=== PATIENT | male | born 1950 | race Caucasian/White ===

== ENCOUNTER 2021-06-04 06:51 | Outpatient (CLI) | payer MEDICARE, SELFPAY ==
[2021-06-04 06:59] VITALS: BMI 29.2
--- NOTE | 2021-06-04 07:13 | ECG_ITS ---
[facility] Test Date: 2021-06-04 Pat Name: Lauro Rivera Department: Room: Gender: Male Lbd Teacher: : 1950 Requested By: Lucina Lutz Order Number: [id number] Ludin MD: Lucina Lutz M.D. Interpretive Statements NAME OF STUDY: LEXISCAN SESTAMIBI STRESS TEST INDICATION: Shortness of Breath, PROCEDURE: At the baseline, the EKG revealed Normal sinus rhythm with poor R wave progression. Features of old anteroseptal myocardial infarction. The baseline blood pressure was 160/86 mm Hg with a heart rate of 61 beats/min. Lexiscan was infused over a period of 20 seconds. A total of 0.4 milligrams of Lexiscan was infused. The stress phase was continued for a total of 5 minutes. Heart rate at the end of the stress phase was 68 with a blood pressure 144/65. The EKG at the peak infusion revealed no significant changes. Sestamibi was injected 20 seconds after the Lexiscan infusion. Blood pressure at the end of the recovery phase was one 128/62 with a heart rate of 67 per minute. CONCLUSION: 1. No significant EKG changes with the LexiScan infusion 2. No LexiScan induced chest pain or cardiac arrhythmia 3. Normal blood pressure and heart rate response 4. Sestamibi/sestamibi perfusion scan pending; see separate report. Electronically Signed On 06-07-2021 0:41:09 CDT by Lucina Lutz M.D. [email or web address]
--- NOTE | 2021-06-04 07:14 | NMCV_ITS ---
NM violetta perf SPECT r/s* [id number] Lauro Rivera Age: 70 Gender: M : 1950 Exam Date: 06/04/2021 08:06 Ordering Phys: Lucina Lutz MD ([email or web address]) Technologist: PHOENIX Fritz Exam Location: [facility] Indications: SHORTNESS OF BREATH STRESS TEST Please [facility] IMAGE PROTOCOL Rest/Stress 1 Lexiscan Day Radiopharmaceutical Dose (mCi) Administration Site Administered by Rest: Tc-99m 10.8 IV PHOENIX Alejandro Sestamibi Stress:Tc-99m 32.8 IV PHOENIX Alejandro Sestamibi Rest: 04-Jun-2021 60 Discovery 630 Stress: 04-Jun-2021 30 Discovery 630 0.4mg Lexiscan. Images obtained in supine and prone position. SPECT RESULTS Technical Quality: Excellent Raw Data Analysis: Normal Image Corrections: No attenuation or motion correction applied Summed Stress Score: 6 Summed Rest Score: 0 Summed Difference Score: 6 PERFUSION FINDINGS Moderate area decreasesed tracer uptake was noted in the mid and apical inferior, mid inferoseptal, apical lateral and LV apex. Significant reversibility was noted in these regions FUNCTIONAL RESULTS (calculated via Gated SPECT) Stress Image LV EF (%): 69 Stress EDV (mL):100 TID: 0.97 Stress ESV (mL):31 FUNCTIONAL FINDINGS: Segmental wall motion analysis revealing no gross wall motion abnormalities IMPRESSIONS 1. Myocardial perfusion imaging revealing small to moderate area of reversible defect in the inferior, inferoseptal and apical regions suggestive of myocardial ischemia in the distribution of the left circumflex/right coronary artery. 2. Normal LV ejection fraction 69%. 3. LV wall motion analysis revealing no gross wall motion normalities. 4. Normal LV volume. No similar previous studies are available for comparison Dr Lucina Lutz MD FAC (Electronically Signed) Final Date: 04 June 2021 14:07 S
[2021-06-04] MEDS: regadenoson 0.4 Mg/5 ml Syringe IVP (08:57)
[2021-06-04 09:08] VITALS: BP 128/62; PULSE 67
== END 2021-06-04 06:52 | disposition home or self-care (01) ==
LOC: CDL 06:55
PROVIDERS: PCP Internal Medicine; Visit Provider Internal Medicine Cardiovascular Disease
DX: R07.9 Chest pain, unspecified (principal); I25.10 Atherosclerotic heart disease of native coronary artery without angina pectoris; R06.02 Shortness of breath
CPT/HCPCS: 78452; 93017; A9500; J2785

== ENCOUNTER 2021-06-25 13:14 | Outpatient (CLI) | payer MEDICARE, SELFPAY ==
--- NOTE | 2021-06-25 13:30 | USCV_ITS ---
RiveraLauro armijo Age: 70 Gender: M : 1950 Exam Date: 06/25/2021 14:46 Ordering Phys: Lucina Lutz MD ([email or web address]) Technologist: Mary Parikh Exam Location: [facility] [place] Indication: PAD, leg pain Risk Factors: smoker, HTN Previous Vascular Surgery: patient states left leg stent f/b graft f/b reverse vein graft RIGHT LEFT BP: 153.0 / 79.00 BP: 131.0/ 82.00 0 0 Waveform Velocity (cm/s) Velocity (cm/s) Waveform Biphasic 138.3 Iliac Prox 251.3 Biphasic Biphasic 136.7 Iliac Mid 257.4 Biphasic Biphasic 132.1 Iliac Distal 217.1 Biphasic Biphasic 120.9 FABRICATION WELDER 29.9 Biphasic Biphasic 96.0 SFA Prox 29.9 Biphasic Biphasic 144.6 SFA Mid 20.0 Biphasic Biphasic 103.9 SFA Dist 18.1 Monophasic Biphasic 447.8 POP 27.2 Monophasic N/A WEB DEVELOPMENT CONSULTANT 16.9 Monophasic Monophasic 37.3 DPA 142.9 Monophasic FINDINGS RT charter boat captain no flow RT DPA >220 LT WEB DEVELOPMENT CONSULTANT > 220 LT DPA> 220 NO GALA NON COMPRESSABLE No flow was detected in the left femoral artery Velocity monophasic waveforms were noted in the femoral- popliteal bypass graft. Markedly elevated velocity in the popliteal artery on the right side Monophasic waveforms in the posterior tibial and dorsalis pedis arteries. CONCLUSIONS 1. Noncompressible vessels bilaterally at the ankle 2. Features of high-grade stenosis in the right popliteal artery. 3. Possibly occluded posterior tibial artery on the right side. 4. Total occlusion of the superficial femoral artery on the left side. 5. Patent femoral-popliteal bypass graft with a sluggish flow 6. Patent posterior tibial and dorsalis pedis artery at the left ankle Dr Lucina Lutz MD [facility] (Electronically Signed) Final Date: 03 July 2021 18:39 S
--- NOTE | 2021-06-25 14:15 | USCV_ITS ---
Lauro Rivera Age: 70 Gender: M : 1950 Exam Date: 06/25/2021 14:20 Ordering Phys: Lucina Lutz MD ([email or web address]) Technologist: Mary Parikh Exam Location: [facility] [place] Indication: PAD Risk Factors: Previous Vascular Surgery: llower extremity stent left Right Brachial BP: / Left Brachial BP: / Right Left Velocity (cm/s) Spectral Plaque Velocity (cm/s) Spectral Plaque Syst/Diast Broadening Syst/Diast Broadening 79.40/ 19.80 Prox CCA 88.60 / 21.80 79.40/ 15.40 Mid CCA 57.30 / 16.50 50.60/ 10.50 Hetro Distal CCA 54.40 / 11.70 Hetro 133.60/40.40 Hetro Prox ICA 81.10 / 23.90 Hetro 250.65/93.40 Mid ICA 59.00 / 23.90 243.80/54.70 Distal ICA 54.70 / 26.50 113.40 ECA 143.30 3.42 ICA/CCA 0.92 Antegrade Vertebral Antegrade 82.90/ 14.50 cm/s 19.20/ 10.30 cm/s Tri Subclavian Tri 163.1 75.80 0 FINDINGS Moderate heterogeneous plaques of the right bifurcation. Moderate to heavy plaques at the mid and distal internal carotid artery on the right side Minimal plaques at the left bifurcation and internal carotid artery. Intimal thickening and minimal plaques in the common carotid arteries bilaterally. Antegrade flow in the vertebral arteries bilaterally. Low velocity continuous waveform in the left vertebral artery CONCLUSIONS Moderate heterogeneous plaques at the right bifurcation with elevated Doppler velocities suggesting 50 to 69% stenosis. Elevated velocities in the mid and distal internal carotid artery is suggestive of diffuse disease in the vessel. Minimal plaques at the left bifurcation and internal carotid artery, suggesting less than 50% gnosis. Abnormal Doppler waveforms in the left vertebral artery, may suggest collateral flow. Consider CTA to better evaluate the arch vessels and the intracranial arteries. No similar previous studies are available for comparison Dr Lucina Lutz MD [facility] (Electronically Signed) Final Date: 26 June 2021 09:23 S
--- NOTE | 2021-06-25 15:00 | USCV_ITS ---
Lauro Rivera Age: 70 Gender: M : 1950 Exam Date: 06/25/2021 14:05 Ordering Phys: Lucina Lutz MD ([email or web address]) Technologist: Exam Location: [facility] [place] Indication: dyspnea BP: 134 / 74 HR: 64 Rhythm: Sinus Technical Quality: Adequate MEASUREMENTS (Male / Female) Normal Values 2D ECHO LV Diastolic Diameter PLAX 3.8 cm 4.2 - 5.9 / 3.9 - 5.3 cm LV Systolic Diameter PLAX 2.7 cm IVS Diastolic Thickness 1.1 cm 0.6 - 1.0 / 0.6 - 0.9 cm IVS Systolic Thickness 1.1 cm LVPW Diastolic Thickness 1.0 cm 0.6 - 1.0 / 0.6 - 0.9 cm LVPW Systolic Thickness 1.3 cm LVOT Diameter 2.0 cm LV Ejection Fraction 2D Teich 55.9 % LV Ejection Fraction MOD 2C 60.6 % LV Ejection Fraction 2C AL 60.7 % LA Diameter 3.3 cm LA Width 3.4 cm LA Height 4.3 cm RA Width 3.1 cm RA Height 4.4 cm Aorta at Sinotubular Diameter 3.0 cm M-MODE Aortic Annulus Diameter 3.5 cm DOPPLER AV Peak Velocity 179.0 cm/s LVOT Peak Velocity 88.0 cm/s AV Area Cont Eq vti 1.8 cm squared AV Area Cont Eq pk 1.6 cm squared MV Area PHT 3.8 cm squared Mitral E to A Ratio 0.9 MV E' Velocity 48.0 cm/s Mitral E to MV E' Ratio 12.4 Mitral E to LV E' Lateral Ratio 11.3 Mitral E to LV E' Septal Ratio 13.8 TR Peak Velocity 137.0 cm/s TR Peak Gradient 7.5 mmHg FINDINGS Left Ventricle Normal left ventricular size and systolic function, EF 64 %. No regional wall motion abnormalities. Mild left ventricular hypertrophy. Grade I/IV diastolic dysfunction (abnormal relaxation filling pattern), normal to mildly elevated filling pressures. Right Ventricle The right ventricle is normal in size and function. Right Atrium The right atrium is normal in size. Left Atrium The left atrium is normal in size. Mitral Valve Thickened mitral valve. Aortic Valve Thickened aortic valve. Tricuspid Valve No gross abnormalities noted Pulmonic Valve Pulmonic valve not well visualized. Pericardium Normal pericardium without effusion. Aorta Normal ascending aorta dimension. CONCLUSIONS Normal left ventricular size and systolic function, EF 64 %. No regional wall motion abnormalities. Mild left ventricular hypertrophy. Grade I/IV diastolic dysfunction (abnormal relaxation filling pattern), normal to mildly elevated filling pressures. Thickened mitral valve. Thickened aortic valve. There is no pericardial effusion. There are no intracardiac masses. No previous study is available for comparison. Dr Lucina Lutz MD [facility] (Electronically Signed) Final Date: 25 June 2021 17:39 S
== END 2021-06-25 13:15 | disposition home or self-care (01) ==
LOC: US 13:15
PROVIDERS: PCP Internal Medicine; Visit Provider Internal Medicine Cardiovascular Disease
DX: R06.00 Dyspnea, unspecified (principal); I25.118 Atherosclerotic heart disease of native coronary artery with other forms of angina pectoris; I77.9 Disorder of arteries and arterioles, unspecified; I73.9 Peripheral vascular disease, unspecified; I08.0 Rheumatic disorders of both mitral and aortic valves; I65.23 Occlusion and stenosis of bilateral carotid arteries
CPT/HCPCS: 93306; 93880; 93925

== ENCOUNTER → 2021-06-26 11:41 | Outpatient (BNVA) | payer MEDICARE, SELFPAY | PROVIDERS: PCP Internal Medicine; Visit Provider Internal Medicine Cardiovascular Disease | DX: I25.118 Atherosclerotic heart disease of native coronary artery with other forms of angina pectoris (principal); I65.21 Occlusion and stenosis of right carotid artery; Z01.812 Encounter for preprocedural laboratory examination | CPT/HCPCS: 80048; 85025; 85610; 86850; 86900 ==

== ENCOUNTER 2021-07-02 18:15 | Observation (INO) | payer MEDICARE, SELFPAY ==
[2021-07-02] VITALS (29 sets, daily range): BP systolic 129–215; BP diastolic 67–114; PULSE 60–76; RESP 9–27; TEMP 36.1–36.6; O2SAT 96–99; BMI 28.5
--- NOTE | 2021-07-02 15:00 | XACV_ITS ---
Ht: 180 cm Wt: 93 kg BSA: 2.18 m2 Gender: Male : 1950 Any Known Allergies: Other Exam Priority: Routine Procedure(s): Procedure Description: Diagnostic procedure Procedure Description: Left Heart Catheterization Procedure Description: Peripheral Cath Diagnostic Procedure Procedure Description: Abdominal aortic angiography Procedure Description: Lower extremities' angiography Procedure Description: Coronary Angiography Procedure Description: Pressure Wire Bolivar POWELL; Diagnostic Cath Status: Elective Diagnostic Findings * Coronary angiography shows right dominance. * The left main is a medium caliber short vessel with no significant stenotic lesion. * The left anterior descending artery is a medium caliber vessel which appears to wrap around the LV apex. The mid LAD was found to have a tapering narrowing for 60% tumors the second septal compensation and benefits administrator. The first diagonal branch was found to have mild diffuse disease. The mid and the distal segment of the left anterior descending artery was found to have minimal intimal irregularities. * The left circumflex artery is a medium caliber vessel which gives of a high obtuse marginal branch proximally. The artery in the AV groove was found to be a slender caliber vessel with some minimal intimal irregularities. The proximal segment of the first obtuse marginal artery was found to have around 20 to 30% diffuse narrowing. * The right coronary artery is a medium caliber vessel which appears to bifurcate in the mid segment, giving of the PLV and the PDA branch. These branches were found to have mild diffuse intimal irregularities with no significant stenotic lesions. Carotid Diagnostic Findings . Abdominal Diagnostic Findings Mild diffuse plaques noted in the abdominal aorta. No significant lesions are noted at the bifurcation. Both renal arteries appear to be patent. And abdominal aortogram was performed by placing the pigtail catheter at the level of the L1 vertebra. The study is of suboptimal quality. The aorta was found to be of normal caliber. Minimal ectasia was noted in the infrarenal aorta. No significant lesions were noted in the aorta or in the proximal common iliac arteries bilaterally. Lower Extremity Diagnostic Findings On the left side, the proximal common iliac artery was found to be widely patent with no significant stenotic lesions. The external iliac artery was selectively engaged using a contra catheter. The left external iliac and the internal iliac arteries were found to have moderate diffuse disease. The platinum femoral artery was found to be extensively stented and totally occluded right at the origin of the profunda femoral artery. The profunda femoral artery itself was found to have mild to moderate diffuse plaques. The bypass graft from the common femoral to the popliteal artery was found to be patent. At the distal anastomosis, there was an 80 to 90% stenosis in the graft. The popliteal artery appears to be patent. The anterior tibial and the posterior tibial arteries were not visualized. The peroneal artery was found to be extending up to the middle third of the leg.. On the right side, iliac angiogram with runoff was performed by injecting into the femoral arterial sheath. The external and internal iliac arteries were found to have mild to moderate diffuse disease. The common femoral artery also was found to have mild diffuse disease. The profunda femoral artery was found to have moderate to severe diffuse disease. The femoral artery was found to have moderate diffuse disease in the proximal segment. In the adductor canal, the artery was found to have moderate to heavy diffuse irregular plaques. Mild to moderate diffuse disease was noted in the distal third of the artery. Popliteal artery was found to have mild to moderate diffuse disease. Just behind the knee joint, the artery was found to have a 80 to 90% segmental stenosis. The anterior tibial and posterior tibial arteries were found to be totally occluded proximally. Anterior tibial artery was found to be reconstituting just above the ankle. The peroneal artery was found to be patent up to the ankle. Moderate diffuse disease was noted in the artery proximally.. Conclusions 70-year-old white male with history of hypertension, diabetes, dyslipidemia, carotid artery disease and peripheral artery disease, presents with complaints of chest pain. He had an abnormal myocardial perfusion imaging suggesting ischemia in distribution of the left circumflex artery/right coronary artery. He also was complaining of increasing exertional claudication mostly on the left side. In view of his ongoing worsening of the symptoms, in order to further evaluate his coronary status as well as peripheral arterial status, a left heart catheterization with left and right coronary angiogram and peripheral angiogram were recommended. The patient underwent these procedures today. The findings are as follows.. 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 The femoral-popliteal bypass graft was found to be patent with a high-grade stenosis at the distal anastomosis. Possible occlusion of the anterior tibial and posterior tibial artery on the left side with patent peroneal artery. Mild to moderate diffuse disease in the other vessels. On the right side, there was a high-grade lesion in the popliteal artery. Moderate to heavy diffuse irregular plaques were noted in the femoral artery at the adductor canal. Anterior tibial and posterior tibial arteries were found to be occluded proximally with some reconstitution distally. The peroneal artery appeared to be extending up to the ankle. The coronary angiogram revealed short left main. A moderate tapering narrowing in the mid LAD. Moderate calcification was noted to the proximal LAD. Mild diffuse disease in the other vessel. The LVEDP was 6 mmHg.. Recommendations Continue current medical management and risk factor modification. I reviewed the cardiac catheterization and the peripheral angiogram data with Dr. Gutierrez. Because of the patient's symptoms, it was thought to be appropriate to consider FFR of the LAD lesion. If it is significant, we will go ahead with the PCI. Patient will be brought back for the peripheral intervention at a later date. LV EDP: 6 mmHg Left Ventriculography Findings: * The LV gram was not performed to because of the concern about the dye overload. The LVEDP was 6 mmHg. Pressures Phase:Rest AO : 171 / 80 ( 114 ) @ 3:59:00 PM 155 / 58 ( 100 ) @ 4:12:00 PM 157 / 52 ( 100 ) @ 4:12:00 PM 118 / 80 ( 100 ) @ 4:24:00 PM LV : 161 / -23 / 6 @ 4:11:00 PM 162 / -15 / 8 @ 4:12:00 PM Valves Phase:DefaultPhase AV : 13.0 @ 6:17:27 PM AV Mean Gradient: 12.0 @ 6:17:27 PM Hemodynamic Data Phase:Rest AO : 171.0 / 80.0 ( 114.0 ) @ 3:59:00 PM 155.0 / 58.0 ( 100.0 ) @ 4:12:00 PM 157.0 / 52.0 ( 100.0 ) @ 4:12:00 PM 118.0 / 80.0 ( 100.0 ) @ 4:24:00 PM Clinical Evaluation EBL: 5mL-10mL Procedural Details Pre-Procedure Time Out. Identified patient by full name and date of as verbalized by the patient/guarantor. Does the consent match the physician's order: Yes. Accurate & Complete Informed Consent: Yes. Inpatient/Outpatient History & Physical on Chart: Yes. If H&P is completed, is and addenduem needed: No; If yes, is the addendum complete: N/A. Visualize and Verify Site with Patient/Guarantor: N/A. Relevant Radiology Images available: N/A. Pre-op teaching completed and patient verbalized understanding. The risks, benefits, and alternatives of sedation and/or procedure were discussed by physician. The patient agrees to continue. Procedure started. [facility] Clinical Fraility Score: 4: Vulnerable. Traveling Clerk Indications: Worsening Angina, abnormal stress test. Chest Pain Symptom Assessment: Typical Angina Symptoms. Cardiovascular Instability: No. Correct patient, site and procedure confirmed by cath team. PERRLA. Strong, equal hand hydrology technician bilaterally. Lungs clear x 5 lobes. IV Site on Arrival: 20 gauge in the right anticubital. IV Fluids: 0.9% NaCl at KVO. 0 mL infused prior to labor crew supervisor. Pre Procedural Pulses: bilateral dorsalis pedis was Doppled. Pre Procedural Pulses: bilateral posterior tibial was Doppled. Pre Procedural Pulses: bilateral radial was 3+. Oxygen started at 2liters/min via nasal canula. bilateral groins was prepped with chloroprep then draped in the usual sterile fashion. Veronica Quinteros RN will be circulating nurse for this procedure. Baseline sample Acquired. HR: 72 BPM. Physician arrived. Equipment: 6F - Femoral. Cardiac Cath Pack. ACIST Manifold Kit Model BT 2000. Heparinized Saline (2 units/mL), 1000 mL bag. Kit, Micropuncture. Physician scrubbed in. Immediate Pre-Procedure Time Out. Correct Patient: Yes; Correct Procedure: Yes; Correct Site: Yes; Correct Patient Position: Yes; Correct Supplies: Yes; Dried Flammable Prep: Yes; Blood Products Available: N/A;. Lidocaine 1% infiltrated to the right groin. Arterial access obtained with micropuncture set. A 5 [place] JL4 catheter in over wire. Multiple views taken of left coronary artery. Catheter removed over the standard wire. A 5 [place] JR4 catheter in over wire. Multiple views taken of right coronary artery. Catheter removed over the standard wire. A 5 [place] Angled Pig catheter in over wire. EDP Sample taken: LV 161/-24,6; HR: 79 BPM; SpO2: 98%. Pullback taken: LV 162/-16,8; AO 155/58(100); Mean: 12mmHg, Peak to Peak: 13mmHg, SEP: 20sec/min; HR: 79 BPM; SpO2: 98%. Abdominal aortogram performed in AP @ 20 mL/sec for a total of [address] Gutierrez to come view films. Catheter out. Right leg runoff through the sheath 10 ml for total of 20 ml. A 5Fr RIM catheter in over wire. Left leg runoff 10 ml for total of 20 ml. Catheter removed over the standard wire. Dr Lutz scrubbed out. Dr. Gutierrez scrubbed in to perform intervention. Sheath upsized to a 6 Fr. 6 [place] XB 3.5 guide catheter was inserted over the wire. FFR guidewire was advanced through the guide catheter to lesion in the prox LAD. An FFR value of 0.84 was obtained for a lesion located at Mid LAD. Fractional flow reserve measurements obtained. Wire out. Guide catheter out. Dr Gutierrez scrubbed out. A Suture was successful obtaining hemostatsis at the Right Femoral artery insertion site. Sheath(s) sutured into position with 2-0 silk and sterile 4x4's and Op-site applied over the site. No oozing or signs and symptoms of hematoma noted. Arterial sheath flushed and connected to tranducer and pressure bag with heparinized saline. Post Procedure: Pulses reassessed and unchanged. PERRLA. Strong, equal hand hydrology technician bilaterally. No VTE prophylaxis required. Contrast type used: Visipaque 320 mgI/mL, 500 mL bottle. Post-op diagnosis: nonobstructive CAD, severe PAD, severe venous graft disease. Medication's Wasted: Lidocaine 1% = 7 mL. Medication's Wasted: Heparin = 3000 units. Total IV fluids: 316 mL. Complications: none. Medication's Wasted: Other = adenosine 59.8 mg. Estimated blood loss: 5mL-10mL. Procedure completed. Patient transferred by bed to 1st floor. Vital chart was stopped. Access Site Site: Right Femoral artery Sheath Size: 5 Fr Hemostasis Method: Suture Hemostasis Success: Successful Procedure Medications Start: 4:37 PM Stop: 4:37 PM Medication: Versed Amount: 1 mg Route: I.V. Start: 4:37 PM Stop: 4:37 PM Medication: Fentanyl Amount: 50 mcg Route: I.V. Start: 4:47 PM Stop: 4:47 PM Medication: Versed Amount: 1 mg Route: I.V. Start: 4:47 PM Stop: 4:47 PM Medication: Fentanyl Amount: 25 mcg Route: I.V. Start: 4:57 PM Stop: 4:57 PM Medication: Heparin Amount: 1500 units Route: I.V. Start: 5:01 PM Stop: 5:01 PM Medication: Labetalol (Trandate) Amount: 25 mg Route: I.V. Start: 5:04 PM Stop: 5:04 PM Medication: 0.9% Saline Amount: 200 ml Route: I.V. bolus Start: 5:13 PM Stop: 5:13 PM Medication: Fentanyl Amount: 25 mcg Route: I.V. Start: 5:17 PM Stop: 5:17 PM Medication: Versed Amount: 1 mg Route: I.V. Start: 5:45 PM Stop: 5:45 PM Medication: Versed Amount: 1 mg Route: I.V. Start: 5:53 PM Stop: 5:53 PM Medication: Heparin Amount: 5000 units Route: I.V. I, the attending physician, have reviewed and verified all procedure medications. Yes, all medications given per verbal order History/Risk Factors Hypertension: Yes Dyslipidemia: Yes Peripheral Arterial Disease (PAD): Yes Myocardial Infarction (PA): No Obesity: No Renal Disease: No Tobacco Use: Current/Recent(w/in 1 year) Prior Interventions PCI: Yes CABG: No Valve Surgery: No Report Signatures IPV Workflow Finalized by Dr Lucina Lutz MD [facility] on 07/03/2021 07:37 AM Cath Workflow Finalized by Dr Lucina Lutz MD [facility] on 07/03/2021 07:37 AM
[2021-07-02] MEDS: diphenhydrAMINE 50 mg Capsule PO (16:02)
--- NOTE | 2021-07-02 16:39 | P.HPUD_ITS ---
Surgery/Procedure H&P Update DATE OF PROCEDURE: July 02, 2021 DATE H&P PERFORMED: 06/26/21 H&P UPDATE INFORMATION: I have reviewed H&P completed within last 30 days, I have examined patient prior to procedure and No changes to prior documentation PREOP DIAGNOSIS: ASHD/PAD PRIMARY INDICATION FOR PROCEDURE: chest pain, abnormal MPI; leg pain PLANNED PROCEDURE: Operation Date: 07/02/21 16:30 Proposed Procedures p Cardiac Catheterization(Left) - Lucina Lutz MD and peripheral angiogram; possible PCI/CABLE TOWER OPERATOR PATIENT REASSESSED PRIOR TO SEDATION, WITH NO CHANGE NOTED: Yes PHYSICAL EXAM: alert, oriented x 3, clear to auscultation bilaterally and regular rate & rhythm AIRWAY EVAL/ANESTHESIA PLAN: normal airway, see other exam findings, ASA III, Monitored Anesthesia, Local Anesthesia, Risks, benefits & alternatives of sedation and/or procedure discussed and Patient agrees to continue as planned
[2021-07-02] MEDS: famotidine 20 mg Tablet PO (19:20)
[2021-07-02] MEDS: metoprolol tartrate 50 mg Tablet PO (19:20)
[2021-07-02] MEDS: cyclobenzaprine 10 mg Tablet PO (19:21)
[2021-07-02] MEDS: guaiFENesin 600 mg Tablet PO (19:21)
--- NOTE | 2021-07-02 19:36 | PC.NURSE ---
received from cardiac laboratory chemist at 1830.report received.pt is alert and oriented x 4.denies pain at present.right femoral arteial sheath intact to pressurized system.drsg is dry and intact and no hematoma noted.right leg is warm to touch.dopplerable dp and pt pulse noted bilaterally.instructed in activity restrictions s/p femoral artery procedure...and instructed to notify staff for any bleeding,pain,numbness...or for any concerns at all.pt verb understanding of instructions.
--- NOTE | 2021-07-02 19:38 | PC.NURSE ---
1934: Patient's B/Ps elevated. Notified Dr. Gutierrez. Orders received, see NOV.
[2021-07-02 19:43] LABS: Glucose Point of Care 337 mg/dL (70-110)
[2021-07-02] MEDS: insulin lispro 100 unit/1 mL 20 UNIT SUBCUT (20:04)
[2021-07-02] MEDS: nitroglycerin 1 gm/inch oint Pkt 1 INCH TOPICAL (20:12)
[2021-07-02] MEDS: amlodipine 5 mg Tablet PO (20:12)
[2021-07-02 21:19] LABS: Partial Thromboplastin Time 42.5 SECONDS (23.9-36.7)
--- NOTE | 2021-07-02 21:50 | PC.NURSE ---
Around 2129: Patient's b/p still elevated. Notified Dr. Gutierrez. Orders received, see NOV. Notified Dr. Gutierrez of PTT results. Orders received to pull right groin sheath when b/p is <140 systolic. Will continue to monitor.
[2021-07-02] MEDS: gabapentin 400 mg Capsule 800 MG PO (22:46)
[2021-07-02] MEDS: clotrimazole 1% cream 30 gm 1 APPLIC TOPICAL (22:48)
[2021-07-02] MEDS: diclofenac 1% Topical Gel 100 gm TOPICAL (22:54)
[2021-07-02] MEDS: sodium chloride 0.9% 1,000 ML 100 ML IV (22:55)
[2021-07-02] MEDS: hyDRALAzine 20 mg/mL INJ 1 mL 10 MG IVP (23:00)
[2021-07-02] MEDS: fentaNYL 50 mcg/mL INJ 2mL IVP (23:56)
[2021-07-03] VITALS (50 sets, daily range): BP systolic 119–159; BP diastolic 57–80; PULSE 60–91; RESP 9–27; TEMP 36.6; O2SAT 88–97
[2021-07-03] MEDS: temazepam 15 mg Capsule PO (00:36)
[2021-07-03 04:05] LABS: Basophils # 0.1 10^3/uL (0.0-0.1); Basophils % 0.6 %; Eosinophils # 0.1 10^3/uL (0.0-0.8); Eosinophils % 0.7 %; Hematocrit 35.6 % (42.0-52.0); Hemoglobin 11.9 g/dL (11.7-16.6); Lymphocytes # 1.5 10^3/uL (0.8-4.8); Lymphocytes % 14.1 %; Mean Corpuscular HGB Conc 33.4 g/dL (30.0-36.0); Mean Corpuscular Hemoglobin 30.1 pg (28.0-34.0); Mean Corpuscular Volume 89.9 fl (80-94); Mean Platelet Volume 11.5 fL (7.4-10.4); Monocytes # 0.7 10^3/uL (0.2-0.9); Monocytes % 6.9 %; Neutrophils # 8.01 10^3/uL (1.8-7.7); Neutrophils % 77.2 %; Nucleated Red Blood Cells % 0 %; Platelet Count 180 10^3/cmm (130-400); Red Blood Count 3.96 10^6/uL (4.1-5.3); Red Cell Distribution Width 12.4 % (12.1-15.1); White Blood Count 10.4 10^3/uL (4.0-10.0)
[2021-07-03 04:43] LABS: Anion Gap 16.6 (5-19); Blood Urea Nitrogen 17 mg/dL (8-23); Calcium 8.4 mg/dL (8.5-10.5); Carbon Dioxide 21 mmol/L (22-29); Chloride 105 mmol/L (98-107); Glucose 183 mg/dL (65-115); Osmolality Calculated 294 mOsm/kg (285-295); Potassium 3.6 mmol/L (3.5-5.1); Sodium 139 mmol/L (136-145)
--- NOTE | 2021-07-03 06:30 | PC.NURSE ---
Around 0010: Patients b/p < 140 systolic. PTT 42.5. Removed sheath from patients right groin. Held pressure 20 minutes. Dressed site with 4x4 and tegaderm. No drainage or hematoma noted. Vitals stable. Patient tolerated procedure well. Will continue to monitor.
--- NOTE | 2021-07-03 08:40 | PC.CHAP ---
Pastoral Care Encounter/Spiritual Assessment Type of Contact [] Declined patent leather sorter visit [] Patient/Family/Request visit [] Outpatient visit [] Follow-up visit [] Physician referral [] Code/Alert [x] Routine visit [] Staff referral [] Actively dying [] Patient sleeping [] Family support [] [] Out of room [] Palliative care [] [] Receiving care in room [] Pre-surgical visit [] Trauma [] Long length of stay [] ICU visit [] Other: Relational/Emotional Strength [x] Patient feels connected with others/family/visitors/staff [] Distress [] Loneliness/isolation [] Abandonment Spirituality of Patient [x] Person of Denisa [x] Attends Jain of their Denisa [x] Believes in Prayer [] Reads Bible or Scientology materials [] There are Spiritual issues to be addressed Real Estate Teacher Interventions [x] Prayer [x] Active listening [x] Non-anxious presence [x] Spiritual/emotional support [] Crisis/trauma care [] Spiritual counseling [] Bereavement support [] Provided bereavement packet [] Provided Bible/devotional materials [] Provided toy/stuffed animal, coloring book to patient or family member [] Provided Communion [] Anointing/[place] [] Salvation [x] Completed spiritual assessment [] Other: Impact on Illness or Injury [] Angry [] Fearful [] Anxious [] Often cries [] Exhaustion [] Unable to work [] Unable to attend gnosticist [] Unable to walk/stand [] Unable to read [] Unable to drive [] Unable to eat/drink [] Unable to sleep [] Unable to be with family [] Patient intubated [] Other: Summary Pt has had a number of procedures and is still a little sore. He is hoping to go home today. He lives with his of 52 years and they look after his 95 year old mother in law. She still lives alone and is very independent but they check on her and take her to various places she needs to go. Pt had three children, two daughters and a son. Both daughters in their 40's so he only has his son remaining. Pt does have a number of grandchildren and even some great grand children. He and his attend a [employer] near his home. Time spent with patient 10m
[2021-07-03 09:57] LABS: Glucose Point of Care 216 mg/dL (70-110)
[2021-07-03] MEDS: insulin lispro 100 unit/1 mL 20 UNIT SUBCUT (10:00)
[2021-07-03] MEDS: cyclobenzaprine 10 mg Tablet PO (10:01)
[2021-07-03] MEDS: atorvastatin 40 mg Tablet 80 MG PO (10:01)
[2021-07-03] MEDS: metoprolol tartrate 50 mg Tablet PO (10:01)
[2021-07-03] MEDS: cholecalciferol (vitamin D3) 1,000 unit Tablet 2000 UNIT PO (10:02)
[2021-07-03] MEDS: losartan 50 mg Tablet PO (10:02)
[2021-07-03] MEDS: gabapentin 400 mg Capsule 800 MG PO (10:02)
[2021-07-03] MEDS: cetirizine 10 mg Tablet PO (10:02)
[2021-07-03] MEDS: famotidine 20 mg Tablet PO (10:03)
[2021-07-03] MEDS: ranolazine (12HR) 500 mg Tablet PO (10:03)
[2021-07-03] MEDS: montelukast sodium 10 mg Tablet PO (10:03)
[2021-07-03] MEDS: guaiFENesin 600 mg Tablet PO (10:03)
[2021-07-03] MEDS: aspirin 81 mg EC Tablet PO (10:04)
[2021-07-03] MEDS: isosorbide mononitrate ER 60 mg Tablet PO (10:07)
--- NOTE | 2021-07-03 10:57 | PM.PN ---
Subjective Subjective: Interval history: Patient is doing okay. He had FFR of the LAD lesion which was found to be nonsignificant. It was decided to treat her medically. He had a peripheral angiogram. He will be brought back to the hospital at a later date for intervention by Dr. gregg Medications: Reviewed: Yes Medication Review Details: Current Medications Acetaminophen (Acetaminophen 325 Mg Tablet) 650 mg PO Q6H PRN PRN Reason: MILD PAIN Al Hydrox/Mg Hydrox/Simethicone (Cquz-Fov-Lefoblfxa-Blaze 30 Ml Udc) 30 ml PO Q15M PRN PRN Reason: INDIGESTION Albuterol Sulfate (Albuterol 8 Gm Mdi) 2 puff INHALATION Q6H PRN PRN Reason: Shortness Of Breath Or Wheezing Alprazolam (Alprazolam 0.5 Mg Tablet) 0.25 mg PO TID PRN PRN Reason: ANXIETY Aspirin (Aspirin 81 Mg Ec Tablet) 81 mg PO DAILY [facility] Last Admin: 07/03/21 10:04 Dose: 81 mg Documented by: Atorvastatin Calcium (Atorvastatin 40 Mg Tablet) 80 mg PO DAILY [facility] Last Admin: 07/03/21 10:01 Dose: 80 mg Documented by: Atropine Sulfate (Atropine 1 Mg/Ml Sdv 1 Ml) 0.5 mg IVP PRN PRN PRN Reason: Symptomatic bradycardia Cetirizine HCl (Cetirizine 10 Mg Tablet) 10 mg PO DAILY [facility] Last Admin: 07/03/21 10:02 Dose: 10 mg Documented by: Clotrimazole (Clotrimazole 1% Cream 30 Gm) 1 applic TOPICAL BID@0900,2100 [facility] Last Admin: 07/03/21 10:06 Dose: Not Given Documented by: Cyclobenzaprine HCl (Cyclobenzaprine 10 Mg Tablet) 10 mg PO BID [facility] Last Admin: 07/03/21 10:01 Dose: 10 mg Documented by: Diclofenac Sodium (Diclofenac 1% Topical Gel 100 Gm) 0 applic TOPICAL TID [facility] Last Admin: 07/03/21 10:06 Dose: Not Given Documented by: Famotidine (Famotidine 20 Mg Tablet) 20 mg PO BID [facility] Last Admin: 07/03/21 10:03 Dose: 20 mg Documented by: Furosemide (Furosemide 20 Mg Tablet) 20 mg PO DAILY PRN PRN Reason: edema Gabapentin (Gabapentin 400 Mg Capsule) 800 mg PO TID [facility] Last Admin: 07/03/21 10:02 Dose: 800 mg Documented by: Guaifenesin (Guaifenesin 600 Mg Tablet) 600 mg PO BID [facility] Last Admin: 07/03/21 10:03 Dose: 600 mg Documented by: Hydralazine HCl (Hydralazine 20 Mg/Ml Inj 1 Ml) 10 mg IVP Q2H PRN PRN Reason: HYPERTENSION Last Admin: 07/02/21 23:00 Dose: 10 mg Documented by: Hydromorphone HCl (Hydromorphone 4 Mg Tablet) 4 mg PO 5XD PRN PRN Reason: pain Last Admin: 07/03/21 10:04 Dose: 4 mg Documented by: Sodium Chloride (Sodium Chloride 0.9%) 1,000 mls @ 50 mls/hr IV .Q20H ONE Stop: 07/03/21 10:59 Last Admin: 07/02/21 16:20 Dose: Not Given Documented by: Sodium Chloride (Sodium Chloride 0.9%) 1,000 mls @ 100 mls/hr IV .Q10H [facility] Last Infusion: 07/03/21 09:36 Dose: Infused Documented by: Insulin Human Lispro (Insulin Lispro 100 Unit/1 Ml) 20 unit SUBCUT TID [facility] Last Admin: 07/03/21 10:00 Dose: 20 unit Documented by: Isosorbide Mononitrate (Isosorbide Mononitrate Er 60 Mg Tablet) 60 mg PO DAILY [facility] Last Admin: 07/03/21 10:07 Dose: 60 mg Documented by: Losartan Potassium (Losartan 50 Mg Tablet) 50 mg PO DAILY [facility] Last Admin: 07/03/21 10:02 Dose: 50 mg Documented by: Magnesium Hydroxide (Magnesium Hydroxide 30 Ml Udc) 30 ml PO DAILY PRN PRN Reason: CONSTIPATION Metoclopramide HCl (Metoclopramide 10 Mg Tablet) 10 mg PO TID PRN PRN Reason: Nausea And Vomiting Metoprolol Tartrate (Metoprolol Tartrate 50 Mg Tablet) 50 mg PO BID [facility] Last Admin: 07/03/21 10:01 Dose: 50 mg Documented by: Montelukast Sodium (Montelukast Sodium 10 Mg Tablet) 10 mg PO DAILY [facility] Last Admin: 07/03/21 10:03 Dose: 10 mg Documented by: Mupirocin (Mupirocin Oint 22 Gm) 1 applic TOPICAL BID@0900,2100 [facility] Last Admin: 07/03/21 10:08 Dose: Not Given Documented by: Naloxone HCl (Naloxone 0.4 Mg/Ml Sdv) 0.1 mg IVP Q2M PRN PRN Reason: RESPIRATORY RATE < 8/MIN Nitroglycerin (Nitroglycerin 0.4 Mg Sublingual Tablet) 0.4 mg SUBLINGUAL Q5M PRN PRN Reason: CHEST PAIN Non-Formulary Medication (Bupropion Hcl) 75 mg PO DAILY [facility] Last Admin: 07/03/21 10:06 Dose: Not Given Documented by: Non-Formulary Medication (Glipizide) 10 mg PO BID [facility] Last Admin: 07/03/21 10:06 Dose: Not Given Documented by: Non-Formulary Medication (Icosapent Ethyl [Vascepa]) 1 gm PO DAILY [facility] Last Admin: 07/03/21 10:07 Dose: Not Given Documented by: Non-Formulary Medication (Insulin Degludec [Tresiba Flextouch U-200]) 65 unit SUBCUT DAILY [facility] Last Admin: 07/03/21 10:07 Dose: Not Given Documented by: Non-Formulary Medication (Linaclotide [Linzess]) 145 mcg PO DAILY [facility] Last Admin: 07/03/21 10:08 Dose: Not Given Documented by: Ranolazine (Ranolazine (12hr) 500 Mg Tablet) 500 mg PO DAILY [facility] Last Admin: 07/03/21 10:03 Dose: 500 mg Documented by: Temazepam (Temazepam 15 Mg Capsule) 15 mg PO BEDTIME PRN PRN Reason: INSOMNIA Last Admin: 07/03/21 00:36 Dose: 15 mg Documented by: Vitamin D (Cholecalciferol (Vitamin D3) 1,000 Unit Tablet) 2,000 unit PO DAILY [facility] Last Admin: 07/03/21 10:02 Dose: 2,000 unit Documented by: Vitals/I&O/Wt Last Vital Signs Temp 98 F 07/03/21 04:23 Pulse 86 07/03/21 08:00 Resp 18 07/03/21 10:04 BP 137/79 07/03/21 10:02 Pulse Ox 94 07/03/21 08:00 07/02/21 07/03/21 07/03/21 22:59 06:59 14:59 Intake Total 360 / 360 300 / 660 1360 / 1360 Output Total 200 / 200 1375 / 1575 600 / 600 Balance 160 / 160 -1075 / -915 760 / 760 Weight last 48 hrs Weight 209 lb 12.8 oz Weight 205 lb Physical Exam Narrative: EXAM NARRATIVE: GENERAL: The patient is alert and oriented times three. Not in any acute distress. HEENT: No significant pallor, icterus or lymphadenopathy.Oral cavity: There are no mucous membrane lesions. NECK: Trachea appears to be central. No masses noted. No JVD or thyromegaly appreciated. RESPIRATORY: Chest is symmetrical. No intercostals muscle retraction or any accessory muscle activation. There is no chest wall tenderness. Breath sounds are heard bilaterally. No rales or rhonchi heard. No evidence of any consolidation. BREASTS: Deferred. HEART: The heart sounds are normal. No S3 or S4. No significant murmurs. No pericardial rub ABDOMEN: No vessel pulsations or distention. No tenderness. No organomegaly appreciated. Bowel sounds are normally heard. : Deferred. RECTAL: Deferred. LYMPHATIC: No lymphadenopathy noted in the neck or groin. EXTREMITIES: No edema or cyanosis. No clubbing. Right groin has no hematoma or bleeding MUSCULOSKELETAL: No acute joint deformities or swelling SKIN: There are no significant rashes or ecchymosis NEUROPSYCHIATRIC: The patient is alert and oriented x3. Appears to be in a good mood. No tremors or rigidity noted. Data : 07/03/21 03:13 07/03/21 03:13 Other Labs: Laboratory Last Values WBC 10.4 10^3/uL (4.0-10.0) H 07/03/21 03:13 RBC 3.96 10^6/uL (4.1-5.3) L 07/03/21 03:13 Hgb 11.9 g/dL (11.7-16.6) 07/03/21 03:13 Hct 35.6 % (42.0-52.0) L 07/03/21 03:13 MCV 89.9 fl (80-94) 07/03/21 03:13 MCH 30.1 pg (28.0-34.0) 07/03/21 03:13 MCHC 33.4 g/dL (30.0-36.0) 07/03/21 03:13 RDW 12.4 % (12.1-15.1) 07/03/21 03:13 Plt Count 180 10^3/cmm (130-400) 07/03/21 03:13 MPV 11.5 fL (7.4-10.4) H 07/03/21 03:13 Neut % (Auto) 77.2 % 07/03/21 03:13 Lymph % (Auto) 14.1 % 07/03/21 03:13 [place] % (Auto) 6.9 % 07/03/21 03:13 Eos % (Auto) 0.7 % 07/03/21 03:13 Baso % (Auto) 0.6 % 07/03/21 03:13 Neut # (Auto) 8.01 10^3/uL (1.8-7.7) H 07/03/21 03:13 Lymph # (Auto) 1.5 10^3/uL (0.8-4.8) 07/03/21 03:13 [place] # (Auto) 0.7 10^3/uL (0.2-0.9) 07/03/21 03:13 Eos # (Auto) 0.1 10^3/uL (0.0-0.8) 07/03/21 03:13 Baso # (Auto) 0.1 10^3/uL (0.0-0.1) 07/03/21 03:13 Nucleated RBC % (auto) 0 % 07/03/21 03:13 Nucleated RBCs # 0.0 /100WBC 07/03/21 03:13 APTT 42.5 SECONDS (23.9-36.7) H 07/02/21 20:23 Sodium 139 mmol/L (136-145) 07/03/21 03:13 Potassium 3.6 mmol/L (3.5-5.1) 07/03/21 03:13 Chloride 105 mmol/L (98-107) 07/03/21 03:13 Carbon Dioxide 21 mmol/L (22-29) L 07/03/21 03:13 Anion Gap 16.6 (5-19) 07/03/21 03:13 BUN 17 mg/dL (8-23) 07/03/21 03:13 Creatinine 1.2 mg/dL (0.7-1.2) 07/03/21 03:13 GFR Calculation Not Reportable 07/03/21 03:13 Glucose 183 mg/dL (65-115) H 07/03/21 03:13 POC Glucose 216 mg/dL (70-110) H 07/03/21 07:55 Calculated Osmolality 294 mOsm/kg (285-295) 07/03/21 03:13 Calcium 8.4 mg/dL (8.5-10.5) L 07/03/21 03:13 A&P Assessment and plan (1) Peripheral vascular disease: For the peripheral angiogram findings, please refer to the report from yesterday. Since the patient is remaining stable, he is being discharged on the current medications. He will be brought back to the hospital for intervention by Dr. Gregg Status: Acute (2) Carotid stenosis: Currently on the current medications. Status: Acute Qualifiers: Laterality: right Qualified Code(s): I65.21 - Occlusion and stenosis of right carotid artery (3) Atherosclerosis of coronary artery of [place] heart without angina pectoris: The angiogram findings, please refer to the report from yesterday. We will try to optimize the antianginal medications. Status: Acute Qualifiers: Coronary Disease-Associated Artery/Lesion type: [place] artery Qualified Code(s): I25.10 - Atherosclerotic heart disease of [place] coronary artery without angina pectoris (4) Hypertension: Since the blood pressure is in the normal range, patient may not require any medication changes at this time. Advised to continue on the current measures. Status: Acute Qualifiers: Hypertension type: essential hypertension Qualified Code(s): I10 - Essential (primary) hypertension Attestations Medical Necessity Statement*: Patient is being discharged home today Coding Level of Care Code Acute Electrical Installation Inspector for Birdie Fwd History Detailed Exam Detailed Medical Decision Making Moderate Complexity Diagnoses Peripheral vascular disease I73.9 Carotid stenosis I65.21 Laterality: right Atherosclerosis of coronary artery of [place] heart without angina pectoris I25.10 Coronary Disease-Associated Artery/Lesion type: [place] artery Hypertension I10 Hypertension type: essential hypertension
--- NOTE | 2021-07-03 11:25 | PC.NURSE ---
discharge instructions given and explained.pt verb understanding of instructions.discharged at this time.spouse to drive pt home
--- NOTE | 2021-07-03 16:20 | PC.NURSE ---
orders for medicataions were changed after pt had been discharged.pt's spouse notified of changes at this time
== END 2021-07-03 11:25 | disposition home or self-care (01) ==
LOC: CSU 18:16
PROVIDERS: Internal Medicine Cardiovascular Disease; Admitting Provider Internal Medicine Cardiovascular Disease; PCP Internal Medicine; Visit Provider Internal Medicine Cardiovascular Disease
DX: I25.10 Atherosclerotic heart disease of native coronary artery without angina pectoris (principal); I65.21 Occlusion and stenosis of right carotid artery; I10 Essential (primary) hypertension; E11.9 Type 2 diabetes mellitus without complications; E78.5 Hyperlipidemia, unspecified
CPT/HCPCS: 36415; 36416; 75625; 75716; 80048; 82962; 85025; 85730; 93452; 93571; 96372; C1769; C1887; C1894; G0378; J0153; J0360; J1644; J1815; J2250; J3010; J3490; J7030; Q0163; Q9967

== ENCOUNTER → 2021-07-10 10:30 | Outpatient (BNVA) | payer MEDICARE, SELFPAY | PROVIDERS: PCP Internal Medicine; Visit Provider Nurse Practitioner Family | DX: I25.118 Atherosclerotic heart disease of native coronary artery with other forms of angina pectoris (principal); I73.9 Peripheral vascular disease, unspecified | CPT/HCPCS: 80048 ==

== ENCOUNTER 2021-07-11 12:55 | Outpatient (CLI) | payer MEDICARE, SELFPAY ==
--- NOTE | 2021-07-11 13:00 | CT_ITS ---
WS: [id number] CTA HEAD AND NECK TECHNIQUE: Contrast enhanced CTA of the head and neck with coronal and sagittal reformatted images an d maximum intensity projection (MIP) images. NASCET criteria utilized. CLINICAL INFORMATION: I65.21 - Occlusion and stenosis of right carotid artery COMPARISON: Ultrasound June 2021 DLP: 2410.[address] scans at [facility] use at least one of these dose optimization techniques: automated e xposure control; mA and/or kV adjustment per patient size (includes targeted exams where dose is matc hed to clinical indication); or iterative reconstruction. FINDINGS: No evidence of intracranial hemorrhage or mass effect. Ventricular system and basal cistern s are patent. Normal avila-white differentiation. No extra axial fluid collections. Mild small vessel changes. Mild parenchymal volume loss. Dense cavernous carotid calcification. Paranasal sinuses and m astoid air cells are well aerated. Normal parapharyngeal fat. Right thyroid nodule measuring 2.1 CM. Lung apices are well aerated. Moderate spondylitic changes cervical spine. Disc osteophyte complexes worse at C3-C4 and C5-C6. Severe central canal stenosis at C3-C4 and moderate to severe at C5-C6. Ind entation on the cervical cord. RIGHT: Right common carotid artery is patent. Moderate calcified atheromatous disease right carotid b ulb extending into the ICA with ICA stenosis measuring approximately 67% approximately 1.5 cm from th e bifurcation. Right ICA is patent to the skull base. Dense cavernous carotid calcification. Mild tap ered ICA narrowing at the skull base without flow-limiting stenosis. This measures approximately 30-4 0%. LEFT: Left common carotid artery is patent. Mild atheromatous plaque left carotid bulb extending into the ICA with less than 50% stenosis. Left ICA is patent to the skull base. Dense cavernous carotid c alcification. INTRACRANIAL CTA: Right vertebral artery is occluded at the origin and reconstitutes in the mid neck at the C3-4 level. Segmental stenosis in the right vertebral artery to the basilar junction. Left vertebral artery is pa tent without significant stenosis. Basilar artery is patent. Normal vascularity to the KILN REMOVER territory bilaterally. Both ICAs are patent at the skull base. Dense cavernous carotid calcification with moderate to severe stenosis in the cavernous carotid artery and carotid siphon which remain patent. Normal vascularity to the MICHEAL territory. Normal vascularity to the MCA territories bilaterally. Sweta l MCA trifurcations. CT/CT angio headneck* 39745/[id number] IMPRESSION: 1. Right proximal ICA stenosis approximately 1.5 cm distal to the bifurcation measuring approximately 67% with calcified atheromatous disease. 2. Mild tapered ICA narrowing at the skull base without flow-limiting stenosis . This measures approximately 30-40%. 3. No significant left ICA stenosis. 4. Dense cavernous carotid calcification with moderate to severe multifocal se gmental narrowing involving the cavernous carotid and carotid siphon which kong in patent. 5. Normal vascularity to the MICHEAL MCA and KILN REMOVER territories bilaterally. No flow- limiting stenosis. 6. Right vertebral artery is occluded at the origin and reconstitutes at appro ximately C3-C4. Moderate to severe segmental narrowing involving the right vert ebral artery to the basilar junction. Normal left vertebral artery which is pat ent. 7. 2.1 cm right thyroid nodule. This can be followed up with ultrasound on an elective basis. 8. Noncontrast CT head demonstrates mild small vessel changes with mild parenc hymal volume loss. 9. Disc osteophytic protrusions at C3-C4 and C5-C6 with indentation on cervica l cord. Severe central canal stenosis at C3-C4 and moderate to severe at C5-C6. This can be further evaluated with MRI.
[2021-07-11] MEDS: iodixanol 320 mg/mL 100mL Btl IV (13:41)
== END 2021-07-11 12:56 | disposition home or self-care (01) ==
PROVIDERS: PCP Internal Medicine; Visit Provider Internal Medicine Cardiovascular Disease
DX: I65.21 Occlusion and stenosis of right carotid artery (principal); M25.78 Osteophyte, vertebrae; E04.1 Nontoxic single thyroid nodule
CPT/HCPCS: 70496; 70498; Q9967

== ENCOUNTER 2021-07-20 11:56 | Inpatient (IN) | payer MEDICARE, SELFPAY ==
[2021-07-20] VITALS (35 sets, daily range): BP systolic 140–176; BP diastolic 64–103; PULSE 72–93; RESP 12–29; TEMP 36.8–37.9; O2SAT 94–100; BMI 28.5
--- NOTE | 2021-07-20 06:00 | XACV_ITS ---
Wt: 93 kg BSA: 2.18 m2 Any Known Allergies: Other Gender: Male : 1950 Exam Type: Invasive Peripheral Vascular Procedure(s): Procedure Description: Peripheral Cath Diagnostic Procedure Procedure Description: Peripheral vascular Intervention Procedure Description: PV Balloon Procedure Description: PV Thrombectomy Exam Priority: Routine [id number], Gutierrez; Lower Extremity Interventional Findings Peripheral intervention: Antegrade approach was adopted to enter right SFA through proximal right SFA. After somewhat difficulty were able to cross the mid to distal SFA and right popliteal high-grade stenosis into peroneal artery. With the help of seeker catheter Viper wire was replaced for Glidewire, using 2.0 CSI arthrectomy in the multiple runs were performed in mid to distal right SFA popliteal vessel. Multiple balloon angioplasty was performed in peroneal artery, popliteal artery and SFA. Please see inventory. Good angiographic result with good flow was restored in the right SFA popliteal and peroneal vessel. Anterior tibial was filled through distal collaterals from peroneal vessel.. Conclusions Indication for peripheral intervention: Critical limb ischemia: Patient underwent peripheral angiogram few days back by Dr. Lutz. He was noted to have moderate to severe proximal mid right SFA lesion and high-grade mid popliteal lesion. He also had chronically occluded anterior and posterior tibial vessel, anterior tibial reconstituted from peroneal vessel distally. . null was treated with Balloon. null was treated with Balloon. null was treated with Balloon. Recommendations 1-Return to inpatient for close monitoring and routine cath care2-Risk factor modification for secondary prevention3-Statin and aspirin 81 mg life--long, if tolerated4-Continue Plavix 75mg p.o. daily.5-Continue optimal medical management6-Follow up with Dr. Lutz in four weeks and your primary care in 10 days. Hemodynamic Data Phase:Rest AO : 88.0 / 62.0 ( 74.0 ) @ 7:31:00 AM 178.0 / 85.0 ( 127.0 ) @ 7:57:00 AM 91.0 / 64.0 ( 77.0 ) @ 8:03:00 AM Access Site Site: Right Femoral artery Sheath Size: 6 Fr Hemost... Method: Suture Hemost... Success: Successful Procedure Details Findings Procedure Consent Obtained. Pre-Procedure Time Out. Identified patient by full name and date of as verbalized by the patient/guarantor. Does the consent match the physician's order: Yes. Accurate & Complete Informed Consent: Yes. Inpatient/Outpatient History & Physical on Chart: Yes. If H&P is completed, is and addenduem needed: N/A; If yes, is the addendum complete: N/A. Visualize and Verify Site with Patient/Guarantor: N/A. Relevant Radiology Images available: Yes. Pre-op teaching completed and patient verbalized understanding. The risks, benefits, and alternatives of sedation and/or procedure were discussed by physician. The patient agrees to continue. Procedure started. Correct patient, site and procedure confirmed by cath team. PERRLA. 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 Lungs clear x 5 lobes. IV Site on Arrival: 20 gauge in the right anticubital. IV Fluids: 0.9% NaCl at KVO. 500 mL infused prior to labor relations consultant. Pre Procedural Pulses: bilateral dorsalis pedis was Doppled. Pre Procedural Pulses: bilateral posterior tibial was Doppled. Pre Procedural Pulses: bilateral radial was 3+. Oxygen started at 2liters/min via nasal canula. bilateral groins was prepped with chloroprep then draped in the usual sterile fashion. Physician notified. Equipment: 5F - Femoral. Kit, Micropuncture. Heparinized Saline (2 units/mL), 1000 mL bag. Cardiac Cath Pack. ACIST Manifold Kit Model BT 2000. Physician arrived. Physician scrubbed in. Immediate Pre-Procedure Time Out. Correct Patient: Yes; Correct Procedure: Yes; Correct Site: Yes; Correct Patient Position: Yes; Correct Supplies: Yes; Dried Flammable Prep: Yes; Blood Products Available: No;. Baseline sample Acquired. HR: 74 BPM. Lidocaine 1% infiltrated to the right groin. Arterial access obtained with micropuncture set. needle out. 5FR micro dialtor in. hand injection of right SFA. glidewire inserted through sheath. seeker inserted over wire. wire out. hand injection through seeker. viper wire inserted. seeker removed. Side port of sheath attached to Normal Saline flush at KVO to maintain patency. loading the bur. Arherectomy performed in right SFA. bur removed. seeker wire inserted over viper wire. seeker removed. Inflation number : 1 A AB ARMADA 14 OTW [id number] was prepped and advanced across the Posterior Tibial, Right , then inflated to 8 KIMBERLYN for 2:03 seconds. Inflation number: 2 The AB ARMADA 14 OTW [id number] was reinflated across the Posterior Tibial, Right, to 8 KIMBERLYN for 2:01 seconds. Inflation number: 3 The AB ARMADA 14 OTW [id number] was reinflated across the Posterior Tibial, Right, to 8 KIMBERLYN for 0:17 seconds. Inflation number: 4 The AB ARMADA 14 OTW [id number] was reinflated across the Posterior Tibial, Right, to 8 KIMBERLYN for 2:00 seconds. Balloon out. seeker inserted. viper wire removed. glide wire inserted. Inflation number : 1 A AB Scott 35 SUPERVISOR PAINTING [employer]PARTMENT Catheter [id number] was prepped and advanced across the Popliteal, Right , then inflated to 4 KIMBERLYN for 2:30 seconds. Inflation number: 1 The AB Scott 35 SUPERVIS[employer]ING [employer]PART[employer] Catheter [id number] was reinflated across the Superficial Femoral, Right, to 1 KIMBERLYN for 0:24 seconds. Inflation number: 2 The AB Scott 35 SUPER[employer] Catheter [id number] was reinflated across the Superficial Femoral, Right, to 4 KIMBERLYN for 2:04 seconds. Inflation number: 3 The AB Scott 35 [employer]PER[employer] Catheter [id number] was reinflated across the Superficial Femoral, Right, to 4 KIMBERLYN for 1:04 seconds. Balloon out. right leg runoff 10ml/sec for a total of 20ml. wire out. A Suture was successful obtaining hemostatsis at the Right Femoral artery insertion site. Sheath(s) sutured into position with 2-0 silk and sterile 4x4's and Op-site applied over the site. No oozing or signs and symptoms of hematoma noted. Post Procedure: Pulses reassessed and unchanged. PERRLA. 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 No VTE prophylaxis required. Fluoro: 11:10. Contrast type used: Visipaque 320 mgI/mL, 200 mL bottle. [id number]. Post-op diagnosis: PVD. Complications: none. Estimated blood loss: 5mL-10mL. Procedure completed. Patient transferred by bed to 1st floor. Vital chart was stopped. Procedure Medications Start: 7:37 AM Stop: 7:37 AM Medication: 0.9% Saline Amount: 100 ml/hr Route: I.V. drip Start: 8:40 AM Stop: 8:40 AM Medication: Versed Amount: 1 mg Route: I.V. Start: 8:41 AM Stop: 8:41 AM Medication: Fentanyl Amount: 50 mcg Route: I.V. Start: 8:48 AM Stop: 8:48 AM Medication: Versed Amount: 1 mg Route: I.V. Start: 8:58 AM Stop: 8:58 AM Medication: Fentanyl Amount: 50 mcg Route: I.V. Start: 9:02 AM Stop: 9:02 AM Medication: Heparin Amount: 7000 units Route: I.V. Start: 9:18 AM Stop: 9:18 AM Medication: Versed Amount: 1 mg Route: I.V. Start: 9:23 AM Stop: 9:23 AM Medication: Versed Amount: 1 mg Route: I.V. Start: 9:28 AM Stop: : AM Medication: Heparin Amount: 2000 units Route: I.V. Start: 9:36 AM Stop: 9:36 AM Medication: Fentanyl Amount: 50 mcg Route: I.V. Start: 9:37 AM Stop: 9:37 AM Medication: Hydralazine Amount: mg Route: I.V. Start: 9:53 AM Stop: 9:53 AM Medication: Hydralazine Amount: 10 mg Route: I.V. Start: 9:56 AM Stop: 9:56 AM Medication: Nitrogylcerin Amount: 1 Route: Topical Start: 10:00 AM Stop: 10:00 AM Medication: Nitrogylcerin Amount: 400 mcg Route: I.A. Start: 10:01 AM Stop: 10:01 AM Medication: Fentanyl Amount: 50 mcg Route: I.V. I, the attending physician, have reviewed and verified all procedure medications. Yes, all medications given per verbal order History/Risk Factors Hypertension: Yes Dyslipidemia: Yes Peripheral Arterial Disease (PAD): No Obesity: No Renal Disease: No Prior Interventions PCI: Yes CABG: No Valve Surgery: No Report Signatures Finalized by Shobha Gutierrez MD on 08/06/2021 10:50 AM
[2021-07-20] MEDS: diphenhydrAMINE 50 mg Capsule PO (06:20)
[2021-07-20 06:41] LABS: Alanine Aminotransferase 6 U/L (0-41); Albumin Level 3.3 g/dL (3.5-5.2); Alkaline Phosphatase 84 IU/L (40-130); Anion Gap 16.3 (5-19); Aspartate Amino Transferase 6 U/L (0-40); Blood Urea Nitrogen 23 mg/dL (8-23); Calcium 8.8 mg/dL (8.5-10.5); Carbon Dioxide 23 mmol/L (22-29); Chloride 98 mmol/L (98-107); Glucose 331 mg/dL (65-115); Osmolality Calculated 293 mOsm/kg (285-295); Potassium 4.3 mmol/L (3.5-5.1); Sodium 133 mmol/L (136-145); Total Bilirubin 0.5 mg/dL (0.15-1.2); Total Protein 6.3 g/dL (6.6-8.7)
[2021-07-20 06:45] LABS: Creatinine Clr Calc Pharmacy 60.7247
--- NOTE | 2021-07-20 07:02 | PC.NURSE ---
Dr. Gutierrez called with this mornings creatinine of 1.3. Orders received for a 500ml NS bolus now followed by NS at 100ml/hr.
--- NOTE | 2021-07-20 08:26 | W.PM.OPSUD ---
Surgery/Procedure H&P Update DATE OF PROCEDURE: July 20, 2021 DATE H&P PERFORMED: 06/26/21 H&P UPDATE INFORMATION: I have reviewed H&P completed within last 30 days and I have examined patient prior to procedure PREOP DIAGNOSIS: Non healing ulce of right foot , Critical limb ischemia of right leg PLANNED PROCEDURE: Operation Date: 07/20/21 07:00 Proposed Procedures p Peripheral Diagnostic(Bilateral) - Shobha Gutierrez MD PATIENT REASSESSED PRIOR TO SEDATION, WITH NO CHANGE NOTED: Yes PHYSICAL EXAM: alert, oriented x 3 and clear to auscultation bilaterally AIRWAY EVAL/ANESTHESIA PLAN: ASA II and Risks, benefits & alternatives of sedation and/or procedure discussed ADDITIONAL INFORMATION: All risk benefit and alternative for the procedure has been explained to the patient patient understand risk for contrast-induced nephropathy leading to transient or permanent dialysis, risk for major minor bleed, risk for acute limb ischemia during the procedure with thromboembolic phenomena or vascular injury leading to urgent emergent vascular surgery or loss of limb, risk for infection hematoma pseudoaneurysm. Patient understand FDA warning regarding increased mortality in the patient by using drug-coated balloons. He would like to use it if indicated. Patient agrees to proceeding with the procedure.
[2021-07-20] MEDS: ranolazine (12HR) 500 mg Tablet PO (12:44)
[2021-07-20] MEDS: montelukast sodium 10 mg Tablet PO (12:45)
[2021-07-20] MEDS: atorvastatin 40 mg Tablet 80 MG PO (12:46)
[2021-07-20] MEDS: losartan 50 mg Tablet 100 MG PO (12:46)
[2021-07-20] MEDS: ALPRAZolam 0.5 mg Tablet 0.25 MG PO (15:49)
[2021-07-20] MEDS: gabapentin 400 mg Capsule 800 MG PO ×2 (15:49→20:37)
[2021-07-20] MEDS: fentaNYL 50 mcg/mL INJ 2mL IVP (16:14)
[2021-07-20] MEDS: hyDRALAzine 20 mg/mL INJ 1 mL 10 MG IVP (16:14)
[2021-07-20] MEDS: metoprolol tartrate 50 mg Tablet PO (16:18)
--- NOTE | 2021-07-20 16:27 | PC.NURSE ---
Dr gregg at bedside in preparation for sheath removal asked this nurse to give hydralazine 10 mg IVP fentynyl IV push pre procedure and give 1800 dose metoprolol now
[2021-07-20] MEDS: insulin lispro 100 unit/1 mL 20 UNIT SUBCUT ×2 (16:38→20:37)
--- NOTE | 2021-07-20 17:45 | PC.NURSE ---
Sheath removed at [address] Gutierrez. Manual pressure held until 1730. No hematoma formation. No bleeding.
[2021-07-20] MEDS: famotidine 20 mg Tablet PO (19:01)
[2021-07-20] MEDS: guaiFENesin 600 mg Tablet PO (19:01)
[2021-07-20] MEDS: cyclobenzaprine 10 mg Tablet PO (19:02)
[2021-07-20 20:05] LABS: Glucose Point of Care 390 mg/dL (70-110)
[2021-07-20] MEDS: sodium chloride 0.9% 1,000 ML 100 ML IV (20:38)
[2021-07-20] MEDS: acetaminophen 325 mg Tablet 650 MG PO (20:55)
[2021-07-20] MEDS: diclofenac 1% Topical Gel 100 gm 4 APPLIC TOPICAL (21:17)
--- NOTE | 2021-07-20 22:58 | P.PN_ITS ---
Subjective Subjective: Interval history: Post percutaneous intervention of right SFA popliteal and tibioperoneal trunk. Peroneal trunk and peroneal vessel. Good angiographic result was achieved Vitals/I&O/Wt Last Vital Signs Temp 100.3 F H 07/20/21 19:11 Pulse 82 07/20/21 22:00 Resp 17 07/20/21 20:37 BP 141/76 07/20/21 19:11 Pulse Ox 95 07/20/21 20:37 07/20/21 07/20/21 07/20/21 06:59 14:59 22:59 Intake Total 240 / 240 Output Total 400 / 400 Balance -160 / -160 Weight last 48 hrs Weight 205 lb Physical Exam Narrative: EXAM NARRATIVE: GENERAL: Patient is alert, awake and oriented x3. NECK: No jugular vein distension. HEENT: No cyanosis. No icterus. No pallor. HEART: Regular S1 and S2. No murmur, rub or gallop. LUNGS: Clear to auscultate bilaterally. ABDOMEN: Soft, nontender and nondistended. Positive bowel sounds. No guarding, rebound or tenderness. CENTRAL NERVOUS SYSTEM: Grossly nonfocal. EXTREMITIES: Lower extremities without edema bilaterally. Pulses anterior tibial dopplerable in the right foot right foot looks good warm moist pinkish Const: COMMON NORMALS: alert Resp: COMMON NORMALS: clear to auscultation bilaterally AUSCULTATION: clear to auscultation bilaterally Neuro: SENSORIUM/ORIENTATION: Yes alert Data : 07/21/21 05:50 07/21/21 05:50 A&P Assessment and plan (1) Atherosclerosis of coronary artery of [place] heart without angina pectoris: Appear to be stable. Status: Acute Qualifiers: Coronary Disease-Associated Artery/Lesion type: [place] artery Qualified Code(s): I25.10 - Atherosclerotic heart disease of [place] coronary artery withou t angina pectoris (2) Peripheral vascular disease: As defined above patient underwent peripheral angiogram percutaneous intervention atherectomy. Good angiographic result with good dopplerable pulses below the knee noted continue current Status: Acute (3) Hypertension: Well-controlled continue medicine. Status: Acute Qualifiers: Hypertension type: essential hypertension Qualified Code(s): I10 - Essential (primary) hypertension Attestations Medical Necessity Statement*: Patient require continuation hospitalization for post PCI care Coding Level of Care Code Established Pt Acute Portfolio Consultant for Chg Fwd Patient Type Established History Detailed Exam Detailed Medical Decision Making Moderate Complexity Diagnoses Atherosclerosis of coronary artery of [place] heart without angina pectoris I25.10 Coronary Disease-Associated Artery/Lesion type: [place] artery Peripheral vascular disease I73.9 Hypertension I10 Hypertension type: essential hypertension
[2021-07-21] VITALS (8 sets, daily range): BP systolic 131–183; BP diastolic 66–86; PULSE 75–88; RESP 11–21; TEMP 37.1; O2SAT 93–94
--- NOTE | 2021-07-21 02:42 | PC.NURSE ---
Shift Note Frequent safety and comfort rounds continue. Orders and/or nursing care completed as indicated. Patient monitored for response to intervention and treatment(s). Will continue to monitor.
[2021-07-21 06:21] LABS: Basophils # 0.1 10^3/uL (0.0-0.1); Basophils % 0.5 %; Eosinophils # 0.1 10^3/uL (0.0-0.8); Eosinophils % 1.3 %; Hematocrit 34.7 % (42.0-52.0); Hemoglobin 10.9 g/dL (11.7-16.6); Mean Corpuscular HGB Conc 31.4 g/dL (30.0-36.0); Mean Corpuscular Hemoglobin 30.1 pg (28.0-34.0); Mean Corpuscular Volume 95.9 fl (80-94); Mean Platelet Volume 10.5 fL (7.4-10.4); Neutrophils % 66.9 %; Nucleated Red Blood Cells % 0 %; Platelet Count 237 10^3/cmm (130-400); Red Blood Count 3.62 10^6/uL (4.1-5.3); Red Cell Distribution Width 12.1 % (12.1-15.1); White Blood Count 9.6 10^3/uL (4.0-10.0)
[2021-07-21 06:37] LABS: Glucose Point of Care 205 mg/dL (70-110)
[2021-07-21 06:44] LABS: Anion Gap 14.7 (5-19); Blood Urea Nitrogen 19 mg/dL (8-23); Calcium 8.4 mg/dL (8.5-10.5); Carbon Dioxide 18 mmol/L (22-29); Chloride 106 mmol/L (98-107); Glucose 175 mg/dL (65-115); Osmolality Calculated 287 mOsm/kg (285-295); Potassium 3.7 mmol/L (3.5-5.1); Sodium 135 mmol/L (136-145)
[2021-07-21] MEDS: diclofenac 1% Topical Gel 100 gm 4 APPLIC TOPICAL (08:30)
[2021-07-21] MEDS: guaiFENesin 600 mg Tablet PO (08:35)
[2021-07-21] MEDS: famotidine 20 mg Tablet PO (08:35)
[2021-07-21] MEDS: gabapentin 400 mg Capsule 800 MG PO (08:36)
[2021-07-21] MEDS: atorvastatin 40 mg Tablet 80 MG PO (08:36)
[2021-07-21] MEDS: aspirin 81 mg EC Tablet PO (08:36)
[2021-07-21] MEDS: ranolazine (12HR) 500 mg Tablet PO (08:36)
[2021-07-21] MEDS: cyclobenzaprine 10 mg Tablet PO (08:36)
[2021-07-21] MEDS: cetirizine 10 mg Tablet PO (08:36)
[2021-07-21] MEDS: metoprolol tartrate 50 mg Tablet PO (08:37)
[2021-07-21] MEDS: isosorbide mononitrate ER 60 mg Tablet PO (08:37)
[2021-07-21] MEDS: losartan 50 mg Tablet 100 MG PO (08:37)
[2021-07-21] MEDS: insulin lispro 100 unit/1 mL 20 UNIT SUBCUT (08:44)
[2021-07-21] MEDS: mupirocin oint 22 gm 1 APPLIC TOPICAL (09:00)
[2021-07-21 11:45] LABS: Glucose Point of Care 291 mg/dL (70-110)
--- NOTE | 2021-07-21 11:50 | PM.SDS ---
Short Stay Summary Providers Date of Admit/Discharge: 07/22/21 Attending Provider: Shobha Gutierrez MD Primary Care Provider: Bertha Perkins MD Chief Complaint: 91001 I73.9 HPI History of Present Illness Lauro Rivera JR is a 70 year old male past medical history significant for extensive history of PAD, history of coronary artery disease with moderate lesion in LAD not significant by FFR for critical limb ischemia nonhealing ulcer of the right foot was referred to us for revascularization. Patient has extensive PAD with ileotibial bypass with distal disease in the left leg. Patient also have extensive significant stenosis of the left external iliac artery patient do not have a good tibial vessel therefore cannot approach from below the knee for right leg intervention. We therefore choose to proceed with antegrade approach through right common femoral. After getting access we are able to cross into peroneal vessel. Patient was noted to have high-grade stenosis of the distal right SFA popliteal vessel and tibioperoneal trunk. Patient has chronically occluded anterior posterior tibial with reconstitution in the distal end. CSI atherectomy was used in right SFA and popliteal vessel. Right below the knee balloon angioplasty of tibioperoneal trunk and peroneal artery was performed. Post percutaneous intervention anterior tibial vessel was dopplerable. There was no overnight event no complication noted. This morning right foot looks good warm moist. Patient is also complaining of left leg cramps and lifestyle limiting claudication. Patient has left SVG from iliac to TP, at the site of insertion significant 80 to 90% stenosis were noted. Patient will be brought back in couple of weeks. Right groin looks good no hematoma. Home Meds/Allergies Home Medications and Allergies Home Medications Medication Instructions Recorded Confirmed Type albuterol sulfate 90 mcg/actuation 2 puff INHALATION Q6H PRN 04/30/21 07/20/21 History aerosol inhaler aspirin 81 mg tablet,delayed 81 mg PO DAILY 04/30/21 07/19/21 History release atorvastatin 80 mg tablet 80 mg PO DAILY 04/30/21 07/19/21 History bupropion HCl 75 mg tablet 75 mg PO DAILY 04/30/21 07/19/21 History cetirizine 10 mg tablet 10 mg PO DAILY 04/30/21 07/19/21 History cholecalciferol (vitamin D3) 50 50 mcg PO DAILY 04/30/21 07/19/21 History mcg (2,000 unit) capsule clotrimazole 1 % topical cream 1 applic TOPICAL BID 04/30/21 07/19/21 History dabigatran etexilate 150 mg capsule 150 mg PO BID 04/30/21 07/20/21 History diclofenac sodium 1 % topical gel 2 g TOPICAL TID g 04/30/21 07/19/21 History famotidine 20 mg tablet 20 mg PO BID 04/30/21 07/19/21 History furosemide 20 mg tablet 20 mg PO DAILY PRN 04/30/21 07/20/21 History gabapentin 800 mg tablet 800 mg PO TID 04/30/21 07/19/21 History glipizide 10 mg tablet 10 mg PO BID 04/30/21 07/19/21 History guaifenesin 600 mg tablet, 600 mg PO BID 04/30/21 07/19/21 History extended release 12 hr hydromorphone 4 mg tablet 4 mg PO .5xd PRN tab 04/30/21 07/20/21 History icosapent ethyl 1 gram capsule 1 g PO DAILY cap 04/30/21 07/19/21 History insulin aspart U-100 100 unit/mL 20 unit SUBCUT TID 04/30/21 07/20/21 History (3 mL) subcutaneous pen insulin degludec 200 unit/mL (3 65 unit SUBCUT DAILY ml 04/30/21 07/20/21 History mL) subcutaneous pen linaclotide 145 mcg capsule 145 mcg PO DAILY 04/30/21 07/19/21 History metoclopramide HCl 10 mg tablet 10 mg PO TID PRN tab 04/30/21 07/19/21 History montelukast 10 mg tablet 10 mg PO DAILY 04/30/21 07/19/21 History mupirocin calcium 2 % topical cream 1 applic TOPICAL BID 04/30/21 07/19/21 History cyclobenzaprine 10 mg tablet 10 mg PO BID tab 06/26/21 07/19/21 History Allergies Allergy/AdvReac Type Severity Reaction Status Date / Time erythromycin base Allergy facial Verified 07/20/21 06:50 swelling and redness morphine AdvReac does not Verified 07/20/21 06:50 take away any pain PFSH Acute PFSH: Medical History BPH (benign prostatic hyperplasia) Cellulitis of foot COPD (chronic obstructive pulmonary disease) Diabetic peripheral autonomic neuropathy DJD (degenerative joint disease) GERD (gastroesophageal reflux disease) History of amputation of toe Hx MRSA infection Hx of type 2 diabetes mellitus Hypertension Lumbar degenerative disc disease Peripheral vascular disease Renal insufficiency Sinusitis Surgical History History of back surgery History of femoropopliteal bypass History of PTCA Hx of coronary angioplasty Hx of hand surgery Hx of surgical amputation of finger Family History Mother CAD (coronary artery disease) Diabetes Sister CAD (coronary artery disease) Diabetes Brother CAD (coronary artery disease) Diabetes Daughter Stroke Denies family history of Clotting disorder Dementia Chronic kidney disease (CKD) Suicide Anesthesia complication Bleeding disorder Lung disease Cancer Social History Alcohol intake: never Dietary Habits: Current diet type/program: regular and diabetic Vitals/I&O/Wt Last Vital Signs Temp 98.7 F 07/21/21 03:51 Pulse 88 07/21/21 08:30 Resp 16 07/21/21 08:30 BP 183/78 07/21/21 08:37 Pulse Ox 94 07/21/21 08:30 07/20/21 07/21/21 07/21/21 22:59 06:59 14:59 Intake Total 240 / 240 1400 / 1640 800 / 800 Output Total 400 / 400 500 / 900 650 / 650 Balance -160 / -160 900 / 740 150 / 150 Weight last 48 hrs Weight 205 lb Physical Exam Narrative: EXAM NARRATIVE: GENERAL: Patient is alert, awake and oriented x3. NECK: No jugular vein distension. HEENT: No cyanosis. No icterus. No pallor. HEART: Regular S1 and S2. No murmur, rub or gallop. LUNGS: Clear to auscultate bilaterally. ABDOMEN: Soft, nontender and nondistended. Positive bowel sounds. No guarding, rebound or tenderness. CENTRAL NERVOUS SYSTEM: Grossly nonfocal. EXTREMITIES: Lower extremities without edema bilaterally. Pulses anterior tibial dopplerable in the right foot right foot looks good warm moist pinkish Const: COMMON NORMALS: alert Resp: COMMON NORMALS: clear to auscultation bilaterally AUSCULTATION: clear to auscultation bilaterally Neuro: SENSORIUM/ORIENTATION: Yes alert SSS Data Data Completed and Pending: Pending at discharge Category Date Time Status OSTOMY CARE NURSE request for service Routin e Exams 07/20/21 06:00 Ordered Discharge Plan Discharge Patient Disposition: Home Condition: Stable Prescriptions: Continued gabapentin 800 mg tablet 800 mg PO TID RF: 0 hydromorphone [Dilaudid] 4 mg tablet 4 mg PO .5xd PRN (Reason: pain) RF: 0 Linzess 145 mcg capsule 145 mcg PO DAILY RF: 0 cholecalciferol (vitamin D3) 50 mcg (2,000 unit) capsule 50 mcg PO DAILY RF: 0 guaifenesin [Mucinex] 600 mg tablet extended release 12hr 600 mg PO BID RF: 0 diclofenac sodium 1 % gel 2 g topical TID RF: 0 clotrimazole [Athlete's Foot (clotrimazole)] 1 % cream 1 applic topical BID RF: 0 aspirin [Adult Aspirin Regimen] 81 mg tablet,delayed release (DR/EC) 81 mg PO DAILY RF: 0 albuterol sulfate 90 mcg/actuation HFA aerosol inhaler 2 puff inhalation Q6H PRN (Reason: Shortness Of Breath Or Wheezing) RF: 0 mupirocin calcium 2 % cream 1 applic topical BID RF: 0 icosapent ethyl [Vascepa] 1 gram capsule 1 g PO DAILY RF: 0 insulin aspart U-100 [Novolog Flexpen U-100 Insulin] 100 unit/mL (3 mL) insulin pen 20 unit SUBCUT TID RF: 0 Tresiba FlexTouch U-200 200 unit/mL (3 mL) insulin pen 65 unit SUBCUT DAILY RF: 0 bupropion HCl 75 mg tablet 75 mg PO DAILY RF: 0 metoclopramide HCl [Reglan] 10 mg tablet 10 mg PO TID PRN (Reason: Nausea And Vomiting) RF: 0 cetirizine [Zyrtec] 10 mg tablet 10 mg PO DAILY RF: 0 montelukast [Singulair] 10 mg tablet 10 mg PO DAILY RF: 0 atorvastatin [Lipitor] 80 mg tablet 80 mg PO DAILY RF: 0 glipizide 10 mg tablet 10 mg PO BID RF: 0 famotidine [Pepcid AC] 20 mg tablet 20 mg PO BID RF: 0 Pradaxa 150 mg capsule 150 mg PO BID RF: 0 Hold Instructions: Resume on 07/04/21. May restart this medicine tomorrow morning furosemide [Lasix] 20 mg tablet 20 mg PO DAILY PRN (Reason: edema) RF: 0 cyclobenzaprine 10 mg tablet 10 mg PO BID RF: 0 metoprolol tartrate 50 mg tablet 50 mg PO BID Qty: 180 RF: 3 ranolazine 500 mg tablet extended release 12 hr 500 mg PO DAILY Qty: 90 RF: 3 isosorbide mononitrate 60 mg tablet extended release 24 hr 60 mg PO DAILY Qty: 90 RF: 3 losartan 50 mg tablet 100 mg PO DAILY Qty: 0 RF: 0 Discharge Orders: Discharge Order (Routine); Ordered 07/21/21 Ordered By: Shobha Gutierrez Referrals: Lucina Lutz MD [Physician] - 2 weeks ([facility] will be calling to schedule a cardiology followup with Dr. Lutz to be seen in approx. 2 weeks. If you don't hear from them by Friday, please give them a call. Thank you) Saeed Nguyen DPM [Physician] - 4-7 days ([facility] will be calling to schedule a podiatry followup with Dr. Nguyen to be seen in 4 to 7 days. If you don't hear from them by Friday afternoon, please give them a call. Thank you) Discharge Diet: Cardiac, Diabetic and Low Salt Discharge Activity: Increase activity as tolerated Patient Instructions: Chronic Wound Care (DC), Peripheral Vascular Angioplasty (DC), Opioid Safety, Post Angiogram Home Care Instructions Activity Restrictions/Additional Instructions: Follow-up with Dr. Lutz as scheduled, please refer patient to Dr. Nguyen for right gangrenous toe, keep log of blood pressure pulse for next 7 to 10 days. Please bring it to Dr. 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
[2021-07-21] MEDS: montelukast sodium 10 mg Tablet PO (12:23)
--- NOTE | 2021-07-21 13:32 | PC.NURSE ---
discharge instructions given and explained.pt verb understanding of instructions.discharged via w/c to exit.spouse to drive pt home.
== END 2021-07-21 13:49 | disposition home or self-care (01) | DRG 272 ==
LOC: CSU 11:57
PROVIDERS: Admitting Provider Internal Medicine Cardiovascular Disease; PCP Internal Medicine; Visit Provider Internal Medicine Cardiovascular Disease
PROC: 04CK3ZZ Extirpation of Matter from Right Femoral Artery, Percutaneous Approach (ICD-10-PCS; principal; 2021-07-20 07:00)
DX: E11.51 Type 2 diabetes mellitus with diabetic peripheral angiopathy without gangrene (principal); I70.221 Atherosclerosis of native arteries of extremities with rest pain, right leg; E11.42 Type 2 diabetes mellitus with diabetic polyneuropathy; E11.621 Type 2 diabetes mellitus with foot ulcer; L97.519 Non-pressure chronic ulcer of other part of right foot with unspecified severity; Z98.890 Other specified postprocedural states; I25.10 Atherosclerotic heart disease of native coronary artery without angina pectoris; Z98.61 Coronary angioplasty status; I10 Essential (primary) hypertension; N40.0 Benign prostatic hyperplasia without lower urinary tract symptoms; J44.9 Chronic obstructive pulmonary disease, unspecified; K21.9 Gastro-esophageal reflux disease without esophagitis; Z86.16 Personal history of COVID-19; Z79.891 Long term (current) use of opiate analgesic; Z79.82 Long term (current) use of aspirin; Z79.51 Long term (current) use of inhaled steroids; Z79.84 Long term (current) use of oral hypoglycemic drugs; Z79.4 Long term (current) use of insulin
CPT/HCPCS: 36415; 36416; 37225; 37228; 75710; 80048; 80053; 82962; 85025; 85730; 96372; C1724; C1725; C1769; C1887; C1894; J0360; J1644; J1815; J2250; J3010; J3490; J7030; Q0163; Q9967

== ENCOUNTER → 2021-07-25 09:05 | Outpatient (BNVA) | payer MEDICARE, SELFPAY | PROVIDERS: PCP Internal Medicine; Visit Provider Podiatrist Foot & Ankle Surgery | DX: I73.9 Peripheral vascular disease, unspecified (principal); M79.671 Pain in right foot | CPT/HCPCS: 73630; 87635 ==

== ENCOUNTER → 2021-07-26 09:35 | Outpatient (BNVA) | payer MEDICARE, SELFPAY | PROVIDERS: PCP Internal Medicine; Visit Provider Nurse Practitioner Family | DX: I73.9 Peripheral vascular disease, unspecified (principal) | CPT/HCPCS: 80048 ==

== ENCOUNTER → 2022-04-10 09:55 | Outpatient (BNVA) | payer MEDICARE, SELFPAY | PROVIDERS: PCP Internal Medicine; Visit Provider Internal Medicine Cardiovascular Disease | DX: I25.10 Atherosclerotic heart disease of native coronary artery without angina pectoris (principal); I10 Essential (primary) hypertension; I73.9 Peripheral vascular disease, unspecified; E78.5 Hyperlipidemia, unspecified; E11.9 Type 2 diabetes mellitus without complications; F17.210 Nicotine dependence, cigarettes, uncomplicated; Z79.84 Long term (current) use of oral hypoglycemic drugs; T82.898D Other specified complication of vascular prosthetic devices, implants and grafts, subsequent encounter | CPT/HCPCS: 99214 ==

== ENCOUNTER 2022-06-07 11:57 | Outpatient (CLI) | payer MEDICARE, SELFPAY ==
--- NOTE | 2022-06-07 12:10 | CT_ITS ---
WS: [id number] LDCT LUNG CANCER SCREENING TECHNIQUE: Noncontrast CT of the chest with coronal and sagittal reformatted images. CLINICAL INFORMATION: HX OF TOBACCO USE COMPARISON: None. DLP: 80.41 mGy.cm DIvol: Mean CTDIvol: 1.60 (mGy) All CT scans at [facility] use at least one of these dose optimization techniques: automat ed exposure control; mA and/or kV adjustment per patient size (includes targeted exams where dose is matched to clinical indication); or iterative reconstruction. FINDINGS: Normal caliber thoracic aorta. Aortic calcification. No mediastinal or hilar lymphadenopathy. No axil mindi lymphadenopathy. LEFT adrenal gland is normal. RIGHT adrenal adenoma measuring 2.5 CM. Noncontrast spleen is normal. Normal GE junction. Hypertrophi c changes thoracic spine. No acute pulmonary infiltrates. No suspicious pulmonary parenchymal opaciti es. Slight subsegmental atelectasis in the lingula. No focal pneumonia or pleural fluid. Low-attenuation RIGHT thyroid nodule measuring 2.[address]/CT lung screening [id number] IMPRESSION: LUNG-RADS: .1-Negative FOLLOW UP: 12 Month: Continue annual screening with LDCT
== END 2022-06-07 11:58 | disposition home or self-care (01) ==
LOC: RAD 11:57
PROVIDERS: PCP Internal Medicine; Visit Provider Internal Medicine
DX: Z12.2 Encounter for screening for malignant neoplasm of respiratory organs (principal); Z87.891 Personal history of nicotine dependence
CPT/HCPCS: 71271

== ENCOUNTER → 2022-10-31 08:57 | Outpatient (BNVA) | payer MEDICARE, SELFPAY | PROVIDERS: PCP Internal Medicine; Visit Provider Nurse Practitioner Family | DX: I25.10 Atherosclerotic heart disease of native coronary artery without angina pectoris (principal); I10 Essential (primary) hypertension; I73.9 Peripheral vascular disease, unspecified; F17.210 Nicotine dependence, cigarettes, uncomplicated | CPT/HCPCS: 99214 ==

== ENCOUNTER → 2023-05-08 09:31 | Outpatient (BNVA) | payer MEDICARE, SELFPAY | PROVIDERS: PCP Internal Medicine; Visit Provider Internal Medicine Cardiovascular Disease | DX: I25.10 Atherosclerotic heart disease of native coronary artery without angina pectoris (principal); I73.9 Peripheral vascular disease, unspecified; I65.21 Occlusion and stenosis of right carotid artery; E78.5 Hyperlipidemia, unspecified; I12.9 Hypertensive chronic kidney disease with stage 1 through stage 4 chronic kidney disease, or unspecified chronic kidney disease; N18.9 Chronic kidney disease, unspecified; T82.898D Other specified complication of vascular prosthetic devices, implants and grafts, subsequent encounter; Y82.9 Unspecified medical devices associated with adverse incidents; M54.9 Dorsalgia, unspecified; G89.29 Other chronic pain; I35.0 Nonrheumatic aortic (valve) stenosis; F17.210 Nicotine dependence, cigarettes, uncomplicated | CPT/HCPCS: 99214 ==

== ENCOUNTER 2023-05-28 10:35 | Outpatient (CLI) | payer MEDICARE, SELFPAY ==
--- NOTE | 2023-05-28 10:30 | USCV_ITS ---
Lauro Rivera Age: 72 Gender: M : 1950 Exam Date: 05/28/2023 11:13 Ordering Phys: Lucina Lutz MD ([email or web address]) Technologist: Izabel Andino Exam Location: [facility] – [place], [place] Indication: Recheck CAD BP: 126 / 78 HR: 58 Rhythm: Sinus Technical Quality: Adequate MEASUREMENTS (Male / Female) Normal Values 2D ECHO LV Diastolic Diameter PLAX 4.2 cm 4.2 - 5.9 / 3.9 - 5.3 cm LV Systolic Diameter PLAX 3.2 cm LV Chamber Size 3.4 cm IVS Diastolic Thickness 1.0 cm 0.6 - 1.0 / 0.6 - 0.9 cm IVS Systolic Thickness 1.2 cm LVPW Diastolic Thickness 1.1 cm 0.6 - 1.0 / 0.6 - 0.9 cm LVPW Systolic Thickness 1.7 cm RV Chamber Size 3.4 cm LVOT Diameter 1.9 cm LV Ejection Fraction 2D Teich 46.7 % LV Ejection Fraction MOD 2C 45.9 % LV Ejection Fraction 2C AL 42.4 % LA Diameter 2.9 cm LA Width 3.8 cm LA Height 3.1 cm RA Width 3.0 cm RA Height 3.9 cm Aorta at Sinotubular Diameter 2.8 cm IVC Diameter 1.7 cm M-MODE Aortic Annulus Diameter 3.3 cm LA Ao Ratio MM 1.1 MV E Point Septal Separation 0.4 cm DOPPLER AV Peak Velocity 198.0 cm/s LVOT Peak Velocity 96.0 cm/s AV Area Cont Eq vti 1.6 cm squared AV Area Cont Eq pk 1.4 cm squared MV Area PHT 3.4 cm squared Mitral E to A Ratio 1.0 MV E' Velocity 47.0 cm/s Mitral E to MV E' Ratio 11.0 Mitral E to LV E' Lateral Ratio 8.2 Mitral E to LV E' Septal Ratio 17.1 TR Peak Velocity 161.1 cm/s TR Peak Gradient 10.4 mmHg TR Mean Velocity 113.6 cm/s TR Mean Gradient 5.9 mmHg TR Velocity Time Integral 39.0 cm TV Peak E Velocity 50.0 cm/s Right Atrial Pressure 3.0 mmHg Pulmonary Artery Systolic Pressu 13.4 mmHg FINDINGS Left Ventricle Normal left ventricular size and systolic function, EF 55 %. Mild left ventricular hypertrophy. No regional wall motion abnormalities. Grade II/IV diastolic dysfunction, moderately elevated filling pressures. Right Ventricle The right ventricle is normal in size and function. Right Atrium The right atrium is normal in size. Left Atrium The left atrium is normal in size. Mitral Valve No gross abnormalities noted Aortic Valve Thickened aortic valve. Features of aortic valve sclerosis Tricuspid Valve Trace tricuspid valve regurgitation. Pulmonic Valve No gross abnormalities no Pericardium Normal pericardium without effusion. Aorta Normal ascending aorta dimension. IVC The inferior vena cava appears normal. CONCLUSIONS Normal left ventricular size and systolic function, EF 55 %. Mild left ventricular hypertrophy. No regional wall motion abnormalities. Grade II/IV diastolic dysfunction, moderately elevated filling pressures. Thickened aortic valve. Features of aortic valve sclerosis. Trace tricuspid valve regurgitation. Estimated pulmonary artery peak systolic pressure within normal limit There is no pericardial effusion. There are no intracardiac masses. Compared to the study from 06/25/2021, there may not be a significant change Dr Lucina Lutz MD [facility] (Electronically Signed) Final Date: 28 May 2023 17:18 S
--- NOTE | 2023-05-28 11:15 | USCV_ITS ---
Miguel Lauro Age: 72 Gender: M : 1950 Exam Date: 05/28/2023 10:50 Ordering Phys: Lucina Lutz MD ([email or web address]) Technologist: Izabel Andino Exam Location: [facility] – [place] Indication: Rechecking CCA stenosis Risk Factors: Smoker Previous Vascular Surgery: Unknown Right Brachial BP: / Left Brachial BP: / Right Left Velocity (cm/s) Spectral Plaque Velocity (cm/s) Spectral Plaque Syst/Diast Broadening Syst/Diast Broadening 70.30/ 15.40 Prox CCA 75.90 / 11.50 53.65/ 10.80 Mid CCA 53.60 / 12.90 48.90/ 13.30 Hetro Distal CCA 63.00 / 14.20 88.60/ 32.20 Hetro Prox ICA 97.60 / 28.50 90.20/ 39.20 Mid ICA 62.40 / 23.70 248.20/90.30 Distal ICA 51.10 / 21.00 91.80 Hetro ECA 142.40 4.58 ICA/CCA 1.82 Antegrade Vertebral Antegrade 116.5/ 47.10 cm/s 16.60/ 10.30 cm/s 0 Tri Subclavian Bi 107.3 98.85 0 FINDINGS Thickening and minimal plaques of the common carotid arteries bilaterally Mild to moderate heterogenous plaques at the bifurcations and proximal internal carotid arteries bilaterally Moderate to heavy heterogenous plaques at the distal ICA on the right side with elevated velocities velocity Relatively high velocity in the right vertebral artery The low velocity continuous waveforms in the left vertebral artery CONCLUSIONS 1. Moderate to heavy heterogenous plaques at the distal ICA on the right side with elevated velocity suggesting hemodynamically significant stenosis. 2. Mild to moderate heterogenous plaques at the bifurcations bilaterally suggesting less than 50% stenosis. 3. Relatively high velocity in the right vertebral artery, may suggest stenosis/tortuosity 4. Abnormal Doppler waveforms in the left vertebral artery, may suggest collateral filling. Compared to the study from 06/25/2021, there may not be a significant change. Consider CTA, if clinically indicated, to better evaluate the vertebral arteries and the distal segments of the internal carotid arteries Dr Lucina Lutz MD [facility] (Electronically Signed) Final Date: 30 May 2023 19:41 S
== END 2023-05-28 10:36 | disposition home or self-care (01) ==
PROVIDERS: PCP Internal Medicine; Visit Provider Internal Medicine Cardiovascular Disease
DX: I65.23 Occlusion and stenosis of bilateral carotid arteries (principal); R06.09 Other forms of dyspnea; I77.9 Disorder of arteries and arterioles, unspecified; F17.200 Nicotine dependence, unspecified, uncomplicated; I51.7 Cardiomegaly; I51.89 Other ill-defined heart diseases; I35.8 Other nonrheumatic aortic valve disorders
CPT/HCPCS: 93306; 93880

== ENCOUNTER → 2023-11-18 09:43 | Outpatient (BNVA) | payer MEDICARE, SELFPAY | PROVIDERS: PCP Internal Medicine; Visit Provider Internal Medicine Cardiovascular Disease | DX: I25.10 Atherosclerotic heart disease of native coronary artery without angina pectoris (principal); I65.21 Occlusion and stenosis of right carotid artery; E78.5 Hyperlipidemia, unspecified; I35.0 Nonrheumatic aortic (valve) stenosis; Z86.39 Personal history of other endocrine, nutritional and metabolic disease; I12.9 Hypertensive chronic kidney disease with stage 1 through stage 4 chronic kidney disease, or unspecified chronic kidney disease; N18.32 Chronic kidney disease, stage 3b; E11.51 Type 2 diabetes mellitus with diabetic peripheral angiopathy without gangrene; E11.22 Type 2 diabetes mellitus with diabetic chronic kidney disease; Z79.4 Long term (current) use of insulin; F17.210 Nicotine dependence, cigarettes, uncomplicated | CPT/HCPCS: 99214 ==

== ENCOUNTER → 2024-05-19 08:56 | Outpatient (BNVA) | payer MEDICARE, SELFPAY | PROVIDERS: PCP Internal Medicine; Visit Provider Nurse Practitioner Family | DX: I25.10 Atherosclerotic heart disease of native coronary artery without angina pectoris (principal); I65.21 Occlusion and stenosis of right carotid artery; I10 Essential (primary) hypertension; I35.0 Nonrheumatic aortic (valve) stenosis; F17.200 Nicotine dependence, unspecified, uncomplicated | CPT/HCPCS: 99214 ==

== ENCOUNTER 2024-06-11 13:44 | Outpatient (CLI) | payer MEDICARE, SELFPAY ==
--- NOTE | 2024-06-11 13:45 | USCV_ITS ---
Lauro Rivera Age: 73 Gender: M : 1950 Exam Date: 06/11/2024 14:00 Ordering Phys: Lucina Lutz MD ([email or web address]) Technologist: USR Exam Location: [facility] – [place] Indication: Risk Factors: Previous Vascular Surgery: Right Brachial BP: / Left Brachial BP: / Right Left Velocity (cm/s) Spectral Plaque Velocity (cm/s) Spectral Plaque Syst/Diast Broadening Syst/Diast Broadening 64.60/ 10.20 Prox CCA 66.60 / 11.70 67.20/ 0.00 Mid CCA 88.40 / 19.30 59.50/ 0.00 Distal CCA 92.00 / 12.20 50.00/ 10.80 Prox ICA 71.10 / 25.50 90.80/ 28.10 Mid ICA 64.10 / 22.60 80.20/ 13.60 Distal ICA 69.40 / 25.60 123.70 ECA 210.50 1.50 ICA/CCA 0.80 Antegrade Vertebral Antegrade 128.6/ 36.00 cm/s 42.00/ 14.10 cm/s 0 Tri Subclavian Tri 79.40 84.00 FINDINGS Intimal thickening with minimal plaqesin the common carotid arteries bilaterally. Moderate heterogenous plaques the bifurcations bilaterally Elevated Doppler velocity in the left external carotid artery Antegrade flow in the vertebral arteries bilaterally CONCLUSIONS Moderate heterogenous plaques the bifurcations bilaterally with Doppler features suggesting less than 50% stenosis Intimal thickening and minimal plaques in the common carotid arteries bilaterally Elevated velocity in the left external carotid artery, suggesting hemodynamically significant stenosis.. Elevated velocity in the right vertebral artery with some flow turbulence suggesting hemodynamically significant stenosis Consider CTA, to better evaluate the arteries, if clinically indicated Dr Lucina Lutz MD [facility] (Electronically Signed) Final Date: 18 June 2024 13:44 S
== END 2024-06-11 13:45 | disposition home or self-care (01) ==
LOC: RAD 13:45
PROVIDERS: PCP Internal Medicine; Visit Provider Internal Medicine Cardiovascular Disease
DX: I65.23 Occlusion and stenosis of bilateral carotid arteries (principal); I65.01 Occlusion and stenosis of right vertebral artery
CPT/HCPCS: 93880

== ENCOUNTER 2024-08-13 16:35 | Emergency (ER) | payer MEDICARE, SELFPAY ==
[2024-08-13 16:42] VITALS: BP 149/65; PULSE 84; RESP 16; TEMP 36.8; O2SAT 100
--- NOTE | 2024-08-13 16:55 | ED_ITS ---
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 Patient states he underwent surgery to his bilateral lower extremities by Dr. Jose Carlos Hightower (vascular) at [facility] approximately a month ago. 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 He states they did a revision to his already present right BKA to remove residual bone (?). Wound vac was present following the surgery. skilled nursing stated when they changed the patient's wound VAC today they noticed foul odor. Patient states he is having quite a bit of pain. His vital signs are stable upon arrival. He believes he has follow up with his surgeon on August 17/ next week. Onset (ago): day(s) Place: home Patient tetanus UTD: Yes Associated symptoms: Denies chills, fever(s), nausea or vomiting Related Data Home Medications Medication Instructions Recorded Confirmed albuterol sulfate 90 mcg/actuation 2 puff inhalation Q6H PRN 04/30/21 05/19/24 aerosol inhaler Shortness Of Breath Or Wheezing aspirin 81 mg tablet,delayed 81 mg PO DAILY 04/30/21 05/19/24 release (Adult Aspirin Regimen) bupropion HCl 75 mg tablet 75 mg PO DAILY 04/30/21 05/19/24 cetirizine 10 mg tablet (Zyrtec) 10 mg PO DAILY 04/30/21 05/19/24 cholecalciferol (vitamin D3) 50 50 mcg PO DAILY 04/30/21 05/19/24 mcg (2,000 unit) capsule clotrimazole 1 % topical cream 1 applic topical BID 04/30/21 05/19/24 (Athlete's Foot (clotrimazole)) diclofenac sodium 1 % topical gel 2 g topical TID 04/30/21 05/19/24 furosemide 20 mg tablet (Lasix) 20 mg PO DAILY PRN edema 04/30/21 05/19/24 gabapentin 800 mg tablet 800 mg PO TID 04/30/21 05/19/24 guaifenesin 600 mg tablet, 600 mg PO BID 04/30/21 05/19/24 extended release 12 hr (Mucinex) hydromorphone 4 mg tablet 4 mg PO .5xd PRN pain 04/30/21 05/19/24 (Dilaudid) icosapent ethyl 1 gram capsule 1 g PO DAILY 04/30/21 05/19/24 (Vascepa) insulin aspart U-100 100 unit/mL 20 unit SUBCUT TID 04/30/21 05/19/24 (3 mL) subcutaneous pen (Novolog FlexPen U-100 Insulin aspart) insulin degludec 200 unit/mL (3 65 unit SUBCUT DAILY 04/30/21 05/19/24 mL) subcutaneous pen (Tresiba FlexTouch U-200 insulin) linaclotide 145 mcg capsule 145 mcg PO DAILY 04/30/21 05/19/24 (Linzess) metoclopramide HCl 10 mg tablet 10 mg PO TID PRN Nausea And 04/30/21 05/19/24 (Reglan) Vomiting montelukast 10 mg tablet 10 mg PO DAILY 04/30/21 05/19/24 (Singulair) mupirocin calcium 2 % topical cream 1 applic topical BID 04/30/21 05/19/24 cyclobenzaprine 10 mg tablet 10 mg PO BID 06/26/21 05/19/24 empagliflozin 10 mg tablet 10 mg PO DAILY 11/18/23 05/19/24 (Jardiance) Previous Rx's Medication Instructions Recorded losartan 100 mg tablet 100 mg PO DAILY #90 tabs 10/15/23 metoprolol tartrate 50 mg tablet 50 mg PO BID #180 tabs 10/15/23 dabigatran etexilate 150 mg 150 mg PO BID #180 caps 11/07/23 capsule (Pradaxa) atorvastatin 80 mg tablet (Lipitor) 80 mg PO DAILY #90 tabs 11/12/23 isosorbide mononitrate 60 mg 60 mg PO .twice daily #180 tabs 12/05/23 tablet,extended release 24 hr ranolazine 500 mg tablet,extended 500 mg PO BID #180 tabs 12/19/23 release,12 hr amlodipine 2.5 mg tablet See Rx Instructions .Route 04/09/24 .COMPLEX #30 tabs Allergies Allergy/AdvReac Type Severity Reaction Status Date / Time erythromycin base Allergy facial Verified 05/19/24 09:01 swelling and redness morphine AdvReac does not Verified 05/19/24 09:01 take away any pain Review of Systems 2 Const: Denies: fever(s), chills, body aches, fatigue or malaise Card: Denies: chest pain Resp: Denies: dyspnea GI: Denies: abdominal pain, nausea, vomiting or diarrhea Musc: Reports: extremity pain (R BKA stump); Denies: neck pain or back pain Skin/Breast: Reports: erythema (R BKA stump) Neuro: Denies: headache(s) PFSH ED 2 PFSH: Medical History Pancreatitis Peripheral vascular disease Hx of type 2 diabetes mellitus Hypertension COPD (chronic obstructive pulmonary disease) Lumbar degenerative disc disease GERD (gastroesophageal reflux disease) BPH (benign prostatic hyperplasia) Diabetic peripheral autonomic neuropathy Sinusitis DJD (degenerative joint disease) Cellulitis of foot Hx MRSA infection Carotid stenosis Renal insufficiency Surgical History Hx of BKA Hx of hand surgery History of PTCA History of amputation of toe Hx of coronary angioplasty Hx of surgical amputation of finger History of back surgery History of femoropopliteal bypass Family History Mother CAD (coronary artery disease) Diabetes Sister CAD (coronary artery disease) Diabetes Brother CAD (coronary artery disease) Diabetes Daughter Stroke Denies family history of Clotting disorder Dementia Chronic kidney disease (CKD) Suicide Anesthesia complication Bleeding disorder Lung disease Cancer Social History Smoking and tobacco/nicotine status: current every day tobacco/nicotine user cigarettes Packs smoked per day: 0.5 Alcohol intake: never Substance/Drug Use: never Physical Exam 2 Const: COMMON NORMALS: no acute distress, patient oriented x3, no limitations, alert and well nourished GENERAL APPEARANCE: cooperative O RIENTATION/CONSCIOUSNESS: Yes awake, Yes oriented to person, Yes oriented to place and Yes oriented to time Resp: COMMON NORMALS: normal respiratory effort and clear to auscultation bilaterally AUSCULTATION: clear to auscultation bilaterally Cardio: COMMON NORMALS: regular rate and regular rhythm RATE: regular rate RHYTHM: regular rhythm Extremity: GENERAL: Yes normal exam except as noted OTHER: bilateral BKA; L stump with intact vesna and looks clean and healing well; R stump with wound vac present is erythematous/edematous and extremity tender to touch-pt is not allowing removal of wound vac until he receives pain medication; senior living reported foul odor from wound wound vac removed and foul odor appreciated; scant purulent drainage noted; open wound present with necrotic appearing tissue Neuro: COMMON NORMALS: patient oriented x3 SENSORIUM/ORIENTATION: Yes alert, Yes oriented to person, Yes oriented to place and Yes oriented to time Course 2 Consultations: Consultation #1: [facility] transfer line-stated there hospitalist Dr. Suarez will accept patient Vital Signs: Vital signs: Vital Signs Temperature 98.3 F 08/13/24 16:42 Pulse Rate 102 H 08/13/24 19:09 Respiratory Rate 16 08/13/24 19:09 Blood Pressure 124/64 08/13/24 19:09 Pulse Oximetry 96 08/13/24 19:09 Oxygen Delivery Me thod Room Air 08/13/24 19:09 MDM - Wound/Laceration Medical Decision Making Patient is here with an infected right BKA stump following surgery approximately a month ago by [facility] vascular surgeon Dr. Jose Carlos Hightower. Stump is erythematous and edematous with foul odor. Vital signs are stable. White count is approximately 12,000. ESR is 44. CRP is 129. He does have acute kidney injury with BUN/Cr 36/2.3. Elevated blood sugars with patient is an uncontrolled diabetic. Most likely pseudohyponatremia however 29. He was started on IV fluids and antibiotics. Spoke to [facility] transfer line who will accept patient as a direct admit Medical Records I reviewed the patient's medical records. Lab Data I reviewed the patient's lab results. 08/13/24 17:21 08/13/24 17:21 Radiology Impressions Knee X-Ray 08/13/24 16:55 IMPRESSION: No acute findings. Laboratory Results WBC 11.98 10^3/uL (3.29-11.43) H 08/13/24 17:21 RBC 3.69 10^6/uL (3.85-5.65) L 08/13/24 17:21 Hgb 10.00 g/dL (11.27-16.99) L 11/29/24 17:21 Hct 31.8 % (37-53) L 08/13/24 17:21 MCV 86.2 fl (82-101) 08/13/24 17:21 MCH 27.1 pg (27-33) 08/13/24 17:21 MCHC 31.4 g/dL (30-55) 08/13/24 17:21 RDW 17.0 % (12.1-15.1) H 08/13/24 17:21 Plt Count 440 10^3/cmm (157-399) H 08/13/24 17:21 MPV 10.2 fL (7.4-10.4) 08/13/24 17:21 Neut % (Auto) 73.3 % 08/13/24 17:21 Lymph % (Auto) 15.7 % 08/13/24 17:21 Dubois % (Auto) 9.2 % 08/13/24 17:21 Eos % (Auto) 1.0 % 08/13/24 17:21 Baso % (Auto) 0.3 % 08/13/24 17:21 Neut # (Auto) 8.78 10^3/uL (1.8-7.7) H 08/13/24 17:21 Lymph # (Auto) 1.9 10^3/uL (0.8-4.8) 08/13/24 17:21 Dubois # (Auto) 1.1 10^3/uL (0.2-0.9) H 08/13/24 17:21 Eos # (Auto) 0.1 10^3/uL (0.0-0.8) 08/13/24 17:21 Baso # (Auto) 0.0 10^3/uL (0.0-0.1) 08/13/24 17:21 Nucleated RBC % (auto) 0 % 08/13/24 17: Nucleated RBCs # 0.0 /100WBC 08/13/24 17:21 ESR 44 mm/hr (0-10) H 08/13/24 17:21 Sodium 129 mmol/L (136-145) L 08/13/24 17:21 Potassium 4.8 mmol/L (3.5-5.1) 08/13/24 17:21 Chloride 94 mmol/L (98-107) L 08/13/24 17:21 Carbon Dioxide 21 mmol/L (22-29) L 08/13/24 17:21 Anion Gap 18.8 (5-19) 08/13/24 17:21 BUN 36 mg/dL (8-23) H 08/13/24 17:21 Creatinine 2.3 mg/dL (0.7-1.2) H 08/13/24 17:21 GFR Calculation Not Reportable 08/13/24 17:21 Glucose 230 mg/dL (65-115) H 08/13/24 17:21 Calculated Osmolality 284 mOsm/kg (285-295) L 08/13/24 17:21 Lactic Acid 1.6 mmol/L (0.5-2.2) 08/13/24 17:21 Calcium 9.0 mg/dL (8.5-10.5) 08/13/24 17:21 Total Bilirubin 0.3 mg/dL (0.15-1.2) 08/13/24 17:21 AST 23 U/L (0-40) 08/13/24 17:21 ALT 26 U/L (0-41) 08/13/24 17:21 Alkaline Phosphatase 113 U/L (40-130) 08/13/24 17:21 C-Reactive Protein 129.1 mg/L (0.0-4.9) H 08/13/24 17:21 Total Protein 6.1 g/dL (6.6-8.7) L 08/13/24 17:21 Albumin 3.0 g/dL (3.5-5.2) L 08/13/24 17:21 Globulin 3.1 g/dL (1.3-4.6) 08/13/24 17:21 All radiology interpretation(s) finalized by discharge Discharge Plan Discharge Patient Disposition: Xfer Short-Term Hosp Clinical Impression: Amputation stump infection Condition: Stable Referrals: Bertha Perkins MD [Primary Care Provider] - Coding Level of Care Code ED Data Reviewer for g Fwd Documented by User: Clay Pacheco DO 08/13/24 20:06 HPI - Wound/Laceration 2 General: Chief Complaint: Wound/Laceration Stated Complaint: infected wound Time Seen by Provider: 08/13/24 16:43 Related Data Home Medications Medication Instructions Recorded Confirmed albuterol sulfate 90 mcg/actuation 2 puff inhalation Q6H PRN 04/30/21 05/19/24 aerosol inhaler Shortness Of Breath Or Wheezing aspirin 81 mg tablet,delayed 81 mg PO DAILY 04/30/21 05/19/24 release (Adult Aspirin Regimen) bupropion HCl 75 mg tablet 75 mg PO DAILY 04/30/21 05/19/24 cetirizine 10 mg tablet (Zyrtec) 10 mg PO DAILY 04/30/21 05/19/24 cholecalciferol (vitamin D3) 50 50 mcg PO DAILY 04/30/21 05/19/24 mcg (2,000 unit) capsule clotrimazole 1 % topical cream 1 applic topical BID 04/30/21 05/19/24 (Athlete's Foot (clotrimazole)) diclofenac sodium 1 % topical gel 2 g topical TID 04/30/21 05/19/24 furosemide 20 mg tablet (Lasix) 20 mg PO DAILY PRN edema 04/30/21 05/19/24 gabapentin 800 mg tablet 800 mg PO TID 04/30/21 05/19/24 guaifenesin 600 mg tablet, 600 mg PO BID 04/30/21 05/19/24 extended release 12 hr (Mucinex) hydromorphone 4 mg tablet 4 mg PO .5xd PRN pain 04/30/21 05/19/24 (Dilaudid) icosapent ethyl 1 gram capsule 1 g PO DAILY 04/30/21 05/19/24 (Vascepa) insulin aspart U-100 100 unit/mL 20 unit SUBCUT TID 04/30/21 05/19/24 (3 mL) subcutaneous pen (Novolog FlexPen U-100 Insulin aspart) insulin degludec 200 unit/mL (3 65 unit SUBCUT DAILY 04/30/21 05/19/24 mL) subcutaneous pen (Tresiba FlexTouch U-200 insulin) linaclotide 145 mcg capsule 145 mcg PO DAILY 04/30/21 05/19/24 (Linzess) metoclopramide HCl 10 mg tablet 10 mg PO TID PRN Nausea And 04/30/21 05/19/24 (Reglan) Vomiting montelukast 10 mg tablet 10 mg PO DAILY 04/30/21 05/19/24 (Singulair) mupirocin calcium 2 % topical cream 1 applic topical BID 04/30/21 05/19/24 cyclobenzaprine 10 mg tablet 10 mg PO BID 06/26/21 05/19/24 empagliflozin 10 mg tablet 10 mg PO DAILY 11/18/23 05/19/24 (Jardiance) Previous Rx's Medication Instructions Recorded losartan 100 mg tablet 100 mg PO DAILY #90 tabs 10/15/23 metoprolol tartrate 50 mg tablet 50 mg PO BID #180 tabs 10/15/23 dabigatran etexilate 150 mg 150 mg PO BID #180 caps 11/07/23 capsule (Pradaxa) atorvastatin 80 mg tablet (Lipitor) 80 mg PO DAILY #90 tabs 11/12/23 isosorbide mononitrate 60 mg 60 mg PO .twice daily #180 tabs 12/05/23 tablet,extended release 24 hr ranolazine 500 mg tablet,extended 500 mg PO BID #180 tabs 12/19/23 release,12 hr amlodipine 2.5 mg tablet See Rx Instructions .Route 04/09/24 .COMPLEX #30 tabs Allergies Allergy/AdvReac Type Severity Reaction Status Date / Time erythromycin base Allergy facial Verified 05/19/24 09:01 swelling and redness morphine AdvReac does not Verified 05/19/24 09:01 take away any pain PFSH ED 2 PFSH: Medical History Pancreatitis Peripheral vascular disease Hx of type 2 diabetes mellitus Hypertension COPD (chronic obstructive pulmonary disease) Lumbar degenerative disc disease GERD (gastroesophageal reflux disease) BPH (benign prostatic hyperplasia) Diabetic peripheral autonomic neuropathy Sinusitis DJD (degenerative joint disease) Cellulitis of foot Hx MRSA infection Carotid stenosis Renal insufficiency Surgical History Hx of BKA Hx of hand surgery History of PTCA History of amputation of toe Hx of coronary angioplasty Hx of surgical amputation of finger History of back surgery History of femoropopliteal bypass Family History Mother CAD (coronary artery disease) Diabetes Sister CAD (coronary artery disease) Diabetes Brother CAD (coronary artery disease) Diabetes Daughter Stroke Denies family history of Clotting disorder Dementia Chronic kidney disease (CKD) Suicide Anesthesia complication Bleeding disorder Lung disease Cancer Social History Smoking and tobacco/nicotine status: current every day tobacco/nicotine user cigarettes Packs smoked per day: 0.5 Alcohol intake: never Substance/Drug Use: never Course 2 Vital Signs: Vital signs: Vital Signs Temperature 98.3 F 08/13/24 16:42 Pulse Rate 102 H 08/13/24 19:09 Respiratory Rate 16 08/13/24 19:09 Blood Pressure 124/64 08/13/24 19:09 Pulse Oximetry 96 08/13/24 19:09 Oxygen Delivery Me thod Room Air 08/13/24 19:09 MDM - Wound/Laceration Medical Decision Making Patient is here with an infected right BKA stump following surgery approximately a month ago by [facility] vascular surgeon Dr. Jose Carlos Hightower. Stump is erythematous and edematous with foul odor. Vital signs are stable. White count is approximately 12,000. ESR is 44. CRP is 129. He does have acute kidney injury with BUN/Cr 36/2.3. Elevated blood sugars with patient is an uncontrolled diabetic. Most likely pseudohyponatremia however 29. He was started on IV fluids and antibiotics. Spoke to [facility] transfer line who will accept patient as a direct admit Chart reviewed and patient discussed with midlevel. Agree with assessment and plan. Lab Data 08/13/24 17:21 08/13/24 17:21 Radiology Impressions Knee X-Ray 08/13/24 16:55 IMPRESSION: No acute findings. Laboratory Results WBC 11.98 10^3/uL (3.29-11.43) H 08/13/24 17:21 RBC 3.69 10^6/uL (3.85-5.65) L 08/13/24 17:21 Hgb 10.00 g/dL (11.27-16.99) L 08/13/24 17:21 Hct 31.8 % (37-53) L 08/13/24 17:21 MCV 86.2 fl (82-101) 08/13/24 17:21 MCH 27.1 pg (27-33) 08/13/24 17:21 MCHC 31.4 g/dL (30-55) 08/13/24 17:21 RDW 17.0 % (12.1-15.1) H 08/13/24 17:21 Plt Count 440 10^3/cmm (157-399) H 08/13/24 17:21 MPV 10.2 fL (7.4-10.4) 08/13/24 17:21 Neut % (Auto) 73.3 % 08/13/24 17:21 Lymph % (Auto) 15.7 % 08/13/24 17:21 Dubois % (Auto) 9.2 % 08/13/24 17:21 Eos % (Auto) 1.0 % 08/13/24 17:21 Baso % (Auto) 0.3 % 08/13/24 17:21 Neut # (Auto) 8.78 10^3/uL (1.8-7.7) H 08/13/24 17:21 Lymph # (Auto) 1.9 10^3/uL (0.8-4.8) 08/13/24 17:21 Dubois # (Auto) 1.1 10^3/uL (0.2-0.9) H 08/13/24 17:21 Eos # (Auto) 0.1 10^3/uL (0.0-0.8) 08/13/24 17:21 Baso # (Auto) 0.0 10^3/uL (0.0-0.1) 08/13/24 17:21 Nucleated RBC % (auto) 0 % 08/13/24 17:21 Nucleated RBCs # 0.0 /100WBC 08/13/24 17:21 ESR 44 mm/hr (0-10) H 08/13/24 17:21 Sodium 129 mmol/L (136-145) L 08/13/24 17:21 Potassium 4.8 mmol/L (3.5-5.1) 08/13/24 17:21 Chloride 94 mmol/L (98-107) L 08/13/24 17:21 Carbon Dioxide 21 mmol/L (22-29) L 08/13/24 17:21 Anion Gap 18.8 (5-19) 08/13/24 17:21 BUN 36 mg/dL (8-23) H 08/13/24 17:21 Creatinine 2.3 mg/dL (0.7-1.2) H 08/13/24 17:21 GFR Calculation Not Reportable 08/13/24 17:21 Glucose 230 mg/dL (65-115) H 08/13/24 17:21 Calculated Osmolality 284 mOsm/kg (285-295) L 08/13/24 17:21 Lactic Acid 1.6 mmol/L (0.5-2.2) 08/13/24 17:21 Calcium 9.0 mg/dL (8.5-10.5) 08/13/24 17:21 Total Bilirubin 0.3 mg/dL (0.15-1.2) 08/13/24 17:21 AST 23 U/L (0-40) 08/13/24 17:21 ALT 26 U/L (0-41) 08/13/24 17:21 Alkaline Phosphatase 113 U/L (40-130) 08/13/24 17:21 C-Reactive Protein 129.1 mg/L (0.0-4.9) H 08/13/24 17:21 Total Protein 6.1 g/dL (6.6-8.7) L 08/13/24 17:21 Albumin 3.0 g/dL (3.5-5.2) L 08/13/24 17:21 Globulin 3.1 g/dL (1.3-4.6) 08/13/24 17:21 Discharge Plan Discharge Patient Disposition: Xfer Short-Term Hosp Clinical Impression: Amputation stump infection Condition: Stable Referrals: Bertha Perkins MD [Primary Care Provider] - Coding Level of Care Code ED Data Reviewer for Birdie Snyder
--- NOTE | 2024-08-13 16:55 | XRR_ITS ---
PROCEDURE INFORMATION: Exam: XR Right Knee Exam date and time: 08/13/2024 5:28 PM Age: 74 years old Clinical indication: Lower leg; Right; Prior surgery; Surgery date: 6+ months; Surgery type: RT lower extremity pain; Recent amputation TECHNIQUE: Imaging protocol: Radiologic exam of the right knee. Views: 3 views. COMPARISON: CR XR foot RT min 3V* [id number] 07/25/2021 9:12 AM FINDINGS: Bones/joints: Right below the knee amputation. Residual osseous structures are intact. No fracture. No irregular osseous erosions. Soft tissues: Normal. XR/XR knee RT 3V* [id number] IMPRESSION: No acute findings.
[2024-08-13] MEDS: ondansetron 2 mg/ML SDV 2 mL 4 MG IVP (17:20)
[2024-08-13] MEDS: HYDROmorphone 1 mg/mL INJ 1 mL 0.5 MG IVP ×2 (17:20→17:31)
[2024-08-13 17:29] LABS: Basophils % 0.3 %; Eosinophils # 0.1 10^3/uL (0.0-0.8); Hematocrit 31.8 % (37-53); Lymphocytes # 1.9 10^3/uL (0.8-4.8); Lymphocytes % 15.7 %; Mean Corpuscular HGB Conc 31.4 g/dL (30-55); Mean Corpuscular Hemoglobin 27.1 pg (27-33); Mean Corpuscular Volume 86.2 fl (82-101); Mean Platelet Volume 10.2 fL (7.4-10.4); Monocytes # 1.1 10^3/uL (0.2-0.9); Monocytes % 9.2 %; Neutrophils # 8.78 10^3/uL (1.8-7.7); Neutrophils % 73.3 %; Nucleated Red Blood Cells % 0 %; Platelet Count 440 10^3/cmm (157-399); Red Blood Count 3.69 10^6/uL (3.85-5.65); White Blood Count 11.98 10^3/uL (3.29-11.43)
[2024-08-13 17:33] LABS: Erythrocyte Sedimentation Rate 44 mm/hr (0-10)
[2024-08-13 17:49] LABS: Lactic Sepsis W/Reflex 1.6 mmol/L (0.5-2.2)
[2024-08-13 17:50] LABS: Alanine Aminotransferase 26 U/L (0-41); Alkaline Phosphatase 113 U/L (40-130); Aspartate Amino Transferase 23 U/L (0-40); Blood Urea Nitrogen 36 mg/dL (8-23); C Reactive Protein 129.1 mg/L (0.0-4.9); Carbon Dioxide 21 mmol/L (22-29); Chloride 94 mmol/L (98-107); Creatinine Clr Calc Pharmacy 31.6209; Globulin 3.1 g/dL (1.3-4.6); Glucose 230 mg/dL (65-115); Osmolality Calculated 284 mOsm/kg (285-295); Sodium 129 mmol/L (136-145); Total Bilirubin 0.3 mg/dL (0.15-1.2); Total Protein 6.1 g/dL (6.6-8.7)
[2024-08-13 17:57] LABS: Anion Gap 18.8 (5-19); Potassium 4.8 mmol/L (3.5-5.1)
[2024-08-13 18:13] VITALS: PULSE 91; O2SAT 100
--- NOTE | 2024-08-13 19:08 | PC.NURSE ---
this nurse assumed pt care at 1830 from Génesis VARGAS.
[2024-08-13 19:09] VITALS: BP 124/64; PULSE 102; RESP 16; O2SAT 96
[2024-08-13] MEDS: vancomycin 1,250 MG/250 ML PIGGYBACK 166.67 MG IV (19:22)
[2024-08-13] MEDS: sodium chloride 0.9% 1,000 ML 999 ML IV (19:22)
[2024-08-13 20:08] VITALS: BP 116/64; PULSE 97; RESP 16; O2SAT 96
[2024-08-13 21:00] VITALS: BP 112/44; PULSE 98; RESP 14; O2SAT 99
[2024-08-13 21:20] LABS: Bilirubin Urine Negative (Negative); Blood Urine Negative (Negative); Glucose Urine UA 3+ (Normal); Ketones Urine Negative (Negative); Leukocyte Esterase Urine Negative (Negative); Nitrate Urine Negative (Negative); Protein Urine 1+ (Negative); Specific Gravity, Urine 1.009 (1.005-1.030); Urine Appearance Clear (CLEAR); Urine Color Yellow (Yellow); Urobilinogen Urine 0.2 mg/dL (Negative); pH Urine 5.5 (5-7)
[2024-08-13 21:25] LABS: Add Urine Microscopic? YES; Bacteria Urine None Seen /hpf; Hyaline Casts Urine 0-4 /lpf; RBC Urine 0-2 /hpf (0-2); Squamous Epithelial Cell Urine 0-5 /hpf (0-5); WBC Urine 0-5 /hpf (0-5)
[2024-08-13] MEDS: HYDROmorphone 1 mg/mL INJ 1 mL IVP (21:35)
[2024-08-13 21:43] VITALS: BP 156/64; PULSE 94; O2SAT 99
== END 2024-08-13 21:44 | disposition short-term general hospital (02) ==
PROVIDERS: Emergency Provider Physician Assistant; PCP Internal Medicine
DX: T87.43 Infection of amputation stump, right lower extremity (principal); X58.XXXA Exposure to other specified factors, initial encounter; F17.210 Nicotine dependence, cigarettes, uncomplicated; E11.43 Type 2 diabetes mellitus with diabetic autonomic (poly)neuropathy; J44.9 Chronic obstructive pulmonary disease, unspecified; I10 Essential (primary) hypertension
CPT/HCPCS: 73562; 80053; 81001; 83605; 85025; 85651; 86140; 87040; 87070; 87075; 87077; 87186; 87205; 96365; 96366; 96375; 96376; 99285; J1171; J2405; J3370; J7030

== ENCOUNTER 2024-08-27 09:24 | Inpatient (IN) | payer MEDICARE, SELFPAY ==
[2024-08-27] VITALS (63 sets, daily range): BP systolic 93–137; BP diastolic 41–82; PULSE 71–103; RESP 16–18; TEMP 36.6–36.9; O2SAT 81–100; BMI 29.2; BMI 27.1
--- NOTE | 2024-08-27 09:31 | CT_ITS ---
WS: [id number] CT HEAD NONCONTRAST HISTORY: ams TECHNIQUE: Contiguous axial imaging performed through the brain. Bone and soft tissue windows. Sagitt al and coronal reformats reviewed. All CT scans at [facility] use at least one of these dose optimization techniques: automated exposure control; mA and/or kV adjustment per patient size (includ es targeted exams where dose is matched to clinical indication); or iterative reconstruction. DLP: 1085.90 mGy.cm COMPARISON: None available. No acute intracranial hemorrhage, midline shift or mass effect. Mild symmetric atrophy with moderate small vessel ischemic disease. Prior lacunar infarcts along the external capsules. No acute area of sulcal effacement or edema. Mild cerebellar atrophy. Ventricles: Normal size with no hydrocephalus. Paranasal sinuses: As visualized are clear. Mastoid air cells: Well pneumatized. Calvarium and scalp: Skull is intact with no soft tissue edema or swelling. CT/CT head wo con* [id number] IMPRESSION: 1. No acute intracranial hemorrhage or edema. 2. Mild atrophy with moderate small vessel ischemic disease and small lacunar infarcts in the external capsules. 3. No acute edema or infarct noted.
--- NOTE | 2024-08-27 09:31 | XR_ITS ---
WS: [email or web address] Exam: XR chest 1V portable [id number] Date/Time of Exam: 08/27/2024 9:46 AM Reason For Exam: ams No priors. The lungs are fully inflated and clear. Normal cardiomediastinal silhouette. Regional bony elements a re unremarkable. No pleural effusions. XR/XR chest 1V portable [id number] IMPRESSION: 1. Negative chest.
--- NOTE | 2024-08-27 09:32 | ED_ITS ---
HPI - Altered Mental Status 2 General: Chief Complaint: Altered Mental Status Stated Complaint: ams Time Seen by Provider: 08/27/24 09:28 Source: patient and EMS Mode of arrival: EMS Limitations: no limitations History of Present Illness: 74-year-old male here [facility] patient's had some altered mental status last 2 days. 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 He has no complaints here. No known fevers. Related Data Home Medications Medication Instructions Recorded Confirmed aspirin 81 mg tablet,delayed 81 mg PO DAILY 04/30/21 08/27/24 release (Adult Aspirin Regimen) cetirizine 10 mg tablet (Zyrtec) 10 mg PO DAILY 04/30/21 08/27/24 linaclotide 145 mcg capsule 145 mcg PO DAILY 04/30/21 08/27/24 (Linzess) metoclopramide HCl 10 mg tablet 10 mg PO TID PRN Nausea And 04/30/21 08/27/24 (Reglan) Vomiting montelukast 10 mg tablet 10 mg PO DAILY 04/30/21 08/27/24 (Singulair) empagliflozin 10 mg tablet 10 mg PO DAILY 11/18/23 08/27/24 (Jardiance) amlodipine 2.5 mg tablet 2.5 mg PO DAILY 08/27/24 08/27/24 famotidine 20 mg tablet 20 mg PO BID 08/27/24 08/27/24 gabapentin 400 mg capsule 400 mg PO TID 08/27/24 08/27/24 levocetirizine 5 mg tablet 5 mg PO QPM 08/27/24 08/27/24 vancomycin 125 mg capsule 125 mg PO Q6H 08/27/24 08/27/24 Previous Rx's Medication Instructions Recorded losartan 100 mg tablet 100 mg PO DAILY #90 tabs 10/15/23 metoprolol tartrate 50 mg tablet 50 mg PO BID #180 tabs 10/15/23 dabigatran etexilate 150 mg 150 mg PO BID #180 caps 11/07/23 capsule (Pradaxa) atorvastatin 80 mg tablet (Lipitor) 80 mg PO DAILY #90 tabs 11/12/23 isosorbide mononitrate 60 mg 60 mg PO .twice daily #180 tabs 12/05/23 tablet,extended release 24 hr ranolazine 500 mg tablet,extended 500 mg PO BID #180 tabs 12/19/23 release,12 hr Allergies Allergy/AdvReac Type Severity Reaction Status Date / Time erythromycin base Allergy facial Verified 05/19/24 09:01 swelling and redness morphine AdvReac does not Verified 05/19/24 09:01 take away any pain Review of Systems 2 Const: Denies: fever(s), chills, body aches or change in appetite ENMT: Denies: throat pain or dental pain Card: Denies: chest pain Resp: Denies: dyspnea GI: Denies: abdominal pain, nausea, vomiting or diarrhea Musc: Denies: neck pain or back pain Skin/Breast: Denies: rash Neuro: Reports: confusion; Denies: headache(s) PFSH ED 2 PFSH: Medical History Pancreatitis Peripheral vascular disease Hx of type 2 diabetes mellitus Hypertension COPD (chronic obstructive pulmonary disease) Lumbar degenerative disc disease GERD (gastroesophageal reflux disease) BPH (benign prostatic hyperplasia) Diabetic peripheral autonomic neuropathy Sinusitis DJD (degenerative joint disease) Cellulitis of foot Hx MRSA infection Carotid stenosis Renal insufficiency Surgical History Hx of BKA Hx of hand surgery History of PTCA History of amputation of toe Hx of coronary angioplasty Hx of surgical amputation of finger History of back surgery History of femoropopliteal bypass Family History Mother CAD (coronary artery disease) Diabetes Sister CAD (coronary artery disease) Diabetes Brother CAD (coronary artery disease) Diabetes Daughter Stroke Denies family history of Clotting disorder Dementia Chronic kidney disease (CKD) Suicide Anesthesia complication Bleeding disorder Lung disease Cancer Social History Smoking and tobacco/nicotine status: current every day tobacco/nicotine user cigarettes Packs smoked per day: 0.5 Alcohol intake: never Substance/Drug Use: never Physical Exam 2 Const: COMMON NORMALS: patient oriented x3 HENMT: COMMON NORMALS: normocephalic and atraumatic HEAD & SCALP: n ormocephalic and atraumatic Eye: COMMON NORMALS: Equal, round and reactive pupils present and EOMs intact bilaterally PUPIL: Yes Equal, round and reactive pupils present Neck/C-Spine: COMMON NORMALS: full ROM and supple Chest: COMMONS NORMALS: normal inspection of the chest and normal palpation of entire chest wall Resp: COMMON NORMALS: normal respiratory effort, No retractions, No use of accessory muscles and clear to auscultation bilaterally AUSCULTATION: clear to auscultation bilaterally Cardio: COMMON NORMALS: regular rate, regular rhythm and No murmurs present (Cardio) RATE: regular rate RHYTHM: regular rhythm GI: COMMON NORMALS: Normal to inspection, nondistended, normoactive bowel sounds present, Soft to palpation, non-tender and no masses PALPATION: Yes Soft to palpation Extremity: NARRATIVE EXTREMITY EXAM: Incisions clean dry and intact to bilateral BKA Neuro: COMMON NORMALS: patient oriented x3, moves all extremities and no focal motor deficits Psych: COMMON NORMALS: mental status grossly normal, Normal thought process present and cooperative THOUGHT PROCESS: Normal thought process present Skin: COMMON NORMALS: no rashes or lesions noted and no wounds GENERAL SKIN EXAM: no rashes or lesions noted Course 2 Vital Signs: Vital signs: Vital Signs Temperature 98.5 F 08/27/24 09:26 Pulse Rate 94 08/27/24 11:52 Respiratory Rate 16 08/27/24 11:52 Blood Pressure 137/61 08/27/24 12:00 Pulse Oximetry 100 08/27/24 12:00 Oxygen Delivery Me thod Room Air 08/27/24 09:26 MDM - Altered Mental Status Medical Decision Making Patient presents here from [facility] with confusion he has had an out confusion here with some hallucinations patient seen by Dr. Davila he does have leukocytosis he is recently diagnosed with C. difficile this is likely causing the leukocytosis. Spine appear well no signs of infection will admit for observation Medical Records I reviewed the patient's medical records. Lab Data I reviewed the patient's lab results. 08/27/24 09:41 08/27/24 09:41 Radiology Impressions Chest X-Ray 08/27/24 09:31 IMPRESSION: 1. Negative chest. Head CT 08/27/24 09:31 IMPRESSION: 1. No acute intracranial hemorrhage or edema. 2. Mild atrophy with moderate small vessel ischemic disease and small lacunar infarcts in the external capsules. 3. No acute edema or infarct noted. Femur X-Ray 08/27/24 11:55 IMPRESSION: 1. Distal femoral amputation with surgical skin clips at the amputation stump. No evidence of bone destruction or fracture. Additional incidental findings. Laboratory Results WBC 29.02 10^3/uL (3.29-11.43) H 08/27/24 09:41 RBC 3.72 10^6/uL (3.85-5.65) L 08/27/24 09:41 Hgb 10.00 g/dL (11.27-16.99) L 08/27/24 09:41 Hct 31.2 % (37-53) L 08/27/24 09:41 MCV 83.9 fl (82-101) 08/27/24 09:41 MCH 26.9 pg (27-33) L 08/27/24 09:41 MCHC 32.1 g/dL (30-55) 08/27/24 09:41 RDW 17.4 % (12.1-15.1) H 08/27/24 09:41 Plt Count 527 10^3/cmm (157-399) H 08/27/24 09:41 MPV 9.5 fL (7.4-10.4) 08/27/24 09:41 Neut % (Auto) 81.1 % 08/27/24 09:41 Lymph % (Auto) 7.3 % 08/27/24 09:41 [place] % (Auto) 10.1 % 08/27/24 09:41 Eos % (Auto) 0.2 % 08/27/24 09:41 Baso % (Auto) 0.3 % 08/27/24 09:41 Neut # (Auto) 23.55 10^3/uL (1.8-7.7) H 08/27/24 09:41 Lymph # (Auto) 2.1 10^3/uL (0.8-4.8) 08/27/24 09:41 [place] # (Auto) 2.9 10^3/uL (0.2-0.9) H 08/27/24 09:41 Eos # (Auto) 0.1 10^3/uL (0.0-0.8) 08/27/24 09:41 Baso # (Auto) 0.1 10^3/uL (0.0-0.1) 08/27/24 09:41 Nucleated RBC % (auto) 0 % 08/27/24 09:41 Nucleated RBCs # 0.0 /100WBC 08/27/24 09:41 Sodium 132 mmol/L (136-145) L 08/27/24 09:41 Potassium 3.5 mmol/L (3.5-5.1) 08/27/24 09:41 Chloride 102 mmol/L (98-107) 08/27/24 09:41 Carbon Dioxide 16 mmol/L (22-29) L 08/27/24 09:41 Anion Gap 17.5 (5-19) 08/27/24 09:41 BUN 40 mg/dL (8-23) H 08/27/24 09:41 Creatinine 2.9 mg/dL (0.7-1.2) H 08/27/24 09:41 GFR Calculation Not Reportable 08/27/24 09:41 Glucose 94 mg/dL (65-115) 08/27/24 09:41 POC Glucose 93 mg/dL (70-110) 08/27/24 09:44 Calculated Osmolality 284 mOsm/kg (285-295) L 08/27/24 09:41 Lactic Acid 0.8 mmol/L (0.5-2.2) 08/27/24 09:41 Calcium 8.7 mg/dL (8.5-10.5) 08/27/24 09:41 Total Bilirubin 0.3 mg/dL (0.15-1.2) 08/27/24 09:41 AST 22 U/L (0-40) 08/27/24 09:41 ALT 23 U/L (0-41) 08/27/24 09:41 Alkaline Phosphatase 147 U/L (40-130) H 08/27/24 09:41 C-Reactive Protein 97.2 mg/L (0.0-4.9) H 08/27/24 09:41 Total Protein 5.9 g/dL (6.6-8.7) L 08/27/24 09:41 Albumin 2.9 g/dL (3.5-5.2) L 08/27/24 09:41 Globulin 3.0 g/dL (1.3-4.6) 08/27/24 09:41 Procalcitonin 0.57 ng/mL (0-0.5) H 08/27/24 09:41 Urine Color Yellow (Yellow) 08/27/24 11:09 Urine Appearance Cloudy (CLEAR) A 08/27/24 11:09 Urine pH 5.0 (5-7) 08/27/24 11:09 Ur Specific [place] 1.013 (1.005-1.030) 08/27/24 11:09 Urine Protein 1+ (Negative) A 08/27/24 11:09 Urine Glucose (UA) 3+ (Normal) H 08/27/24 11:09 Urine Ketones Negative (Negative) 08/27/24 11:09 Urine Blood Negative (Negative) 08/27/24 11:09 Urine Nitrate Negative (Negative) 08/27/24 11:09 Urine Bilirubin Negative (Negative) 08/27/24 11:09 Urine Urobilinogen 0.2 mg/dL (Negative) 08/27/24 11:09 Ur Leukocyte Esterase Negative (Negative) 08/27/24 11:09 Urine RBC 0-2 /hpf (0-2) 08/27/24 11:09 Urine WBC 0-5 /hpf (0-5) 08/27/24 11:09 Ur Squamous Epith Cells 0-5 /hpf (0-5) 08/27/24 11:09 Amorphous Sediment Not Reportable 08/27/24 11:09 Urine Bacteria None seen /hpf (NONE) 08/27/24 11:09 Hyaline Casts 1.65 /lpf 08/27/24 11:09 All radiology interpretation(s) finalized by discharge Discharge Plan Discharge Patient Disposition: Placed in Observation Clinical Impression: Altered mental status, C. difficile colitis, Leukocytosis Condition: Stable Prescriptions: No Action Linzess 145 mcg capsule 145 mcg PO DAILY aspirin [Adult Aspirin Regimen] 81 mg tablet,delayed release (DR/EC) 81 mg PO DAILY metoclopramide HCl [Reglan] 10 mg tablet 10 mg PO TID PRN (Reason: Nausea And Vomiting) cetirizine [Zyrtec] 10 mg tablet 10 mg PO DAILY montelukast [Singulair] 10 mg tablet 10 mg PO DAILY Jardiance 10 mg tablet 10 mg PO DAILY metoprolol tartrate 50 mg tablet 50 mg PO BID Qty: 180 3RF losartan 100 mg tablet 100 mg PO DAILY Qty: 90 3RF Pradaxa 150 mg capsule 150 mg PO BID Qty: 180 3RF Hold Instructions: Resume on 07/04/21. May restart this medicine tomorrow morning atorvastatin [Lipitor] 80 mg tablet 80 mg PO DAILY Qty: 90 3RF isosorbide mononitrate 60 mg tablet extended release 24 hr 60 mg PO .twice daily Qty: 180 3RF ranolazine 500 mg tablet extended release 12 hr 500 mg PO BID Qty: 180 3RF famotidine 20 mg Tablet 20 mg PO BID amlodipine 2.5 mg tablet 2.5 mg PO DAILY Rx Instructions: TAKE 1 TABLET BY MOUTH ONCE DAILY FOR HIGH BLOOD PRESSURE gabapentin 400 mg capsule 400 mg PO TID vancomycin 125 mg capsule 125 mg PO Q6H levocetirizine 5 mg tablet 5 mg PO QPM Referrals: Bertha Perkins MD [Primary Care Provider] - Patient Instructions: Altered Mental Status (ED) Coding Level of Care Code ED Medical Assistant Instructor for Birdie Snyder
[2024-08-27 09:46] LABS: Glucose Point of Care 93 mg/dL (70-110)
--- NOTE | 2024-08-27 09:59 | PC.PHAR ---
faxed [facility] for med list
[2024-08-27 10:00] LABS: Basophils # 0.1 10^3/uL (0.0-0.1); Basophils % 0.3 %; Eosinophils # 0.1 10^3/uL (0.0-0.8); Eosinophils % 0.2 %; Hematocrit 31.2 % (37-53); Lymphocytes # 2.1 10^3/uL (0.8-4.8); Lymphocytes % 7.3 %; Mean Corpuscular HGB Conc 32.1 g/dL (30-55); Mean Corpuscular Hemoglobin 26.9 pg (27-33); Mean Corpuscular Volume 83.9 fl (82-101); Mean Platelet Volume 9.5 fL (7.4-10.4); Monocytes # 2.9 10^3/uL (0.2-0.9); Monocytes % 10.1 %; Neutrophils # 23.55 10^3/uL (1.8-7.7); Neutrophils % 81.1 %; Nucleated Red Blood Cells % 0 %; Platelet Count 527 10^3/cmm (157-399); Red Blood Count 3.72 10^6/uL (3.85-5.65); Red Cell Distribution Width 17.4 % (12.1-15.1); White Blood Count 29.02 10^3/uL (3.29-11.43)
[2024-08-27 10:17] LABS: Alanine Aminotransferase 23 U/L (0-41); Albumin Level 2.9 g/dL (3.5-5.2); Alkaline Phosphatase 147 U/L (40-130); Anion Gap 17.5 (5-19); Aspartate Amino Transferase 22 U/L (0-40); Blood Urea Nitrogen 40 mg/dL (8-23); Calcium 8.7 mg/dL (8.5-10.5); Carbon Dioxide 16 mmol/L (22-29); Chloride 102 mmol/L (98-107); Creatinine Clr Calc Pharmacy 19.2354; Glucose 94 mg/dL (65-115); Osmolality Calculated 284 mOsm/kg (285-295); Potassium 3.5 mmol/L (3.5-5.1); Sodium 132 mmol/L (136-145); Total Bilirubin 0.3 mg/dL (0.15-1.2); Total Protein 5.9 g/dL (6.6-8.7)
[2024-08-27 10:33] LABS: Lactic Sepsis W/Reflex 0.8 mmol/L (0.5-2.2)
[2024-08-27 10:35] LABS: C Reactive Protein 97.2 mg/L (0.0-4.9)
[2024-08-27 10:42] LABS: Procalcitonin 0.57 ng/mL (0-0.5)
[2024-08-27] MEDS: piperacillin-tazobactam 3.375 GM in sodium chloride 0.9% (plus) 50 ML IV (10:55)
[2024-08-27] MEDS: sodium chloride 0.9% 1,000 ML 999 ML IV (11:08)
--- NOTE | 2024-08-27 11:12 | PC.NURSE ---
this nurse assumed pt care at 1105 from ALICIA Grider.
[2024-08-27] MEDS: VANCOMYCIN ADD-Vantage 1,000 MG in 0.9% NaCl ADD-Vantage 250 ML 250 MG IV (11:16)
[2024-08-27 11:34] LABS: Bilirubin Urine Negative (Negative); Blood Urine Negative (Negative); Glucose Urine UA 3+ (Normal); Ketones Urine Negative (Negative); Leukocyte Esterase Urine Negative (Negative); Nitrate Urine Negative (Negative); Protein Urine 1+ (Negative); Specific Gravity, Urine 1.013 (1.005-1.030); Urine Appearance Cloudy (CLEAR); Urine Color Yellow (Yellow); Urobilinogen Urine 0.2 mg/dL (Negative)
[2024-08-27 11:39] LABS: Add Urine Microscopic? YES; Bacteria Urine None Seen /hpf; Hyaline Casts Urine 1.65 /lpf; RBC Urine 0-2 /hpf (0-2); Squamous Epithelial Cell Urine 0-5 /hpf (0-5); WBC Urine 0-5 /hpf (0-5)
--- NOTE | 2024-08-27 11:55 | XR_ITS ---
WS: [email or web address] Exam: XR femur RT min 2V* [id number] Date/Time of Exam: 08/27/2024 11:55 AM Reason For Exam: bka There is amputation of the lower extremity at the level of the middle and distal thirds of the RIGHT femur. Surgical skin clips noted at the amputation stump. No sign of bone destruction or fracture. Pr ominent osteochondroma projects from the lesser trochanter. There is some deformity of the proximal f emur that might be related to prior fracture. Pronounced osteopenia. XR/XR femur RT min 2V* [id number] IMPRESSION: 1. Distal femoral amputation with surgical skin clips at the amputation stump. No evidence of bone destruction or fracture. Additional incidental findings.
--- NOTE | 2024-08-27 12:06 | XR_ITS ---
WS: [email or web address] Exam: XR femur LT min 2V* [id number] Date/Time of Exam: 08/27/2024 12:34 PM Reason For Exam: bka No acute fracture. Moderate degenerative changes at the knee and hip. Osteopenia. Superficial LEFT fe moral artery graft noted. Numerous surgical clips along the femur. XR/XR femur LT min 2V* [id number] IMPRESSION: 1. No fracture or bone destruction. Additional nonurgent findings as above.
--- NOTE | 2024-08-27 12:21 | XR_ITS ---
WS: [email or web address] Exam: XR abdomen 1V* [id number] Date/Time of Exam: 08/27/2024 12:21 PM Reason For Exam: diarrhea No sign of acute bowel obstruction or free air. Minimal small bowel gas with a small amount of gas al so noted in the large bowel. Probable mild adynamic ileus. No sign of organ enlargement. A catheter n oted in the pelvis. A vascular stent in the RIGHT common iliac artery. Advanced DJD of the lumbar spi ne. XR/XR abdomen 1V* [id number] IMPRESSION: 1. Findings suggest mild ileus. No acute process noted at this time. 2. Additional nonacute findings.
--- NOTE | 2024-08-27 12:29 | P.HP_ITS ---
Providers/Chief Complaint 2 Admitting Physician: Sagar Davila MD Primary Care Provider: Bertha Perkins MD Chief Complaint: ams History of Present Illness Lauro Rivera is a 74 year old male presenting from the [facility]. 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 He has been doing relatively well, and the wound has been looking okay. [place] are still in it. He has not been having any fevers. He did develop diarrhea the last several days and decreased p.o. intake. He was tested, and positive for C. difficile and vancomycin just started. They noticed yesterday and today he was hallucinating some, and having occasional jerking movement. He was sent to the emergency department secondary to this. He has had no vomiting, abdominal pain, obvious blood in stool, drainage from his incision. He awakens for me, denies any complaints, but does appear to be smoking a cigarette that is not there, and continues to focus on this. No reported headache, neck pain. He has been taking Neurontin scheduled at the nursing facility, as well as some Dilaudid as needed. No history of fall or trauma. I did discuss his care with the nursing of staff as well. In the emergency department he received some IV fluids, vancomycin, Zosyn. Review of Systems 2 General: Reports: 10 or more systems reviewed and unremarkable except in HPI and below Card: Denies: chest pain Resp: Denies: dyspnea GI: Reports: diarrhea; Denies: abdominal pain Medications/Allergies Home Medications Medication Instructions Recorded Confirmed Last Taken Type aspirin 81 mg tablet,delayed 81 mg PO DAILY 04/30/21 08/27/24 07/20/21 04:30 History release (Adult Aspirin Regimen) cetirizine 10 mg tablet (Zyrtec) 10 mg PO DAILY 04/30/21 08/27/24 07/20/21 04:30 History linaclotide 145 mcg capsule 145 mcg PO DAILY 04/30/21 08/27/24 07/20/21 04:30 History (Ekaterinazesmarissa) metoclopramide HCl 10 mg tablet 10 mg PO TID PRN Nausea And 04/30/21 08/27/24 07/02/21 09:00 History (Reglan) Vomiting montelukast 10 mg tablet 10 mg PO DAILY 04/30/21 08/27/24 07/20/21 04:30 History (Singulair) losartan 100 mg tablet 100 mg PO DAILY #90 tabs 10/15/23 08/27/24 Unknown Rx metoprolol tartrate 50 mg tablet 50 mg PO BID #180 tabs 10/15/23 08/27/24 Unknown Rx dabigatran etexilate 150 mg 150 mg PO BID #180 caps 11/07/23 08/27/24 Unknown Rx capsule (Pradaxa) atorvastatin 80 mg tablet (Lipitor) 80 mg PO DAILY #90 tabs 11/12/23 08/27/24 Unknown Rx empagliflozin 10 mg tablet 10 mg PO DAILY 11/18/23 08/27/24 Unknown History (Jardiance) isosorbide mononitrate 60 mg 60 mg PO .twice daily #180 tabs 12/05/23 08/27/24 Unknown Rx tablet,extended release 24 hr ranolazine 500 mg tablet,extended 500 mg PO BID #180 tabs 12/19/23 08/27/24 Unknown Rx release,12 hr albuterol sulfate 90 mcg/actuation 2 puff inhalation DAILY PRN 08/27/24 08/27/24 Unknown History aerosol inhaler Shortness Of Breath bisacodyl 10 mg rectal suppository 10 mg LA DAILY PRN Constipation 08/27/24 08/27/24 Unknown History (Dulcolax (bisacodyl)) bisacodyl 5 mg tablet,delayed 10 mg PO DAILY PRN Constipation 08/27/24 08/27/24 Unknown History release (Dulcolax (bisacodyl)) bupropion HCl 75 mg tablet 75 mg PO DAILY 08/27/24 08/27/24 Unknown History doxycycline hyclate 100 mg tablet 100 mg PO BID 08/27/24 08/27/24 Unknown History ferrous sulfate 325 mg (65 mg 325 mg PO BID 08/27/24 08/27/24 Unknown History iron) tablet gabapentin 400 mg capsule 400 mg PO TID 08/27/24 08/27/24 Unknown History hydromorphone 4 mg tablet 4 mg PO Q4H PRN Pain 08/27/24 08/27/24 Unknown History insulin aspart U-100 100 unit/mL See Rx Instructions .Route .COMPLEX 08/27/24 08/27/24 Unknown History subcutaneous solution insulin degludec 200 unit/mL (3 30 unit SUBCUT DAILY 08/27/24 08/27/24 Unknown History mL) subcutaneous pen (Tresiba FlexTouch U-200 insulin) insulin glargine 100 unit/mL 25 unit SUBCUT QPM 08/27/24 08/27/24 Unknown History subcutaneous solution levocetirizine 5 mg tablet 5 mg PO QPM 08/27/24 08/27/24 Unknown History nifedipine 30 mg tablet,extended 30 mg PO DAILY 08/27/24 08/27/24 Unknown History release 24 hr nitroglycerin 0.4 mg sublingual 0.4 mg sublingual Q5M PRN Chest 08/27/24 08/27/24 Unknown History tablet Pain pantoprazole 40 mg tablet,delayed 40 mg PO BID 08/27/24 08/27/24 Unknown History release vit no.95-ferrous 1 tab PO DAILY 08/27/24 08/27/24 Unknown History fumarate 28 mg-folic acid 800 mcg tablet () sodium phosphates 19 gram-7 118 ml LA DAILY 08/27/24 08/27/24 Unknown History gram/118 mL enema (Fleet Enema) sucralfate 100 mg/mL oral 10 ml PO QID 08/27/24 08/27/24 Unknown History suspension tamsulosin 0.4 mg capsule 0.4 mg PO DAILY 08/27/24 08/27/24 Unknown History vancomycin 125 mg capsule 125 mg PO Q6H 08/27/24 08/27/24 Unknown History Allergies Allergy/AdvReac Type Severity Reaction Status Date / Time erythromycin base Allergy facial Verified 05/19/24 09:01 swelling and redness morphine AdvReac does not Verified 05/19/24 09:01 take away any pain PFSH Acute 2 PFSH: Medical History Pancreatitis Peripheral vascular disease Hx of type 2 diabetes mellitus Hypertension COPD (chronic obstructive pulmonary disease) Lumbar degenerative disc disease GERD (gastroesophageal reflux disease) BPH (benign prostatic hyperplasia) Diabetic peripheral autonomic neuropathy Sinusitis DJD (degenerative joint disease) Cellulitis of foot Hx MRSA infection Carotid stenosis Renal insufficiency Surgical History Hx of BKA Hx of hand surgery History of PTCA History of amputation of toe Hx of coronary angioplasty Hx of surgical amputation of finger History of back surgery History of femoropopliteal bypass Family History Mother CAD (coronary artery disease) Diabetes Sister CAD (coronary artery disease) Diabetes Brother CAD (coronary artery disease) Diabetes Daughter Stroke Denies family history of Clotting disorder Dementia Chronic kidney disease (CKD) Suicide Anesthesia complication Bleeding disorder Lung disease Cancer Social History Smoking and tobacco/nicotine status: current every day tobacco/nicotine user cigarettes Packs smoked per day: 0.5 Alcohol intake: never Substance/Drug Use: never Vitals/I&O/Wt Last Vital Signs Temp 98.5 F 08/27/24 09:26 Pulse 94 08/27/24 11:52 Resp 16 08/27/24 11:52 BP 137/61 08/27/24 12:00 Pulse Ox 100 08/27/24 12:00 O2 Del Method Room Air 08/27/24 09:26 08/26/24 08/27/24 08/27/24 22:59 06:59 14:59 Intake Total 50 / 50 Output Total 1400 / 1400 Balance -1350 / -1350 Weight last 48 hrs Weight 72.575 kg Physical Exam 2 Narrative: General Exam no distress, appears to be hallucinating HEENT: Atraumatic normocephalic. Oropharynx clear, mucous membranes slightly dry Neck is supple, no lymphadenopathy or thyromegaly Cardiovascular regular rate and rhythm Lungs are clear no wheezing or crackles Abdomen is soft nontender positive bowel sounds demonstrates Clayton Extremities with bilateral [id number] amputations, no evidence of infection, vesna right side. Data 08/27/24 09:41 08/27/24 09:41 Other Labs: Liver function tests are normal with exception of alk phos of 147 Lactic acid level normal Albumin 2.9 Procalcitonin 0.57 Calcium normal Urinalysis 3+ glucose, 1+ protein, otherwise benign Chest x-ray which I reviewed no infiltrate CT head no acute changes X-ray of right and left femurs demonstrates no obvious bony destruction, air. Abdominal x-ray possible mild ileus. I have ordered an ABG to check for hypercarbia Micro: Microbiology 08/27/24 10:28 Blood Culture - Preliminary Blood SPECIMEN COLLECTED A&P Assessment and plan (1) C. difficile colitis: Patient was recently diagnosed with C. difficile colitis Secondary to significant elevation of white blood cell count, encephalopathy will increase dose of vancomycin to 250 mg 4 times daily. I do not see utility of repeating a C. difficile, this [facility] yesterday and he has been having diarrhea Abdominal x-ray has been done demonstrating possible mild ileus. He is still been having significant bowel movements so we will follow this clinically. (2) Acute kidney injury: Patient has evidence of acute kidney injury Hydration Likely secondary to dehydration from C. difficile and decreased oral intake Recheck tomorrow Hold losartan Hold any renal toxic medication (3) Acute encephalopathy: Patient has acute encephalopathy. This may be secondary to C. difficile but cannot rule out hypercarbia as he has underlying COPD. ABG will be done. Will also hold his Neurontin as this could cause similar disorder with occasional twitches secondary to renal dysfunction and face of Neurontin. Hold Dilaudid until it is demonstrated he needs something as needed. Neurochecks CT head was done and negative (4) Hx of type 2 diabetes mellitus: Patient's blood sugar was approximately 90 when he admitted Mild sliding scale insulin Hold long-acting insulin currently No evidence of DKA Doubt hypoglycemia was source of encephalopathy at nursing facility. Plan Multiple other medical problems as outlined in past medical history allow natural On dabigatran, no other DVT prophylaxis needed. Unable to put on pneumatic compression devices as he is a double amputee. Attestations 2 Medical Necessity Statement*: Will need less than 2 midnight stay for treatment of acute encephalopathy and C. difficile. It is possible if encephalopathy resolves, he is able to take p.o. he may be able to be discharged tomorrow. Diagnoses C. difficile colitis A04.72 Acute kidney injury N17.9 Acute encephalopathy G93.40 Hx of type 2 diabetes mellitus Z86.39 Time Spent (min) 54
--- NOTE | 2024-08-27 12:43 | PC.PHAR ---
patient is from [facility]
[2024-08-27 12:51] LABS: ABG PCO2 26.7 mmHg (35-45); ABG PH Result 7.33 (7.35-7.45); Arterial Blood Gas Hematocrit 28.2 % (42-52); Base Excess ABG -10.8 mmol/L (-2.0-2.0); Blood Gas Operator Identificat AMH; Blood Gas Sample Site Brachial, left; Blood Gas Sample Type Arterial; HCO3 ABG 13.9 mmol/L (22-26); Oxygen Device ROOM AIR; PO2 ABG 98.8 mmHg (80.0-100.0); PO2 FiO2 Ratio Arterial Blood 470
[2024-08-27 15:13] LABS: Glucose Point of Care 130 mg/dL (70-110)
[2024-08-27] MEDS: sodium chloride 0.9% 1,000 ML 75 ML IV (17:05)
[2024-08-27] MEDS: vancomycin 125 mg Capsule 250 MG PO ×2 (17:06→21:04)
[2024-08-27] MEDS: ranolazine (12HR) 500 mg Tablet PO (17:07)
[2024-08-27 17:16] LABS: Glucose Point of Care 115 mg/dL (70-110)
[2024-08-27 20:37] LABS: Glucose Point of Care 136 mg/dL (70-110)
--- NOTE | 2024-08-27 23:41 | PC.NURSE ---
Pt cole that was placed in ER was no longer in penis, pt had had a 8fr red thomas placed that did not have a balloon. 14Fr cole placed per sterile technique, cloudy yellow urine returned in cole bag. Pt tolerated procedure poorly.
[2024-08-28] VITALS (9 sets, daily range): BP systolic 111–149; BP diastolic 50–69; PULSE 78–93; RESP 15–18; TEMP 36.6–36.7; O2SAT 93–99
[2024-08-28 02:52] LABS: Basophils # 0.1 10^3/uL (0.0-0.1); Basophils % 0.5 %; Eosinophils # 0.2 10^3/uL (0.0-0.8); Eosinophils % 0.6 %; Hematocrit 28.7 % (37-53); Lymphocytes # 2.3 10^3/uL (0.8-4.8); Lymphocytes % 9.2 %; Mean Corpuscular HGB Conc 31.7 g/dL (30-55); Mean Corpuscular Hemoglobin 27.1 pg (27-33); Mean Corpuscular Volume 85.4 fl (82-101); Mean Platelet Volume 9.6 fL (7.4-10.4); Monocytes # 1.8 10^3/uL (0.2-0.9); Monocytes % 7.2 %; Neutrophils # 20.34 10^3/uL (1.8-7.7); Neutrophils % 81.5 %; Nucleated Red Blood Cells % 0 %; Platelet Count 474 10^3/cmm (157-399); Red Blood Count 3.36 10^6/uL (3.85-5.65); Red Cell Distribution Width 17.6 % (12.1-15.1); White Blood Count 24.94 10^3/uL (3.29-11.43)
[2024-08-28 03:12] LABS: Alanine Aminotransferase 23 U/L (0-41); Albumin Level 2.5 g/dL (3.5-5.2); Alkaline Phosphatase 130 U/L (40-130); Anion Gap 14.4 (5-19); Aspartate Amino Transferase 31 U/L (0-40); Blood Urea Nitrogen 34 mg/dL (8-23); Calcium 8.2 mg/dL (8.5-10.5); Carbon Dioxide 16 mmol/L (22-29); Chloride 106 mmol/L (98-107); Creatinine Clr Calc Pharmacy 19.2204; Glucose 88 mg/dL (65-115); Magnesium 1.7 mg/dL (1.7-2.3); Osmolality Calculated 283 mOsm/kg (285-295); Potassium 3.4 mmol/L (3.5-5.1); Sodium 133 mmol/L (136-145); Total Bilirubin 0.2 mg/dL (0.15-1.2); Total Protein 5.5 g/dL (6.6-8.7)
[2024-08-28] MEDS: vancomycin 125 mg Capsule 250 MG PO ×4 (04:14→22:50)
[2024-08-28] MEDS: sodium chloride 0.9% 1,000 ML 75 ML IV (05:28)
[2024-08-28 06:30] LABS: Glucose Point of Care 82 mg/dL (70-110)
[2024-08-28] MEDS: pantoprazole DR 40 mg Tablet PO (10:24)
[2024-08-28] MEDS: atorvastatin 40 mg Tablet 80 MG PO (10:24)
[2024-08-28] MEDS: aspirin 81 mg EC Tablet PO (10:25)
[2024-08-28] MEDS: ranolazine (12HR) 500 mg Tablet PO ×2 (10:25→17:09)
[2024-08-28] MEDS: montelukast sodium 10 mg Tablet PO (10:25)
[2024-08-28 11:51] LABS: Glucose Point of Care 131 mg/dL (70-110)
--- NOTE | 2024-08-28 15:31 | P.PN_ITS ---
Subjective 2 Subjective: Blood culture reported positive for diarrhea for gram-positive cocci in pairs, appearing to be coag negative staph, 1 out of 2 bottles. Only 1 set was obtained. Repeat cultures have been ordered today. Patient's mentation appears to be better. He is able to correctly tell me his name, age, birthday, identifies all family members that are present at bedside currently. Persisting leukocytosis 24,000 today. Medications: Reviewed: Yes Vitals/I&O/Wt Last Vital Signs Temp 98.0 F 08/28/24 11:53 Pulse 93 08/28/24 14:00 Resp 17 08/28/24 11:53 BP 137/68 08/28/24 11:53 Pulse Ox 99 08/28/24 11:53 O2 Del Method Room Air 08/28/24 11:53 08/28/24 08/28/24 08/28/24 06:59 14:59 22:59 Intake Total 928.75 / 2228.75 720 / 720 Output Total 850 / 2250 Balance 78.75 / -21.25 720 / 720 Weight last 48 hrs Weight 66.338 kg Weight 67.132 kg Weight 72.575 kg Physical Exam 2 Narrative: General: No acute distress, AO x3 HEENT: PERRLA, pupils bilaterally equal and reactive, pallors not present Chest: Normal vesicular breath sounds, no added sounds, equal good air entry bilaterally CVS: S1-S2 regular, no murmurs, no tachycardia, no gallops, no rubs Abdomen: Soft, nontender, no organomegaly, bowel sounds present Neuro: Wakes up easily to calling name, however prefers to go right to sleep. Moving all extremities while laying in bed. Able to answer all orientation questions correctly. Extremities. Well-healing healing left leg stump BKA. Right leg which was more recently done without any signs of gross cellulitis. Appearing to be retaining some fluid as related to postop state. Staple line is healthy. Urinary Catheter Management: Clayton: Cath Placed During This Visit: yes Reason for Continuing Indwelling Catheter: Acute Urinary Retention or Obstruction Urinary Catheter Date of Insertion: 08/28/24 Urinary Catheter Time of Insertion: 00:03 Data 08/28/24 02:29 08/28/24 02:29 Micro: Microbiology 08/27/24 10:28 Blood Culture - Preliminary Blood Staphylococcus sp coag neg A&P Assessment and plan (1) C. difficile colitis: Patient was recently diagnosed with C. difficile colitis Secondary to significant elevation of white blood cell count, encephalopathy will increase dose of vancomycin to 250 mg 4 times daily. I do not see utility of repeating a C. difficile, this [facility] and he has been having diarrhea Abdominal x-ray has been done demonstrating possible mild ileus. He is still been having significant bowel movements so we will follow this clinically. (2) Acute kidney injury: Patient has evidence of acute kidney injury Hydration Likely secondary to dehydration from C. difficile and decreased oral intake Recheck tomorrow Hold losartan Hold any renal toxic medication (3) Acute encephalopathy: Patient has acute encephalopathy. This may be secondary to C. difficile but cannot rule out hypercarbia as he has underlying COPD. ABG will be done. Will also hold his Neurontin as this could cause similar disorder with occasional twitches secondary to renal dysfunction and face of Neurontin. Hold Dilaudid until it is demonstrated he needs something as needed. Neurochecks CT head was done and negative (4) Hx of type 2 diabetes mellitus: Patient's blood sugar was approximately 90 when he admitted Mild sliding scale insulin Hold long-acting insulin currently No evidence of DKA Doubt hypoglycemia was source of encephalopathy at nursing facility. Plan Multiple other medical problems as outlined in past medical history allow natural On dabigatran, no other DVT prophylaxis needed. Unable to put on pneumatic compression devices as he is a double amputee. August 28, 2024 Continues to have persistent leukocytosis. Creatinine still at 2.8. Urine output 850 cc. 1 bowel movement charted. Continue oral vancomycin. Blood culture reported positive today for coag negative staph 1 out of 2. Once that was obtained yesterday. Will repeat blood cultures today to a certain whether this is contamination versus a true pathogen given recent surgery. No indwelling cardiac hardware. No gross signs of cellulitis at either stump. Start IV vancomycin while pending repeat blood cultures. Continue to trend creatinine. Attestations 2 Medical Necessity Statement*: + blood cx needs further evaluation , iv vancomycin, trend cr Coding Level of Care Code Acute Code for Chg Fwd Diagnoses C. difficile colitis A04.72 Acute kidney injury N17.9 Acute encephalopathy G93.40 Hx of type 2 diabetes mellitus Z86.39
[2024-08-28] MEDS: potassium chloride ER 20 mEq Tablet PO (15:56)
--- NOTE | 2024-08-28 15:58 | PHA.VACGOAL ---
Vancomycin Goal - Goal Vancomycin Goal:: 10-15 mg/L Vancomycin Indication:: Other - Therapy Day of therpy:: Day []of [] . Actual body weight (kg): 146 lb 4 oz - Data Labs: WBC 24.94 10^3/uL (3.29-11.43) H 08/28/24 02:29 RBC 3.36 10^6/uL (3.85-5.65) L 08/28/24 02:29 Hgb 9.10 g/dL (11.27-16.99) L 08/28/24 02:29 Hct 28.7 % (37-53) L 08/28/24 02:29 MCV 85.4 fl (82-101) 08/28/24 02:29 MCH 27.1 pg (27-33) 08/28/24 02:29 MCHC 31.7 g/dL (30-55) 08/28/24 02:29 RDW 17.6 % (12.1-15.1) H 08/28/24 02:29 Sodium 133 mmol/L (136-145) L 08/28/24 02:29 Potassium 3.4 mmol/L (3.5-5.1) L 08/28/24 02:29 Chloride 106 mmol/L (98-107) 08/28/24 02:29 Carbon Dioxide 16 mmol/L (22-29) L 08/28/24 02:29 Anion Gap 14.4 (5-19) 08/28/24 02:29 BUN 34 mg/dL (8-23) H 08/28/24 02:29 Creatinine 2.8 mg/dL (0.7-1.2) H 08/28/24 02:29 GFR Calculation Not Reportable 08/28/24 02:29 Treatment plan:: new consult Regimen:: CONSULTED WITH DR VALLE; PT GIVEN 1000MG IN ER YESTERDAY WE WILL GIVE 1000 MG NOW AND CHECK LEVEL IN 24 HOURS
[2024-08-28] MEDS: VANCOMYCIN ADD-Vantage 1,000 MG in 0.9% NaCl ADD-Vantage 250 ML 250 MG IV (16:04)
[2024-08-28 16:56] LABS: Glucose Point of Care 112 mg/dL (70-110)
[2024-08-28 20:18] LABS: Glucose Point of Care 132 mg/dL (70-110)
[2024-08-29] VITALS (13 sets, daily range): BP systolic 126–170; BP diastolic 56–80; PULSE 67–90; RESP 15–19; TEMP 36.6–37; O2SAT 99–100
[2024-08-29] MEDS: vancomycin 125 mg Capsule 250 MG PO ×4 (03:18→21:27)
[2024-08-29 03:32] LABS: Basophils # 0.1 10^3/uL (0.0-0.1); Basophils % 0.5 %; Eosinophils # 0.2 10^3/uL (0.0-0.8); Hematocrit 28.1 % (37-53); Lymphocytes # 1.9 10^3/uL (0.8-4.8); Lymphocytes % 11.4 %; Mean Corpuscular Hemoglobin 26.4 pg (27-33); Mean Corpuscular Volume 85.4 fl (82-101); Mean Platelet Volume 9.8 fL (7.4-10.4); Monocytes # 1.1 10^3/uL (0.2-0.9); Monocytes % 6.6 %; Neutrophils # 13.07 10^3/uL (1.8-7.7); Nucleated Red Blood Cells % 0 %; Platelet Count 437 10^3/cmm (157-399); Red Blood Count 3.29 10^6/uL (3.85-5.65); Red Cell Distribution Width 17.5 % (12.1-15.1); White Blood Count 16.55 10^3/uL (3.29-11.43)
[2024-08-29 03:53] LABS: Alanine Aminotransferase 22 U/L (0-41); Albumin Level 2.5 g/dL (3.5-5.2); Alkaline Phosphatase 141 U/L (40-130); Anion Gap 15.3 (5-19); Aspartate Amino Transferase 22 U/L (0-40); Blood Urea Nitrogen 25 mg/dL (8-23); Calcium 7.9 mg/dL (8.5-10.5); Carbon Dioxide 15 mmol/L (22-29); Chloride 114 mmol/L (98-107); Globulin 2.5 g/dL (1.3-4.6); Glucose 104 mg/dL (65-115); Osmolality Calculated 297 mOsm/kg (285-295); Potassium 3.3 mmol/L (3.5-5.1); Sodium 141 mmol/L (136-145); Total Bilirubin 0.2 mg/dL (0.15-1.2)
[2024-08-29 06:37] LABS: Glucose Point of Care 107 mg/dL (70-110)
[2024-08-29] MEDS: montelukast sodium 10 mg Tablet PO (09:23)
[2024-08-29] MEDS: pantoprazole DR 40 mg Tablet PO (09:23)
[2024-08-29] MEDS: atorvastatin 40 mg Tablet 80 MG PO (09:23)
[2024-08-29] MEDS: aspirin 81 mg EC Tablet PO (09:23)
[2024-08-29] MEDS: ranolazine (12HR) 500 mg Tablet PO ×2 (09:23→18:21)
[2024-08-29 11:05] LABS: Glucose Point of Care 160 mg/dL (70-110)
[2024-08-29] MEDS: insulin lispro 100 unit/1 mL SUBCUT ×3 (11:58→21:27)
[2024-08-29 16:14] LABS: Vancomycin Trough 11.8 ug/mL (10-15)
--- NOTE | 2024-08-29 16:36 | P.PN_ITS ---
Subjective 2 Subjective: Patient is awake and alert today, able to carry on a full conversation. Medications: Reviewed: Yes Vitals/I&O/Wt Last Vital Signs Temp 97.9 F 08/29/24 16:07 Pulse 90 08/29/24 16:07 Resp 19 H 08/29/24 16:07 BP 170/80 08/29/24 16:07 Pulse Ox 100 08/29/24 16:07 O2 Del Method Room Air 08/29/24 16:07 08/29/24 08/29/24 08/29/24 06:59 14:59 22:59 Intake Total 120 / 1810 960 / 960 Output Total 800 / 2600 1400 / 1400 Balance -680 / -790 -440 / -440 Weight last 48 hrs Weight 66.587 kg Weight 66.338 kg Physical Exam 2 Narrative: General: No acute distress, AO x3 HEENT: PERRLA, pupils bilaterally equal and reactive, pallors not present Chest: Normal vesicular breath sounds, no added sounds, equal good air entry bilaterally CVS: S1-S2 regular, no murmurs, no tachycardia, no gallops, no rubs Abdomen: Soft, nontender, no organomegaly, bowel sounds present Neuro: No focal deficits, no facial deformity, AO x3, power 5/5 in all limbs Extremities: Bilateral amputee, stump appears to be healthy without signs of cellulitis or acute infection bilaterally Urinary Catheter Management: Clayton: Cath Placed During This Visit: yes Reason for Continuing Indwelling Catheter: Acute Urinary Retention or Obstruction Urinary Catheter Date of Insertion: 08/28/24 Urinary Catheter Time of Insertion: 00:03 Data 08/29/24 02:50 08/29/24 02:50 Micro: Microbiology 08/28/24 18:04 Blood Culture - Preliminary Blood SPECIMEN COLLECTED 08/28/24 18:00 Blood Culture - Preliminary Blood SPECIMEN COLLECTED 08/27/24 10:28 Blood Culture - Preliminary Blood Staphylococcus sp coag neg A&P Assessment and plan (1) C. difficile colitis: Patient was recently diagnosed with C. difficile colitis Secondary to significant elevation of white blood cell count, encephalopathy will increase dose of vancomycin to 250 mg 4 times daily. I do not see utility of repeating a C. difficile, this was positive [facility] the [facility] yesterday and he has been having diarrhea Abdominal x-ray has been done demonstrating possible mild ileus. He is still been having significant bowel movements so we will follow this clinically. (2) Acute kidney injury: Patient has evidence of acute kidney injury Hydration Likely secondary to dehydration from C. difficile and decreased oral intake Recheck tomorrow Hold losartan Hold any renal toxic medication (3) Acute encephalopathy: Patient has acute encephalopathy. This may be secondary to C. difficile but cannot rule out hypercarbia as he has underlying COPD. ABG will be done. Will also hold his Neurontin as this could cause similar disorder with occasional twitches secondary to renal dysfunction and face of Neurontin. Hold Dilaudid until it is demonstrated he needs something as needed. Neurochecks CT head was done and negative (4) Hx of type 2 diabetes mellitus: Patient's blood sugar was approximately 90 when he admitted Mild sliding scale insulin Hold long-acting insulin currently No evidence of DKA Doubt hypoglycemia was source of encephalopathy at nursing facility. Plan Multiple other medical problems as outlined in past medical history allow natural On dabigatran, no other DVT prophylaxis needed. Unable to put on pneumatic compression devices as he is a double amputee. August 28, 2024 Continues to have persistent leukocytosis. Creatinine still at 2.8. Urine output 850 cc. 1 bowel movement charted. Continue oral vancomycin. Blood culture reported positive today for coag negative staph 1 out of 2. Once that was obtained yesterday. Will repeat blood cultures today to a certain whether this is contamination versus a true pathogen given recent surgery. No indwelling cardiac hardware. No gross signs of cellulitis at either stump. Start IV vancomycin while pending repeat blood cultures. Continue to trend creatinine. August 29, 2024. White blood cell count is improving. Creatinine improving at 2.2. Good urine output at 4000 cc. Semisolid bowel movements today. Continue oral vancomycin for C. difficile. Plan to remove Clayton catheter. Blood culture coag negative staph. Continue IV vancomycin until results of repeat blood cultures are negative for 48 hours. Mental status is much improved today. He is alert awake able to have a conversation. Blood pressure trending towards hypertension today, will resume home doses of metoprolol 50 mg twice daily, Imdur 60 mg daily. Continue to hold losartan. Attestations 2 Medical Necessity Statement*: follow blood cx, resume antihypertensives. Likely discharge in the next 24 hours if blood culture remains negative. Coding Level of Care Code Acute Code for Chg Fwd Diagnoses C. difficile colitis A04.72 Acute kidney injury N17.9 Acute encephalopathy G93.40 Hx of type 2 diabetes mellitus Z86.39
[2024-08-29] MEDS: hyDRALAzine 20 mg/mL INJ 1 mL 5 MG IVP (17:14)
[2024-08-29] MEDS: potassium chloride ER 20 mEq Tablet PO (17:15)
[2024-08-29] MEDS: VANCOMYCIN ADD-Vantage 1,000 MG in 0.9% NaCl ADD-Vantage 250 ML 250 MG IV (17:18)
[2024-08-29 17:24] LABS: Glucose Point of Care 153 mg/dL (70-110)
[2024-08-29] MEDS: metoprolol tartrate 50 mg Tablet PO (18:21)
--- NOTE | 2024-08-29 19:50 | PC.NURSE ---
Clayton placement on hold, pt was able to urinate 400ml.
[2024-08-29 20:22] LABS: Glucose Point of Care 213 mg/dL (70-110)
[2024-08-30] VITALS (14 sets, daily range): BP systolic 125–183; BP diastolic 65–83; PULSE 64–80; RESP 16–17; TEMP 36.6–37; O2SAT 95–100
[2024-08-30] MEDS: hyDRALAzine 20 mg/mL INJ 1 mL 5 MG IVP (01:37)
[2024-08-30] MEDS: vancomycin 125 mg Capsule 250 MG PO ×4 (04:29→22:18)
[2024-08-30 05:52] LABS: Basophils # 0.1 10^3/uL (0.0-0.1); Basophils % 0.8 %; Eosinophils # 0.1 10^3/uL (0.0-0.8); Hematocrit 28.7 % (37-53); Lymphocytes % 19.5 %; Mean Corpuscular HGB Conc 33.4 g/dL (30-55); Mean Corpuscular Hemoglobin 27.5 pg (27-33); Mean Corpuscular Volume 82.2 fl (82-101); Mean Platelet Volume 9.2 fL (7.4-10.4); Monocytes # 0.8 10^3/uL (0.2-0.9); Neutrophils # 7.02 10^3/uL (1.8-7.7); Neutrophils % 68.2 %; Nucleated Red Blood Cells % 0 %; Platelet Count 517 10^3/cmm (157-399); Red Blood Count 3.49 10^6/uL (3.85-5.65); Red Cell Distribution Width 17.4 % (12.1-15.1); White Blood Count 10.28 10^3/uL (3.29-11.43)
[2024-08-30 06:12] LABS: Alanine Aminotransferase 23 U/L (0-41); Albumin Level 2.5 g/dL (3.5-5.2); Alkaline Phosphatase 136 U/L (40-130); Anion Gap 13.4 (5-19); Aspartate Amino Transferase 20 U/L (0-40); Blood Urea Nitrogen 18 mg/dL (8-23); Calcium 7.9 mg/dL (8.5-10.5); Carbon Dioxide 15 mmol/L (22-29); Chloride 110 mmol/L (98-107); Globulin 2.7 g/dL (1.3-4.6); Glucose 158 mg/dL (65-115); Osmolality Calculated 285 mOsm/kg (285-295); Potassium 3.4 mmol/L (3.5-5.1); Sodium 135 mmol/L (136-145); Total Bilirubin 0.3 mg/dL (0.15-1.2); Total Protein 5.2 g/dL (6.6-8.7)
[2024-08-30 06:26] LABS: Glucose Point of Care 152 mg/dL (70-110)
--- NOTE | 2024-08-30 07:19 | PC.NURSE ---
nurse notifed of bp at 0714
--- NOTE | 2024-08-30 08:26 | PC.NURSE ---
notified nurse of bp at 0714
[2024-08-30] MEDS: insulin lispro 100 unit/1 mL SUBCUT ×4 (08:49→22:07)
[2024-08-30] MEDS: atorvastatin 40 mg Tablet 80 MG PO (08:50)
[2024-08-30] MEDS: pantoprazole DR 40 mg Tablet PO (08:50)
[2024-08-30] MEDS: metoprolol tartrate 50 mg Tablet PO ×2 (08:50→18:34)
[2024-08-30] MEDS: isosorbide mononitrate ER 60 mg Tablet PO (08:50)
[2024-08-30] MEDS: montelukast sodium 10 mg Tablet PO (08:50)
[2024-08-30] MEDS: aspirin 81 mg EC Tablet PO (08:50)
[2024-08-30] MEDS: ranolazine (12HR) 500 mg Tablet PO ×2 (08:50→18:35)
[2024-08-30 10:58] LABS: Glucose Point of Care 235 mg/dL (70-110)
--- NOTE | 2024-08-30 15:29 | PC.SOCIAL ---
IMM Updated. Updated pt on IMM. No questions voiced. Provided pt a copy. Initialed, dated, & timed a copy & placed in chart.
--- NOTE | 2024-08-30 15:53 | PM.PN ---
Subjective Subjective: Leukocytosis remains resolved. He is alert awake and oriented x 3. Creatinine is improving at 1.6 today. Clayton has since been removed. Mild erythema around the staple site from constant rubbing on the bed. Will place Optifoam to protect the area.BP better controlled Medications: Reviewed: Yes Vitals/I&O/Wt Last Vital Signs Temp 98.0 F 08/30/24 11:20 Pulse 64 08/30/24 11:20 Resp 16 08/30/24 13:18 BP 125/77 08/30/24 11:20 Pulse Ox 100 08/30/24 13:18 O2 Del Method Room Air 08/30/24 11:20 08/30/24 08/30/24 08/30/24 06:59 14:59 22:59 Intake Total 240 / 2410 120 / 120 Output Total 450 / 450 Balance 240 / 1010 -330 / -330 Weight last 48 hrs Weight 66.451 kg Weight 66.587 kg Physical Exam Narrative: General: No acute distress, AO x3 HEENT: PERRLA, pupils bilaterally equal and reactive, pallors not present Chest: Normal vesicular breath sounds, no added sounds, equal good air entry bilaterally CVS: S1-S2 regular, no murmurs, no tachycardia, no gallops, no rubs Abdomen: Soft, nontender, no organomegaly, bowel sounds present Neuro: No focal deficits, no facial deformity, AO x3, power 5/5 in all limbs Extremities: Bilateral amputee, stump appears to be healthy without signs of cellulitis or acute infection bilaterally Urinary Catheter Management: Clayton: Cath Placed During This Visit: yes, but has since been removed by the nurse Reason for Continuing Indwelling Catheter: Acute Urinary Retention or Obstruction Urinary Catheter Date of Insertion: 08/28/24 Urinary Catheter Time of Insertion: 00:03 Date Urinary Catheter Removed: 08/29/24 Time Urinary Catheter Discontinued: 14:55 Data 08/30/24 05:28 08/30/24 05:28 Micro: Microbiology 08/27/24 10:28 Blood Culture - Preliminary Blood Staphylococcus hominis 08/30/24 02:02 Occult Blood (FIT) - Final Stool Routine Collection 08/28/24 18:04 Blood Culture - Preliminary Blood NEGATIVE TO DATE 08/28/24 18:00 Blood Culture - Preliminary Blood NEGATIVE TO DATE A&P Assessment and plan (1) C. difficile colitis: Patient was recently diagnosed with C. difficile colitis Secondary to significant elevation of white blood cell count, encephalopathy will increase dose of vancomycin to 250 mg 4 times daily. I do not see utility of repeating a C. difficile, this was positive at the half-way yesterday and he has been having diarrhea Abdominal x-ray has been done demonstrating possible mild ileus. He is still been having significant bowel movements so we will follow this clinically. (2) Acute kidney injury: Patient has evidence of acute kidney injury Hydration Likely secondary to dehydration from C. difficile and decreased oral intake Recheck tomorrow Hold losartan Hold any renal toxic medication (3) Acute encephalopathy: Patient has acute encephalopathy. This may be secondary to C. difficile but cannot rule out hypercarbia as he has underlying COPD. ABG will be done. Will also hold his Neurontin as this could cause similar disorder with occasional twitches secondary to renal dysfunction and face of Neurontin. Hold Dilaudid until it is demonstrated he needs something as needed. Neurochecks CT head was done and negative (4) Hx of type 2 diabetes mellitus: Patient's blood sugar was approximately 90 when he admitted Mild sliding scale insulin Hold long-acting insulin currently No evidence of DKA Doubt hypoglycemia was source of encephalopathy at nursing facility. Plan Multiple other medical problems as outlined in past medical history allow natural On dabigatran, no other DVT prophylaxis needed. Unable to put on pneumatic compression devices as he is a double amputee. August 28, 2024 Continues to have persistent leukocytosis. Creatinine still at 2.8. Urine output 850 cc. 1 bowel movement charted. Continue oral vancomycin. Blood culture reported positive today for coag negative staph 1 out of 2. Once that was obtained yesterday. Will repeat blood cultures today to a certain whether this is contamination versus a true pathogen given recent surgery. No indwelling cardiac hardware. No gross signs of cellulitis at either stump. Start IV vancomycin while pending repeat blood cultures. Continue to trend creatinine. August 29, 2024. White blood cell count is improving. Creatinine improving at 2.2. Good urine output at 4000 cc. Semisolid bowel movements today. Continue oral vancomycin for C. difficile. Plan to remove Clayton catheter. Blood culture coag negative staph. Continue IV vancomycin until results of repeat blood cultures are negative for 48 hours. Mental status is much improved today. He is alert awake able to have a conversation. Blood pressure trending towards hypertension today, will resume home doses of metoprolol 50 mg twice daily, Imdur 60 mg daily. Continue to hold losartan. August 30, 2024 Leukocytosis is now resolved. Creatinine improving at 1.6. Clayton catheter has been removed, patient is able to void. FOBT positive for occult blood, may be related to acute colitis. Hemoglobin is stable at 9.6 currently. Will recommend outpatient follow-up with general surgery for endoscopic evaluation if persistently remains with heme positive stools. Mild erythema noted around the medial right stump site, suspect this is related to grabbing of the vesna on bed. Will place IV dressing to protect the vesna. Local application of mupirocin. No signs of systemic illness otherwise. Blood culture repeat negative. Discontinue IV vancomycin. Blood pressure better controlled after resuming home dose of metoprolol and Imdur. Continue to hold losartan. Mentation back to baseline. Patient is overall ready for discharge, however may need to wait as half-way requires auth. Attestations Medical Necessity Statement*: Ongoing appropriate disposition planning Coding Level of Care Code Acute Code for g Fwd Diagnoses C. difficile colitis A04.72 Acute kidney injury N17.9 Acute encephalopathy G93.40 Hx of type 2 diabetes mellitus Z86.39
[2024-08-30 16:32] LABS: Glucose Point of Care 154 mg/dL (70-110)
[2024-08-30 17:06] LABS: Vancomycin Trough 14.3 ug/mL (10-15)
--- NOTE | 2024-08-30 20:44 | PC.NURSE ---
OT in with patient when IV was pulled out. Dr. Hoang stated patient did not need an IV at this time per Dr. Hoang.
[2024-08-30 21:26] LABS: Glucose Point of Care 169 mg/dL (70-110)
[2024-08-31] VITALS (12 sets, daily range): BP systolic 128–176; BP diastolic 66–74; PULSE 69–83; RESP 16–18; TEMP 36.6–36.7; O2SAT 99–100
[2024-08-31] MEDS: vancomycin 125 mg Capsule 250 MG PO ×4 (04:15→22:09)
[2024-08-31] MEDS: pantoprazole DR 40 mg Tablet PO (08:36)
[2024-08-31] MEDS: aspirin 81 mg EC Tablet PO (08:36)
[2024-08-31] MEDS: metoprolol tartrate 50 mg Tablet PO ×2 (08:36→17:30)
[2024-08-31] MEDS: montelukast sodium 10 mg Tablet PO (08:36)
[2024-08-31] MEDS: isosorbide mononitrate ER 60 mg Tablet PO (08:36)
[2024-08-31] MEDS: atorvastatin 40 mg Tablet 80 MG PO (08:36)
[2024-08-31] MEDS: ranolazine (12HR) 500 mg Tablet PO ×2 (08:36→17:30)
[2024-08-31 10:58] LABS: Glucose Point of Care 235 mg/dL (70-110)
[2024-08-31] MEDS: insulin lispro 100 unit/1 mL SUBCUT ×3 (11:17→22:08)
--- NOTE | 2024-08-31 14:10 | PM.PN ---
Subjective Subjective: Seen this morning. Blood culture positive for Staph hominis deemed to be a contaminant. Leukocytosis resolved patient awake alert oriented x 3. Pending placement to nursing facility. Vitals/I&O/Wt Last Vital Signs Temp 98.0 F 08/31/24 11:31 Pulse 74 08/31/24 14:00 Resp 16 08/31/24 08:37 BP 128/67 08/31/24 11:31 Pulse Ox 100 08/31/24 11:31 O2 Del Method Room Air 08/31/24 11:31 08/30/24 08/31/24 08/31/24 22:59 06:59 14:59 Intake Total 300 / 420 1480 / 1480 Output Total 425 / 875 900 / 1775 100 / 100 Balance -425 / -755 -600 / -1355 1380 / 1380 Weight last 48 hrs Weight 70.08 kg Weight 66.451 kg Physical Exam Narrative: General: No acute distress, AO x3 HEENT: PERRLA, pupils bilaterally equal and reactive, pallors not present Chest: Normal vesicular breath sounds, no added sounds, equal good air entry bilaterally CVS: S1-S2 regular, no murmurs, no tachycardia, no gallops, no rubs Abdomen: Soft, nontender, no organomegaly, bowel sounds present Neuro: No focal deficits, no facial deformity, AO x3, power 5/5 in all limbs Extremities: Bilateral amputee, stump appears to be healthy without signs of cellulitis or acute infection bilaterally Urinary Catheter Management: Clayton: Cath Placed During This Visit: yes, but has since been removed by the nurse Reason for Continuing Indwelling Catheter: Acute Urinary Retention or Obstruction Urinary Catheter Date of Insertion: 08/28/24 Urinary Catheter Time of Insertion: 00:03 Date Urinary Catheter Removed: 08/29/24 Time Urinary Catheter Discontinued: 14:55 Data 08/30/24 05:28 08/30/24 05:28 Micro: Microbiology 08/27/24 09:41 Blood Culture - Preliminary Blood SPECIMEN COLLECTED 08/27/24 10:28 Blood Culture - Preliminary Blood Staphylococcus hominis A&P Assessment and plan (1) C. difficile colitis: Patient was recently diagnosed with C. difficile colitis Secondary to significant elevation of white blood cell count, encephalopathy will increase dose of vancomycin to 250 mg 4 times daily. I do not see utility of repeating a C. difficile, this was positive at the skilled nursing yesterday and he has been having diarrhea Abdominal x-ray has been done demonstrating possible mild ileus. He is still been having significant bowel movements so we will follow this clinically. (2) Acute kidney injury: Patient has evidence of acute kidney injury Hydration Likely secondary to dehydration from C. difficile and decreased oral intake Recheck tomorrow Hold losartan Hold any renal toxic medication (3) Acute encephalopathy: Patient has acute encephalopathy. This may be secondary to C. difficile but cannot rule out hypercarbia as he has underlying COPD. ABG will be done. Will also hold his Neurontin as this could cause similar disorder with occasional twitches secondary to renal dysfunction and face of Neurontin. Hold Dilaudid until it is demonstrated he needs something as needed. Neurochecks CT head was done and negative (4) Hx of type 2 diabetes mellitus: Patient's blood sugar was approximately 90 when he admitted Mild sliding scale insulin Hold long-acting insulin currently No evidence of DKA Doubt hypoglycemia was source of encephalopathy at nursing facility. Plan Multiple other medical problems as outlined in past medical history allow natural On dabigatran, no other DVT prophylaxis needed. Unable to put on pneumatic compression devices as he is a double amputee. August 28, 2024 Continues to have persistent leukocytosis. Creatinine still at 2.8. Urine output 850 cc. 1 bowel movement charted. Continue oral vancomycin. Blood culture reported positive today for coag negative staph 1 out of 2. Once that was obtained yesterday. Will repeat blood cultures today to a certain whether this is contamination versus a true pathogen given recent surgery. No indwelling cardiac hardware. No gross signs of cellulitis at either stump. Start IV vancomycin while pending repeat blood cultures. Continue to trend creatinine. August 29, 2024. White blood cell count is improving. Creatinine improving at 2.2. Good urine output at 4000 cc. Semisolid bowel movements today. Continue oral vancomycin for C. difficile. Plan to remove Clayton catheter. Blood culture coag negative staph. Continue IV vancomycin until results of repeat blood cultures are negative for 48 hours. Mental status is much improved today. He is alert awake able to have a conversation. Blood pressure trending towards hypertension today, will resume home doses of metoprolol 50 mg twice daily, Imdur 60 mg daily. Continue to hold losartan. August 30, 2024 Leukocytosis is now resolved. Creatinine improving at 1.6. Clayton catheter has been removed, patient is able to void. FOBT positive for occult blood, may be related to acute colitis. Hemoglobin is stable at 9.6 currently. Will recommend outpatient follow-up with general surgery for endoscopic evaluation if persistently remains with heme positive stools. Mild erythema noted around the medial right stump site, suspect this is related to grabbing of the vesna on bed. Will place IV dressing to protect the vesna. Local application of mupirocin. No signs of systemic illness otherwise. Blood culture repeat negative. Discontinue IV vancomycin. Blood pressure better controlled after resuming home dose of metoprolol and Imdur. Continue to hold losartan. Mentation back to baseline. Patient is overall ready for discharge, however may need to wait as skilled nursing requires auth. 08/31/2024 -Seen this morning. Patient is pending placement to skilled nursing. EGD colonoscopy as an outpatient. Will need general surgery referral at discharge. Will stop vancomycin. Attestations Medical Necessity Statement*: Ongoing appropriate disposition planning Diagnoses C. difficile colitis A04.72 Acute kidney injury N17.9 Acute encephalopathy G93.40 Hx of type 2 diabetes mellitus Z86.39
[2024-08-31 16:40] LABS: Glucose Point of Care 185 mg/dL (70-110)
[2024-08-31 20:23] LABS: Glucose Point of Care 178 mg/dL (70-110)
[2024-09-01 04:00] VITALS: BP 149/74; PULSE 75; RESP 18; TEMP 36.6; O2SAT 100
[2024-09-01] MEDS: vancomycin 125 mg Capsule 250 MG PO ×2 (04:04→08:16)
[2024-09-01 06:36] LABS: Glucose Point of Care 185 mg/dL (70-110)
[2024-09-01 07:12] LABS: Basophils # 0.1 10^3/uL (0.0-0.1); Basophils % 0.7 %; Eosinophils # 0.1 10^3/uL (0.0-0.8); Eosinophils % 0.8 %; Hematocrit 30.1 % (37-53); Lymphocytes # 1.8 10^3/uL (0.8-4.8); Lymphocytes % 18.5 %; Mean Corpuscular HGB Conc 30.9 g/dL (30-55); Mean Corpuscular Hemoglobin 26.2 pg (27-33); Mean Corpuscular Volume 84.8 fl (82-101); Mean Platelet Volume 9.3 fL (7.4-10.4); Monocytes # 0.7 10^3/uL (0.2-0.9); Monocytes % 7.5 %; Neutrophils % 70.6 %; Nucleated Red Blood Cells % 0 %; Platelet Count 555 10^3/cmm (157-399); Red Blood Count 3.55 10^6/uL (3.85-5.65); Red Cell Distribution Width 17.5 % (12.1-15.1); White Blood Count 9.78 10^3/uL (3.29-11.43)
[2024-09-01 07:25] LABS: Blood Urea Nitrogen 19 mg/dL (8-23); Calcium 7.9 mg/dL (8.5-10.5); Carbon Dioxide 15 mmol/L (22-29); Chloride 107 mmol/L (98-107); Creatinine Clr Calc Pharmacy 38.5576; Glucose 177 mg/dL (65-115); Magnesium 1.3 mg/dL (1.7-2.3); Osmolality Calculated 289 mOsm/kg (285-295); Sodium 136 mmol/L (136-145)
[2024-09-01 08:00] VITALS: BP 155/71; PULSE 87; RESP 17; TEMP 36.3; O2SAT 100
[2024-09-01] MEDS: ranolazine (12HR) 500 mg Tablet PO (08:16)
[2024-09-01] MEDS: pantoprazole DR 40 mg Tablet PO (08:16)
[2024-09-01] MEDS: atorvastatin 40 mg Tablet 80 MG PO (08:16)
[2024-09-01] MEDS: isosorbide mononitrate ER 60 mg Tablet PO (08:16)
[2024-09-01] MEDS: aspirin 81 mg EC Tablet PO (08:17)
[2024-09-01] MEDS: montelukast sodium 10 mg Tablet PO (08:17)
[2024-09-01] MEDS: metoprolol tartrate 50 mg Tablet PO (08:17)
[2024-09-01] MEDS: insulin lispro 100 unit/1 mL SUBCUT ×2 (08:20→12:09)
[2024-09-01 09:56] VITALS: RESP 18
[2024-09-01 11:21] LABS: Glucose Point of Care 171 mg/dL (70-110)
--- NOTE | 2024-09-01 11:54 | PM.DCS ---
Discharge Providers Date of Admission: 08/28/24 15:42 Date of Discharge: September 01, 2024 Attending Provider at Admission: Sagar Davila MD Attending Provider at Discharge: Galilea Cunha MD Primary Care Provider: Bertha Perkins MD Diagnoses at Discharge Discharge Diagnosis (1) C. difficile colitis: Status: Resolved (2) Acute kidney injury: Status: Resolved (3) Acute encephalopathy: Status: Resolved (4) Hx of type 2 diabetes mellitus: Status: Acute Reason for Visit Reason for Visit: ams Hospital Course Hospital Course Patient presented to the hospital with diarrhea and was diagnosed with C. difficile colitis and placed on vancomycin. He was apparently on 125 of vancomycin which was increased to 254 times daily. He also developed DUSTIN for which she was given IV hydration. Losartan was held at discharge. Patient's leukocytosis resolved. He also had i possible cellulitis on his stump. He was placed on IV vancomycin. Blood culture was positive for coagulase-negative staph which was deemed to be a contaminant after talking to the lab. Vancomycin IV was stopped. Blood cultures repeated were negative. He was recommended to follow-up with general surgery as an outpatient for outpatient EGD colonoscopy. Patient was discharged to longterm in stable condition. Physical Exam Narrative: General: No acute distress, AO x3 HEENT: PERRLA, pupils bilaterally equal and reactive, pallors not present Chest: Normal vesicular breath sounds, no added sounds, equal good air entry bilaterally CVS: S1-S2 regular, no murmurs, no tachycardia, no gallops, no rubs Abdomen: Soft, nontender, no organomegaly, bowel sounds present Urinary Catheter Management: Clayton: Cath Placed During This Visit: yes, but has since been removed by the nurse Reason for Continuing Indwelling Catheter: Acute Urinary Retention or Obstruction Urinary Catheter Date of Insertion: 08/28/24 Urinary Catheter Time of Insertion: 00:03 Date Urinary Catheter Removed: 08/29/24 Time Urinary Catheter Discontinued: 14:55 Discharge Data Studies Completed and Pending Completed Studies During Hospitalization Category Date Time Status CT head wo con* [id number] Stat Cat Scan 08/27/24 09:31 Completed XR abdomen 1V* [id number] Stat Exams 08/27/24 12:21 Completed XR chest 1V portable [id number] Stat Exams 08/27/24 09:31 Completed XR femur LT min 2V* [id number] Stat Exams 08/27/24 12:06 Completed XR femur RT min 2V* [id number] Stat Exams 08/27/24 11:55 Completed Pending at discharge Category Date Time Status Blood Culture Stat Lab 08/27/24 09:41 Results Blood Culture Stat Lab 08/28/24 18:04 Results Radiology Impressions Chest X-Ray 08/27/24 09:31 IMPRESSION: 1. Negative chest. Head CT 08/27/24 09:31 IMPRESSION: 1. No acute intracranial hemorrhage or edema. 2. Mild atrophy with moderate small vessel ischemic disease and small lacunar infarcts in the external capsules. 3. No acute edema or infarct noted. Femur X-Ray 08/27/24 12:06 IMPRESSION: 1. No fracture or bone destruction. Additional nonurgent findings as above. Abdomen X-Ray 08/27/24 12:21 IMPRESSION: 1. Findings suggest mild ileus. No acute process noted at this time. 2. Additional nonacute findings. Laboratory Results WBC 9.78 10^3/uL (3.29-11.43) 09/01/24 06:33 RBC 3.55 10^6/uL (3.85-5.65) L 09/01/24 06:33 Hgb 9.30 g/dL (11.27-16.99) L 09/01/24 06:33 Hct 30.1 % (37-53) L 09/01/24 06:33 MCV 84.8 fl (82-101) 09/01/24 06:33 MCH 26.2 pg (27-33) L 09/01/24 06:33 MCHC 30.9 g/dL (30-55) 09/01/24 06:33 RDW 17.5 % (12.1-15.1) H 09/01/24 06:33 Plt Count 555 10^3/cmm (157-399) H 09/01/24 06:33 MPV 9.3 fL (7.4-10.4) 09/01/24 06:33 Neut % (Auto) 70.6 % 09/01/24 06:33 Lymph % (Auto) 18.5 % 09/01/24 06:33 [place] % (Auto) 7.5 % 09/01/24 06:33 Eos % (Auto) 0.8 % 09/01/24 06:33 Baso % (Auto) 0.7 % 09/01/24 06:33 Neut # (Auto) 6.90 10^3/uL (1.8-7.7) 09/01/24 06:33 Lymph # (Auto) 1.8 10^3/uL (0.8-4.8) 09/01/24 06:33 [place] # (Auto) 0.7 10^3/uL (0.2-0.9) 09/01/24 06:33 Eos # (Auto) 0.1 10^3/uL (0.0-0.8) 09/01/24 06:33 Baso # (Auto) 0.1 10^3/uL (0.0-0.1) 09/01/24 06:33 Nucleated RBC % (auto) 0 % 09/01/24 06:33 Nucleated RBCs # 0.0 /100WBC 09/01/24 06:33 Specimen Type Arterial 08/27/24 12:41 Sample Site Brachial, left 08/27/24 12:41 ABG pH 7.33 (7.35-7.45) L 08/27/24 12:41 ABG pCO2 26.7 mmHg (35-45) L 08/27/24 12:41 ABG pO2 98.8 mmHg (80.0-100.0) 08/27/24 12:41 ABG PO2/FiO2 Ratio 470 08/27/24 12:41 ABG HCO3 13.9 mmol/L (22-26) L 08/27/24 12:41 ABG Base Excess -10.8 mmol/L (-2.0-2.0) L 08/27/24 12:41 Marek Test N/a 08/27/24 12:41 Hematocrit 28.2 % (42-52) L 08/27/24 12:41 O2 Delivery Device Room air 08/27/24 12:41 FiO2 21.0 % 08/27/24 12:41 Laborer/Key Man ID [facility] 08/27/24 12:41 Sodium 136 mmol/L (136-145) 09/01/24 06:33 Potassium 4.0 mmol/L (3.5-5.1) 09/01/24 06:33 Chloride 107 mmol/L (98-107) 09/01/24 06:33 Carbon Dioxide 15 mmol/L (22-29) L 09/01/24 06:33 Anion Gap 18.0 (5-19) 09/01/24 06:33 BUN 19 mg/dL (8-23) 09/01/24 06:33 Creatinine 1.4 mg/dL (0.7-1.2) H 09/01/24 06:33 GFR Calculation Not Reportable 09/01/24 06:33 Glucose 177 mg/dL (65-115) H 09/01/24 06:33 POC Glucose 171 mg/dL (70-110) H 09/01/24 11:09 Calculated Osmolality 289 mOsm/kg (285-295) 09/01/24 06:33 Lactic Acid 0.8 mmol/L (0.5-2.2) 08/27/24 09:41 Calcium 7.9 mg/dL (8.5-10.5) L 09/01/24 06:33 Magnesium 1.3 mg/dL (1.7-2.3) L 09/01/24 06:33 Total Bilirubin 0.3 mg/dL (0.15-1.2) 08/30/24 05:28 AST 20 U/L (0-40) 08/30/24 05:28 ALT 23 U/L (0-41) 08/30/24 05:28 Alkaline Phosphatase 136 U/L (40-130) H 08/30/24 05:28 C-Reactive Protein 97.2 mg/L (0.0-4.9) H 08/27/24 09:41 Total Protein 5.2 g/dL (6.6-8.7) L 08/30/24 05:28 Albumin 2.5 g/dL (3.5-5.2) L 08/30/24 05:28 Globulin 2.7 g/dL (1.3-4.6) 08/30/24 05:28 Procalcitonin 0.57 ng/mL (0-0.5) H 08/27/24 09:41 Urine Color Yellow (Yellow) 08/27/24 11:09 Urine Appearance Cloudy (CLEAR) A 08/27/24 11:09 Urine pH 5.0 (5-7) 08/27/24 11:09 Ur Specific [place] 1.013 (1.005-1.030) 08/27/24 11:09 Urine Protein 1+ (Negative) A 08/27/24 11:09 Urine Glucose (UA) 3+ (Normal) H 08/27/24 11:09 Urine Ketones Negative (Negative) 08/27/24 11:09 Urine Blood Negative (Negative) 08/27/24 11:09 Urine Nitrate Negative (Negative) 08/27/24 11:09 Urine Bilirubin Negative (Negative) 08/27/24 11:09 Urine Urobilinogen 0.2 mg/dL (Negative) 08/27/24 11:09 Ur Leukocyte Esterase Negative (Negative) 08/27/24 11:09 Urine RBC 0-2 /hpf (0-2) 08/27/24 11:09 Urine WBC 0-5 /hpf (0-5) 08/27/24 11:09 Ur Squamous Epith Cells 0-5 /hpf (0-5) 08/27/24 11:09 Amorphous Sediment Not Reportable 08/27/24 11:09 Urine Bacteria None seen /hpf (NONE) 08/27/24 11:09 Hyaline Casts 1.65 /lpf 08/27/24 11:09 Vancomycin Trough 14.3 ug/mL (10-15) 08/30/24 16:08 Vitals Last Vital Signs Temp 97.3 F L 09/01/24 08:00 Pulse 87 09/01/24 08:00 Resp 18 09/01/24 09:56 BP 155/71 09/01/24 08:00 Pulse Ox 100 09/01/24 08:00 O2 Del Method Room Air 09/01/24 04:00 Discharge Plan Discharge Patient Disposition: Xfer SNF Condition: Stable Prescriptions: New magnesium oxide 400 mg magnesium capsule 400 mg PO BID Qty: 20 0RF Continued Linzess 145 mcg capsule 145 mcg PO DAILY aspirin [Adult Aspirin Regimen] 81 mg tablet,delayed release (DR/EC) 81 mg PO DAILY metoclopramide HCl [Reglan] 10 mg tablet 10 mg PO TID PRN (Reason: Nausea And Vomiting) cetirizine [Zyrtec] 10 mg tablet 10 mg PO DAILY montelukast [Singulair] 10 mg tablet 10 mg PO DAILY Jardiance 10 mg tablet 10 mg PO DAILY metoprolol tartrate 50 mg tablet 50 mg PO BID Qty: 180 3RF Pradaxa 150 mg capsule 150 mg PO BID Qty: 180 3RF Hold Instructions: Resume on 07/04/21. May restart this medicine tomorrow morning atorvastatin [Lipitor] 80 mg tablet 80 mg PO DAILY Qty: 90 3RF ranolazine 500 mg tablet extended release 12 hr 500 mg PO BID Qty: 180 3RF gabapentin 400 mg capsule 400 mg PO TID levocetirizine 5 mg tablet 5 mg PO QPM sucralfate 100 mg/mL Suspension 10 ml PO QID Rx Instructions: swish in mouth and swallow; use after food/drink tamsulosin 0.4 mg Capsule 0.4 mg PO DAILY insulin aspart U-100 100 unit/mL Solution See Rx Instructions .ROUTE .COMPLEX Rx Instructions: sliding scale 150-200 =0 201-250= 2 251-300=4 301-350=6 351-400=8 with meals bisacodyl [Dulcolax (bisacodyl)] 10 mg Suppository 10 mg NV DAILY PRN (Reason: Constipation) pantoprazole 40 mg Tablet,Delayed Release (Dr/Ec) 40 mg PO BID ferrous sulfate 325 mg (65 mg iron) Tablet 325 mg PO BID bupropion HCl 75 mg Tablet 75 mg PO DAILY Fleet Enema 19-7 gram/118 mL Enema 118 ml NV DAILY nitroglycerin 0.4 mg Tablet, Sublingual 0.4 mg SUBLINGUAL Q5M PRN (Reason: Chest Pain) Rx Instructions: do not exceed 3 doses per episode bisacodyl [Dulcolax (bisacodyl)] 5 mg Tablet,Delayed Release (Dr/Ec) 10 mg PO DAILY PRN (Reason: Constipation) albuterol sulfate 90 mcg/actuation Hfa Aerosol Inhaler 2 puff INHALATION DAILY PRN (Reason: Shortness Of Breath) hydromorphone 4 mg Tablet 4 mg PO Q4H PRN (Reason: Pain) PNV cmb#[id number] fumarate-FA [] 28 mg iron- 800 mcg Tablet 1 tab PO DAILY Changed insulin glargine 100 unit/mL Solution 5 unit SUBCUT QPM Qty: 10 0RF isosorbide mononitrate 60 mg tablet extended release 24 hr 60 mg PO DAILY Qty: 180 3RF Discontinued vancomycin 125 mg capsule 125 mg PO Q6H doxycycline hyclate 100 mg Tablet 100 mg PO BID insulin degludec [Tresiba FlexTouch U-200] 200 unit/mL (3 mL) Insulin Pen 30 unit SUBCUT DAILY Rx Instructions: if fasting blood sugar is <90 then take 15 units No Action ondansetron HCl 4 mg Tablet 4 mg PO Q6H PRN (Reason: Nausea And Vomiting) nifedipine 30 mg Tablet Extended Release 24hr 60 mg PO DAILY Qty: 30 0RF cefdinir 300 mg capsule 300 mg PO BID Qty: 6 0RF Discharge Orders: Discharge Order (Routine); Ordered 09/01/24 Ordered By: Galilea Cunha Referrals: [facility] [Outside] Bladimir Hunt DO [Physician] - 7-10 days (We have notified your physician's clinic of the need for a follow-up appointment to be scheduled. If you have not heard from them within the next 2 business days, please call them directly. ) Bertha Perkins MD [Primary Care Provider] - 09/02/24 3:30 pm Discharge Diet: Cardiac and Diabetic Discharge Activity: Resume usual activity Patient Instructions: Amoxicillin/Clavulanate Potassium (By mouth), Vancomycin (By mouth), C. Diff (Clostridioides Difficile) Infection (GEN), Altered Mental Status (ED) Discharge Attestations Time Spent in Discharge Care*: less than 30 min Quality Metrics Clinical Quality Measures [ No reported AMI, CVA or VTE this stay] Coding Level of Care Code Acute Code for Chg Fwd Diagnoses C. difficile colitis A04.72 Acute kidney injury N17.9 Acute encephalopathy G93.40 Hx of type 2 diabetes mellitus Z86.39
[2024-09-01 12:00] VITALS: BP 147/72; PULSE 85; RESP 16; TEMP 36.8; O2SAT 100
--- NOTE | 2024-09-01 12:36 | PC.SOCIAL ---
IMM Updated. Updated pt on IMM. No questions voiced. Provided pt a copy. Initialed, dated, & timed copy in chart.
--- NOTE | 2024-09-01 15:06 | PC.NURSE ---
Attempted to call report to [facility] x2, no answer. Left message to call this nurse for report.
[2024-09-01 15:47] VITALS: BP 147/72; PULSE 87; O2SAT 100
--- NOTE | 2024-09-01 16:36 | PC.NURSE ---
report given to Azalia at [facility]
== END 2024-09-01 15:47 | disposition skilled nursing facility (03) | DRG 372 ==
LOC: ER 12:22 → MEDSURG 14:35
PROVIDERS: Student in an Organized Health Care Education/Training Program; Admitting Provider Internal Medicine; Emergency Provider Emergency Medicine; PCP Internal Medicine; Visit Provider Internal Medicine
DX: A04.72 Enterocolitis due to Clostridium difficile, not specified as recurrent (principal); G93.40 Encephalopathy, unspecified; N17.9 Acute kidney failure, unspecified; E11.51 Type 2 diabetes mellitus with diabetic peripheral angiopathy without gangrene; E86.0 Dehydration; Z66 Do not resuscitate; N40.1 Benign prostatic hyperplasia with lower urinary tract symptoms; R33.8 Other retention of urine; J44.9 Chronic obstructive pulmonary disease, unspecified; I10 Essential (primary) hypertension; K21.9 Gastro-esophageal reflux disease without esophagitis; F17.210 Nicotine dependence, cigarettes, uncomplicated; I25.10 Atherosclerotic heart disease of native coronary artery without angina pectoris; Z79.82 Long term (current) use of aspirin; Z79.4 Long term (current) use of insulin; Z98.61 Coronary angioplasty status; Z98.890 Other specified postprocedural states; Z89.512 Acquired absence of left leg below knee; Z89.611 Acquired absence of right leg above knee; Z83.3 Family history of diabetes mellitus; Z82.3 Family history of stroke; Z82.49 Family history of ischemic heart disease and other diseases of the circulatory system
CPT/HCPCS: 36415; 36416; 36600; 51702; 70450; 71045; 73552; 74018; 80048; 80053; 80202; 81001; 82274; 82803; 82962; 83605; 83735; 84145; 85025; 86140; 87040; 87077; 87150; 87186; 87205; 96365; 96367; 96372; 97161; 97167; 97530; 97535; 99291; G0378; J0360; J1815; J2543; J3370; J7030; J7050

== ENCOUNTER 2024-09-10 15:33 | Inpatient (IN) | payer MEDICARE, SELFPAY ==
[2024-09-10 15:43] VITALS: BP 121/41; PULSE 54; RESP 18; TEMP 36.6; O2SAT 99
--- NOTE | 2024-09-10 15:49 | CTR_ITS ---
PROCEDURE INFORMATION: Exam: CT Head Without Contrast Exam date and time: 09/10/2024 4:34 PM Age: 74 years old Clinical indication: Altered mental status/memory loss; Confusion or disorientation; Additional info: AMS TECHNIQUE: Imaging protocol: Computed tomography of the head without contrast. Radiation optimization: All CT scans at this facility use at least one of these dose optimization techniques: automated exposure control; mA and/or kV adjustment per patient size (includes targeted exams where dose is matched to clinical indication); or iterative reconstruction. COMPARISON: CT head wo con* [id number] 08/27/2024 9:55 AM RADIATION DOSE METRICS: Total DLP (mGy-cm): 1105.15 FINDINGS: Brain: Age-related brain parenchymal atrophy. Areas of hypoattenuation in the periventricular and subcortical deep white matter likely on the basis of chronic microvascular ischemic changes. No acute intra cranial hemorrhage. No mass effect or midline shift. No definitive CT evidence of acute territorial infarction. Cerebral ventricles: Prominence of the lateral ventricular system likely on the basis of ex vacuo dilatation. Paranasal sinuses: Visualized sinuses are unremarkable. No fluid levels. Mastoid air cells: Visualized mastoid air cells are well aerated. Bones: Intact calvarium. Soft tissues: Unremarkable. CT/CT head wo con* [id number] IMPRESSION: No acute intracranial process. Senescent changes. If there is continued clinical concern for an acute ischemic event then follow up brain MRI examination.
--- NOTE | 2024-09-10 15:49 | ECG_ITS ---
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 Measurements Intervals [place] Rate: 53 P: -27 WV: 175 QRS: 43 QRSD: 88 T: 66 QT: 432 QTc: 408 Interpretive Statements SINUS BRADYCARDIA No previous ECG available for comparison Electronically Signed On 09-10-2024 18:27:45 POWDER CORE TESTER by Ze Grijalva M.D. [id number]
[2024-09-10 16:03] LABS: Glucose Point of Care 250 mg/dL (70-110)
--- NOTE | 2024-09-10 16:08 | ED_ITS ---
HPI - Weakness 2 General: Chief complaint: Weakness Stated complaint: syncope Time Seen by Provider: 09/10/24 15:48 Source: patient and EMS Mode of arrival: EMS Limitations: no limitations History of Present Illness: Home 74-year-old male is here from [place] he states he went out sideways and smoked and had a syncopal event does not really member what happened had some confusion after he states he feels much improved now he is answering all my questions appropriately denies any headache or anything else at this time. Associated symptoms: Reports syncope; Denies chest pain, chills, fever(s), headache(s), nausea or vomiting Review of Systems 2 Const: Denies: fever(s), chills, body aches or change in appetite ENMT: Denies: throat pain or dental pain Card: Reports: syncope; Denies: chest pain Resp: Denies: dyspnea GI: Denies: abdominal pain, nausea, vomiting or diarrhea Musc: Denies: neck pain or back pain Skin/Breast: Denies: rash Neuro: Denies: headache(s) PFSH ED 2 PFSH: Medical History Pancreatitis Peripheral vascular disease Hx of type 2 diabetes mellitus Hypertension COPD (chronic obstructive pulmonary disease) Lumbar degenerative disc disease GERD (gastroesophageal reflux disease) BPH (benign prostatic hyperplasia) Diabetic peripheral autonomic neuropathy Sinusitis DJD (degenerative joint disease) Cellulitis of foot Hx MRSA infection Carotid stenosis Renal insufficiency Surgical History Hx of BKA Hx of hand surgery History of PTCA History of amputation of toe Hx of coronary angioplasty Hx of surgical amputation of finger History of back surgery History of femoropopliteal bypass Family History Mother CAD (coronary artery disease) Diabetes Sister CAD (coronary artery disease) Diabetes Brother CAD (coronary artery disease) Diabetes Daughter Stroke Denies family history of Clotting disorder Dementia Chronic kidney disease (CKD) Suicide Anesthesia complication Bleeding disorder Lung disease Cancer Social History Smoking and tobacco/nicotine status: current every day tobacco/nicotine user cigarettes Packs smoked per day: 0.5 Alcohol intake: never Substance/Drug Use: never Physical Exam 2 Const: COMMON NORMALS: no acute distress, patient oriented x3 and healthy appearing HENMT: COMMON NORMALS: normocephalic and atraumatic HEAD & SCALP: n ormocephalic and atraumatic Eye: COMMON NORMALS: Equal, round and reactive pupils present and EOMs intact bilaterally PUPIL: Yes Equal, round and reactive pupils present Neck/C-Spine: COMMON NORMALS: full ROM and supple Chest: COMMONS NORMALS: normal inspection of the chest and normal palpation of entire chest wall Resp: COMMON NORMALS: normal respiratory effort, No retractions, No use of accessory muscles and clear to auscultation bilaterally AUSCULTATION: clear to auscultation bilaterally Cardio: COMMON NORMALS: regular rate, regular rhythm and No murmurs present (Cardio) RATE: regular rate RHYTHM: regular rhythm GI: COMMON NORMALS: Normal to inspection, nondistended, normoactive bowel sounds present, Soft to palpation, non-tender and no masses PALPATION: Yes Soft to palpation Extremity: COMMON NORMALS: normal to inspection and full ROM Neuro: COMMON NORMALS: patient oriented x3, moves all extremities and no focal motor deficits Psych: COMMON NORMALS: mental status grossly normal, Normal thought process present and cooperative THOUGHT PROCESS: Normal thought process present Skin: COMMON NORMALS: no rashes or lesions noted and no wounds GENERAL SKIN EXAM: no rashes or lesions noted Course 2 Vital Signs: Vital signs: Vital Signs Temperature 97.8 F 09/10/24 15:43 Pulse Rate 65 09/10/24 18:03 Respiratory Rate 16 09/10/24 18:03 Blood Pressure 127/49 09/10/24 18:03 Pulse Oximetry 98 09/10/24 18:03 Oxygen Delivery Me thod Room Air 09/10/24 17:32 MDM - Weakness Medical Decision Making Patient presents here with syncopal event he is found to be hyperkalemic along with UTI we will admit at this time to give him insulin calcium and antibiotic Medical Records I reviewed the patient's medical records. Lab Data I reviewed the patient's lab results. 09/10/24 16:22 09/10/24 17:[address] 09/10/24 15:49 IMPRESSION: No acute intracranial process. Senescent changes. If there is continued clinical concern for an acute ischemic event then follow up brain MRI examination. Laboratory Results WBC 10.19 10^3/uL (3.29-11.43) 09/10/24 16:22 RBC 3.28 10^6/uL (3.85-5.65) L 09/10/24 16:22 Hgb 8.80 g/dL (11.27-16.99) L 09/10/24 16:22 Hct 28.3 % (37-53) L 09/10/24 16:22 MCV 86.3 fl (82-101) 09/10/24 16:22 MCH 26.8 pg (27-33) L 09/10/24 16:22 MCHC 31.1 g/dL (30-55) 09/10/24 16:22 RDW 19.0 % (12.1-15.1) H 09/10/24 16:22 Plt Count 278 10^3/cmm (157-399) 09/10/24 16:22 MPV 9.7 fL (7.4-10.4) 09/10/24 16:22 Neut % (Auto) 78.1 % 09/10/24 16:22 Lymph % (Auto) 14.6 % 09/10/24 16:22 Clay % (Auto) 5.1 % 09/10/24 16:22 Eos % (Auto) 1.0 % 09/10/24 16:22 Baso % (Auto) 0.6 % 09/10/24 16:22 Neut # (Auto) 7.96 10^3/uL (1.8-7.7) H 09/10/24 16:22 Lymph # (Auto) 1.5 10^3/uL (0.8-4.8) 09/10/24 16:22 Clay # (Auto) 0.5 10^3/uL (0.2-0.9) 09/10/24 16:22 Eos # (Auto) 0.1 10^3/uL (0.0-0.8) 09/10/24 16:22 Baso # (Auto) 0.1 10^3/uL (0.0-0.1) 09/10/24 16:22 Nucleated RBC % (auto) 0 % 09/10/24 16:22 Nucleated RBCs # 0.0 /100WBC 09/10/24 16:22 Sodium 133 mmol/L (136-145) L 09/10/24 17:14 Potassium 6.7 mmol/L (3.5-5.1) H* 09/10/24 17:14 Chloride 102 mmol/L (98-107) 09/10/24 17:14 Carbon Dioxide 23 mmol/L (22-29) 09/10/24 17:14 Anion Gap 14.7 (5-19) 09/10/24 17:14 BUN 37 mg/dL (8-23) H 09/10/24 17:14 Creatinine 2.2 mg/dL (0.7-1.2) H 09/10/24 17:14 GFR Calculation Not Reportable 09/10/24 17:14 Glucose 231 mg/dL (65-115) H 09/10/24 17:14 POC Glucose 250 mg/dL (70-110) H 09/10/24 16:01 Calculated Osmolality 292 mOsm/kg (285-295) 09/10/24 17:14 Calcium 8.8 mg/dL (8.5-10.5) 09/10/24 17:14 Total Bilirubin 0.3 mg/dL (0.15-1.2) 09/10/24 16:22 AST 16 U/L (0-40) 09/10/24 16:22 ALT 17 U/L (0-41) 09/10/24 16:22 Alkaline Phosphatase 101 U/L (40-130) 09/10/24 16:22 Total Protein 5.9 g/dL (6.6-8.7) L 09/10/24 16:22 Albumin 3.1 g/dL (3.5-5.2) L 09/10/24 16:22 Globulin 2.8 g/dL (1.3-4.6) 09/10/24 16:22 Urine Color Yellow (Yellow) 09/10/24 16:11 Urine Appearance Turbid (CLEAR) A 09/10/24 16:11 Urine pH 5.5 (5-7) 09/10/24 16:11 Ur Specific [place] 1.016 (1.005-1.030) 09/10/24 16:11 Urine Protein 2+ (Negative) A 09/10/24 16:11 Urine Glucose (UA) 3+ (Normal) H 09/10/24 16:11 Urine Ketones Negative (Negative) 09/10/24 16:11 Urine Blood 2+ (Negative) A 09/10/24 16:11 Urine Nitrate Negative (Negative) 09/10/24 16:11 Urine Bilirubin Negative (Negative) 09/10/24 16:11 Urine Urobilinogen 0.2 mg/dL (Negative) 09/10/24 16:11 Ur Leukocyte Esterase 2+ (Negative) A 09/10/24 16:11 Urine RBC 3-5 /hpf (0-2) 09/10/24 16:11 Urine WBC >100 /hpf (0-5) H 09/10/24 16:11 Ur Squamous Epith Cells 0-5 /hpf (0-5) 09/10/24 16:11 Amorphous Sediment Not Reportable 09/10/24 16:11 Urine Bacteria None seen /hpf (NONE) 09/10/24 16:11 Hyaline Casts 2.05 /lpf 09/10/24 16:11 All radiology interpretation(s) finalized by discharge EKG Data EKG 1: I personally reviewed and interpreted this EKG as follows: EKG interpretation date: 09/10/24 EKG interpretation time: 16:25 Interpretation: sinus louisa hr [address] elevation qrs [id number] Discharge Plan Discharge Patient Disposition: Admitted As Inpatient Clinical Impression: Hyperkalemia, Syncope, Acute UTI Condition: Stable Prescriptions: No Action Linzess 145 mcg capsule 145 mcg PO DAILY aspirin [Adult Aspirin Regimen] 81 mg tablet,delayed release (DR/EC) 81 mg PO DAILY metoclopramide HCl [Reglan] 10 mg tablet 10 mg PO TID PRN (Reason: Nausea And Vomiting) cetirizine [Zyrtec] 10 mg tablet 10 mg PO DAILY montelukast [Singulair] 10 mg tablet 10 mg PO DAILY Jardiance 10 mg tablet 10 mg PO DAILY metoprolol tartrate 50 mg tablet 50 mg PO BID Qty: 180 3RF losartan 100 mg tablet 100 mg PO DAILY Qty: 90 3RF Pradaxa 150 mg capsule 150 mg PO BID Qty: 180 3RF Hold Instructions: Resume on 07/04/21. May restart this medicine tomorrow morning atorvastatin [Lipitor] 80 mg tablet 80 mg PO DAILY Qty: 90 3RF ranolazine 500 mg tablet extended release 12 hr 500 mg PO BID Qty: 180 3RF gabapentin 400 mg capsule 400 mg PO TID levocetirizine 5 mg tablet 5 mg PO QPM nifedipine 30 mg Tablet Extended Release 24hr 30 mg PO DAILY sucralfate 100 mg/mL Suspension 10 ml PO QID Rx Instructions: swish in mouth and swallow; use after food/drink tamsulosin 0.4 mg Capsule 0.4 mg PO DAILY insulin aspart U-100 100 unit/mL Solution See Rx Instructions .ROUTE .COMPLEX Rx Instructions: sliding scale 150-200 =0 201-250= 2 251-300=4 301-350=6 351-400=8 with meals bisacodyl [Dulcolax (bisacodyl)] 10 mg Suppository 10 mg ND DAILY PRN (Reason: Constipation) pantoprazole 40 mg Tablet,Delayed Release (Dr/Ec) 40 mg PO BID ferrous sulfate 325 mg (65 mg iron) Tablet 325 mg PO BID bupropion HCl 75 mg Tablet 75 mg PO DAILY Fleet Enema 19-7 gram/118 mL Enema 118 ml ND DAILY nitroglycerin 0.4 mg Tablet, Sublingual 0.4 mg SUBLINGUAL Q5M PRN (Reason: Chest Pain) Rx Instructions: do not exceed 3 doses per episode bisacodyl [Dulcolax (bisacodyl)] 5 mg Tablet,Delayed Release (Dr/Ec) 10 mg PO DAILY PRN (Reason: Constipation) albuterol sulfate 90 mcg/actuation Hfa Aerosol Inhaler 2 puff INHALATION DAILY PRN (Reason: Shortness Of Breath) hydromorphone 4 mg Tablet 4 mg PO Q4H PRN (Reason: Pain) PNV cmb#95-ferrous fumarate-FA [] 28 mg iron- 800 mcg Tablet 1 tab PO DAILY insulin glargine 100 unit/mL Solution 5 unit SUBCUT QPM Qty: 10 0RF isosorbide mononitrate 60 mg tablet extended release 24 hr 60 mg PO DAILY Qty: 180 3RF amoxicillin-pot clavulanate 875-125 mg tablet 1 tab PO BID Qty: 14 0RF magnesium oxide 400 mg magnesium capsule 400 mg PO BID Qty: 20 0RF ondansetron HCl [Zofran] 4 mg Tablet 4 mg PO Q6H PRN (Reason: Nausea And Vomiting) Referrals: Bertha Perkins MD [Primary Care Provider] - Coding Level of Care Code ED Insecticide Mixer for Chg Fwd Related Data Home Medications Medication Instructions Recorded Confirmed aspirin 81 mg tablet,delayed 81 mg PO DAILY 04/30/21 09/10/24 release (Adult Aspirin Regimen) cetirizine 10 mg tablet (Zyrtec) 10 mg PO DAILY 04/30/21 09/10/24 linaclotide 145 mcg capsule 145 mcg PO DAILY 04/30/21 09/10/24 (Linzess) metoclopramide HCl 10 mg tablet 10 mg PO TID PRN Nausea And 04/30/21 09/10/24 (Reglan) Vomiting montelukast 10 mg tablet 10 mg PO DAILY 04/30/21 09/10/24 (Singulair) empagliflozin 10 mg tablet 10 mg PO DAILY 11/18/23 09/10/24 (Jardiance) albuterol sulfate 90 mcg/actuation 2 puff inhalation DAILY PRN 08/27/24 09/10/24 aerosol inhaler Shortness Of Breath bisacodyl 10 mg rectal suppository 10 mg ND DAILY PRN Constipation 08/27/24 09/10/24 (Dulcolax (bisacodyl)) bisacodyl 5 mg tablet,delayed 10 mg PO DAILY PRN Constipation 08/27/24 09/10/24 release (Dulcolax (bisacodyl)) bupropion HCl 75 mg tablet 75 mg PO DAILY 08/27/24 09/10/24 ferrous sulfate 325 mg (65 mg 325 mg PO BID 08/27/24 09/10/24 iron) tablet gabapentin 400 mg capsule 400 mg PO TID 08/27/24 09/10/24 hydromorphone 4 mg tablet 4 mg PO Q4H PRN Pain 08/27/24 09/10/24 insulin aspart U-100 100 unit/mL See Rx Instructions .Route .COMPLEX 08/27/24 09/10/24 subcutaneous solution levocetirizine 5 mg tablet 5 mg PO QPM 08/27/24 09/10/24 nifedipine 30 mg tablet,extended 30 mg PO DAILY 08/27/24 09/10/24 release 24 hr nitroglycerin 0.4 mg sublingual 0.4 mg sublingual Q5M PRN Chest 08/27/24 09/10/24 tablet Pain pantoprazole 40 mg tablet,delayed 40 mg PO BID 08/27/24 09/10/24 release vit no.95-ferrous 1 tab PO DAILY 08/27/24 09/10/24 fumarate 28 mg-folic acid 800 mcg tablet () sodium phosphates 19 gram-7 118 ml ND DAILY 08/27/24 09/10/24 gram/118 mL enema (Fleet Enema) sucralfate 100 mg/mL oral 10 ml PO QID 08/27/24 09/10/24 suspension tamsulosin 0.4 mg capsule 0.4 mg PO DAILY 08/27/24 09/10/24 ondansetron HCl 4 mg tablet 4 mg PO Q6H PRN Nausea And Vomiting 09/10/24 09/10/24 Previous Rx's Medication Instructions Recorded losartan 100 mg tablet 100 mg PO DAILY #90 tabs 10/15/23 metoprolol tartrate 50 mg tablet 50 mg PO BID #180 tabs 10/15/23 dabigatran etexilate 150 mg 150 mg PO BID #180 caps 11/07/23 capsule (Pradaxa) atorvastatin 80 mg tablet (Lipitor) 80 mg PO DAILY #90 tabs 11/12/23 ranolazine 500 mg tablet,extended 500 mg PO BID #180 tabs 12/19/23 release,12 hr amoxicillin 875 mg-potassium 1 tab PO BID #14 tabs 09/01/24 clavulanate 125 mg tablet insulin glargine 100 unit/mL 5 unit (0.05 mL) SUBCUT QPM #10 mL 09/01/24 subcutaneous solution isosorbide mononitrate 60 mg 60 mg PO DAILY #180 tabs 09/01/24 tablet,extended release 24 hr magnesium oxide 400 mg PO BID #20 caps 09/01/24 Allergies Allergy/AdvReac Type Severity Reaction Status Date / Time erythromycin base Allergy facial Verified 05/19/24 09:01 swelling and redness
[2024-09-10 16:27] LABS: Bilirubin Urine Negative (Negative); Blood Urine 2+ (Negative); Glucose Urine UA 3+ (Normal); Ketones Urine Negative (Negative); Leukocyte Esterase Urine 2+ (Negative); Nitrate Urine Negative (Negative); Protein Urine 2+ (Negative); Specific Gravity, Urine 1.016 (1.005-1.030); Urine Appearance Turbid (CLEAR); Urine Color Yellow (Yellow); Urobilinogen Urine 0.2 mg/dL (Negative); pH Urine 5.5 (5-7)
[2024-09-10 16:28] LABS: Basophils # 0.1 10^3/uL (0.0-0.1); Basophils % 0.6 %; Eosinophils # 0.1 10^3/uL (0.0-0.8); Hematocrit 28.3 % (37-53); Lymphocytes # 1.5 10^3/uL (0.8-4.8); Lymphocytes % 14.6 %; Mean Corpuscular HGB Conc 31.1 g/dL (30-55); Mean Corpuscular Hemoglobin 26.8 pg (27-33); Mean Corpuscular Volume 86.3 fl (82-101); Mean Platelet Volume 9.7 fL (7.4-10.4); Monocytes # 0.5 10^3/uL (0.2-0.9); Monocytes % 5.1 %; Neutrophils # 7.96 10^3/uL (1.8-7.7); Neutrophils % 78.1 %; Nucleated Red Blood Cells % 0 %; Platelet Count 278 10^3/cmm (157-399); Red Blood Count 3.28 10^6/uL (3.85-5.65); White Blood Count 10.19 10^3/uL (3.29-11.43)
[2024-09-10 16:31] LABS: Add Urine Microscopic? YES; Bacteria Urine None Seen /hpf; Hyaline Casts Urine 2.05 /lpf; Squamous Epithelial Cell Urine 0-5 /hpf (0-5); WBC Urine >100 /hpf (0-5)
[2024-09-10] MEDS: HYDROcodone-acetaminophen 5-325 mg Tablet 1 TAB PO (16:45)
[2024-09-10 16:51] VITALS: BP 106/66; PULSE 60; RESP 16; O2SAT 92
[2024-09-10 16:53] LABS: Add Urine Culture? Yes; UA Slide Review UA Slide Review Perf
[2024-09-10 16:56] LABS: Alanine Aminotransferase 17 U/L (0-41); Albumin Level 3.1 g/dL (3.5-5.2); Alkaline Phosphatase 101 U/L (40-130); Anion Gap 15.7 (5-19); Aspartate Amino Transferase 16 U/L (0-40); Blood Urea Nitrogen 36 mg/dL (8-23); Calcium 8.8 mg/dL (8.5-10.5); Carbon Dioxide 22 mmol/L (22-29); Chloride 102 mmol/L (98-107); Creatinine Clr Calc Pharmacy 22.7577; Globulin 2.8 g/dL (1.3-4.6); Glucose 246 mg/dL (65-115); Osmolality Calculated 293 mOsm/kg (285-295); Sodium 133 mmol/L (136-145); Total Bilirubin 0.3 mg/dL (0.15-1.2); Total Protein 5.9 g/dL (6.6-8.7)
[2024-09-10 17:05] LABS: Potassium 6.7 mmol/L (3.5-5.1)
[2024-09-10 17:32] VITALS: BP 127/48; PULSE 60; RESP 16; O2SAT 98
[2024-09-10] MEDS: sodium chloride 0.9% 1,000 ML 999 ML IV (17:44)
[2024-09-10 17:51] LABS: Anion Gap 14.7 (5-19); Blood Urea Nitrogen 37 mg/dL (8-23); Calcium 8.8 mg/dL (8.5-10.5); Carbon Dioxide 23 mmol/L (22-29); Chloride 102 mmol/L (98-107); Creatinine Clr Calc Pharmacy 23.7921; Glucose 231 mg/dL (65-115); Osmolality Calculated 292 mOsm/kg (285-295); Sodium 133 mmol/L (136-145)
[2024-09-10 18:01] LABS: Potassium 6.7 mmol/L (3.5-5.1)
[2024-09-10 18:03] VITALS: BP 127/49; PULSE 65; RESP 16; O2SAT 98
[2024-09-10 18:11] LABS: Glucose Point of Care 234 mg/dL (70-110)
[2024-09-10] MEDS: cefTRIAXone 1,000 mg SDV 1000 MG IVP (18:46)
[2024-09-10] MEDS: calcium gluconate 0.1 gm/mL 10% SDV 10mL 1 GM IVP (18:46)
[2024-09-10] MEDS: insulin regular-human 100 units/1 mL 10 UNIT IVP (18:46)
[2024-09-10 18:49] VITALS: BP 127/49; PULSE 70; RESP 16; O2SAT 100
[2024-09-10 19:19] VITALS: BMI 25.4
--- NOTE | 2024-09-10 19:25 | P.HP_ITS ---
Providers/Chief Complaint 2 Admitting Physician: Mary Hoang MD Primary Care Provider: Bertha Perkins MD Chief Complaint: syncope History of Present Illness Lauro Rivera is a 74 yo man w/ a PVD, hx of Jim MURRY & Medina MURRY in 07/2024, COPD, IDDM2, who was brought to [facility] from [facility], by his , on 09/10/2024, for an episode of syncope. The patient states that he was in his wheelchair when he decided to go outside to smoke around 11:30am. While smoking he felt nauseous, and he thinks that he passed out, b/c one of the group home staff, who was outside monitoring the smokers, noted him slumped over and caught him before he fell off his wheelchair. His LOC lasted for about 10secs. When he regained consciousness, he had an episode of non-bloody non- bilious emesis that included contents of his breakfast. He did not lose control of his bowel or bladder. Prior to losing consciousnes, he endorses dizziness, but he states that he has been feeling dizzy for the last month anytime he gets up. He also states that in the last 1 to 1.5mths, he has gone from weighing 210 to 169 pounds. He also endorses feeling light headed, blurry vision, and the feeling as if the lights were dimming prior to his LOC. He denies headaches, f/c, nasal congestion, CP, palpitations. He endorses intermittent dyspnea w/ activity, but he denies the sensation of dyspnea prior his syncope episode. He also denies coughing, wheezing, diarrhea, melena, hematochezia, symptoms. He tells me that he was supposed to have a stent placed in [place], [place] approximately 3-4yrs ago, but he does not know if it was ever placed. In the ED, his labs were significant for a K+ of 6.7. His EKG showed sinus bradycardia and Twaves that were elevated, but not peaked. His QTc was 408. His CT head was negative. BCx were ordered. He was given 1g of calcium gluconate, 10units IV insulin, and 1L NS, and 10% dextrose and admitted. On admission, CXR, d-dimer, Trop T w/ EKG, UA, Utox, COVID/Influenza A&B/RSV pcr were ordered. Kayexalate were ordered. Review of Systems 2 Const: Reports: change in weight (weight loss); Denies: fever(s) or chills Eyes: Reports: blurry vision ENMT: Denies: odynophagia, ear or mastoid pain, ear discharge, nasal discharge or nasal congestion Card: Reports: syncope; Denies: chest pain, palpitations or lightheadedness Resp: Reports: dyspnea (w/ exertion); Denies: productive cough or wheezing GI: Reports: nausea and vomiting; Denies: abdominal pain, diarrhea, hematochezia or melena : Reports: other; Denies: dysuria, urinary frequency, urinary urgency or hematuria Musc: Reports: other (no myalgias); Denies: joint pain Skin/Breast: Denies: rash or new lesions Neuro: Reports: dizziness and other; Denies: headache(s) Psych: Denies: anxiety, depression, suicidal ideation or homicidal ideation Endo: Denies: cold intolerance or heat intolerance Chivo/Lymph: Reports: easy bruising (on Pradaxa) and easy bleeding (on Pradaxa) All/Imm: Denies: food intolerance Medications/Allergies Home Medications Medication Instructions Recorded Confirmed Last Taken Type aspirin 81 mg tablet,delayed 81 mg PO DAILY 04/30/21 09/10/24 09/10/24 History release (Adult Aspirin Regimen) cetirizine 10 mg tablet (Zyrtec) 10 mg PO DAILY 04/30/21 09/10/24 09/10/24 History linaclotide 145 mcg capsule 145 mcg PO DAILY 04/30/21 09/10/24 07/20/21 04:30 History (Linzess) metoclopramide HCl 10 mg tablet 10 mg PO TID PRN Nausea And 04/30/21 09/10/24 07/02/21 09:00 History (Reglan) Vomiting montelukast 10 mg tablet 10 mg PO DAILY 04/30/21 09/10/24 09/10/24 History (Singulair) losartan 100 mg tablet 100 mg PO DAILY #90 tabs 10/15/23 09/10/24 09/10/24 Rx metoprolol tartrate 50 mg tablet 50 mg PO BID #180 tabs 01/09/10/24 09/10/24 Rx dabigatran etexilate 150 mg 150 mg PO BID #180 caps 11/07/23 09/10/24 09/10/24 Rx capsule (Pradaxa) atorvastatin 80 mg tablet (Lipitor) 80 mg PO DAILY #90 tabs 11/12/23 09/10/24 09/10/24 Rx empagliflozin 10 mg tablet 10 mg PO DAILY 11/18/23 09/10/24 09/10/24 History (Jardiance) ranolazine 500 mg tablet,extended 500 mg PO BID #180 tabs 12/19/23 09/10/24 09/10/24 Rx release,12 hr albuterol sulfate 90 mcg/actuation 2 puff inhalation DAILY PRN 08/27/24 09/10/24 Unknown History aerosol inhaler Shortness Of Breath bisacodyl 10 mg rectal suppository 10 mg SD DAILY PRN Constipation 08/27/24 09/10/24 Unknown History (Dulcolax (bisacodyl)) bisacodyl 5 mg tablet,delayed 10 mg PO DAILY PRN Constipation 08/27/24 09/10/24 Unknown History release (Dulcolax (bisacodyl)) bupropion HCl 75 mg tablet 75 mg PO DAILY 08/27/24 09/10/24 09/10/24 History ferrous sulfate 325 mg (65 mg 325 mg PO BID 08/27/24 09/10/24 09/10/24 History iron) tablet gabapentin 400 mg capsule 400 mg PO TID 08/27/24 09/10/24 09/10/24 History hydromorphone 4 mg tablet 4 mg PO Q4H PRN Pain 08/27/24 09/10/24 Unknown History insulin aspart U-100 100 unit/mL See Rx Instructions .Route .COMPLEX 08/27/24 09/10/24 Unknown History subcutaneous solution levocetirizine 5 mg tablet 5 mg PO QPM 08/27/24 09/10/24 09/10/24 History nifedipine 30 mg tablet,extended 30 mg PO DAILY 08/27/24 09/10/24 09/10/24 History release 24 hr nitroglycerin 0.4 mg sublingual 0.4 mg sublingual Q5M PRN Chest 08/27/24 09/10/24 09/10/24 History tablet Pain pantoprazole 40 mg tablet,delayed 40 mg PO BID 08/27/24 09/10/24 09/10/24 History release vit no.95-ferrous 1 tab PO DAILY 08/27/24 09/10/24 09/10/24 History fumarate 28 mg-folic acid 800 mcg tablet () sodium phosphates 19 gram-7 118 ml SD DAILY 08/27/24 09/10/24 09/10/24 History gram/118 mL enema (Fleet Enema) sucralfate 100 mg/mL oral 10 ml PO QID 08/27/24 09/10/24 Unknown History suspension tamsulosin 0.4 mg capsule 0.4 mg PO DAILY 08/27/24 09/10/24 09/10/24 History amoxicillin 875 mg-potassium 1 tab PO BID #14 tabs 09/01/24 09/10/24 09/10/24 Rx clavulanate 125 mg tablet insulin glargine 100 unit/mL 5 unit (0.05 mL) SUBCUT QPM #10 mL 09/01/24 09/10/24 09/09/24 Rx subcutaneous solution isosorbide mononitrate 60 mg 60 mg PO DAILY #180 tabs 09/01/24 09/10/24 09/10/24 Rx tablet,extended release 24 hr magnesium oxide 400 mg PO BID #20 caps 09/01/24 09/10/24 09/10/24 Rx ondansetron HCl 4 mg tablet 4 mg PO Q6H PRN Nausea And Vomiting 09/10/24 09/10/24 Unknown History Allergies Allergy/AdvReac Type Severity Reaction Status Date / Time erythromycin base Allergy facial Verified 05/19/24 09:01 swelling and redness PFSH Acute 2 PFSH: Medical History Pancreatitis Peripheral vascular disease Hx of type 2 diabetes mellitus Hypertension COPD (chronic obstructive pulmonary disease) Lumbar degenerative disc disease GERD (gastroesophageal reflux disease) BPH (benign prostatic hyperplasia) Diabetic peripheral autonomic neuropathy Sinusitis DJD (degenerative joint disease) Cellulitis of foot Hx MRSA infection Carotid stenosis Renal insufficiency Surgical History (Updated 09/10/24 @ 22:24 by Dotty Brooke MD) Status post percutaneous transluminal angioplasty ([employer]) with stent placement three in the L. leg and one in the R. leg. 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 Hx of hand surgery Hx of coronary angioplasty Hx of surgical amputation of finger R. 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 History of back surgery Lumbosacral surgery History of femoropopliteal bypass Family History Mother CAD (coronary artery disease) Diabetes Sister CAD (coronary artery disease) Diabetes Brother CAD (coronary artery disease) Diabetes Daughter Stroke Denies family history of Clotting disorder Dementia Chronic kidney disease (CKD) Suicide Anesthesia complication Bleeding disorder Lung disease Cancer Social History Smoking and tobacco/nicotine status: current every day tobacco/nicotine user cigarettes Packs smoked per day: 1 Alcohol intake: never Substance/Drug Use: never Vitals/I&O/Wt Last Vital Signs Temp 97.8 F 09/10/24 15:43 Pulse 70 09/10/24 18:49 Resp 16 09/10/24 18:49 BP 127/49 09/10/24 18:49 Pulse Ox 100 09/10/24 18:49 O2 Del Method Room Air 09/10/24 17:32 09/10/24 09/10/24 09/10/24 06:59 14:59 22:59 Intake Total 500 / 500 Balance 500 / 500 Weight last 48 hrs Weight 63.049 kg Physical Exam 2 Const: GENERAL APPEARANCE: cooperative and comfortable HENMT: HEAD & SCALP: normocephalic and atraumatic NOSE: Normal external nose present EXTERNAL EAR: Yes external ears normal MOUTH: Normal oral and palatal mucosa present THROAT: posterior oropharynx normal Eye: CONJUNCTIVA: Yes conjunctivae normal PUPIL: Yes Equal, round and reactive pupils present EOM: No EOM abnormal Neck/C-Spine: GENERAL: Yes normal visual inspection and Yes trachea midline THYROID: Thyroid normal CERVICAL SPINE: Yes cervical ROM normal OTHER: b/l carotid artery bruits Lymph: OTHER: No cervical or supraclavicular LAD. Chest: OTHER: Severely diminished breath sounds bilaterally in all lung albert, no wheezes rales or rhonchi. Cardio: BRUITS: carotid bruit positive bilateral OTHER: RRR, 2+ radial pulses. 2/6 systolic murmur in the RUSB and apex, 1/6 systolic murmur in the LUSB and LLSB. No gallops, rubs or clicks. GI: OTHER: BS+, NT, ND, no guarding, no rigidity, no rebound tenderness, no hepatosplenomegaly. Neuro: MOTOR EXAM: 5/5 motor strength present throughout and Normal motor muscle tone present throughout Psych: APPEARANCE: Yes grossly normal and Yes unkempt ATTITUDE: Yes calm and Yes engaged ACTIVITY/MOTOR BEHAVIOR: Yes appropriate eye contact S PEECH: Yes normal speech MOOD & AFFECT: Yes euthymic mood THOUGHT PROCESS: Normal thought process present THOUGHT CONTENT: Yes Normal thought content present ATTENTION/CONCENTRATION: Yes attention grossly intact Skin: NARRATIVE SKIN EXAM: two 1cm sacrococcygeal ulcers that makes the patient uncomfortable and keeps him moving from [id number]. vesna at the R. AKA stump w/ erythema at the site of skin approximation. Data 09/10/24 16:22 09/10/24 17:14 A&P Assessment and plan (1) Hypertension: Qualifiers: Hypertension type: essential hypertension Qualified Code(s): I10 - Essential (primary) hypertension (2) Hyperkalemia: (3) Syncope: Plan Lauro Rivera is a 74 yo man w/ a PVD, hx of R. AKA & L. AKA in 07/2024, COPD, IDDM2, who was brought to [facility] from [facility], by his , on 09/10/2024, for an episode of syncope. #Syncope: - Unclear etiology - CXR shows no abnormalities. Trop T is mildly elevated. F/u ddimer, UA, Utox, BCx, COVID/Influenza A&B/RSV pcr, ECHO, b12 studies. - Continue Cardiac monitoring. Held BP meds and Ranolazine. - Ordered orthostatic for 6 AM on 09/11. #Hyperkalemia: - Held Losartan - Ordered Kayexalate. 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 #CAD: Held NTG #PVD w/ #hx of Jim MURRY & Medina MURRY in 07/2024 - Held Ranolazine. - On Pradaxa?? Perhaps consider switching to Apixaban or Xarelto if possible. - For now, Lovenox subq - Wound care for Jim UMRRY -Also note that he had a carotid ultrasound done on 05/2024. #IDDM2 w/ peripheral neuropathy: On Insulin glargine 5units qPM plus sliding scale. Held ordering insulin for now given 10units of IV insulin regular given in the ED for hyperkalemia. Continue BG monitoring #Pyuria: F/u UCx. #COPD: not in exacerbation. Duonebs q6h prn ordered. #GERD: Resumed PPI BID g. #Chronic constipation: Resumed Linzess. Patient is also on oral iron, which could also be a contributor. #Tobacco use d/o: current smoker. 1ppd x 40yrs. Declined a nicotine patch #Stage II sacral coccygeal ulcer: Wound care consult. Place optifoam. q2h turns DVT ppx: Lovenox GI PPx: Pantoprazole Attestations 2 Medical Necessity Statement*: Patient needs > 2 midnight hospitalization for evaluation of syncope. Time Spent in Patient Care: >75mins was spent on chart review, patient interview/physical exam, labs/imaging reviewed, formulation of plan and coordination of care. Coding Level of Care Code 98130 Diagnoses Essential hypertension I10 Hypertension type: essential hypertension Hyperkalemia E87.5 Syncope R55
--- NOTE | 2024-09-10 20:13 | XRR_ITS ---
PROCEDURE INFORMATION: Exam: XR Chest Exam date and time: 09/10/2024 8:27 PM Age: 74 years old Clinical indication: Other: Syncope; Patient HX: Syncopal episode TECHNIQUE: Imaging protocol: Radiologic exam of the chest. Views: 1 view. COMPARISON: CR XR chest 1V portable [id number] 08/27/2024 9:45 AM FINDINGS: Tubes, catheters and devices: None. Lungs: The lungs appear clear. Pleural spaces: No pleural effusion. No pneumothorax. Heart/Mediastinum: Mediastinum and lenora appear unremarkable. Vasculature: Mild atherosclerotic calcification demonstrated within the aorta. Bones/joints: Diffusely decreased bone density. Mild to moderate generalized bony degenerative changes. Bony structures appear otherwise unremarkable. XR/XR chest 1V portable [id number] IMPRESSION: 1. No evidence for acute abnormality identified in the chest. 2. Chronic findings.
[2024-09-10 20:23] VITALS: BP 120/66; PULSE 77; RESP 21; TEMP 36.8; O2SAT 96
[2024-09-10 20:26] LABS: Troponin(5th) Baseline 86 ng/L (0-15)
[2024-09-10 20:26] LABS: Glucose Point of Care 206 mg/dL (70-110)
[2024-09-10] MEDS: sodium polystyrene sulfonate 15 gm/60 mL Btl 30 GM PO (20:34)
[2024-09-10 20:48] LABS: Troponin 5 2HR 80.45 ng/L (0-15)
[2024-09-10 20:51] LABS: Troponin 5 2HR Delta -5.55 ABS# (0-10)
[2024-09-10] MEDS: sennosides 8.6 mg Tablet 17.2 MG PO (21:38)
[2024-09-10] MEDS: heparin 5,000 unit/mL INJ 1 mL 5000 UNIT SUBCUT (21:38)
--- NOTE | 2024-09-10 22:13 | ECG_ITS ---
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 Measurements Intervals [place] Rate: 82 P: 24 MI: 142 QRS: 32 QRSD: 88 T: 53 QT: 368 QTc: 431 Interpretive Statements SINUS RHYTHM Compared to ECG 09/10/2024 16:25:42 Sinus bradycardia no longer present Electronically Signed On 09-12-2024 20:17:46 COMMUNITY ENGAGEMENT REPRESENTATIVE by Ze Grijalva M.D. [email or web address]
[2024-09-11] VITALS (58 sets, daily range): BP systolic 137–175; BP diastolic 59–86; PULSE 77–105; RESP 0–28; TEMP 36.6–37.1; O2SAT 97–100; BMI 25.4
--- NOTE | 2024-09-11 02:08 | ECG_ITS ---
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 Measurements Intervals [place] Rate: 85 P: 68 [place]: 184 QRS: 39 QRSD: 89 T: 51 QT: 355 QTc: 422 Interpretive Statements SINUS RHYTHM Compared to ECG 09/10/2024 22:13:36 No significant changes Electronically Signed On 09-12-2024 20:16:56 AIRCRAFT AIR CONDITIONING MECHANIC by Ze Grijalva M.D. [email or web address]
[2024-09-11] MEDS: sodium polystyrene sulfonate 15 gm/60 mL Btl 30 GM PO (03:30)
[2024-09-11 03:53] LABS: Basophils # 0.1 10^3/uL (0.0-0.1); Eosinophils # 0.2 10^3/uL (0.0-0.8); Hematocrit 30.7 % (37-53); Lymphocytes # 1.8 10^3/uL (0.8-4.8); Lymphocytes % 21.5 %; Mean Corpuscular HGB Conc 31.3 g/dL (30-55); Mean Corpuscular Hemoglobin 27.1 pg (27-33); Mean Corpuscular Volume 86.7 fl (82-101); Mean Platelet Volume 9.8 fL (7.4-10.4); Monocytes # 0.6 10^3/uL (0.2-0.9); Monocytes % 7.1 %; Neutrophils # 5.71 10^3/uL (1.8-7.7); Nucleated Red Blood Cells % 0 %; Platelet Count 286 10^3/cmm (157-399); Red Blood Count 3.54 10^6/uL (3.85-5.65); Red Cell Distribution Width 18.9 % (12.1-15.1)
[2024-09-11 04:14] LABS: INR 1.28 (0.8-1.2)
[2024-09-11 04:15] LABS: Partial Thromboplastin Time 59.8 SECONDS (23.9-36.7)
[2024-09-11 04:21] LABS: Phosphorus 3.8 mg/dL (2.5-4.5)
[2024-09-11 04:30] LABS: Thyroid Stimulating Hormone 0.89 uIU/mL (0.27-4.20)
[2024-09-11 04:56] LABS: Vitamin B12 1100 pg/mL (232-1245)
[2024-09-11 05:06] LABS: Alanine Aminotransferase 17 U/L (0-41); Albumin Level 3.3 g/dL (3.5-5.2); Alkaline Phosphatase 112 U/L (40-130); Anion Gap 18.4 (5-19); Aspartate Amino Transferase 15 U/L (0-40); Blood Urea Nitrogen 33 mg/dL (8-23); Calcium 8.8 mg/dL (8.5-10.5); Carbon Dioxide 23 mmol/L (22-29); Chloride 100 mmol/L (98-107); Creatinine Clr Calc Pharmacy 22.7577; Globulin 2.2 g/dL (1.3-4.6); Glucose 204 mg/dL (65-115); Magnesium 1.8 mg/dL (1.7-2.3); Osmolality Calculated 295 mOsm/kg (285-295); Potassium 5.4 mmol/L (3.5-5.1); Sodium 136 mmol/L (136-145); Total Bilirubin 0.2 mg/dL (0.15-1.2); Total Protein 5.5 g/dL (6.6-8.7)
[2024-09-11 06:37] LABS: Glucose Point of Care 219 mg/dL (70-110)
[2024-09-11] MEDS: sucralfate 1 gm/10 mL Oral Liq UDC PO ×4 (08:21→21:01)
[2024-09-11] MEDS: atorvastatin 40 mg Tablet 80 MG PO (08:21)
[2024-09-11] MEDS: NIFEdipine ER (24 hr) 30 mg Tablet PO (08:22)
[2024-09-11] MEDS: tamsulosin 0.4 mg Capsule PO (08:22)
[2024-09-11] MEDS: cetirizine 10 mg Tablet PO (08:22)
[2024-09-11] MEDS: gabapentin 400 mg Capsule PO ×2 (08:22→21:01)
[2024-09-11] MEDS: aspirin 81 mg EC Tablet PO (08:22)
[2024-09-11] MEDS: pantoprazole DR 40 mg Tablet PO ×2 (08:22→18:13)
[2024-09-11] MEDS: montelukast sodium 10 mg Tablet PO (08:22)
--- NOTE | 2024-09-11 11:24 | P.PN_ITS ---
Subjective 2 Subjective: Overnight labs and H&P reviewed. This is a 74-year-old male with a recent history of C. difficile colitis, acute encephalopathy, mild ileus, recent right AKA at [place] who was discharged from the hospital on 09/01/2024. He returned yesterday with an episode of syncope while he was out to smoke. His potassium was noted to be 6.7. He had EKG changes by way of sinus bradycardia. Possibly an underlying arrhythmia may have been the cause of his syncopal episode yesterday. On his last admission losartan had been discontinued due to DUSTIN, however it does appear on his medication list currently. Creatinine is at 2.2, on last admission this had been at 1.4. This morning he is having significant diarrhea, likely related to Kayexalate. Presumably he is completed a course of oral vancomycin since last discharge. Will hold further doses of Kayexalate today. Medications: Reviewed: Yes Vitals/I&O/Wt Last Vital Signs Temp 97.9 F 09/11/24 08:00 Pulse 98 09/11/24 08:00 Resp 18 09/11/24 08:00 BP 160/75 09/11/24 08:00 Pulse Ox 99 09/11/24 08:00 O2 Del Method Room Air 09/11/24 08:00 09/10/24 09/11/24 09/11/24 22:59 06:59 14:59 Intake Total 500 / 500 1000 / 1500 240 / 240 Output Total 1050 / 1050 Balance 500 / 500 -50 / 450 240 / 240 Weight last 48 hrs Weight 63.049 kg Weight 63.049 kg Weight 63.049 kg Physical Exam 2 Narrative: General: No acute distress, AO x3 HEENT: PERRLA, pupils bilaterally equal and reactive, pallors not present Chest: Normal vesicular breath sounds, no added sounds, equal good air entry bilaterally CVS: S1-S2 regular, no murmurs, no tachycardia, no gallops, no rubs Abdomen: Soft, nontender, no organomegaly, bowel sounds present Neuro: No focal deficits, no facial deformity, AO x3, power 5/5 in all limbs Data 09/11/24 03:43 09/11/24 03:43 Micro: Microbiology 09/10/24 16:11 Urine Culture - Preliminary Urine,Clean Catch A&P Assessment and plan (1) Hypertension: Qualifiers: Hypertension type: essential hypertension Qualified Code(s): I10 - Essential (primary) hypertension (2) Hyperkalemia: (3) Syncope: Plan Lauro Rivera is a 74 yo man w/ a PVD, hx of Jim MURRY & Medina MURRY in 07/2024, COPD, IDDM2, who was brought to [facility] from [facility], by his , on 09/10/2024, for an episode of syncope. #Syncope: - Unclear etiology - CXR shows no abnormalities. Trop T is mildly elevated. F/u ddimer, UA, Utox, BCx, COVID/Influenza A&B/RSV pcr, ECHO, b12 studies. - Continue Cardiac monitoring. Held BP meds and Ranolazine. - Ordered orthostatic for 6 AM on 09/11. #Hyperkalemia: - Held Losartan - Ordered Kayexalate. 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 #CAD: Held NTG #PVD w/ #hx of Jim MURRY & Medina MURRY in 07/2024 - Held Ranolazine. - On Pradaxa?? Perhaps consider switching to Apixaban or Xarelto if possible. - For now, Lovenox subq - Wound care for Jim MURRY -Also note that he had a carotid ultrasound done on 05/2024. #IDDM2 w/ peripheral neuropathy: On Insulin glargine 5units qPM plus sliding scale. Held ordering insulin for now given 10units of IV insulin regular given in the ED for hyperkalemia. Continue BG monitoring #Pyuria: F/u UCx. #COPD: not in exacerbation. Duonebs q6h prn ordered. #GERD: Resumed PPI BID g. #Chronic constipation: Resumed Linzess. Patient is also on oral iron, which could also be a contributor. #Tobacco use d/o: current smoker. 1ppd x 40yrs. Declined a nicotine patch #Stage II sacral coccygeal ulcer: Wound care consult. Place optifoam. q2h turns DVT ppx: Lovenox GI PPx: Pantoprazole 09/11/2024: Patient presenting with syncope yesterday. Likely related to bradycardia, other underlying cardiac arrhythmia related to hyperkalemia. Potassium was at 6.7 upon admission. He is status post receiving calcium gluconate, insulin dextrose and Kayexalate overnight. He is having diarrhea at this time, likely related to Kayexalate. K currently at 5.4 from 3 am, will recheck now. Syncope evaluation with negative D dimer , trop 86 >> 80, downtrending delta, suspect more likely from arrhythmia from hyperkalemia. no chest pain. No acute ST -T wave changes on EKG once bradycardia resolved. TSH WNL. Echo pending. HEad CT without acute events. recent carotid doppler in May 2024 with Elevated velocity in the left external carotid artery, suggesting hemodynamically significant stenosis.. Elevated velocity in the right vertebral artery with some flow turbulence suggesting hemodynamically significant stenosis. Will need vascular surgery follow up as outpatient. Recently also had C. difficile. Will check C. difficile PCR, potentially C. difficile colitis may be contributing.. Presumably completed 10 days of oral vancomycin recently. Telemetry without any acute events otherwise. Currently heart rate is ranging mostly in the 90s. Blood pressure with SBP 160s. Will resume home dose of metoprolol, however we will reduce it to 25 mg twice daily instead of 50 mg twice daily and monitor closely. Aim to resume imdur next based on BP trend. Anemia, h/o FOBT + stool, check FOBT now, hb at 9.6 currently- was referred to see gen/surg as outpatient. Creatinine has worsened at 2.2. On his most recent admission patient did have DUSTIN however creatinine was improving at 1.4 by the time of discharge from a peak of 2.9. He UA showing 2+ blood, 2+ leukocyte esterase, greater than 100 WBCs. Pending urine culture. Cannot rule out UTI at this time, though it would not be a cause of his syncope. No clear signs of sepsis. Ct KUB ordered to assess for obstrcution. Continue to hold losartan and other nephrotoxic medications. Start ceftriaxone 1 g IV every 24 hours empirically while awaiting urine cultures. Blood cultures ordered yesterday at 6 PM are still not drawn. Will reorder now Insulin sliding scale for DM . Attestations 2 Medical Necessity Statement*: UTI, hyperkalemia, DUSTIN on CKD, monitor cr, serial K and iv abx. syncope evaluation Coding Level of Care Code Acute Code for Chg Fwd High MDM includes number and complexity of problems actively addressed during encounter, amount and/or complexity of data reviewed/ordered and described risk of complication, morbidity or mortality of management as documented Diagnoses Essential hypertension I10 Hypertension type: essential hypertension Hyperkalemia E87.5 Syncope R55
--- NOTE | 2024-09-11 11:32 | CTR_ITS ---
PROCEDURE INFORMATION: Exam: CT Abdomen And Pelvis Without Contrast Exam date and time: 09/11/2024 2:43 PM Age: 74 years old Clinical indication: Other: Assess for hydronephrosis TECHNIQUE: Imaging protocol: Computed tomography of the abdomen and pelvis without contrast. Radiation optimization: All CT scans at this facility use at least one of these dose optimization techniques: automated exposure control; mA and/or kV adjustment per patient size (includes targeted exams where dose is matched to clinical indication); or iterative reconstruction. COMPARISON: CR XR abdomen 1V* [id number] 08/27/2024 12:24 PM RADIATION DOSE METRICS: Total DLP (mGy-cm): 533.33 FINDINGS: Heart: Trace pericardial fluid may be physiologic. Coronary arteries: Coronary artery calcifications. Liver: The liver is mildly enlarged, measuring 18.2 cm craniocaudal. No suspicious liver lesion. Gallbladder and biliary ducts: Normal. No calcified stones. No ductal dilation. Pancreas: Normal. No ductal dilation. Spleen: Normal. No splenomegaly. Adrenal glands: Stable 2.5 cm right adrenal adenoma. No left adrenal mass. Kidneys and ureters: Mild bilateral perinephric fat stranding is nonspecific. Mildly prominent extrarenal pelvis on the left. No hydronephrosis bilaterally. Linear calcifications in the renal sinuses bilaterally appear vascular. Stomach and bowel: Layering density within the cecum and proximal ascending colon may be from ingested material. No bowel obstruction. No focal mucosal thickening. Appendix: No evidence of appendicitis. Intraperitoneal space: Unremarkable. No free air. No significant fluid collection. Vasculature: Moderate atherosclerotic aortoiliac calcifications. No aortic aneurysm. Lymph nodes: Unremarkable. No enlarged lymph nodes. Urinary bladder: Circumferential bladder wall thickening. Layering density within the bladder lumen. Intraluminal air anti dependently. Reproductive: Prostate is mildly enlarged. Bones/joints: Advanced degenerative disc disease in the lower lumbar spine. Diffuse osseous demineralization. Heterotopic ossification along the right lesser trochanter. Degenerative changes of bilateral hips. No definite acute fracture. Soft tissues: Unremarkable. CT/CT kidney stone [id number] IMPRESSION: 1. No evidence of hydronephrosis. 2. Diffuse urinary bladder wall thickening may be from chronic outlet obstruction or neurogenic bladder, though cystitis is not excluded. 3. Layering density within the urinary bladder is nonspecific. Correlate with clinical history to exclude hematoma or less likely neoplasm. 4. Air within the urinary bladder may be from recent prior instrumentation. 5. Additional ancillary findings as above.
[2024-09-11 12:04] LABS: Glucose Point of Care 368 mg/dL (70-110)
[2024-09-11] MEDS: insulin lispro 100 unit/1 mL SUBCUT ×3 (12:38→21:01)
[2024-09-11] MEDS: cefTRIAXone 1,000 mg SDV 1000 MG IVP (12:39)
[2024-09-11] MEDS: metoprolol tartrate 50 mg Tablet 25 MG PO ×2 (12:39→18:13)
[2024-09-11 13:02] LABS: Alanine Aminotransferase 17 U/L (0-41); Albumin Level 2.9 g/dL (3.5-5.2); Alkaline Phosphatase 109 U/L (40-130); Aspartate Amino Transferase 15 U/L (0-40); Blood Urea Nitrogen 29 mg/dL (8-23); Calcium 8.7 mg/dL (8.5-10.5); Carbon Dioxide 20 mmol/L (22-29); Chloride 100 mmol/L (98-107); Globulin 2.8 g/dL (1.3-4.6); Glucose 313 mg/dL (65-115); Osmolality Calculated 294 mOsm/kg (285-295); Sodium 133 mmol/L (136-145); Total Bilirubin 0.2 mg/dL (0.15-1.2); Total Protein 5.7 g/dL (6.6-8.7)
[2024-09-11 13:03] LABS: Creatinine Clr Calc Pharmacy 27.5488
[2024-09-11 14:58] LABS: Covid PCR NEGATIVE (Negative); Influenza A NEGATIVE (Negative); Influenza B NEGATIVE (Negative); Respiratory Syncytial Virus Ce NEGATIVE (Negative)
[2024-09-11 16:55] LABS: C.Diff PCR (Lab) NEGATIVE (Negative)
[2024-09-11 16:58] LABS: Glucose Point of Care 275 mg/dL (70-110)
[2024-09-11] MEDS: ranolazine (12HR) 500 mg Tablet PO (18:12)
[2024-09-11 18:42] LABS: Bilirubin Urine Negative (Negative); Blood Urine 3+ (Negative); Glucose Urine UA 3+ (Normal); Ketones Urine Negative (Negative); Leukocyte Esterase Urine 3+ (Negative); Nitrate Urine Negative (Negative); Protein Urine 2+ (Negative); Specific Gravity, Urine 1.012 (1.005-1.030); Urine Appearance Turbid (CLEAR); Urine Color Yellow (Yellow); Urobilinogen Urine 0.2 mg/dL (Negative)
[2024-09-11 18:44] LABS: Add Urine Microscopic? YES; Bacteria Urine None Seen /hpf; Universal Test for UA Present (0)
[2024-09-11 19:11] LABS: WBC Urine TOO NUMEROUS TO CNT /hpf (0-5)
[2024-09-11 19:12] LABS: Add Urine Culture? Yes
[2024-09-11 20:40] LABS: Glucose Point of Care 156 mg/dL (70-110)
--- NOTE | 2024-09-11 23:12 | USCV_ITS ---
RiveraLauro armijo Age: 74 Gender: M : 1950 Exam Date: 09/11/2024 07:25 Ordering Phys: Dotty Brooke MD Technologist: Viktor Gonzalez Exam Location: [facility] Indication: syncope BP: 134 / 88 HR: 88 Rhythm: Sinus Technical Quality: Adequate MEASUREMENTS (Male / Female) Normal Values 2D ECHO LV Diastolic Diameter PLAX 3.5 cm 4.2 - 5.9 / 3.9 - 5.3 cm IVS Diastolic Thickness 1.3 cm 0.6 - 1.0 / 0.6 - 0.9 cm IVS Systolic Thickness 1.8 cm LVPW Diastolic Thickness 1.7 cm 0.6 - 1.0 / 0.6 - 0.9 cm LVPW Systolic Thickness 1.6 cm LVOT Diameter 2.0 cm LV Ejection Fraction 2D Teich 61.1 % LV Ejection Fraction MOD 4C 68.3 % LV Ejection Fraction MOD 2C 69.3 % LV Ejection Fraction 2C AL 69.0 % RA Systolic Volume 4C AL 29.6 ml RA Systolic Volume 4C MOD 28.3 ml LA Sys Volume AL 30.1 cm cubed LA Sys Volume Index AL 15.7 cm cubed/m squared Aorta at Sinotubular Diameter 1.9 cm IVC Diameter 1.8 cm M-MODE LA Ao Ratio MM 1.0 AV Cusp Separation MM 1.7 cm DOPPLER LVOT Peak Velocity 94.0 cm/s MV Peak Velocity 133.0 cm/s MV Area PHT 5.4 cm squared Mitral E to A Ratio 0.7 TV Peak Velocity 193.0 cm/s TR Peak Velocity 219.0 cm/s TR Peak Gradient 19.2 mmHg TR Mean Velocity 185.0 cm/s TR Mean Gradient 14.5 mmHg TR Velocity Time Integral 57.5 cm FINDINGS Left Ventricle Left ventricle is normal size. LV systolic function is normal with EF of 60-65%. No regional wall motion abnormalities. Grade 1 diastolic dysfunction Right Ventricle Normal in size and function Right Atrium Normal in size Left Atrium Normal in size Mitral Valve Structurally normal mitral valve. Trace mitral regurgitation. Aortic Valve Aortic valve is thickened. No significant stenosis or regurgitation. Tricuspid Valve Insufficient TR jet to calculate RVSP Pulmonic Valve Not well visualized Pericardium Normal Aorta Normal in size IVC Not well visualized CONCLUSIONS LV systolic function is normal with EF of 60 to 65%. Grade 1 diastolic dysfunction. Trace mitral regurgitation Compared to prior echocardiogram from 2022, no significant changes are seen. Ze Grijalva MD (Electronically Signed) Final Date: 11 September 2024 12:11 S
[2024-09-12] VITALS (13 sets, daily range): BP systolic 124–165; BP diastolic 58–82; PULSE 74–91; RESP 12–28; TEMP 36.5–37.1; O2SAT 94–99
[2024-09-12 05:43] LABS: Basophils # 0.1 10^3/uL (0.0-0.1); Basophils % 1.1 %; Eosinophils # 0.3 10^3/uL (0.0-0.8); Eosinophils % 3.2 %; Hematocrit 29.9 % (37-53); Lymphocytes # 2.3 10^3/uL (0.8-4.8); Mean Corpuscular HGB Conc 31.4 g/dL (30-55); Mean Corpuscular Hemoglobin 26.9 pg (27-33); Mean Corpuscular Volume 85.4 fl (82-101); Mean Platelet Volume 10.6 fL (7.4-10.4); Monocytes # 0.6 10^3/uL (0.2-0.9); Monocytes % 8.1 %; Neutrophils # 4.58 10^3/uL (1.8-7.7); Neutrophils % 58.1 %; Nucleated Red Blood Cells % 0 %; Platelet Count 258 10^3/cmm (157-399); Red Cell Distribution Width 18.9 % (12.1-15.1); White Blood Count 7.89 10^3/uL (3.29-11.43)
[2024-09-12 06:09] LABS: Alanine Aminotransferase 18 U/L (0-41); Albumin Level 3.2 g/dL (3.5-5.2); Alkaline Phosphatase 107 U/L (40-130); Anion Gap 13.7 (5-19); Aspartate Amino Transferase 16 U/L (0-40); Blood Urea Nitrogen 25 mg/dL (8-23); Calcium 9.1 mg/dL (8.5-10.5); Carbon Dioxide 26 mmol/L (22-29); Chloride 104 mmol/L (98-107); Creatinine Clr Calc Pharmacy 27.5488; Globulin 2.3 g/dL (1.3-4.6); Glucose 146 mg/dL (65-115); Osmolality Calculated 295 mOsm/kg (285-295); Phosphorus 3.9 mg/dL (2.5-4.5); Potassium 4.7 mmol/L (3.5-5.1); Sodium 139 mmol/L (136-145); Total Bilirubin 0.3 mg/dL (0.15-1.2); Total Protein 5.5 g/dL (6.6-8.7)
[2024-09-12] MEDS: pantoprazole DR 40 mg Tablet PO ×2 (06:44→17:47)
[2024-09-12] MEDS: atorvastatin 40 mg Tablet 80 MG PO (09:10)
[2024-09-12] MEDS: montelukast sodium 10 mg Tablet PO (09:10)
[2024-09-12] MEDS: cetirizine 10 mg Tablet PO (09:10)
[2024-09-12] MEDS: tamsulosin 0.4 mg Capsule PO (09:10)
[2024-09-12] MEDS: ranolazine (12HR) 500 mg Tablet PO ×2 (09:10→17:48)
[2024-09-12] MEDS: sucralfate 1 gm/10 mL Oral Liq UDC PO ×4 (09:10→21:03)
[2024-09-12] MEDS: metoprolol tartrate 50 mg Tablet 25 MG PO (09:10)
[2024-09-12] MEDS: gabapentin 400 mg Capsule PO ×2 (09:10→21:02)
[2024-09-12] MEDS: aspirin 81 mg EC Tablet PO (09:10)
[2024-09-12] MEDS: NIFEdipine ER (24 hr) 30 mg Tablet PO (09:11)
[2024-09-12 11:24] LABS: Glucose Point of Care 318 mg/dL (70-110)
[2024-09-12] MEDS: cefTRIAXone 1,000 mg SDV 1000 MG IVP (11:45)
[2024-09-12] MEDS: insulin lispro 100 unit/1 mL SUBCUT ×3 (11:45→21:06)
--- NOTE | 2024-09-12 13:00 | P.PN_ITS ---
Subjective 2 Subjective: Creatinine is improving to 1.9 today. Hyperkalemia is resolved. Medications: Reviewed: Yes Vitals/I&O/Wt Last Vital Signs Temp 98.0 F 09/12/24 11:43 Pulse 79 09/12/24 11:43 Resp 28 H 09/12/24 11:43 BP 158/72 09/12/24 11:43 Pulse Ox 99 09/12/24 11:43 O2 Del Method Room Air 09/12/24 11:43 09/11/24 09/12/24 09/12/24 22:59 06:59 14:59 Intake Total 240 / 480 500 / 980 240 / 240 Output Total 850 / 850 1100 / 1950 1100 / 1100 Balance -610 / -370 -600 / -970 -860 / -860 Weight last 48 hrs Weight 63.049 kg Weight 63.049 kg Weight 63.049 kg Physical Exam 2 Narrative: General: No acute distress, AO x3 HEENT: PERRLA, pupils bilaterally equal and reactive, pallors not present Chest: Normal vesicular breath sounds, no added sounds, equal good air entry bilaterally CVS: S1-S2 regular, no murmurs, no tachycardia, no gallops, no rubs Abdomen: Soft, nontender, no organomegaly, bowel sounds present Data 09/12/24 04:55 09/12/24 04:55 Micro: Microbiology 09/11/24 12:36 Blood Culture - Preliminary Blood NEGATIVE TO DATE 09/11/24 12:34 Blood Culture - Preliminary Blood NEGATIVE TO DATE 09/10/24 16:11 Urine Culture - Final Urine,Clean Catch 09/11/24 15:40 Occult Blood (FIT) - Final Stool Routine Collection A&P Assessment and plan (1) Hypertension: Qualifiers: Hypertension type: essential hypertension Qualified Code(s): I10 - Essential (primary) hypertension (2) Hyperkalemia: (3) Syncope: Plan Lauro Rivera is a 74 yo man w/ a PVD, hx of Jim MURRY & Medina MURRY in 07/2024, COPD, IDDM2, who was brought to [facility] from [facility], by his , on 09/10/2024, for an episode of syncope. #Syncope: - Unclear etiology - CXR shows no abnormalities. Trop T is mildly elevated. F/u ddimer, UA, Utox, BCx, COVID/Influenza A&B/RSV pcr, ECHO, b12 studies. - Continue Cardiac monitoring. Held BP meds and Ranolazine. - Ordered orthostatic for 6 AM on 09/11. #Hyperkalemia: - Held Losartan - Ordered Kayexalate. 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 #CAD: Held NTG #PVD w/ #hx of Jim MURRY & Medina MURRY in 07/2024 - Held Ranolazine. - On Pradaxa?? Perhaps consider switching to Apixaban or Xarelto if possible. - For now, Lovenox subq - Wound care for Jim MURRY -Also note that he had a carotid ultrasound done on 05/2024. #IDDM2 w/ peripheral neuropathy: On Insulin glargine 5units qPM plus sliding scale. Held ordering insulin for now given 10units of IV insulin regular given in the ED for hyperkalemia. Continue BG monitoring #Pyuria: F/u UCx. #COPD: not in exacerbation. Duonebs q6h prn ordered. #GERD: Resumed PPI BID g. #Chronic constipation: Resumed Linzess. Patient is also on oral iron, which could also be a contributor. #Tobacco use d/o: current smoker. 1ppd x 40yrs. Declined a nicotine patch #Stage II sacral coccygeal ulcer: Wound care consult. Place optifoam. q2h turns DVT ppx: Lovenox GI PPx: Pantoprazole 09/11/2024: Patient presenting with syncope yesterday. Likely related to bradycardia, other underlying cardiac arrhythmia related to hyperkalemia. Potassium was at 6.7 upon admission. He is status post receiving calcium gluconate, insulin dextrose and Kayexalate overnight. He is having diarrhea at this time, likely related to Kayexalate. K currently at 5.4 from 3 am, will recheck now. Syncope evaluation with negative D dimer , trop 86 >> 80, downtrending delta, suspect more likely from arrhythmia from hyperkalemia. no chest pain. No acute ST -T wave changes on EKG once bradycardia resolved. TSH WNL. Echo pending. HEad CT without acute events. recent carotid doppler in May 2024 with Elevated velocity in the left external carotid artery, suggesting hemodynamically significant stenosis.. Elevated velocity in the right vertebral artery with some flow turbulence suggesting hemodynamically significant stenosis. Will need vascular surgery follow up as outpatient. Recently also had C. difficile. Will check C. difficile PCR, potentially C. difficile colitis may be contributing.. Presumably completed 10 days of oral vancomycin recently. Telemetry without any acute events otherwise. Currently heart rate is ranging mostly in the 90s. Blood pressure with SBP 160s. Will resume home dose of metoprolol, however we will reduce it to 25 mg twice daily instead of 50 mg twice daily and monitor closely. Aim to resume imdur next based on BP trend. Anemia, h/o FOBT + stool, check FOBT now, hb at 9.6 currently- was referred to see gen/surg as outpatient. Creatinine has worsened at 2.2. On his most recent admission patient did have DUSTIN however creatinine was improving at 1.4 by the time of discharge from a peak of 2.9. He UA showing 2+ blood, 2+ leukocyte esterase, greater than 100 WBCs. Pending urine culture. Cannot rule out UTI at this time, though it would not be a cause of his syncope. No clear signs of sepsis. Ct KUB ordered to assess for obstrcution. Continue to hold losartan and other nephrotoxic medications. Start ceftriaxone 1 g IV every 24 hours empirically while awaiting urine cultures. Blood cultures ordered yesterday at 6 PM are still not drawn. Will reorder now Insulin sliding scale for DM . September 12, 2024 No further syncopal events in the hospital. No other arrhythmias noted. Potassium has now normalized. Creatinine is improving at 1.9. Would not restart losartan at the time of discharge this time. C. difficile PCR negative. Heart rate ranging between 70-100. Blood pressure 1 50-1 60 systolic. Increase nicardipine from 30 mg daily to 60 mg daily. Additionally increase metoprolol from 25 mg p.o. twice daily to 50 mg p.o. twice daily and closely monitor heart rate and blood pressure. Urine culture still pending. Currently on ceftriaxone empirically. Once sensitivities are available we will be able to transition to oral medications. Blood sugars ranging in the 300s today. Change sliding scale to high dose Attestations 2 Medical Necessity Statement*: continue iv ceftriaxone, adjust medications Coding Level of Care Code Acute Code for Chg Fwd Moderate MDM includes number and complexity of problems actively addressed during encounter, amount and/or complexity of data reviewed/ordered and described risk of complication, morbidity or mortality of management as documented Diagnoses Essential hypertension I10 Hypertension type: essential hypertension Hyperkalemia E87.5 Syncope R55
[2024-09-12 17:08] LABS: Glucose Point of Care 344 mg/dL (70-110)
--- NOTE | 2024-09-12 17:36 | PC.NURSE ---
Physician orders to resume home dose of dilaudid. Order placed for Dilaudid 4mg PO q4h PRN -pain
[2024-09-12] MEDS: metoprolol tartrate 50 mg Tablet PO (17:47)
[2024-09-12 20:50] LABS: Glucose Point of Care 352 mg/dL (70-110)
[2024-09-13] VITALS (12 sets, daily range): BP systolic 118–134; BP diastolic 54–86; PULSE 61–89; RESP 15–20; TEMP 36.1–36.7; O2SAT 97–99
[2024-09-13 04:52] LABS: Basophils # 0.1 10^3/uL (0.0-0.1); Basophils % 1.2 %; Eosinophils # 0.2 10^3/uL (0.0-0.8); Eosinophils % 2.9 %; Hematocrit 29.7 % (37-53); Lymphocytes # 2.6 10^3/uL (0.8-4.8); Lymphocytes % 31.6 %; Mean Corpuscular Hemoglobin 26.5 pg (27-33); Mean Corpuscular Volume 85.6 fl (82-101); Mean Platelet Volume 10.2 fL (7.4-10.4); Monocytes # 0.6 10^3/uL (0.2-0.9); Monocytes % 7.4 %; Neutrophils # 4.62 10^3/uL (1.8-7.7); Neutrophils % 56.4 %; Nucleated Red Blood Cells % 0 %; Platelet Count 255 10^3/cmm (157-399); Red Blood Count 3.47 10^6/uL (3.85-5.65); Red Cell Distribution Width 18.8 % (12.1-15.1)
[2024-09-13 05:15] LABS: Alanine Aminotransferase 18 U/L (0-41); Albumin Level 3.1 g/dL (3.5-5.2); Alkaline Phosphatase 104 U/L (40-130); Anion Gap 15.3 (5-19); Aspartate Amino Transferase 15 U/L (0-40); Blood Urea Nitrogen 24 mg/dL (8-23); Calcium 8.6 mg/dL (8.5-10.5); Carbon Dioxide 25 mmol/L (22-29); Chloride 103 mmol/L (98-107); Creatinine Clr Calc Pharmacy 30.9379; Globulin 2.5 g/dL (1.3-4.6); Glucose 208 mg/dL (65-115); Osmolality Calculated 298 mOsm/kg (285-295); Potassium 4.3 mmol/L (3.5-5.1); Sodium 139 mmol/L (136-145); Total Bilirubin 0.2 mg/dL (0.15-1.2); Total Protein 5.6 g/dL (6.6-8.7)
[2024-09-13 05:34] LABS: Glucose Point of Care 225 mg/dL (70-110)
[2024-09-13] MEDS: pantoprazole DR 40 mg Tablet PO ×2 (06:29→16:43)
[2024-09-13] MEDS: sucralfate 1 gm/10 mL Oral Liq UDC PO ×4 (08:08→21:20)
[2024-09-13] MEDS: tamsulosin 0.4 mg Capsule PO (08:08)
[2024-09-13] MEDS: atorvastatin 40 mg Tablet 80 MG PO (08:09)
[2024-09-13] MEDS: cetirizine 10 mg Tablet PO (08:09)
[2024-09-13] MEDS: insulin lispro 100 unit/1 mL SUBCUT ×4 (08:09→21:20)
[2024-09-13] MEDS: metoprolol tartrate 50 mg Tablet PO ×2 (08:09→16:44)
[2024-09-13] MEDS: gabapentin 400 mg Capsule PO ×3 (08:09→21:19)
[2024-09-13] MEDS: ranolazine (12HR) 500 mg Tablet PO ×2 (08:09→16:44)
[2024-09-13] MEDS: NIFEdipine ER (24 hr) 30 mg Tablet 60 MG PO (08:09)
[2024-09-13] MEDS: montelukast sodium 10 mg Tablet PO (08:09)
[2024-09-13] MEDS: aspirin 81 mg EC Tablet PO (08:09)
--- NOTE | 2024-09-13 09:45 | PC.SOCIAL ---
IMM Update Pg. 2 of IMM updated. Initialed, dated, and timed copy in chart, and copy provided at bedside.
--- NOTE | 2024-09-13 10:37 | PM.DCS ---
Discharge Providers Date of Admission: 09/10/24 18:30 Date of Discharge: September 13, 2024 Attending Provider at Admission: Mary Hoang MD Attending Provider at Discharge: Galilea Cunha MD Primary Care Provider: Bertha Perkins MD Diagnoses at Discharge Discharge Diagnosis (1) Hypertension: Status: Acute Qualifiers: Hypertension type: essential hypertension Qualified Code(s): I10 - Essential (primary) hypertension (2) Hyperkalemia: Status: Acute (3) Syncope: Status: Acute Reason for Visit Reason for Visit: syncope Hospital Course Hospital Course Patient presented with syncope of unclear etiology and was found to be hyperkalemic on admission with bradycardia. He had an DUSTIN on CKD. Ranolazine blood pressure medications were held. Losartan was held and stopped indefinitely at this point. At previous hospitalization losartan was held however it apparently got restarted at intermediate. DUSTIN has resolved and his creatinine is back to baseline. Discussed with patient to stop losartan. Provided nephrology consult at discharge. Bradycardia was attributed to hyperkalemia therefore metoprolol was restarted. Urine culture growing normal kemi. Empiric ceftriaxone was ordered. We will discharge home on cefdinir to complete course. Nifedipine was increased to 60 mg daily. C. difficile PCR negative at this admission. Patient will be discharged back to nursing facility at this point. Physical Exam Narrative: General: No acute distress, AO x3 HEENT: PERRLA, pupils bilaterally equal and reactive, pallors not present Chest: Normal vesicular breath sounds, no added sounds, equal good air entry bilaterally CVS: S1-S2 regular, no murmurs, no tachycardia, no gallops, no rubs Abdomen: Soft, nontender, no organomegaly, bowel sounds present Discharge Data Studies Completed and Pending Completed Studies During Hospitalization Category Date Time Status CT abdomen renal stone [CT kidney stone 93702] Routine Cat Scan 09/11/24 11:[address] head wo con* 10001 Stat Cat Scan 09/10/24 15:49 Completed CXRP [XR chest 1V portable [id number]] Stat Exams 09/10/24 20:13 Completed CV. echo complete* [id number] Routine Ultrasound 09/11/24 23:12 Completed Pending at discharge Category Date Time Status Blood Culture Stat Lab 09/11/24 12:34 Results Urine Culture Routine Lab 09/11/24 17:30 Results Radiology Impressions Head CT 09/10/24 15:49 IMPRESSION: No acute intracranial process. Senescent changes. If there is continued clinical concern for an acute ischemic event then follow up brain MRI examination. Chest X-Ray 09/10/24 20:13 IMPRESSION: 1. No evidence for acute abnormality identified in the chest. 2. Chronic findings. Abdomen/Pelvis CT 09/11/24 11:32 IMPRESSION: 1. No evidence of hydronephrosis. 2. Diffuse urinary bladder wall thickening may be from chronic outlet obstruction or neurogenic bladder, though cystitis is not excluded. 3. Layering density within the urinary bladder is nonspecific. Correlate with clinical history to exclude hematoma or less likely neoplasm. 4. Air within the urinary bladder may be from recent prior instrumentation. 5. Additional ancillary findings as above. Laboratory Results WBC 8.20 10^3/uL (3.29-11.43) 09/13/24 04:40 RBC 3.47 10^6/uL (3.85-5.65) L 09/13/24 04:40 Hgb 9.20 g/dL (11.27-16.99) L 09/13/24 04:40 Hct 29.7 % (37-53) L 09/13/24 04:40 MCV 85.6 fl (82-101) 09/13/24 04:40 MCH 26.5 pg (27-33) L 09/13/24 04:40 MCHC 31.0 g/dL (30-55) 09/13/24 04:40 RDW 18.8 % (12.1-15.1) H 09/13/24 04:40 Plt Count 255 10^3/cmm (157-399) 09/13/24 04:40 MPV 10.2 fL (7.4-10.4) 09/13/24 04:40 Neut % (Auto) 56.4 % 09/13/24 04:40 Lymph % (Auto) 31.6 % 09/13/24 04:40 [place] % (Auto) 7.4 % 09/13/24 04:40 Eos % (Auto) 2.9 % 09/13/24 04:40 Baso % (Auto) 1.2 % 09/13/24 04:40 Neut # (Auto) 4.62 10^3/uL (1.8-7.7) 09/13/24 04:40 Lymph # (Auto) 2.6 10^3/uL (0.8-4.8) 09/13/24 04:40 [place] # (Auto) 0.6 10^3/uL (0.2-0.9) 09/13/24 04:40 Eos # (Auto) 0.2 10^3/uL (0.0-0.8) 09/13/24 04:40 Baso # (Auto) 0.1 10^3/uL (0.0-0.1) 09/13/24 04:40 Nucleated RBC % (auto) 0 % 09/13/24 04:40 Nucleated RBCs # 0.0 /100WBC 09/13/24 04:40 PT 16.40 SECONDS (12.1-14.9) H 09/11/24 03:43 INR 1.28 (0.8-1.2) H 09/11/24 03:43 APTT 59.8 SECONDS (23.9-36.7) H 09/11/24 03:43 D-Dimer 0.30 ug/mLFEU (0-0.59) 09/10/24 16:22 Sodium 139 mmol/L (136-145) 09/13/24 04:40 Potassium 4.3 mmol/L (3.5-5.1) 09/13/24 04:40 Chloride 103 mmol/L (98-107) 09/13/24 04:40 Carbon Dioxide 25 mmol/L (22-29) 09/13/24 04:40 Anion Gap 15.3 (5-19) 09/13/24 04:40 BUN 24 mg/dL (8-23) H 09/13/24 04:40 Creatinine 1.9 mg/dL (0.7-1.2) H 09/13/24 04:40 GFR Calculation Not Reportable 09/13/24 04:40 Glucose 208 mg/dL (65-115) H 09/13/24 04:40 POC Glucose 225 mg/dL (70-110) H 09/13/24 05:27 Calculated Osmolality 298 mOsm/kg (285-295) H 09/13/24 04:40 Calcium 8.6 mg/dL (8.5-10.5) 09/13/24 04:40 Phosphorus 3.9 mg/dL (2.5-4.5) 09/12/24 04:55 Magnesium 1.8 mg/dL (1.7-2.3) 09/11/24 03:43 Total Bilirubin 0.2 mg/dL (0.15-1.2) 09/13/24 04:40 AST 15 U/L (0-40) 09/13/24 04:40 ALT 18 U/L (0-41) 09/13/24 04:40 Alkaline Phosphatase 104 U/L (40-130) 09/13/24 04:40 Troponin T Baseline 86 ng/L (0-15) H 09/10/24 17:14 Troponin T 120 Minute 80.45 ng/L (0-15) H 09/10/24 20:17 Delta Troponin T -5.55 ABS# (0-10) L 09/10/24 20:17 Total Protein 5.6 g/dL (6.6-8.7) L 09/13/24 04:40 Albumin 3.1 g/dL (3.5-5.2) L 09/13/24 04:40 Globulin 2.5 g/dL (1.3-4.6) 09/13/24 04:40 Vitamin B12 1100 pg/mL (232-1245) 09/11/24 03:43 TSH 0.89 uIU/mL (0.27-4.20) 09/11/24 03:43 Free T4 1.10 ng/dL (0.82-1.77) 09/11/24 03:43 Urine Color Yellow (Yellow) 09/11/24 17:30 Urine Appearance Turbid (CLEAR) A 09/11/24 17:30 Urine pH 6.0 (5-7) 09/11/24 17:30 Ur Specific [place] 1.012 (1.005-1.030) 09/11/24 17:30 Urine Protein 2+ (Negative) A 09/11/24 17:30 Urine Glucose (UA) 3+ (Normal) H 09/11/24 17:30 Urine Ketones Negative (Negative) 09/11/24 17:30 Urine Blood 3+ (Negative) A 09/11/24 17:30 Urine Nitrate Negative (Negative) 09/11/24 17:30 Urine Bilirubin Negative (Negative) 09/11/24 17:30 Urine Urobilinogen 0.2 mg/dL (Negative) 09/11/24 17:30 Ur Leukocyte Esterase 3+ (Negative) A 09/11/24 17:30 Urine RBC 11-20 /hpf (0-2) H 09/11/24 17:30 Urine WBC Too numerous to cnt /hpf (0-5) H 09/11/24 17:30 Ur Squamous Epith Cells 6-10 /hpf (0-5) 09/11/24 17:30 Amorphous Sediment Not Reportable 09/11/24 17:30 Urine Bacteria None seen /hpf (NONE) 09/11/24 17:30 Hyaline Casts 0.40 /lpf 09/11/24 17:30 Urine Yeast Trace /hpf 09/11/24 17:30 C. difficile (PCR) Negative (Negative) 09/11/24 15:40 Coronavirus (PCR) Negative (Negative) 09/11/24 14:07 Influenza A (PCR) Negative (Negative) 09/11/24 14:07 Influenza Type B (PCR) Negative (Negative) 09/11/24 14:07 RSV (PCR) Negative (Negative) 09/11/24 14:07 Vitals Last Vital Signs Temp 97.8 F 09/13/24 07:11 Pulse 89 09/13/24 08:26 Resp 16 09/13/24 08:26 BP 134/86 09/13/24 07:11 Pulse Ox 98 09/13/24 08:26 O2 Del Method Room Air 09/13/24 08:26 Discharge Plan Discharge Patient Disposition: Xfer SNF Condition: Stable Prescriptions: New nifedipine 30 mg Tablet Extended Release 24hr 60 mg PO DAILY Qty: 30 0RF cefdinir 300 mg capsule 300 mg PO BID Qty: 6 0RF Continued Linzess 145 mcg capsule 145 mcg PO DAILY aspirin [Adult Aspirin Regimen] 81 mg tablet,delayed release (DR/EC) 81 mg PO DAILY metoclopramide HCl [Reglan] 10 mg tablet 10 mg PO TID PRN (Reason: Nausea And Vomiting) cetirizine [Zyrtec] 10 mg tablet 10 mg PO DAILY montelukast [Singulair] 10 mg tablet 10 mg PO DAILY Jardiance 10 mg tablet 10 mg PO DAILY metoprolol tartrate 50 mg tablet 50 mg PO BID Qty: 180 3RF Pradaxa 150 mg capsule 150 mg PO BID Qty: 180 3RF Hold Instructions: Resume on 07/04/21. May restart this medicine tomorrow morning atorvastatin [Lipitor] 80 mg tablet 80 mg PO DAILY Qty: 90 3RF ranolazine 500 mg tablet extended release 12 hr 500 mg PO BID Qty: 180 3RF gabapentin 400 mg capsule 400 mg PO TID levocetirizine 5 mg tablet 5 mg PO QPM sucralfate 100 mg/mL Suspension 10 ml PO QID Rx Instructions: swish in mouth and swallow; use after food/drink tamsulosin 0.4 mg Capsule 0.4 mg PO DAILY insulin aspart U-100 100 unit/mL Solution See Rx Instructions .ROUTE .COMPLEX Rx Instructions: sliding scale 150-200 =0 201-250= 2 251-300=4 301-350=6 351-400=8 with meals bisacodyl [Dulcolax (bisacodyl)] 10 mg Suppository 10 mg FL DAILY PRN (Reason: Constipation) pantoprazole 40 mg Tablet,Delayed Release (Dr/Ec) 40 mg PO BID ferrous sulfate 325 mg (65 mg iron) Tablet 325 mg PO BID bupropion HCl 75 mg Tablet 75 mg PO DAILY Fleet Enema 19-7 gram/118 mL Enema 118 ml FL DAILY nitroglycerin 0.4 mg Tablet, Sublingual 0.4 mg SUBLINGUAL Q5M PRN (Reason: Chest Pain) Rx Instructions: do not exceed 3 doses per episode bisacodyl [Dulcolax (bisacodyl)] 5 mg Tablet,Delayed Release (Dr/Ec) 10 mg PO DAILY PRN (Reason: Constipation) albuterol sulfate 90 mcg/actuation Hfa Aerosol Inhaler 2 puff INHALATION DAILY PRN (Reason: Shortness Of Breath) hydromorphone 4 mg Tablet 4 mg PO Q4H PRN (Reason: Pain) PNV cmb#95-ferrous fumarate-FA [] 28 mg iron- 800 mcg Tablet 1 tab PO DAILY insulin glargine 100 unit/mL Solution 5 unit SUBCUT QPM Qty: 10 0RF isosorbide mononitrate 60 mg tablet extended release 24 hr 60 mg PO DAILY Qty: 180 3RF magnesium oxide 400 mg magnesium capsule 400 mg PO BID Qty: 20 0RF ondansetron HCl 4 mg Tablet 4 mg PO Q6H PRN (Reason: Nausea And Vomiting) Discontinued losartan 100 mg tablet 100 mg PO DAILY Qty: 90 3RF nifedipine 30 mg Tablet Extended Release 24hr 30 mg PO DAILY amoxicillin-pot clavulanate 875-125 mg tablet 1 tab PO BID Qty: 14 0RF Discharge Orders: Discharge Order (Routine); Ordered 09/13/24 Ordered By: Galilea Cunha Referrals: Edide Elias [Other] - 7-10 days (CKD, recent hyperkalemia due to DUSTIN.) Bertha Perkins MD [Primary Care Provider] - 4-7 days Discharge Diet: Cardiac and Diabetic Discharge Activity: Resume usual activity Patient Instructions: Nifedipine (By mouth), Cefdinir (By mouth) (Omnicef), Urinary Tract Infection in Men (DC), Syncope (DC), Hyperkalemia (DC) Discharge Attestations Time Spent in Discharge Care*: greater than 30 min Quality Metrics Clinical Quality Measures [ No reported AMI, CVA or VTE this stay] Coding Level of Care Code Acute Code for Chg Fwd Diagnoses Essential hypertension I10 Hypertension type: essential hypertension Hyperkalemia E87.5 Syncope R55
[2024-09-13 11:30] LABS: Glucose Point of Care 264 mg/dL (70-110)
--- NOTE | 2024-09-13 11:46 | PC.NURSE ---
IV removed for discharge. Spoke with case mgmt and we are waiting authorization. Informed Dr Cunha and received telephone order to start cefdiner 300mg PO BID and to leave out IV. RBVO
--- NOTE | 2024-09-13 12:50 | PM.MISC ---
Miscellaneous Note Note: Discharge summary from 09/13 to serve as a progress note. Initially plan was to discharge patient to nursing facility however awaiting insurance authorization therefore patient still at hospital. No changes to plan.
--- NOTE | 2024-09-13 12:50 | PM.PN ---
Vitals/I&O/Wt Last Vital Signs Temp 97.8 F 09/14/24 11:12 Pulse 74 09/14/24 11:12 Resp 17 09/14/24 11:12 BP 130/55 09/14/24 11:12 Pulse Ox 96 09/14/24 11:12 O2 Del Method Room Air 09/14/24 11:12 09/13/24 09/14/24 09/14/24 22:59 06:59 14:59 Intake Total 160 / 880 240 / 240 Output Total 1275 / 1625 1000 / 2625 500 / 500 Balance -1275 / -905 -840 / -1745 -260 / -260 Weight last 48 hrs Weight 67.585 kg Weight 68.039 kg Weight 80.881 kg Data 09/13/24 04:40 09/14/24 02:55 Micro: Microbiology 09/11/24 17:30 Urine Culture - Final Urine,Clean Catch Coding Level of Care Code Acute Code for Chg Fwd
--- NOTE | 2024-09-13 14:34 | PC.NURSE ---
Patient has pending discharge to [facility]. Currently waiting on pre-authorization from insurance. Dr Cunha is aware
[2024-09-13 16:30] LABS: Glucose Point of Care 251 mg/dL (70-110)
[2024-09-13] MEDS: cefdinir 300 MG CAPSULE PO (16:44)
[2024-09-13 20:05] LABS: Glucose Point of Care 359 mg/dL (70-110)
[2024-09-13] MEDS: sennosides 8.6 mg Tablet 17.2 MG PO (21:20)
[2024-09-13] MEDS: insulin glargine 100 units/1 mL 5 UNIT SUBCUT (21:20)
[2024-09-14] VITALS (9 sets, daily range): BP systolic 116–135; BP diastolic 55–79; PULSE 66–88; RESP 10–21; TEMP 36.1–37; O2SAT 94–100; BMI 27.2
[2024-09-14 04:04] LABS: Anion Gap 13.6 (5-19); Blood Urea Nitrogen 28 mg/dL (8-23); Calcium 8.6 mg/dL (8.5-10.5); Carbon Dioxide 24 mmol/L (22-29); Chloride 104 mmol/L (98-107); Creatinine Clr Calc Pharmacy 27.0723; Glucose 170 mg/dL (65-115); Osmolality Calculated 293 mOsm/kg (285-295); Potassium 4.6 mmol/L (3.5-5.1); Sodium 137 mmol/L (136-145)
[2024-09-14] MEDS: pantoprazole DR 40 mg Tablet PO (06:42)
[2024-09-14 06:48] LABS: Glucose Point of Care 222 mg/dL (70-110)
[2024-09-14] MEDS: sucralfate 1 gm/10 mL Oral Liq UDC PO ×2 (09:18→12:27)
[2024-09-14] MEDS: gabapentin 400 mg Capsule PO (09:18)
[2024-09-14] MEDS: ranolazine (12HR) 500 mg Tablet PO (09:19)
[2024-09-14] MEDS: cefdinir 300 MG CAPSULE PO (09:19)
[2024-09-14] MEDS: NIFEdipine ER (24 hr) 30 mg Tablet 60 MG PO (09:19)
[2024-09-14] MEDS: metoprolol tartrate 50 mg Tablet PO (09:19)
[2024-09-14] MEDS: tamsulosin 0.4 mg Capsule PO (09:19)
[2024-09-14] MEDS: montelukast sodium 10 mg Tablet PO (09:19)
[2024-09-14] MEDS: cetirizine 10 mg Tablet PO (09:19)
[2024-09-14] MEDS: atorvastatin 40 mg Tablet 80 MG PO (09:19)
[2024-09-14] MEDS: docusate sodium 100 mg Capsule 200 MG PO (09:19)
[2024-09-14] MEDS: aspirin 81 mg EC Tablet PO (09:20)
[2024-09-14] MEDS: insulin lispro 100 unit/1 mL SUBCUT ×2 (09:24→13:36)
[2024-09-14 11:28] LABS: Glucose Point of Care 219 mg/dL (70-110)
--- NOTE | 2024-09-14 14:33 | PM.PN ---
Subjective Subjective: Seen this morning. Patient stable no changes since yesterday. Awaiting placement. Vitals/I&O/Wt Last Vital Signs Temp 98.6 F 09/14/24 14:02 Pulse 68 09/14/24 14:02 Resp 13 09/14/24 14:02 BP 116/79 09/14/24 14:02 Pulse Ox 100 09/14/24 14:02 O2 Del Method Room Air 09/14/24 11:12 09/13/24 09/14/24 09/14/24 22:59 06:59 14:59 Intake Total 160 / 880 720 / 720 Output Total 1275 / 1625 1000 / 2625 500 / 500 Balance -1275 / -905 -840 / -1745 220 / 220 Weight last 48 hrs Weight 67.585 kg Weight 68.039 kg Weight 80.881 kg Physical Exam Narrative: General: No acute distress, AO x3 HEENT: PERRLA, pupils bilaterally equal and reactive, pallors not present Chest: Normal vesicular breath sounds, no added sounds, equal good air entry bilaterally CVS: S1-S2 regular, no murmurs, no tachycardia, no gallops, no rubs Abdomen: Soft, nontender, no organomegaly, bowel sounds present Data 09/13/24 04:40 09/14/24 02:55 Micro: Microbiology 09/11/24 17:30 Urine Culture - Final Urine,Clean Catch A&P Assessment and plan (1) Hypertension: Qualifiers: Hypertension type: essential hypertension Qualified Code(s): I10 - Essential (primary) hypertension (2) Hyperkalemia: (3) Syncope: Plan Lauro Rivera is a 74 yo man w/ a PVD, hx of Jim MURRY & Medina MURRY in 07/2024, COPD, IDDM2, who was brought to [facility] from [facility], by his , on 09/10/2024, for an episode of syncope. #Syncope: - Unclear etiology - CXR shows no abnormalities. Trop T is mildly elevated. F/u ddimer, UA, Utox, BCx, COVID/Influenza A&B/RSV pcr, ECHO, b12 studies. - Continue Cardiac monitoring. Held BP meds and Ranolazine. - Ordered orthostatic for 6 AM on 09/11. #Hyperkalemia: - Held Losartan - Ordered Kayexalate. 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 #CAD: Held NTG #PVD w/ #hx of Jim MURRY & Medina MURRY in 07/2024 - Held Ranolazine. - On Pradaxa?? Perhaps consider switching to Apixaban or Xarelto if possible. - For now, Lovenox subq - Wound care for Jim MURRY -Also note that he had a carotid ultrasound done on 05/2024. #IDDM2 w/ peripheral neuropathy: On Insulin glargine 5units qPM plus sliding scale. Held ordering insulin for now given 10units of IV insulin regular given in the ED for hyperkalemia. Continue BG monitoring #Pyuria: F/u UCx. #COPD: not in exacerbation. Duonebs q6h prn ordered. #GERD: Resumed PPI BID g. #Chronic constipation: Resumed Linzess. Patient is also on oral iron, which could also be a contributor. #Tobacco use d/o: current smoker. 1ppd x 40yrs. Declined a nicotine patch #Stage II sacral coccygeal ulcer: Wound care consult. Place optifoam. q2h turns DVT ppx: Lovenox GI PPx: Pantoprazole 09/11/2024: Patient presenting with syncope yesterday. Likely related to bradycardia, other underlying cardiac arrhythmia related to hyperkalemia. Potassium was at 6.7 upon admission. He is status post receiving calcium gluconate, insulin dextrose and Kayexalate overnight. He is having diarrhea at this time, likely related to Kayexalate. K currently at 5.4 from 3 am, will recheck now. Syncope evaluation with negative D dimer , trop 86 >> 80, downtrending delta, suspect more likely from arrhythmia from hyperkalemia. no chest pain. No acute ST -T wave changes on EKG once bradycardia resolved. TSH WNL. Echo pending. HEad CT without acute events. recent carotid doppler in May 2024 with Elevated velocity in the left external carotid artery, suggesting hemodynamically significant stenosis.. Elevated velocity in the right vertebral artery with some flow turbulence suggesting hemodynamically significant stenosis. Will need vascular surgery follow up as outpatient. Recently also had C. difficile. Will check C. difficile PCR, potentially C. difficile colitis may be contributing.. Presumably completed 10 days of oral vancomycin recently. Telemetry without any acute events otherwise. Currently heart rate is ranging mostly in the 90s. Blood pressure with SBP 160s. Will resume home dose of metoprolol, however we will reduce it to 25 mg twice daily instead of 50 mg twice daily and monitor closely. Aim to resume imdur next based on BP trend. Anemia, h/o FOBT + stool, check FOBT now, hb at 9.6 currently- was referred to see gen/surg as outpatient. Creatinine has worsened at 2.2. On his most recent admission patient did have DUSTIN however creatinine was improving at 1.4 by the time of discharge from a peak of 2.9. He UA showing 2+ blood, 2+ leukocyte esterase, greater than 100 WBCs. Pending urine culture. Cannot rule out UTI at this time, though it would not be a cause of his syncope. No clear signs of sepsis. Ct KUB ordered to assess for obstrcution. Continue to hold losartan and other nephrotoxic medications. Start ceftriaxone 1 g IV every 24 hours empirically while awaiting urine cultures. Blood cultures ordered yesterday at 6 PM are still not drawn. Will reorder now Insulin sliding scale for DM . September 12, 2024 No further syncopal events in the hospital. No other arrhythmias noted. Potassium has now normalized. Creatinine is improving at 1.9. Would not restart losartan at the time of discharge this time. C. difficile PCR negative. Heart rate ranging between 70-100. Blood pressure 1 50-1 60 systolic. Increase nicardipine from 30 mg daily to 60 mg daily. Additionally increase metoprolol from 25 mg p.o. twice daily to 50 mg p.o. twice daily and closely monitor heart rate and blood pressure. Urine culture still pending. Currently on ceftriaxone empirically. Once sensitivities are available we will be able to transition to oral medications. Blood sugars ranging in the 300s today. Change sliding scale to high dose 09/14/2024 -Please see discharge summary dated 09/13/2024. ? Cefdinir at discharge for completion of treatment for UTI. ? Patient has been discharged since 09/13 however was awaiting insurance authorization for placement at custodial. ? He was seen today. Will be discharged to nursing facility in stable condition. Attestations Medical Necessity Statement*: Discharge today. Diagnoses Essential hypertension I10 Hypertension type: essential hypertension Hyperkalemia E87.5 Syncope R55
--- NOTE | 2024-09-14 15:37 | PC.OT ---
Attempted to see Patient today, Patient was getting ready to be transported to [facility] today.OT treatment visit was missed.
== END 2024-09-14 14:53 | disposition skilled nursing facility (03) | DRG 641 ==
LOC: ER 18:09 → CSU 18:30
PROVIDERS: Internal Medicine; Admitting Provider Student in an Organized Health Care Education/Training Program; Emergency Provider Emergency Medicine; PCP Internal Medicine; Visit Provider Internal Medicine
DX: E87.5 Hyperkalemia (principal); N18.4 Chronic kidney disease, stage 4 (severe); K52.1 Toxic gastroenteritis and colitis; N17.9 Acute kidney failure, unspecified; R00.1 Bradycardia, unspecified; I12.9 Hypertensive chronic kidney disease with stage 1 through stage 4 chronic kidney disease, or unspecified chronic kidney disease; E11.22 Type 2 diabetes mellitus with diabetic chronic kidney disease; E11.51 Type 2 diabetes mellitus with diabetic peripheral angiopathy without gangrene; J44.9 Chronic obstructive pulmonary disease, unspecified; K21.9 Gastro-esophageal reflux disease without esophagitis; K59.09 Other constipation; F17.210 Nicotine dependence, cigarettes, uncomplicated; L89.152 Pressure ulcer of sacral region, stage 2; T50.3X5A Adverse effect of electrolytic, caloric and water-balance agents, initial encounter; Z75.1 Person awaiting admission to adequate facility elsewhere; Z79.4 Long term (current) use of insulin; Z79.82 Long term (current) use of aspirin; Z79.84 Long term (current) use of oral hypoglycemic drugs; Z98.890 Other specified postprocedural states; Z98.61 Coronary angioplasty status; Z89.612 Acquired absence of left leg above knee; Z89.611 Acquired absence of right leg above knee; Z86.14 Personal history of Methicillin resistant Staphylococcus aureus infection
CPT/HCPCS: 36415; 36416; 51798; 70450; 71045; 74176; 80048; 80053; 81001; 82274; 82607; 82962; 83735; 84100; 84439; 84443; 84484; 85025; 85378; 85610; 85730; 87040; 87086; 87493; 87637; 93005; 93306; 96372; 96374; 96375; 97110; 97161; 97166; 97530; 99285; A9270; J0612; J0696; J1644; J1815; J7030

== ENCOUNTER 2024-09-21 09:45 | Inpatient (IN) | payer MEDICARE, SELFPAY ==
[2024-09-21] VITALS (54 sets, daily range): BP systolic 71–141; BP diastolic 37–86; PULSE 91–119; RESP 12–20; TEMP 36.7–37.3; O2SAT 89–100; BMI 27.6; BMI 39.2
--- NOTE | 2024-09-21 09:47 | XRR_ITS ---
PROCEDURE INFORMATION: Exam: XR Chest Exam date and time: 09/21/2024 9:52 AM Age: 74 years old Clinical indication: Cough and dyspnea and fever; Additional info: Dyspnea/cough TECHNIQUE: Imaging protocol: Radiologic exam of the chest. Views: 1 view. COMPARISON: CR (CHEST, ) 09/10/2024 8:27 PM FINDINGS: Tubes, catheters and devices: None. Lungs: Bilateral pulmonary linear interstitial opacities identified within lower lungs. The bilateral upper lungs appear clear. Lung volumes are decreased. Pleural spaces: No pleural effusion. No pneumothorax. Heart/Mediastinum: Mediastinum and lenora appear unremarkable. Vasculature: Mild atherosclerotic calcification demonstrated within the aorta. Bones/joints: Diffusely severely decreased bone density. Limited sensitivity to detect acute abnormalities. Moderate to severe generalized bony degenerative changes. Bony structures appear otherwise unremarkable. XR/XR chest 1V portable [id number] IMPRESSION: Pulmonary atelectasis or acute infiltrates within lower chest bilaterally.
--- NOTE | 2024-09-21 09:49 | ECG_ITS ---
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 Measurements Intervals [place] Rate: 89 P: 64 KS: 172 QRS: 36 QRSD: 86 T: 50 QT: 363 QTc: 442 Interpretive Statements SINUS RHYTHM Compared to ECG 09/11/2024 03:08:17 No significant changes Electronically Signed On 09-21-2024 21:13:50 [employer] by Ze Grijalva M.D. [email or web address]
--- NOTE | 2024-09-21 10:04 | ED_ITS ---
HPI - Altered Mental Status 2 General: Chief Complaint: Altered Mental Status Stated Complaint: Fever Time Seen by Provider: 09/21/24 09:47 History of Present Illness: 74-year-old male presents to the emergen cy room via EMS from local senior living with complaint of altered mental status. At the time I seen the patient he is awake responds to questions he is aware that he recently had surgery with the amputations. He is aware that he is on antibiotic for a bladder infection. He denies any pain. He is normally on 2 L by oxygen he is satting normally on that no chest pain or abdominal pain. Denies any pain at the amputation sites. He answers questions appropriately but does doze off mid conversation. Related Data Home Medications Medication Instructions Recorded Confirmed aspirin 81 mg tablet,delayed 81 mg PO DAILY 04/30/21 09/21/24 release (Adult Aspirin Regimen) cetirizine 10 mg tablet (Zyrtec) 10 mg PO DAILY 04/30/21 09/21/24 linaclotide 145 mcg capsule 145 mcg PO DAILY 04/30/21 09/21/24 (Linzess) metoclopramide HCl 10 mg tablet 10 mg PO TID PRN Nausea And 04/30/21 09/21/24 (Reglan) Vomiting montelukast 10 mg tablet 10 mg PO DAILY 04/30/21 09/21/24 (Singulair) empagliflozin 10 mg tablet 10 mg PO DAILY 11/18/23 09/21/24 (Jardiance) albuterol sulfate 90 mcg/actuation 2 puff inhalation DAILY PRN 08/27/24 09/21/24 aerosol inhaler Shortness Of Breath bisacodyl 10 mg rectal suppository 10 mg KS DAILY PRN Constipation 08/27/24 09/21/24 (Dulcolax (bisacodyl)) bisacodyl 5 mg tablet,delayed 10 mg PO DAILY PRN Constipation 08/27/24 09/21/24 release (Dulcolax (bisacodyl)) bupropion HCl 75 mg tablet 75 mg PO DAILY 08/27/24 09/21/24 ferrous sulfate 325 mg (65 mg 325 mg PO BID 08/27/24 09/21/24 iron) tablet hydromorphone 4 mg tablet 4 mg PO Q4H PRN Pain 08/27/24 09/21/24 insulin aspart U-100 100 unit/mL See Rx Instructions .Route .COMPLEX 08/27/24 09/21/24 subcutaneous solution levocetirizine 5 mg tablet 5 mg PO QPM 08/27/24 09/21/24 nitroglycerin 0.4 mg sublingual 0.4 mg sublingual Q5M PRN Chest 08/27/24 09/21/24 tablet Pain pantoprazole 40 mg tablet,delayed 40 mg PO BID 08/27/24 09/21/24 release vit no.95-ferrous 1 tab PO DAILY 08/27/24 09/21/24 fumarate 28 mg-folic acid 800 mcg tablet () sodium phosphates 19 gram-7 118 ml KS DAILY 08/27/24 09/21/24 gram/118 mL enema (Fleet Enema) sucralfate 100 mg/mL oral 10 ml PO QID 08/27/24 09/21/24 suspension tamsulosin 0.4 mg capsule 0.4 mg PO DAILY 08/27/24 09/21/24 ondansetron HCl 4 mg tablet 4 mg PO Q6H PRN Nausea And Vomiting 09/10/24 09/21/24 amoxicillin 875 mg-potassium 1 tab PO BID 09/21/24 09/21/24 clavulanate 125 mg tablet gabapentin 600 mg tablet 600 mg PO TID 09/21/24 09/21/24 Previous Rx's Medication Instructions Recorded metoprolol tartrate 50 mg tablet 50 mg PO BID #180 tabs 10/15/23 dabigatran etexilate 150 mg 150 mg PO BID #180 caps 11/07/23 capsule (Pradaxa) atorvastatin 80 mg tablet (Lipitor) 80 mg PO DAILY #90 tabs 11/12/23 ranolazine 500 mg tablet,extended 500 mg PO BID #180 tabs 12/19/23 release,12 hr insulin glargine 100 unit/mL 5 unit (0.05 mL) SUBCUT QPM #10 mL 09/01/24 subcutaneous solution isosorbide mononitrate 60 mg 60 mg PO DAILY #180 tabs 09/01/24 tablet,extended release 24 hr magnesium oxide 400 mg PO BID #20 caps 09/01/24 nifedipine 30 mg tablet,extended 60 mg (2 x 30 mg) PO DAILY #30 tabs 09/13/24 release 24 hr Allergies Allergy/AdvReac Type Severity Reaction Status Date / Time erythromycin base Allergy facial Verified 05/19/24 09:01 swelling and redness Review of Systems 2 Const: Denies: fever(s) or chills Card: Denies: chest pain Resp: Denies: dyspnea GI: Denies: abdominal pain : Denies: dysuria, urinary frequency or urinary urgency Musc: Denies: neck pain or back pain Skin/Breast: Denies: rash PFSH ED 2 PFSH: Medical History Pancreatitis Peripheral vascular disease Hx of type 2 diabetes mellitus Hypertension COPD (chronic obstructive pulmonary disease) Lumbar degenerative disc disease GERD (gastroesophageal reflux disease) BPH (benign prostatic hyperplasia) Diabetic peripheral autonomic neuropathy Sinusitis DJD (degenerative joint disease) Cellulitis of foot Hx MRSA infection Carotid stenosis Renal insufficiency Surgical History Status post percutaneous transluminal angioplasty (GRADUATE INTERN) with stent placement three in the L. leg and one in the R. leg. 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 Hx of hand surgery Hx of coronary angioplasty Hx of surgical amputation of finger R. 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 History of back surgery Lumbosacral surgery History of femoropopliteal bypass Family History Mother CAD (coronary artery disease) Diabetes Sister CAD (coronary artery disease) Diabetes Brother CAD (coronary artery disease) Diabetes Daughter Stroke Denies family history of Clotting disorder Dementia Chronic kidney disease (CKD) Suicide Anesthesia complication Bleeding disorder Lung disease Cancer Social History Smoking and tobacco/nicotine status: current every day tobacco/nicotine user cigarettes Packs smoked per day: 1 Alcohol intake: never Substance/Drug Use: never Physical Exam 2 Const: GENERAL APPEARANCE: cooperative ORIENTATION/CONSCIOUSNESS: Yes awake, Yes oriented to person, Yes oriented to place and Yes oriented to time HENMT: COMMON NORMALS: normocephalic, atraumatic and hearing grossly normal bilaterally HEAD & SCALP: normocephalic and atraumatic Resp: COMMON NORMALS: normal respiratory effort, No retractions, No use of accessory muscles and clear to auscultation bilaterally AUSCULTATION: clear to auscultation bilaterally Cardio: COMMON NORMALS: regular rate, regular rhythm and No murmurs present (Cardio) RATE: regular rate RHYTHM: regular rhythm GI: COMMON NORMALS: Soft to palpation and No hepatosplenomegaly present A USCULTATION: Yes normoactive bowel sounds PALPATION: Yes Soft to palpation, No Tenderness to palpation present (GI), No Guarding due to palpation present (GI) and Yes No hepatosplenomegaly present Extremity: COMMON NORMALS: normal to inspection and capillary refill normal Neuro: SENSORIUM/ORIENTATION: Yes oriented to person, Yes oriented to place and Yes oriented to time Skin: COMMON NORMALS: no rashes or lesions noted GENERAL SKIN EXAM: no rashes or lesions noted Course 2 Vital Signs: Vital signs: Vital Signs Temperature 98.1 F 09/21/24 09:46 Pulse Rate 94 09/21/24 11:30 Respiratory Rate 15 09/21/24 11:30 Blood Pressure 89/44 09/21/24 11:30 Pulse Oximetry 97 09/21/24 11:30 Oxygen Delivery Me thod Room Air 09/21/24 11:30 Oxygen Flow Rate 2 09/21/24 09:46 MDM - Altered Mental Status Medical Decision Making Septic shock with altered mental status and acute kidney injury. Source of the infection is urinary. We contacted the senior living unfortunately he did not have a recent culture prior to starting the Augmentin. Will start on meropenem discussed with Dr. Urias will admit to the ICU. Medical Records I reviewed the patient's medical records. Lab Data I reviewed the patient's lab results. 09/21/24 10:37 09/21/24 10:23 Radiology Impressions Chest X-Ray 09/21/24 09:47 IMPRESSION: Pulmonary atelectasis or acute infiltrates within lower chest bilaterally. Laboratory Results WBC 23.55 10^3/uL (3.29-11.43) H 09/21/24 10:37 RBC 3.41 10^6/uL (3.85-5.65) L 09/21/24 10:37 Hgb 9.20 g/dL (11.27-16.99) L 09/21/24 10:37 Hct 28.2 % (37-53) L 09/21/24 10:37 MCV 82.7 fl (82-101) 09/21/24 10:37 MCH 27.0 pg (27-33) 09/21/24 10:37 MCHC 32.6 g/dL (30-55) 09/21/24 10:37 RDW 18.4 % (12.1-15.1) H 09/21/24 10:37 Plt Count 257 10^3/cmm (157-399) 09/21/24 10:37 MPV 10.6 fL (7.4-10.4) H 09/21/24 10:37 Neut % (Auto) 82.3 % 09/21/24 10:37 Lymph % (Auto) 6.2 % 09/21/24 10:37 [place] % (Auto) 10.6 % 09/21/24 10:37 Eos % (Auto) 0.0 % 09/21/24 10:37 Baso % (Auto) 0.3 % 09/21/24 10:37 Neut # (Auto) 19.38 10^3/uL (1.8-7.7) H 09/21/24 10:37 Lymph # (Auto) 1.5 10^3/uL (0.8-4.8) 09/21/24 10:37 [place] # (Auto) 2.5 10^3/uL (0.2-0.9) H 09/21/24 10:37 Eos # (Auto) 0.0 10^3/uL (0.0-0.8) 09/21/24 10:37 Baso # (Auto) 0.1 10^3/uL (0.0-0.1) 09/21/24 10:37 Nucleated RBC % (auto) 0 % 09/21/24 10:37 Nucleated RBCs # 0.0 /100WBC 09/21/24 10:37 Sodium Cancelled 09/21/24 10:37 Potassium Cancelled 09/21/24 10:37 Chloride Cancelled 09/21/24 10:37 Carbon Dioxide Cancelled 09/21/24 10:37 Anion Gap Cancelled 09/21/24 10:37 BUN Cancelled 09/21/24 10:37 Creatinine Cancelled 09/21/24 10:37 GFR Calculation Cancelled 09/21/24 10:37 Glucose Cancelled 09/21/24 10:37 Calculated Osmolality Cancelled 09/21/24 10:37 Lactic Acid 1.5 mmol/L (0.5-2.2) 09/21/24 10:23 Calcium Cancelled 09/21/24 10:37 Total Bilirubin Cancelled 09/21/24 10:37 AST Cancelled 09/21/24 10:37 ALT Cancelled 09/21/24 10:37 Alkaline Phosphatase Cancelled 09/21/24 10:37 Total Protein Cancelled 09/21/24 10:37 Albumin Cancelled 09/21/24 10:37 Globulin Cancelled 09/21/24 10:37 Lipase 8 U/L (13-60) L 09/21/24 10:23 Urine Color Yellow (Yellow) 09/21/24 11:29 Urine Appearance Turbid (CLEAR) A 09/21/24 11:29 Urine pH 5.5 (5-7) 09/21/24 11:29 Ur Specific [place] 1.015 (1.005-1.030) 09/21/24 11:29 Urine Protein 2+ (Negative) A 09/21/24 11:29 Urine Glucose (UA) 3+ (Normal) H 09/21/24 11:29 Urine Ketones Negative (Negative) 09/21/24 11:29 Urine Blood 2+ (Negative) A 09/21/24 11:29 Urine Nitrate Negative (Negative) 09/21/24 11:29 Urine Bilirubin Negative (Negative) 09/21/24 11:29 Urine Urobilinogen 0.2 mg/dL (Negative) 09/21/24 11:29 Ur Leukocyte Esterase 2+ (Negative) A 09/21/24 11:29 Urine RBC 0-2 /hpf (0-2) 09/21/24 11:29 Urine WBC >100 /hpf (0-5) H 09/21/24 11:29 Ur Squamous Epith Cells 0-5 /hpf (0-5) 09/21/24 11:29 Amorphous Sediment 1+ /hpf 09/21/24 11:29 Urine Bacteria None seen /hpf (NONE) 09/21/24 11:29 Hyaline Casts 5.77 /lpf 09/21/24 11:29 Urine Yeast 1+ /hpf H 09/21/24 11:29 Adenovirus (PCR) Not detected (NOT DETECT) 09/21/24 10:37 C. pneumoniae DNA (PCR) Not detected (NOT DETECT) 09/21/24 10:37 Coronavirus (PCR) Cancelled 09/21/24 10:37 Coronavirus 229E (PCR) Not detected (NOT DETECT) 09/21/24 10:37 Human Metapneumovir PCR Not detected (NOT DETECT) 09/21/24 10:37 Influenza A (H1) PCR Not detected (NOT DETECT) 09/21/24 10:37 Influenza A (PCR) Cancelled 09/21/24 10:37 Influ A (H1/09) PCR Not detected (NOT DETECT) 09/21/24 10:37 Influenza A (H3) PCR Not detected (NOT DETECT) 09/21/24 10:37 Influenza Type A (PCR) Not detected (NOT DETECT) 09/21/24 10:37 Influenza Type B (PCR) Cancelled 09/21/24 10:37 Influenza Type B (PCR) Not detected (NOT DETECT) 09/21/24 10:37 M. pneumoniae (PCR) Not detected (NOT DETECT) 09/21/24 10:37 Parainfluenza 1 (PCR) Not detected (NOT DETECT) 09/21/24 10:37 Parainfluenza 2 (PCR) Not detected (NOT DETECT) 09/21/24 10:37 Parainfluenza 3 (PCR) Not detected (NOT DETECT) 09/21/24 10:37 Parainfluenza 4 (PCR) Not detected (NOT DETECT) 09/21/24 10:37 RSV (PCR) Cancelled 09/21/24 10:37 RSV Type A (PCR) Not detected (NOT DETECT) 09/21/24 10:37 RSV Type B (PCR) Not detected (NOT DETECT) 09/21/24 10:37 Entero/Rhino (PCR) Not detected (NOT DETECT) 09/21/24 10:37 SARS-CoV-2 (PCR) Not detected (NOT DETECT) 09/21/24 10:37 All radiology interpretation(s) finalized by discharge Discharge Plan Discharge Patient Disposition: Admitted As Inpatient Clinical Impression: Septic shock, Hx of type 2 diabetes mellitus, Peripheral vascular disease, Atherosclerosis of coronary artery of [place] heart without angina pectoris, Cystitis, DUSTIN (acute kidney injury) Condition: Stable Prescriptions: No Action Linzess 145 mcg capsule 145 mcg PO DAILY aspirin [Adult Aspirin Regimen] 81 mg tablet,delayed release (DR/EC) 81 mg PO DAILY metoclopramide HCl [Reglan] 10 mg tablet 10 mg PO TID PRN (Reason: Nausea And Vomiting) cetirizine [Zyrtec] 10 mg tablet 10 mg PO DAILY montelukast [Singulair] 10 mg tablet 10 mg PO DAILY Jardiance 10 mg tablet 10 mg PO DAILY metoprolol tartrate 50 mg tablet 50 mg PO BID Qty: 180 3RF Pradaxa 150 mg capsule 150 mg PO BID Qty: 180 3RF Hold Instructions: Resume on 07/04/21. May restart this medicine tomorrow morning atorvastatin [Lipitor] 80 mg tablet 80 mg PO DAILY Qty: 90 3RF ranolazine 500 mg tablet extended release 12 hr 500 mg PO BID Qty: 180 3RF levocetirizine 5 mg tablet 5 mg PO QPM sucralfate 100 mg/mL Suspension 10 ml PO QID Rx Instructions: swish in mouth and swallow; use after food/drink tamsulosin 0.4 mg Capsule 0.4 mg PO DAILY insulin aspart U-100 100 unit/mL Solution See Rx Instructions .ROUTE .COMPLEX Rx Instructions: sliding scale 150-200 =0 201-250= 2 251-300=4 301-350=6 351-400=8 with meals bisacodyl [Dulcolax (bisacodyl)] 10 mg Suppository 10 mg KS DAILY PRN (Reason: Constipation) pantoprazole 40 mg Tablet,Delayed Release (Dr/Ec) 40 mg PO BID ferrous sulfate 325 mg (65 mg iron) Tablet 325 mg PO BID bupropion HCl 75 mg Tablet 75 mg PO DAILY Fleet Enema 19-7 gram/118 mL Enema 118 ml KS DAILY nitroglycerin 0.4 mg Tablet, Sublingual 0.4 mg SUBLINGUAL Q5M PRN (Reason: Chest Pain) Rx Instructions: do not exceed 3 doses per episode bisacodyl [Dulcolax (bisacodyl)] 5 mg Tablet,Delayed Release (Dr/Ec) 10 mg PO DAILY PRN (Reason: Constipation) albuterol sulfate 90 mcg/actuation Hfa Aerosol Inhaler 2 puff INHALATION DAILY PRN (Reason: Shortness Of Breath) hydromorphone 4 mg Tablet 4 mg PO Q4H PRN (Reason: Pain) PNV cmb#95-ferrous fumarate-FA [] 28 mg iron- 800 mcg Tablet 1 tab PO DAILY insulin glargine 100 unit/mL Solution 5 unit SUBCUT QPM Qty: 10 0RF isosorbide mononitrate 60 mg tablet extended release 24 hr 60 mg PO DAILY Qty: 180 3RF magnesium oxide 400 mg magnesium capsule 400 mg PO BID Qty: 20 0RF ondansetron HCl 4 mg Tablet 4 mg PO Q6H PRN (Reason: Nausea And Vomiting) nifedipine 30 mg Tablet Extended Release 24hr 60 mg PO DAILY Qty: 30 0RF gabapentin 600 mg Tablet 600 mg PO TID amoxicillin-pot clavulanate 875-125 mg Tablet 1 tab PO BID Referrals: Bertha Perkins MD [Primary Care Provider] - Patient Instructions: Altered Mental Status (ED) Coding Level of Care Code ED It Infrastructure Manager for Birdie Snyder
[2024-09-21 10:45] LABS: Basophils # 0.1 10^3/uL (0.0-0.1); Basophils % 0.3 %; Hematocrit 28.2 % (37-53); Lymphocytes # 1.5 10^3/uL (0.8-4.8); Lymphocytes % 6.2 %; Mean Corpuscular HGB Conc 32.6 g/dL (30-55); Mean Corpuscular Volume 82.7 fl (82-101); Mean Platelet Volume 10.6 fL (7.4-10.4); Monocytes # 2.5 10^3/uL (0.2-0.9); Monocytes % 10.6 %; Neutrophils # 19.38 10^3/uL (1.8-7.7); Neutrophils % 82.3 %; Nucleated Red Blood Cells % 0 %; Platelet Count 257 10^3/cmm (157-399); Red Blood Count 3.41 10^6/uL (3.85-5.65); Red Cell Distribution Width 18.4 % (12.1-15.1); White Blood Count 23.55 10^3/uL (3.29-11.43)
[2024-09-21 11:20] LABS: Alanine Aminotransferase 11 U/L (0-41); Albumin Level 3.1 g/dL (3.5-5.2); Alkaline Phosphatase 135 U/L (40-130); Anion Gap 20.6 (5-19); Aspartate Amino Transferase 14 U/L (0-40); Blood Urea Nitrogen 50 mg/dL (8-23); Calcium 8.9 mg/dL (8.5-10.5); Carbon Dioxide 20 mmol/L (22-29); Chloride 96 mmol/L (98-107); Creatinine Clr Calc Pharmacy 17.5029; Globulin 2.9 g/dL (1.3-4.6); Glucose 303 mg/dL (65-115); Osmolality Calculated 299 mOsm/kg (285-295); Potassium 4.6 mmol/L (3.5-5.1); Sodium 132 mmol/L (136-145); Total Bilirubin 0.6 mg/dL (0.15-1.2)
[2024-09-21 11:45] LABS: Bilirubin Urine Negative (Negative); Blood Urine 2+ (Negative); Glucose Urine UA 3+ (Normal); Ketones Urine Negative (Negative); Leukocyte Esterase Urine 2+ (Negative); Nitrate Urine Negative (Negative); Protein Urine 2+ (Negative); Specific Gravity, Urine 1.015 (1.005-1.030); Urine Appearance Turbid (CLEAR); Urine Color Yellow (Yellow); Urobilinogen Urine 0.2 mg/dL (Negative); pH Urine 5.5 (5-7)
[2024-09-21 11:50] LABS: Add Urine Microscopic? YES; Bacteria Urine None Seen /hpf; Hyaline Casts Urine 5.77 /lpf; RBC Urine 0-2 /hpf (0-2); Squamous Epithelial Cell Urine 0-5 /hpf (0-5); WBC Urine >100 /hpf (0-5)
[2024-09-21 12:10] LABS: UA Slide Review UA Slide Review Perf
[2024-09-21 12:11] LABS: Add Urine Culture? Yes; Amorphous Sediment Urine 1+ /hpf
[2024-09-21] MEDS: SODIUM CHLORIDE 0.9% 2050.68 ML IV (12:13)
--- NOTE | 2024-09-21 12:13 | PC.NURSE ---
SPOKE WITH JAIRO FROM [facility] ABOUT PATIENT ADMISSION STATUS, NURSE VERBALIZED UNDERSTANDING.
[2024-09-21 12:40] LABS: Lactic Sepsis W/Reflex 1.5 mmol/L (0.5-2.2); Lipase 8 U/L (13-60)
[2024-09-21 12:42] LABS: Adenovirus Not Detected (NOT DETECT); Chlamydia Pneumoniae Not Detected (NOT DETECT); Coronavirus 229E,HKU1,NL63,OC4 Not Detected (NOT DETECT); Human Metapneumovirus Not Detected (NOT DETECT); Human Rhinovirus/Enterovirus Not Detected (NOT DETECT); Influenza A Not Detected (NOT DETECT); Influenza A H1 Not Detected (NOT DETECT); Influenza A H1-2009 Not Detected (NOT DETECT); Influenza A H3 Not Detected (NOT DETECT); Influenza B Not Detected (NOT DETECT); Mycoplasma Pneumoniae Not Detected (NOT DETECT); Parainfluenza Virus Type 1 Not Detected (NOT DETECT); Parainfluenza Virus Type 2 Not Detected (NOT DETECT); Parainfluenza Virus Type 3 Not Detected (NOT DETECT); Parainfluenza Virus Type 4 Not Detected (NOT DETECT); Respiratory Syncytial Virus A Not Detected (NOT DETECT); Respiratory Syncytial Virus B Not Detected (NOT DETECT); SARS-COV-2 Not Detected (NOT DETECT)
--- NOTE | 2024-09-21 13:21 | CTR_ITS ---
PROCEDURE INFORMATION: Exam: CT Abdomen And Pelvis Without Contrast Exam date and time: 09/21/2024 3:16 PM Age: 74 years old Clinical indication: Fever; Additional info: Possible collitis, cystitis TECHNIQUE: Imaging protocol: Computed tomography of the abdomen and pelvis without contrast. Radiation optimization: All CT scans at this facility use at least one of these dose optimization techniques: automated exposure control; mA and/or kV adjustment per patient size (includes targeted exams where dose is matched to clinical indication); or iterative reconstruction. COMPARISON: CT kidney stone [id number] 09/11/2024 2:43 PM RADIATION DOSE METRICS: Total DLP (mGy-cm): 548.93 FINDINGS: Lungs: Lung bases are clear. Liver: Liver is enlarged measuring 18 cm. The liver is otherwise unremarkable. Gallbladder and biliary ducts: Gallbladder is normal. There is no evidence of biliary ductal dilation. Pancreas: The pancreas is normal. Spleen: The spleen is normal. Adrenal glands: 2.9 cm nodule in the right adrenal gland with HU less than 10, consistent with a benign adrenal adenoma. The left adrenal gland is normal. Kidneys and ureters: Bilateral symmetric hydroureteronephrosis without obstructing renal or ureteral stones. Bilateral and symmetric perinephric fat stranding, likely related to an acute illness or senile in etiology. Stomach and bowel: Circumferential wall thickening in the rectum, sigmoid, descending colon, transverse colon, and ascending colon. No other bowel wall thickening. There is no evidence of intestinal obstruction. Appendix: A normal appendix is identified. Intraperitoneal space: Trace reactive abdominopelvic ascites. No intraperitoneal fluid collections. There is no free intraperitoneal air. Vasculature: Severe atherosclerotic calcification of the arterial vasculature. Lymph nodes: There is no evidence of lymphadenopathy. Urinary bladder: Significant urinary bladder distension despite Clayton catheter placement, with mild circumferential urinary bladder wall thickening. Small amount of intraluminal bladder gas, likely related to recent instrumentation. Reproductive: The prostate demonstrates nonspecific parenchymal calcifications. The reproductive organs are otherwise unremarkable. Bones/joints: Bone demineralization. There are moderate degenerative changes of the hip joints. Stable 6.6 x 4.3 cm exostosis with medullary continuity associated to the right femoral lesser trochanter, which could be related to an osteochondroma or heterotopic ossification from sequela of prior injury. Moderate multilevel degenerative changes of the spine. No acute skeletal abnormality or aggressive osseous lesion. Soft tissues: Chronic body wall muscle atrophy. No acute soft tissue findings. CT/CT abdomen pelvis wo con [id number] IMPRESSION: 1. Moderate proctocolitis. 2. Significant urinary bladder distension despite Clayton catheter placement, with mild circumferential urinary bladder wall thickening. Suspicious for Clayton malfunction and mild cystitis. 3. Bilateral symmetric hydroureteronephrosis without obstructing renal or ureteral stones. Most probably related to increased hydrostatic pressure from the urinary bladder distension. 4. Incidental findings as above. COMMENTS: Consistent with the [employer]'s Incidental Findings Committee white paper (J Am Shruthi Radiol 2017): For any incidental adrenal lesion greater than or equal to 1 cm but less than or equal to 4 cm classified in this report as benign, likely benign, or containing fat (including classification as an adenoma or myelolipoma), no follow-up imaging is recommended per consensus recommendations based on imaging criteria. Further lab evaluation could be pursued if warranted based on clinical findings.
[2024-09-21] MEDS: meropenem 1,000 mg SDV 1000 MG IVP (13:25)
--- NOTE | 2024-09-21 13:26 | PHA.VACGOAL ---
Vancomycin Goal - Goal Vancomycin Goal:: 15-20 mg/L Vancomycin Indication:: Other - Therapy Current therapy:: Meropenem Day of therpy:: Day []of [] . Actual body weight (kg): 150 lb 11.2 oz - Data Labs: WBC 23.55 10^3/uL (3.29-11.43) H 09/21/24 10:37 RBC 3.41 10^6/uL (3.85-5.65) L 09/21/24 10:37 Hgb 9.20 g/dL (11.27-16.99) L 09/21/24 10:37 Hct 28.2 % (37-53) L 09/21/24 10:37 MCV 82.7 fl (82-101) 09/21/24 10:37 MCH 27.0 pg (27-33) 09/21/24 10:37 MCHC 32.6 g/dL (30-55) 09/21/24 10:37 RDW 18.4 % (12.1-15.1) H 09/21/24 10:37 Sodium Cancelled 09/21/24 10:37 Potassium Cancelled 09/21/24 10:37 Chloride Cancelled 09/21/24 10:37 Carbon Dioxide Cancelled 09/21/24 10:37 Anion Gap Cancelled 09/21/24 10:37 BUN Cancelled 09/21/24 10:37 Creatinine Cancelled 09/21/24 10:37 GFR Calculation Cancelled 09/21/24 10:37 Last dialysis session:: N/A Treatment plan:: new consult Regimen:: LOADING DOSE OF 2g WILL RECEIVE INTERMITTENT DOSING POST LOAD DOSE BASED ON DOSING PROTOCOL Follow up:: LEVEL TO BE DRAWN 24 HOURS AFTER LOADING DOSE
[2024-09-21 13:30] LABS: Erythrocyte Sedimentation Rate 28 mm/hr (0-10)
[2024-09-21 13:53] LABS: Procalcitonin 0.68 ng/mL (0-0.5)
[2024-09-21] MEDS: sodium chloride 0.9% 1,000 ML 75 ML IV (14:18)
[2024-09-21] MEDS: vancomycin 2,000 MG/400 ML PIGGYBACK 200 MG IV (14:23)
[2024-09-21 15:28] LABS: Iron 11 ug/dL (59-158); Total Iron Binding Capacity 155 mcg/dl; Unsaturated Iron Binding 144 ug/dL (112-347)
[2024-09-21 15:44] LABS: Vitamin B12 880 pg/mL (232-1245)
[2024-09-21 16:07] LABS: C.Diff PCR (Lab) POSITIVE (Negative)
--- NOTE | 2024-09-21 16:11 | P.HP_ITS ---
Providers/Chief Complaint 2 Admitting Physician: Raul Urias MD Primary Care Provider: Bertha Perkins MD Chief Complaint: Fever History of Present Illness Lauro Rivera is a 74 year old male with past medical history of PVD, hx of R. AKA & L. AKA in 07/2024, COPD, IDDM2, recurrent UTI, C. difficile, carotid artery disease, aortic valve stenosis, hypertension, CKD who was brought to [facility] from [facility] because of altered mental status, generalized weakness which has been ongoing for last 3 to 4 days. In the ER patient was found to be hypotensive which improved after getting sepsis bolus. On examination patient is awake, alert, tired appearing complaining of mild abdominal pain, stating that he has been having diarrhea ongoing for over a week. Denies any dysuria, difficulty in passing urine. States he was recently started on Augmentin at the longterm for a possible UTI. Review of Systems 2 General: Reports: 10 or more systems reviewed and unremarkable except in HPI and below Const: Denies: fever(s), chills, body aches, change in appetite, change in weight, malaise, night sweats, diaphoresis, change in sleep pattern, daytime sleepiness or snoring Eyes: Denies: change in vision, blurry vision, photophobia, eye discomfort or eye discharge ENMT: Denies: throat pain, enlarged tonsils, hoarseness, mouth pain, oral sores, dry mouth, tinnitus, nasal congestion or post nasal drip Card: Denies: chest pain, palpitations, irregular heart rhythm, edema, swelling of feet/ankles, lightheadedness, syncope, pre-syncope, dyspnea on exertion, orthopnea, leg pain with exertion or acrocyanosis Resp: Denies: dyspnea, productive cough, non-productive cough, wheezing, stridor, pain on inspiration, change in phlegm color, hemoptysis or chest congestion GI: Denies: abdominal pain, nausea, vomiting, hematemesis, coffee ground emesis, dysphagia, heartburn, diarrhea, constipation, bloating, GI cramping, change in bowel habits, pain on defecation, hematochezia or melena : Denies: flank pain, difficulty urinating, dysuria, urinary frequency, urinary urgency, urinary hesitancy, urinary dribbling, difficulty starting urination, change in urine stream, nocturia or hematuria Musc: Denies: neck pain, back pain, extremity pain, joint pain, joint swelling, joint redness, joint stiffness or limited range of motion Neuro: Denies: headache(s), numbness in extremities, weakness in extremities, sensory changes, lack of coordination, difficulty walking, frequent falls, dizziness, vertigo, confusion, Slurred speech present, difficulty communicating thoughts or seizure-like activity Psych: Denies: anxiety, depression, mood swings, panic attacks, hopelessness or irritability Endo: Denies: polyuria, polydipsia, tired all the time, cold intolerance, excessive sweating, flushing or heat intolerance Chivo/Lymph: Denies: easy bruising or easy bleeding All/Imm: Denies: tongue swelling, facial swelling or acute wheezing Medications/Allergies Home Medications Medication Instructions Recorded Confirmed Last Taken Type aspirin 81 mg tablet,delayed 81 mg PO DAILY 04/30/21 09/21/24 09/21/24 History release (Adult Aspirin Regimen) cetirizine 10 mg tablet (Zyrtec) 10 mg PO DAILY 04/30/21 09/21/24 09/21/24 History linaclotide 145 mcg capsule 145 mcg PO DAILY 04/30/21 09/21/24 09/21/24 History (Linzess) metoclopramide HCl 10 mg tablet 10 mg PO TID PRN Nausea And 04/30/21 09/21/24 07/02/21 09:00 History (Reglan) Vomiting montelukast 10 mg tablet 10 mg PO DAILY 04/30/21 09/21/24 09/21/24 History (Singulair) metoprolol tartrate 50 mg tablet 50 mg PO BID #180 tabs 10/15/23 09/21/24 09/21/24 Rx dabigatran etexilate 150 mg 150 mg PO BID #180 caps 11/07/23 09/21/24 09/21/24 Rx capsule (Pradaxa) atorvastatin 80 mg tablet (Lipitor) 80 mg PO DAILY #90 tabs 11/12/23 09/21/24 09/20/24 Rx empagliflozin 10 mg tablet 10 mg PO DAILY 11/18/23 09/21/24 09/21/24 History (Jardiance) ranolazine 500 mg tablet,extended 500 mg PO BID #180 tabs 12/19/23 09/21/24 09/21/24 Rx release,12 hr albuterol sulfate 90 mcg/actuation 2 puff inhalation DAILY PRN 08/27/24 09/21/24 Unknown History aerosol inhaler Shortness Of Breath bisacodyl 10 mg rectal suppository 10 mg MT DAILY PRN Constipation 08/27/24 09/21/24 Unknown History (Dulcolax (bisacodyl)) bisacodyl 5 mg tablet,delayed 10 mg PO DAILY PRN Constipation 08/27/24 09/21/24 Unknown History release (Dulcolax (bisacodyl)) bupropion HCl 75 mg tablet 75 mg PO DAILY 08/27/24 09/21/24 09/21/24 History ferrous sulfate 325 mg (65 mg 325 mg PO BID 08/27/24 09/21/24 09/21/24 History iron) tablet hydromorphone 4 mg tablet 4 mg PO Q4H PRN Pain 08/27/24 09/21/24 09/21/24 History insulin aspart U-100 100 unit/mL See Rx Instructions .Route .COMPLEX 08/27/24 09/21/24 09/20/24 History subcutaneous solution levocetirizine 5 mg tablet 5 mg PO QPM 08/27/24 09/21/24 09/20/24 History nitroglycerin 0.4 mg sublingual 0.4 mg sublingual Q5M PRN Chest 08/27/24 09/21/24 09/10/24 History tablet Pain pantoprazole 40 mg tablet,delayed 40 mg PO BID 08/27/24 09/21/24 09/21/24 History release vit no.95-ferrous 1 tab PO DAILY 08/27/24 09/21/24 09/21/24 History fumarate 28 mg-folic acid 800 mcg tablet () sodium phosphates 19 gram-7 118 ml MT DAILY 08/27/24 09/21/24 09/10/24 History gram/118 mL enema (Fleet Enema) sucralfate 100 mg/mL oral 10 ml PO QID 08/27/24 09/21/24 09/21/24 History suspension tamsulosin 0.4 mg capsule 0.4 mg PO DAILY 08/27/24 09/21/24 09/21/24 History insulin glargine 100 unit/mL 5 unit (0.05 mL) SUBCUT QPM #10 mL 09/01/24 09/21/24 09/20/24 Rx subcutaneous solution isosorbide mononitrate 60 mg 60 mg PO DAILY #180 tabs 09/01/24 09/21/24 09/21/24 Rx tablet,extended release 24 hr magnesium oxide 400 mg PO BID #20 caps 09/01/24 09/21/24 09/21/24 Rx ondansetron HCl 4 mg tablet 4 mg PO Q6H PRN Nausea And Vomiting 09/10/24 09/21/24 Unknown History nifedipine 30 mg tablet,extended 60 mg (2 x 30 mg) PO DAILY #30 tabs 09/13/24 09/21/24 09/21/24 Rx release 24 hr amoxicillin 875 mg-potassium 1 tab PO BID 09/21/24 09/21/24 09/21/24 History clavulanate 125 mg tablet gabapentin 600 mg tablet 600 mg PO TID 09/21/24 09/21/24 09/21/24 History Allergies Allergy/AdvReac Type Severity Reaction Status Date / Time erythromycin base Allergy facial Verified 05/19/24 09:01 swelling and redness PFSH Acute 2 PFSH: Medical History (Updated 09/21/24 @ 16:51 by Raul Urias MD) Vitamin D deficiency Internal hemorrhoids Adenomatous colon polyp Chronic constipation Mass of leg Gangrene Pancreatitis Peripheral vascular disease Hx of type 2 diabetes mellitus Hypertension COPD (chronic obstructive pulmonary disease) Lumbar degenerative disc disease GERD (gastroesophageal reflux disease) BPH (benign prostatic hyperplasia) Diabetic peripheral autonomic neuropathy Sinusitis DJD (degenerative joint disease) Cellulitis of foot Hx MRSA infection Carotid stenosis Renal insufficiency Surgical History Status post percutaneous transluminal angioplasty ([employer]) with stent placement three in the L. leg and one in the R. leg. 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 Hx of hand surgery Hx of coronary angioplasty Hx of surgical amputation of finger R. 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 History of back surgery Lumbosacral surgery History of femoropopliteal bypass Family History Mother CAD (coronary artery disease) Diabetes Sister CAD (coronary artery disease) Diabetes Brother CAD (coronary artery disease) Diabetes Daughter Stroke Denies family history of Clotting disorder Dementia Chronic kidney disease (CKD) Suicide Anesthesia complication Bleeding disorder Lung disease Cancer Social History Smoking and tobacco/nicotine status: current every day tobacco/nicotine user cigarettes Packs smoked per day: 1 Alcohol intake: never Substance/Drug Use: never Vitals/I&O/Wt Last Vital Signs Temp 99.1 F 09/21/24 15:45 Pulse 119 H 09/21/24 15:45 Resp 17 09/21/24 15:45 BP 98/56 09/21/24 15:45 Pulse Ox 93 09/21/24 15:45 O2 Del Method Room Air 09/21/24 15:45 O2 Flow Rate 2 09/21/24 09:46 09/21/24 09/21/24 09/21/24 06:59 14:59 22:59 Intake Total / Balance / Weight last 48 hrs Weight 68.5 kg Weight 68.356 kg Physical Exam 2 Skin: NARRATIVE SKIN EXAM: Urinary Catheter Management: Clayton: Cath Placed During This Visit: yes Urinary Catheter Date of Insertion: 09/21/24 Quick SOFA Score: Respiratory Rate: 17 Blood Pressure: 108/57 Js Coma Scale: 15 qSOFA Score: 0 If qSOFA score 2 or greater, continue: Blood Pressure Mean: 74 Bilirubin (mg/dl): 0.6 Platelets (x10?/ml): 257 Creatinine (mg/dl): 3.1 Evaluation: Current stage of sepsis: severe sepsis Sepsis stage criteria used: [facility] Sep-1 and Sepsis-3 Crystalloid fluids: 30 mL/kg crystalloid fluids ordered and initiated within 3 hours Blood cultures ordered: Yes Possible source: GI tract/intra-abdominal Focused Exam: Vital signs: Temp Pulse Resp BP Pulse Ox O2 Del Method O2 Flow Rate 09/21/24 16:16 115 H 09/21/24 16:00 116 H 17 108/57 95 Room Air 09/21/24 16:00 Room Air 09/21/24 15:45 99.1 F 119 H 17 98/56 93 Room Air 09/21/24 15:30 117 H 16 97 Room Air 09/21/24 14:55 113 H 16 105/86 93 09/21/24 14:45 106/56 100 09/21/24 14:40 106/56 100 09/21/24 14:35 106/56 100 09/21/24 14:30 121/62 89 L 09/21/24 14:25 121/62 100 09/21/24 14:20 121/62 98 09/21/24 14:15 105/48 95 09/21/24 14:10 105/48 100 09/21/24 14:05 105/48 98 09/21/24 14:00 90/57 100 09/21/24 13:55 90/57 09/21/24 13:50 90/57 97 09/21/24 13:45 106/59 99 09/21/24 13:40 106/59 100 09/21/24 13:35 106/59 100 09/21/24 13:30 136/57 100 09/21/24 13:25 136/57 99 09/21/24 13:20 136/57 100 09/21/24 13:15 125/45 100 09/21/24 13:10 125/45 100 09/21/24 13:05 125/45 100 09/21/24 13:00 102/41 100 09/21/24 12:55 102/41 99 09/21/24 12:50 102/41 99 09/21/24 12:45 107/50 99 09/21/24 12:40 107/50 98 09/21/24 12:35 107/50 100 09/21/24 12:30 90/37 100 09/21/24 12:25 90/37 99 09/21/24 12:20 90/37 99 09/21/24 12:15 81/41 99 09/21/24 12:10 81/41 100 09/21/24 12:05 81/41 99 09/21/24 12:00 77/37 99 09/21/24 11:55 77/37 99 09/21/24 11:50 77/37 99 09/21/24 11:45 71/41 98 09/21/24 11:42 84/50 99 09/21/24 11:30 94 15 89/44 97 Room Air 09/21/24 11:19 92 18 71/43 100 Room Air 09/21/24 11:05 99 18 92/56 100 Room Air 09/21/24 09:46 98.1 F 91 16 101/57 100 Nasal Cannula 2 Date exam was performed: 09/21/24 Time exam was performed: 16:59 2 Sepsis Screen No Definite Risk 09/21/24 14:45 Respiratory Rate 17 breaths/min (12 - 18) 09/21/24 16:00 Blood Pressure 108/57 mmHg 09/21/24 16:00 [place] Coma Scale Score 15 09/21/24 16:00 Quick SOFA Score 0 09/21/24 14:45 SOFA Score: 2 Js Coma Scale Score 15 09/21/24 16:00 Blood Pressure Mean 74 mmHg 09/21/24 16:00 Total Bilirubin 0.6 mg/dL (0.15-1.2) 09/21/24 10:23 Platelet Count 257 10^3/cmm (157-399) 09/21/24 10:37 Creatinine 3.1 mg/dL (0.7-1.2) H 09/21/24 10:23 Data 09/21/24 10:37 09/21/24 10:23 Micro: Microbiology 09/21/24 13:46 Blood Culture - Preliminary Blood SPECIMEN COLLECTED 09/21/24 13:44 Blood Culture - Preliminary Blood SPECIMEN COLLECTED 09/21/24 11:29 Bacterial Antigens - Final Urine Kidney A&P Assessment and plan (1) Severe sepsis: SIRS: Tachycardic, Febrile, Leukocytosis Source: UTI, colitis End organ damage: Acute infectious encephalopathy, acute kidney injury Lactic acid within normal limits Patient did receive full sepsis bolus of 30 mL/kg body weight fluid. Continue with normal saline at 75 cc/h. Monitor blood pressures. Keep mean artery pressure 65 mmHg. Levophed as needed Check blood culture, follow-up urine culture, check MRSA swab, trend procalcitonin, check stool for C. difficile given recent history of C. difficile, bacterial antigen. Empirically start patient on IV vancomycin,, meropenem. If MRSA swab negative will discontinue vancomycin. De-escalate as per culture sensitivities. (2) C. difficile colitis: Recent history of C. difficile. Negative on 09/11. Does have leukocytosis today. Complaining of diarrhea. Check CT abdomen pelvis. If positive will start on vancomycin. Patient will need a prolonged course of vancomycin as C. difficile positive versus Dificid. Will possibly need to follow-up with ID as an outpatient. (3) DUSTIN (acute kidney injury): Most likely in setting of severe se Baseline creatinine seems to be around seems to be around 1.4-1.6 recently. Currently 3.1. Medical reconstruction done for nephrotoxic drugs. CT abdomen pelvis as above to rule out obstructive nephropathy. Patient does have history of urinary retention in the past. Clayton catheterization. Strict input output charting. Fluid as above. (4) UTI (urinary tract infection): (5) Hydroureteronephrosis: (6) Urinary retention: Clayton catheterization. CT on pelvis as above. Continue with Flomax. Increased to 0.4 twice daily. Add finasteride. Patient would most likely needs to be discharged with Clayton catheter in place with advised to follow-up with urology as an outpatient. (7) Chronic kidney disease: Qualifiers: Chronic kidney disease stage: stage 3 (moderate) Chronic kidney disease stage 3 subtype: stage 3b (GFR 30-44) Qualified Code(s): N18.32 - Chronic kidney disease, stage 3b (8) High anion gap metabolic acidosis: Most likely in setting of severe sepsis. DKA less likely. Check ketones. Repeat BMP in evening to monitor for acidosis. Plan Type 2 diabetes mellitus: Check A1c. Takes Lantus 5 units along with sliding scale at home. For now start on insulin sliding scale low-dose protocol. Hypertension: Goal blood pressure less than 140/90 mmHg with mean over 65. Currently severe sepsis. Hold off on antihypertensive for now. Severe PVD: Associated with bilateral lower limb amputation. Continue with home dose of statin, Pradaxa. Carb consistent cardiac diet Protonix for PUD prophylaxis Lovenox for DVT prophylaxis Continue other chronic home medications including gabapentin 200 mg oral daily, aspirin, statin, bupropion, Pradaxa. Attestations 2 Medical Necessity Statement*: Admission for more than 2 midnights for management of severe sepsis in setting of UTI, possible C. difficile colitis, urinary retention with concerns for hydroureteronephrosis, DUSTIN on CKD Critical Care Time: The high probability of a clinically significant, sudden or life threatening deterioration of the patient's [Cardiac, renal, ID] system(s) required my full and direct attention, intervention and personal management. The critical care time is as shown. This time is in addition to time spent performing any reported procedures but includes the following: [x] Data and vital sign review and interpretation [x] Patient assessment, examination and intervention [x] Documentation [x] Medication orders and management Critical Care Time (min): 90 Coding Level of Care Code Critical Care >/= 30 minutes Critical care time (in minutes): 90 The high probability of a clinically significant, sudden or life threatening deterioration, as referenced in this documentation, required my full and direct attention, intervention and personal management. The critical care time shown is in addition to time spent performing any reported separately billable procedures and includes the following: [x] Data and vital sign review and interpretation [x ] Patient assessment, examination and intervention [x] Medication orders and management [x] Patient/Family updates as able [x] Care Coordination and Documentation. Diagnoses Severe sepsis A41.9; R65.20 C. difficile colitis A04.72 DUSTIN (acute kidney injury) N17.9 UTI (urinary tract infection) N39.0 Hydroureteronephrosis N13.30 Urinary retention R33.9 Stage 3b chronic kidney disease N18.32 Chronic kidney disease stage: stage 3 (moderate) Chronic kidney disease stage 3 subtype: stage 3b (GFR 30-44) High anion gap metabolic acidosis E87.29
[2024-09-21 17:41] LABS: Glucose Point of Care 271 mg/dL (70-110)
[2024-09-21] MEDS: gabapentin 100 mg Capsule 200 MG PO (17:42)
[2024-09-21] MEDS: ranolazine (12HR) 500 mg Tablet PO (17:42)
[2024-09-21] MEDS: pantoprazole DR 40 mg Tablet PO (17:42)
[2024-09-21] MEDS: insulin lispro 100 unit/1 mL SUBCUT ×2 (17:42→21:23)
[2024-09-21] MEDS: vancomycin 125 mg Capsule 250 MG PO ×2 (17:42→23:52)
[2024-09-21] MEDS: sucralfate 1 gm/10 mL Oral Liq UDC PO ×2 (17:42→21:23)
[2024-09-21 19:14] LABS: MRSA PCR OZH (swab) NOT DETECTED (Negative)
[2024-09-21] MEDS: atorvastatin 40 mg Tablet 80 MG PO (21:23)
[2024-09-22] VITALS (18 sets, daily range): BP systolic 98–151; BP diastolic 51–79; PULSE 78–107; RESP 10–20; TEMP 36.6–36.7; O2SAT 94–100
[2024-09-22 00:06] LABS: Glucose Point of Care 188 mg/dL (70-110)
[2024-09-22] MEDS: sodium chloride 0.9% 1,000 ML 75 ML IV ×2 (02:20→16:25)
[2024-09-22 05:11] LABS: Basophils # 0.1 10^3/uL (0.0-0.1); Basophils % 0.6 %; Eosinophils # 0.3 10^3/uL (0.0-0.8); Eosinophils % 1.5 %; Hematocrit 25.2 % (37-53); Lymphocytes # 2.3 10^3/uL (0.8-4.8); Lymphocytes % 13.1 %; Mean Corpuscular HGB Conc 31.7 g/dL (30-55); Mean Corpuscular Hemoglobin 27.4 pg (27-33); Mean Corpuscular Volume 86.3 fl (82-101); Monocytes % 11.3 %; Neutrophils # 12.81 10^3/uL (1.8-7.7); Neutrophils % 72.7 %; Nucleated Red Blood Cells % 0 %; Platelet Count 239 10^3/cmm (157-399); Red Blood Count 2.92 10^6/uL (3.85-5.65); Red Cell Distribution Width 18.5 % (12.1-15.1); White Blood Count 17.61 10^3/uL (3.29-11.43)
[2024-09-22 05:39] LABS: Chol HDL Ratio 2.41 mg/dL (1.0-5.00); Cholesterol 82 mg/dL (0-200); HDL Cholesterol 34 mg/dL (60-100); LDL Cholesterol Calculated 22 mg/dL (50-129); LDL HDL Ratio 0.65 RATIO (0.00-3.22); Triglycerides 129 mg/dL (0-150)
[2024-09-22 05:42] LABS: Procalcitonin 0.71 ng/mL (0-0.5)
[2024-09-22 05:43] LABS: Alanine Aminotransferase 10 U/L (0-41); Albumin Level 2.6 g/dL (3.5-5.2); Alkaline Phosphatase 101 U/L (40-130); Anion Gap 18.8 (5-19); Aspartate Amino Transferase 13 U/L (0-40); Blood Urea Nitrogen 44 mg/dL (8-23); Calcium 8.1 mg/dL (8.5-10.5); Carbon Dioxide 18 mmol/L (22-29); Chloride 101 mmol/L (98-107); Creatinine Clr Calc Pharmacy 24.7361; Globulin 2.2 g/dL (1.3-4.6); Glucose 79 mg/dL (65-115); Osmolality Calculated 288 mOsm/kg (285-295); Phosphorus 4.1 mg/dL (2.5-4.5); Potassium 3.8 mmol/L (3.5-5.1); Sodium 134 mmol/L (136-145); Total Bilirubin 0.4 mg/dL (0.15-1.2); Total Protein 4.8 g/dL (6.6-8.7)
[2024-09-22 06:03] LABS: Estmated Average Glucose 171; Hemoglobin A1C 7.6 % (4.0-6.0)
[2024-09-22] MEDS: vancomycin 125 mg Capsule 250 MG PO (06:15)
[2024-09-22 06:19] LABS: Folate Level > 20.0 ng/mL (4.5-32.2)
[2024-09-22 08:40] LABS: Glucose Point of Care 110 mg/dL (70-110)
[2024-09-22] MEDS: sucralfate 1 gm/10 mL Oral Liq UDC PO ×4 (08:51→20:30)
[2024-09-22] MEDS: pantoprazole DR 40 mg Tablet PO ×2 (08:51→17:31)
[2024-09-22] MEDS: gabapentin 100 mg Capsule 200 MG PO ×2 (08:51→17:31)
[2024-09-22] MEDS: tamsulosin 0.4 mg Capsule PO ×2 (08:51→17:31)
[2024-09-22] MEDS: ranolazine (12HR) 500 mg Tablet PO ×2 (08:51→17:31)
[2024-09-22] MEDS: aspirin 81 mg EC Tablet PO (08:51)
[2024-09-22] MEDS: meropenem 1,000 mg SDV 1000 MG IVP ×2 (09:44→20:31)
[2024-09-22] MEDS: fidaxomicin 200 mg Tablet PO ×2 (09:54→17:31)
[2024-09-22 11:50] LABS: Glucose Point of Care 183 mg/dL (70-110)
[2024-09-22] MEDS: insulin lispro 100 unit/1 mL SUBCUT ×3 (12:54→20:30)
--- NOTE | 2024-09-22 13:48 | P.PN_ITS ---
Subjective 2 Subjective: Events overnight. Patient has remained hemodynamically stable and afebrile. More awake and alert today. Has remained afebrile. Urine output of around 2.5 L since admission. Diarrhea improving. Vitals/I&O/Wt Last Vital Signs Temp 99.1 F 09/21/24 20:00 Pulse 87 09/22/24 12:00 Resp 13 09/22/24 12:00 BP 124/57 09/22/24 12:00 Pulse Ox 99 09/22/24 12:00 O2 Del Method Room Air 09/22/24 10:00 O2 Flow Rate 2 09/21/24 09:46 09/21/24 09/22/24 09/22/24 22:59 06:59 14:59 Intake Total 1230 / 3280.68 902.5 / 4183.18 200 / 200 Output Total 1700 / 1700 1000 / 2700 Balance -470 / 1580.68 -97.5 / 1483.18 200 / 200 Weight last 48 hrs Weight 68.5 kg Weight 68.5 kg Weight 68.356 kg Physical Exam 2 Narrative: General: No acute distress, AO x3, chronically sick appearing HEENT: PERRLA, pupils bilaterally equal and reactive Chest: Normal vesicular breath sounds, no added sounds, equal good air entry bilaterally CVS: S1-S2 regular, no murmurs, no tachycardia, no gallops, no rubs Abdomen: Soft, nontender, no organomegaly, bowel sounds present Neuro: No focal deficits, no facial deformity, AO x3, power 5/5 in all limbs Extremity: As below. 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 Urinary Catheter Management: Clayton: Cath Placed During This Visit: yes Reason for Continuing Indwelling Catheter: Accurate Measurement of Urinary Output in Critically Ill Patients Urinary Catheter Date of Insertion: 09/21/24 Data 09/22/24 04:27 09/22/24 04:27 Micro: Microbiology 09/21/24 11:29 Urine Culture - Preliminary Urine,Clean Catch 09/21/24 13:46 Blood Culture - Preliminary Blood SPECIMEN COLLECTED 09/21/24 13:44 Blood Culture - Preliminary Blood SPECIMEN COLLECTED 09/21/24 11:29 Bacterial Antigens - Final Urine Kidney A&P Assessment and plan (1) Severe sepsis: SIRS: Tachycardic, Febrile, Leukocytosis Source: UTI, colitis End organ damage: Acute infectious encephalopathy, acute kidney injury Lactic acid within normal limits Patient did receive full sepsis bolus of 30 mL/kg body weight fluid. Continue with normal saline at 75 cc/h. Monitor blood pressures. Keep mean artery pressure 65 mmHg. Levophed as needed C. difficile positive. Follow-up blood culture, urine culture, appreciate procalcitonin trend. Bacterial antigen negative. Continue with IV meropenem with concerns of possible UTI. Discontinue vancomycin as MRSA swab was negative. (2) C. difficile colitis: C. difficile positive. Switch to Dificid. Continue 200 mg twice daily for next 10 days. Will possibly need to follow-up with infectious disease as an outpatient for possible referral for fecal transplant. (3) DUSTIN (acute kidney injury): Most likely in setting of severe sepsis along with concerns for obstructive nephropathy. CT on pelvis concerning for distended bladder along with bilateral hydroureteronephrosis. Will plan for renal ultrasound the next 48 hours. Monitor urine output. Creatinine slightly improving to 2.5. No electrolyte abnormality today. No metabolic acidosis. Continue with normal saline at 75 cc/h. Repeat BMP in afternoon. (4) UTI (urinary tract infection): Follow-up urine culture. (5) Hydroureteronephrosis: Most likely in setting of urinary bladder obstruction. Repeat renal ultrasound in 48 hours. (6) Urinary retention: Clayton catheterization. CT on pelvis as above. Continue with Flomax. Increased to 0.4 twice daily. Add finasteride. Patient would most likely needs to be discharged with Clayton catheter in place with advised to follow-up with urology as an outpatient. (7) Chronic kidney disease: Qualifiers: Chronic kidney disease stage: stage 3 (moderate) Chronic kidney disease stage 3 subtype: stage 3b (GFR 30-44) Qualified Code(s): N18.32 - Chronic kidney disease, stage 3b (8) High anion gap metabolic acidosis: Resolving. Continue to monitor. Plan Type 2 diabetes mellitus: A1c 7.6. Takes Lantus 5 units along with sliding scale at home. Continue with insulin sliding scale. Hypertension: Goal blood pressure less than 140/90 mmHg with mean over 65. Currently severe sepsis. Hold off on antihypertensive for now. Severe PVD: Associated with bilateral lower limb amputation. Continue with home dose of statin, Pradaxa. Carb consistent cardiac diet Protonix for PUD prophylaxis Lovenox for DVT prophylaxis Continue other chronic home medications including gabapentin 200 mg oral daily, aspirin, statin, bupropion, Pradaxa. [facility] Attestations 2 Medical Necessity Statement*: Requires further hospitalization for management of sepsis in setting of C. difficile colitis, UTI, DUSTIN in setting of urinary retention Diagnoses Severe sepsis A41.9; R65.20 C. difficile colitis A04.72 DUSTIN (acute kidney injury) N17.9 UTI (urinary tract infection) N39.0 Hydroureteronephrosis N13.30 Urinary retention R33.9 Stage 3b chronic kidney disease N18.32 Chronic kidney disease stage: stage 3 (moderate) Chronic kidney disease stage 3 subtype: stage 3b (GFR 30-44) High anion gap metabolic acidosis E87.29
[2024-09-22 15:11] LABS: Anion Gap 17.8 (5-19); Blood Urea Nitrogen 37 mg/dL (8-23); Calcium 7.9 mg/dL (8.5-10.5); Carbon Dioxide 18 mmol/L (22-29); Chloride 99 mmol/L (98-107); Creatinine Clr Calc Pharmacy 26.8871; Glucose 140 mg/dL (65-115); Osmolality Calculated 283 mOsm/kg (285-295); Potassium 3.8 mmol/L (3.5-5.1); Sodium 131 mmol/L (136-145); Vancomycin Trough 13.7 ug/mL (10-15)
[2024-09-22 17:01] LABS: Glucose Point of Care 143 mg/dL (70-110)
[2024-09-22 19:53] LABS: Glucose Point of Care 210 mg/dL (70-110)
[2024-09-22] MEDS: finasteride 5 mg Tablet PO (20:30)
[2024-09-22] MEDS: atorvastatin 40 mg Tablet 80 MG PO (20:30)
[2024-09-23] VITALS (10 sets, daily range): BP systolic 111–177; BP diastolic 44–77; PULSE 74–98; RESP 16–18; TEMP 36.6–36.9; O2SAT 96–100
[2024-09-23 06:09] LABS: Basophils # 0.1 10^3/uL (0.0-0.1); Basophils % 0.5 %; Eosinophils # 0.4 10^3/uL (0.0-0.8); Eosinophils % 3.1 %; Hematocrit 25.9 % (37-53); Lymphocytes % 14.9 %; Mean Corpuscular HGB Conc 31.7 g/dL (30-55); Mean Corpuscular Hemoglobin 27.1 pg (27-33); Mean Corpuscular Volume 85.5 fl (82-101); Mean Platelet Volume 10.4 fL (7.4-10.4); Monocytes # 1.1 10^3/uL (0.2-0.9); Monocytes % 8.1 %; Neutrophils # 9.52 10^3/uL (1.8-7.7); Neutrophils % 72.3 %; Nucleated Red Blood Cells % 0 %; Platelet Count 258 10^3/cmm (157-399); Red Blood Count 3.03 10^6/uL (3.85-5.65); Red Cell Distribution Width 18.5 % (12.1-15.1); White Blood Count 13.18 10^3/uL (3.29-11.43)
[2024-09-23 06:29] LABS: Alanine Aminotransferase 14 U/L (0-41); Albumin Level 2.5 g/dL (3.5-5.2); Alkaline Phosphatase 143 U/L (40-130); Anion Gap 15.6 (5-19); Aspartate Amino Transferase 17 U/L (0-40); Blood Urea Nitrogen 30 mg/dL (8-23); Calcium 7.9 mg/dL (8.5-10.5); Carbon Dioxide 18 mmol/L (22-29); Chloride 105 mmol/L (98-107); Creatinine Clr Calc Pharmacy 32.7594; Globulin 2.3 g/dL (1.3-4.6); Glucose 92 mg/dL (65-115); Osmolality Calculated 286 mOsm/kg (285-295); Potassium 3.6 mmol/L (3.5-5.1); Sodium 135 mmol/L (136-145); Total Bilirubin 0.3 mg/dL (0.15-1.2); Total Protein 4.8 g/dL (6.6-8.7)
[2024-09-23 06:35] LABS: Glucose Point of Care 118 mg/dL (70-110)
[2024-09-23] MEDS: sucralfate 1 gm/10 mL Oral Liq UDC PO ×4 (09:38→21:54)
[2024-09-23] MEDS: sodium chloride 0.9% 1,000 ML 75 ML IV (09:38)
[2024-09-23] MEDS: fidaxomicin 200 mg Tablet PO ×2 (09:39→17:09)
[2024-09-23] MEDS: meropenem 1,000 mg SDV 1000 MG IVP (09:39)
[2024-09-23] MEDS: ranolazine (12HR) 500 mg Tablet PO ×2 (09:39→17:09)
[2024-09-23] MEDS: gabapentin 100 mg Capsule 200 MG PO ×3 (09:39→21:55)
[2024-09-23] MEDS: pantoprazole DR 40 mg Tablet PO ×2 (09:39→17:09)
[2024-09-23] MEDS: aspirin 81 mg EC Tablet PO (09:39)
[2024-09-23] MEDS: tamsulosin 0.4 mg Capsule PO ×2 (09:39→17:09)
[2024-09-23 10:49] LABS: Glucose Point of Care 163 mg/dL (70-110)
[2024-09-23] MEDS: insulin lispro 100 unit/1 mL SUBCUT ×3 (12:35→21:55)
--- NOTE | 2024-09-23 14:04 | P.PN_ITS ---
Subjective 2 Subjective: No acute events overnight. Patient is awake and alert with family at bedside. States he is feeling better. No further episode diarrhea today morning. Denies any nausea, vomiting, headache. Blood pressure is better. Vitals/I&O/Wt Last Vital Signs Temp 98.4 F 09/23/24 11:43 Pulse 82 09/23/24 11:43 Resp 18 09/23/24 12:41 BP 177/77 09/23/24 11:43 Pulse Ox 100 09/23/24 11:43 O2 Del Method Room Air 09/23/24 11:43 O2 Flow Rate 2 09/21/24 09:46 09/22/24 09/23/24 09/23/24 22:59 06:59 14:59 Intake Total 1118 / 1318 1040 / 2358 1300 / 1300 Output Total 1400 / 1400 1300 / 2700 1400 / 1400 Balance -282 / -82 -260 / -342 -100 / -100 Weight last 48 hrs Weight 68.946 kg Weight 68.946 kg Weight 68.5 kg Weight 68.5 kg Physical Exam 2 Narrative: General: No acute distress, AO x3, chronically sick appearing HEENT: PERRLA, pupils bilaterally equal and reactive Chest: Normal vesicular breath sounds, no added sounds, equal good air entry bilaterally CVS: S1-S2 regular, no murmurs, no tachycardia, no gallops, no rubs Abdomen: Soft, nontender, no organomegaly, bowel sounds present Neuro: No focal deficits, no facial deformity, AO x3, power 5/5 in all limbs Extremity: As below. 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 Urinary Catheter Management: Clayton: Cath Placed During This Visit: yes Reason for Continuing Indwelling Catheter: Chronic Indwelling Urinary Catheter on Admission Urinary Catheter Date of Insertion: 09/21/24 Data 09/23/24 05:37 09/23/24 05:37 Micro: Microbiology 09/21/24 11:29 Urine Culture - Final Urine,Clean Catch 09/22/24 20:55 Occult Blood (FIT) - Final Stool 09/21/24 13:46 Blood Culture - Preliminary Blood NEGATIVE TO DATE 09/21/24 13:44 Blood Culture - Preliminary Blood NEGATIVE TO DATE A&P Assessment and plan (1) Severe sepsis: SIRS: Tachycardic, Febrile, Leukocytosis Source: UTI, colitis End organ damage: Acute infectious encephalopathy, acute kidney injury Lactic acid within normal limits Patient did receive full sepsis bolus of 30 mL/kg body weight fluid. Continue with normal saline at 75 cc/h. Monitor blood pressures. Keep mean artery pressure 65 mmHg. Levophed as needed C. difficile positive. Follow-up blood culture, urine culture, appreciate procalcitonin trend. Bacterial antigen negative. Continue with IV meropenem with concerns of possible UTI. Discontinue vancomycin as MRSA swab was negative. (2) C. difficile colitis: C. difficile positive. Switch to Dificid. Continue 200 mg twice daily for next 10 days. Will possibly need to follow-up with infectious disease as an outpatient for possible referral for fecal transplant. (3) DUSTIN (acute kidney injury): Most likely in setting of severe sepsis along with concerns for obstructive nephropathy. CT on pelvis concerning for distended bladder along with bilateral hydroureteronephrosis. Will plan for renal ultrasound the next 48 hours. Monitor urine output. Creatinine slightly improving to 2.5. No electrolyte abnormality today. No metabolic acidosis. Continue with normal saline at 75 cc/h. Repeat BMP in afternoon. (4) UTI (urinary tract infection): Follow-up urine culture. (5) Hydroureteronephrosis: Most likely in setting of urinary bladder obstruction. Repeat renal ultrasound in 48 hours. (6) Urinary retention: Clayton catheterization. CT on pelvis as above. Continue with Flomax. Increased to 0.4 twice daily. Add finasteride. Patient would most likely needs to be discharged with Clayton catheter in place with advised to follow-up with urology as an outpatient. (7) Chronic kidney disease: Qualifiers: Chronic kidney disease stage: stage 3 (moderate) Chronic kidney disease stage 3 subtype: stage 3b (GFR 30-44) Qualified Code(s): N18.32 - Chronic kidney disease, stage 3b (8) High anion gap metabolic acidosis: Resolving. Continue to monitor. Plan Type 2 diabetes mellitus: A1c 7.6. Takes Lantus 5 units along with sliding scale at home. Continue with insulin sliding scale. Hypertension: Goal blood pressure less than 140/90 mmHg with mean over 65. Currently severe sepsis. Hold off on antihypertensive for now. Severe PVD: Associated with bilateral lower limb amputation. Continue with home dose of statin, Pradaxa. Carb consistent cardiac diet Protonix for PUD prophylaxis Lovenox for DVT prophylaxis Continue other chronic home medications including gabapentin 200 mg oral daily, aspirin, statin, bupropion, Pradaxa. Plan for today: Appreciate urinalysis. Low concerns for UTI. Urine cultures remain negative. Discontinue IV antibiotics. Continue with oral fidaxomicin for C. difficile. Will plan to continue for at least 10 days after the last antibiotic dose which will be on 10/03. Blood pressure is improving. Goal blood pressure less than 140/90 mmhg. Start home dose of Imdur. Will uptitrate as for goal blood pressure. Increase gabapentin 200 mg 3 times daily. Renal functions improving. Down to 1.8 today. Hold off on IV fluids. Patient is able to intake orally better. Will plan for renal ultrasound in AM. Most likely patient will be discharged on Clayton catheter is in place with advised to follow-up with urology as an outpatient given concerns for recurrent urinary retention. Continue with Flomax twice daily, finasteride 5 mg oral nightly. Physical therapy evaluation as patient needs a prior authorization to go back to SNF. Discharge plan: Plan to discharge back to SNF once patient has prior authorization approved. Attestations 2 Medical Necessity Statement*: Requires further hospitalization for management of C. difficile colitis, sepsis, bilateral hydroureteronephrosis with DUSTIN in setting of urinary retention while safe discharge planning to SNF is sought. Diagnoses Severe sepsis A41.9; R65.20 C. difficile colitis A04.72 DUSTIN (acute kidney injury) N17.9 UTI (urinary tract infection) N39.0 Hydroureteronephrosis N13.30 Urinary retention R33.9 Stage 3b chronic kidney disease N18.32 Chronic kidney disease stage: stage 3 (moderate) Chronic kidney disease stage 3 subtype: stage 3b (GFR 30-44) High anion gap metabolic acidosis E87.29
[2024-09-23] MEDS: isosorbide mononitrate ER 60 mg Tablet PO (14:35)
[2024-09-23 16:46] LABS: Glucose Point of Care 212 mg/dL (70-110)
[2024-09-23 20:35] LABS: Glucose Point of Care 194 mg/dL (70-110)
[2024-09-23] MEDS: atorvastatin 40 mg Tablet 80 MG PO (21:54)
[2024-09-23] MEDS: finasteride 5 mg Tablet PO (21:54)
[2024-09-24] VITALS (12 sets, daily range): BP systolic 109–158; BP diastolic 48–97; PULSE 68–93; RESP 15–18; TEMP 36.4–37.1; O2SAT 96–99
[2024-09-24] MEDS: lidocaine-prilocaine cream 5 gm 1 APPLIC TOPICAL (03:17)
[2024-09-24 04:45] LABS: Basophils # 0.1 10^3/uL (0.0-0.1); Basophils % 0.8 %; Eosinophils # 0.3 10^3/uL (0.0-0.8); Eosinophils % 3.4 %; Hematocrit 24.9 % (37-53); Lymphocytes # 2.6 10^3/uL (0.8-4.8); Lymphocytes % 25.4 %; Mean Corpuscular HGB Conc 31.7 g/dL (30-55); Mean Corpuscular Hemoglobin 26.8 pg (27-33); Mean Corpuscular Volume 84.4 fl (82-101); Mean Platelet Volume 10.3 fL (7.4-10.4); Monocytes # 0.9 10^3/uL (0.2-0.9); Monocytes % 8.5 %; Neutrophils # 6.11 10^3/uL (1.8-7.7); Neutrophils % 60.2 %; Nucleated Red Blood Cells % 0 %; Platelet Count 260 10^3/cmm (157-399); Red Blood Count 2.95 10^6/uL (3.85-5.65); Red Cell Distribution Width 18.4 % (12.1-15.1); White Blood Count 10.14 10^3/uL (3.29-11.43)
[2024-09-24 05:09] LABS: Alanine Aminotransferase 15 U/L (0-41); Albumin Level 2.5 g/dL (3.5-5.2); Alkaline Phosphatase 138 U/L (40-130); Anion Gap 13.7 (5-19); Aspartate Amino Transferase 15 U/L (0-40); Blood Urea Nitrogen 23 mg/dL (8-23); Carbon Dioxide 20 mmol/L (22-29); Chloride 107 mmol/L (98-107); Creatinine Clr Calc Pharmacy 32.7594; Globulin 2.4 g/dL (1.3-4.6); Glucose 135 mg/dL (65-115); Osmolality Calculated 290 mOsm/kg (285-295); Potassium 3.7 mmol/L (3.5-5.1); Sodium 137 mmol/L (136-145); Total Bilirubin 0.2 mg/dL (0.15-1.2); Total Protein 4.9 g/dL (6.6-8.7)
[2024-09-24 06:25] LABS: Glucose Point of Care 140 mg/dL (70-110)
[2024-09-24] MEDS: isosorbide mononitrate ER 60 mg Tablet PO (08:35)
[2024-09-24] MEDS: sucralfate 1 gm/10 mL Oral Liq UDC PO ×4 (08:35→21:10)
[2024-09-24] MEDS: tamsulosin 0.4 mg Capsule PO ×2 (08:36→17:22)
[2024-09-24] MEDS: fidaxomicin 200 mg Tablet PO ×2 (08:36→17:22)
[2024-09-24] MEDS: ranolazine (12HR) 500 mg Tablet PO ×2 (08:36→17:22)
[2024-09-24] MEDS: gabapentin 100 mg Capsule 200 MG PO ×3 (08:36→21:10)
[2024-09-24] MEDS: pantoprazole DR 40 mg Tablet PO ×2 (08:36→17:22)
[2024-09-24] MEDS: aspirin 81 mg EC Tablet PO (08:36)
--- NOTE | 2024-09-24 09:12 | US_ITS ---
WS: [id number] RENAL ULTRASOUND URINARY BLADDER ULTRASOUND HISTORY: urinary bladder obs, b/l hydrouretronephrosis COMPARISON: None available. TECHNIQUE: 2-D and color Doppler imaging of the kidney submitted. Right kidney: 11.4 cm x 6.2 cm x 5.8 cm. Normal echogenicity with no hydronephrosis or mass. Left kidney: 13.1 cm x 5.6 cm x 6.3 cm. Normal echogenicity with no hydronephrosis or mass. Aorta: Normal. Urinary Bladder: Nondistended. Clayton catheter is present in the urinary bladder. US/US renal BI* [id number] IMPRESSION: Normal renal ultrasound.
[2024-09-24 11:04] LABS: Glucose Point of Care 244 mg/dL (70-110)
[2024-09-24] MEDS: insulin lispro 100 unit/1 mL SUBCUT ×3 (12:22→22:53)
--- NOTE | 2024-09-24 12:57 | PC.SOCIAL ---
IMM Updated Updated pt on IMM. No questions voiced. Provided pt a copy. Initialed, dated, & timed a copy & placed in chart.
--- NOTE | 2024-09-24 14:36 | P.PN_ITS ---
Subjective 2 Subjective: No acute events overnight. Today morning seen sitting comfortably in bed. Worked well with physical therapy. Remains on room air. Blood pressures improving. Diarrhea improving. Vitals/I&O/Wt Last Vital Signs Temp 98.3 F 09/24/24 12:00 Pulse 90 09/24/24 12:00 Resp 18 09/24/24 14:25 BP 144/60 09/24/24 12:00 Pulse Ox 98 09/24/24 14:25 O2 Del Method Room Air 09/24/24 12:00 O2 Flow Rate 2 09/21/24 09:46 09/23/24 09/24/24 09/24/24 22:59 06:59 14:59 Intake Total 580 / 1880 360 / 2240 354 / 354 Output Total 1800 / 3200 1200 / 4400 825 / 825 Balance -1220 / -1320 -840 / -2160 -471 / -471 Weight last 48 hrs Weight 69.037 kg Weight 68.946 kg Weight 68.946 kg Physical Exam 2 Narrative: General: No acute distress, AO x3, chronically sick appearing HEENT: PERRLA, pupils bilaterally equal and reactive Chest: Normal vesicular breath sounds, no added sounds, equal good air entry bilaterally CVS: S1-S2 regular, no murmurs, no tachycardia, no gallops, no rubs Abdomen: Soft, nontender, no organomegaly, bowel sounds present Neuro: No focal deficits, no facial deformity, AO x3, power 5/5 in all limbs Extremity: As below. 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 Continue with normal saline at 75 cc/h. Monitor blood pressures. Keep mean artery pressure 65 mmHg. Levophed as needed C. difficile positive. Follow-up blood culture, urine culture, appreciate procalcitonin trend. Bacterial antigen negative. Continue with IV meropenem with concerns of possible UTI. Discontinue vancomycin as MRSA swab was negative. (2) C. difficile colitis: C. difficile positive. Switch to Dificid. Continue 200 mg twice daily for next 10 days. Will possibly need to follow-up with infectious disease as an outpatient for possible referral for fecal transplant. (3) DUSTIN (acute kidney injury): Most likely in setting of severe sepsis along with concerns for obstructive nephropathy. CT on pelvis concerning for distended bladder along with bilateral hydroureteronephrosis. Will plan for renal ultrasound the next 48 hours. Monitor urine output. Creatinine slightly improving to 2.5. No electrolyte abnormality today. No metabolic acidosis. Continue with normal saline at 75 cc/h. Repeat BMP in afternoon. (4) UTI (urinary tract infection): Follow-up urine culture. (5) Hydroureteronephrosis: Most likely in setting of urinary bladder obstruction. Repeat renal ultrasound in 48 hours. (6) Urinary retention: Clayton catheterization. CT on pelvis as above. Continue with Flomax. Increased to 0.4 twice daily. Add finasteride. Patient would most likely needs to be discharged with Clayton catheter in place with advised to follow-up with urology as an outpatient. (7) Chronic kidney disease: Qualifiers: Chronic kidney disease stage: stage 3 (moderate) Chronic kidney disease stage 3 subtype: stage 3b (GFR 30-44) Qualified Code(s): N18.32 - Chronic kidney disease, stage 3b (8) High anion gap metabolic acidosis: Resolving. Continue to monitor. Plan Type 2 diabetes mellitus: A1c 7.6. Takes Lantus 5 units along with sliding scale at home. Continue with insulin sliding scale. Hypertension: Goal blood pressure less than 140/90 mmHg with mean over 65. Currently severe sepsis. Hold off on antihypertensive for now. Severe PVD: Associated with bilateral lower limb amputation. Continue with home dose of statin, Pradaxa. Carb consistent cardiac diet Protonix for PUD prophylaxis Lovenox for DVT prophylaxis Continue other chronic home medications including gabapentin 200 mg oral daily, aspirin, statin, bupropion, Pradaxa. Plan for today: Diarrhea improving. Continue with Dificid for overall 10-day course for recurrent C. difficile. Last dose on 10/03. Blood pressure is improving. Goal blood pressure less than 140/90 mmHg. Continue with home dose of Imdur. Add home dose of metoprolol 50 mg twice daily. Continue with current dose of gabapentin and Dilaudid. Both her home medications. Renal functions continue to improve. Will check renal ultrasound to monitor for severe bilateral hydroureteronephrosis seen on admission. Continue with Flomax and finasteride. Discharge plan: Plan to discharge back to SNF once patient has prior authorization approved. Attestations 2 Medical Necessity Statement*: Requires further hospitalization for management of sepsis in setting of C. difficile colitis, DUSTIN in setting of urinary retention, bilateral hydroureteronephrosis while safe discharge planning is sought Diagnoses Severe sepsis A41.9; R65.20 C. difficile colitis A04.72 DUSTIN (acute kidney injury) N17.9 UTI (urinary tract infection) N39.0 Hydroureteronephrosis N13.30 Urinary retention R33.9 Stage 3b chronic kidney disease N18.32 Chronic kidney disease stage: stage 3 (moderate) Chronic kidney disease stage 3 subtype: stage 3b (GFR 30-44) High anion gap metabolic acidosis E87.29
[2024-09-24 17:20] LABS: Glucose Point of Care 196 mg/dL (70-110)
[2024-09-24] MEDS: metoprolol tartrate 50 mg Tablet PO (17:22)
[2024-09-24] MEDS: atorvastatin 40 mg Tablet 80 MG PO (21:09)
[2024-09-24] MEDS: finasteride 5 mg Tablet PO (21:10)
[2024-09-24 21:20] LABS: Glucose Point of Care 286 mg/dL (70-110)
[2024-09-25] VITALS (11 sets, daily range): BP systolic 128–162; BP diastolic 54–72; PULSE 60–76; RESP 15–18; TEMP 36.5–36.8; O2SAT 96–100
[2024-09-25 04:52] LABS: Basophils # 0.1 10^3/uL (0.0-0.1); Basophils % 0.8 %; Eosinophils # 0.4 10^3/uL (0.0-0.8); Eosinophils % 4.2 %; Hematocrit 24.8 % (37-53); Lymphocytes # 2.7 10^3/uL (0.8-4.8); Lymphocytes % 31.7 %; Mean Corpuscular HGB Conc 31.5 g/dL (30-55); Mean Corpuscular Hemoglobin 26.4 pg (27-33); Mean Corpuscular Volume 83.8 fl (82-101); Monocytes # 0.7 10^3/uL (0.2-0.9); Monocytes % 7.6 %; Neutrophils # 4.62 10^3/uL (1.8-7.7); Neutrophils % 54.2 %; Nucleated Red Blood Cells % 0 %; Platelet Count 286 10^3/cmm (157-399); Red Blood Count 2.96 10^6/uL (3.85-5.65); White Blood Count 8.54 10^3/uL (3.29-11.43)
[2024-09-25 05:08] LABS: Alanine Aminotransferase 15 U/L (0-41); Albumin Level 2.5 g/dL (3.5-5.2); Alkaline Phosphatase 97 U/L (40-130); Aspartate Amino Transferase 13 U/L (0-40); Blood Urea Nitrogen 24 mg/dL (8-23); Calcium 8.2 mg/dL (8.5-10.5); Carbon Dioxide 20 mmol/L (22-29); Chloride 107 mmol/L (98-107); Creatinine Clr Calc Pharmacy 36.6618; Globulin 2.4 g/dL (1.3-4.6); Glucose 113 mg/dL (65-115); Osmolality Calculated 293 mOsm/kg (285-295); Sodium 139 mmol/L (136-145); Total Bilirubin 0.3 mg/dL (0.15-1.2); Total Protein 4.9 g/dL (6.6-8.7)
[2024-09-25 06:52] LABS: Glucose Point of Care 159 mg/dL (70-110)
[2024-09-25] MEDS: insulin lispro 100 unit/1 mL SUBCUT ×4 (09:12→21:29)
[2024-09-25] MEDS: sucralfate 1 gm/10 mL Oral Liq UDC PO ×4 (09:12→20:30)
[2024-09-25] MEDS: ranolazine (12HR) 500 mg Tablet PO ×2 (09:13→17:59)
[2024-09-25] MEDS: isosorbide mononitrate ER 60 mg Tablet PO (09:13)
[2024-09-25] MEDS: pantoprazole DR 40 mg Tablet PO ×2 (09:13→17:59)
[2024-09-25] MEDS: gabapentin 100 mg Capsule 200 MG PO ×3 (09:13→20:30)
[2024-09-25] MEDS: fidaxomicin 200 mg Tablet PO ×2 (09:13→17:59)
[2024-09-25] MEDS: aspirin 81 mg EC Tablet PO (09:13)
[2024-09-25] MEDS: metoprolol tartrate 50 mg Tablet PO (09:13)
[2024-09-25] MEDS: tamsulosin 0.4 mg Capsule PO ×2 (09:13→17:59)
[2024-09-25 12:08] LABS: Glucose Point of Care 180 mg/dL (70-110)
--- NOTE | 2024-09-25 14:15 | P.PN_ITS ---
Subjective 2 Subjective: No acute events overnight. Has remained hemodynamically stable and afebrile. Seen with family at bedside. Denies any new complaints. Diarrhea improving. Vitals/I&O/Wt Last Vital Signs Temp 97.9 F 09/25/24 12:00 Pulse 64 09/25/24 12:00 Resp 17 09/25/24 12:00 BP 129/54 09/25/24 12:00 Pulse Ox 98 09/25/24 12:00 O2 Del Method Room Air 09/25/24 12:00 O2 Flow Rate 2 09/21/24 09:46 09/24/24 09/25/24 09/25/24 22:59 06:59 14:59 Intake Total 1560 / 1914 240 / 2154 Output Total 1200 / 5 Balance 1560 / 1089 -960 / 129 Weight last 48 hrs Weight 68.855 kg Weight 69.037 kg Physical Exam 2 Narrative: General: No acute distress, AO x3, chronically sick appearing HEENT: PERRLA, pupils bilaterally equal and reactive Chest: Normal vesicular breath sounds, no added sounds, equal good air entry bilaterally CVS: S1-S2 regular, no murmurs, no tachycardia, no gallops, no rubs Abdomen: Soft, nontender, no organomegaly, bowel sounds present Neuro: No focal deficits, no facial deformity, AO x3, power 5/5 in all limbs Extremity: As below. 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 Continue with normal saline at 75 cc/h. Monitor blood pressures. Keep mean artery pressure 65 mmHg. Levophed as needed C. difficile positive. Follow-up blood culture, urine culture, appreciate procalcitonin trend. Bacterial antigen negative. Continue with IV meropenem with concerns of possible UTI. Discontinue vancomycin as MRSA swab was negative. (2) C. difficile colitis: C. difficile positive. Switch to Dificid. Continue 200 mg twice daily for next 10 days. Will possibly need to follow-up with infectious disease as an outpatient for possible referral for fecal transplant. (3) UDSTIN (acute kidney injury): Most likely in setting of severe sepsis along with concerns for obstructive nephropathy. CT on pelvis concerning for distended bladder along with bilateral hydroureteronephrosis. Will plan for renal ultrasound the next 48 hours. Monitor urine output. Creatinine slightly improving to 2.5. No electrolyte abnormality today. No metabolic acidosis. Continue with normal saline at 75 cc/h. Repeat BMP in afternoon. (4) UTI (urinary tract infection): Follow-up urine culture. (5) Hydroureteronephrosis: Most likely in setting of urinary bladder obstruction. Repeat renal ultrasound in 48 hours. (6) Urinary retention: Clayton catheterization. CT on pelvis as above. Continue with Flomax. Increased to 0.4 twice daily. Add finasteride. Patient would most likely needs to be discharged with Clayton catheter in place with advised to follow-up with urology as an outpatient. (7) Chronic kidney disease: Qualifiers: Chronic kidney disease stage: stage 3 (moderate) Chronic kidney disease stage 3 subtype: stage 3b (GFR 30-44) Qualified Code(s): N18.32 - Chronic kidney disease, stage 3b (8) High anion gap metabolic acidosis: Resolving. Continue to monitor. Plan Type 2 diabetes mellitus: A1c 7.6. Takes Lantus 5 units along with sliding scale at home. Continue with insulin sliding scale. Hypertension: Goal blood pressure less than 140/90 mmHg with mean over 65. Currently severe sepsis. Hold off on antihypertensive for now. Severe PVD: Associated with bilateral lower limb amputation. Continue with home dose of statin, Pradaxa. Carb consistent cardiac diet Protonix for PUD prophylaxis Lovenox for DVT prophylaxis Continue other chronic home medications including gabapentin 200 mg oral daily, aspirin, statin, bupropion, Pradaxa. Plan for today: Continue with Dificid for overall 10-day course. Last dose on 10/03. Continued Clayton catheterization. BMP improving. Monitor BMP daily. Creatinine down to 1.7. Does have mild uremia today. Continue to monitor if needed will start on IV fluids. Encourage patient to increase oral intake. Blood pressure stable. Continue with home dose of Imdur and metoprolol. Appreciate repeat renal ultrasound for complete resolution of hydro utero nephrosis. Discharge plan: Plan to discharge back to SNF once patient has prior authorization approved. Attestations 2 Medical Necessity Statement*: Requires further hospitalization for management of sepsis in setting of C. difficile colitis, DUSTIN with bilateral hydroureteronephrosis in setting of urinary retention while safe discharge planning is sought Diagnoses Severe sepsis A41.9; R65.20 C. difficile colitis A04.72 DUSTIN (acute kidney injury) N17.9 UTI (urinary tract infection) N39.0 Hydroureteronephrosis N13.30 Urinary retention R33.9 Stage 3b chronic kidney disease N18.32 Chronic kidney disease stage: stage 3 (moderate) Chronic kidney disease stage 3 subtype: stage 3b (GFR 30-44) High anion gap metabolic acidosis E87.29
[2024-09-25 16:45] LABS: Glucose Point of Care 254 mg/dL (70-110)
[2024-09-25] MEDS: atorvastatin 40 mg Tablet 80 MG PO (20:30)
[2024-09-25] MEDS: finasteride 5 mg Tablet PO (20:30)
[2024-09-25 20:44] LABS: Glucose Point of Care 260 mg/dL (70-110)
[2024-09-26] VITALS (10 sets, daily range): BP systolic 123–138; BP diastolic 64–74; PULSE 65–85; RESP 17–18; TEMP 36.4–36.8; O2SAT 97–100; BMI 39.9
[2024-09-26 05:54] LABS: Alanine Aminotransferase 14 U/L (0-41); Albumin Level 2.8 g/dL (3.5-5.2); Alkaline Phosphatase 105 U/L (40-130); Anion Gap 14.8 (5-19); Aspartate Amino Transferase 15 U/L (0-40); Blood Urea Nitrogen 20 mg/dL (8-23); Calcium 8.2 mg/dL (8.5-10.5); Carbon Dioxide 20 mmol/L (22-29); Chloride 107 mmol/L (98-107); Creatinine Clr Calc Pharmacy 39.4965; Globulin 2.4 g/dL (1.3-4.6); Glucose 180 mg/dL (65-115); Osmolality Calculated 293 mOsm/kg (285-295); Potassium 3.8 mmol/L (3.5-5.1); Sodium 138 mmol/L (136-145); Total Bilirubin 0.2 mg/dL (0.15-1.2); Total Protein 5.2 g/dL (6.6-8.7)
[2024-09-26 06:23] LABS: Glucose Point of Care 222 mg/dL (70-110)
[2024-09-26] MEDS: sucralfate 1 gm/10 mL Oral Liq UDC PO ×4 (08:58→20:27)
[2024-09-26] MEDS: fidaxomicin 200 mg Tablet PO ×2 (08:59→17:36)
[2024-09-26] MEDS: gabapentin 100 mg Capsule 200 MG PO ×3 (08:59→20:28)
[2024-09-26] MEDS: aspirin 81 mg EC Tablet PO (08:59)
[2024-09-26] MEDS: isosorbide mononitrate ER 60 mg Tablet PO (08:59)
[2024-09-26] MEDS: pantoprazole DR 40 mg Tablet PO ×2 (08:59→17:37)
[2024-09-26] MEDS: ranolazine (12HR) 500 mg Tablet PO ×2 (08:59→17:37)
[2024-09-26] MEDS: tamsulosin 0.4 mg Capsule PO ×2 (08:59→17:37)
[2024-09-26] MEDS: metoprolol tartrate 50 mg Tablet PO ×2 (09:00→17:37)
[2024-09-26] MEDS: insulin lispro 100 unit/1 mL SUBCUT ×4 (09:00→21:32)
[2024-09-26 11:38] LABS: Glucose Point of Care 210 mg/dL (70-110)
--- NOTE | 2024-09-26 13:15 | P.PN_ITS ---
Subjective 2 Subjective: No acute vents overnight. Has remained hemodynamically stable and afebrile. States he continues to have diarrhea but the volume and the frequency have decreased. Otherwise denies any new complaints. Vitals/I&O/Wt Last Vital Signs Temp 97.6 F 09/26/24 11:53 Pulse 65 09/26/24 11:53 Resp 17 09/26/24 11:53 BP 123/64 09/26/24 11:53 Pulse Ox 100 09/26/24 11:53 O2 Del Method Room Air 09/26/24 11:53 O2 Flow Rate 2 09/21/24 09:46 09/25/24 09/26/24 09/26/24 22:59 06:59 14:59 Intake Total 840 / 840 480 / 480 Output Total 2100 / 2100 2150 / 4250 Balance -1260 / -1260 -2150 / -3410 480 / 480 Weight last 48 hrs Weight 69.626 kg Weight 70 kg Weight 68.663 kg Weight 68.855 kg Physical Exam 2 Narrative: General: No acute distress, AO x3, chronically sick appearing HEENT: PERRLA, pupils bilaterally equal and reactive Chest: Normal vesicular breath sounds, no added sounds, equal good air entry bilaterally CVS: S1-S2 regular, no murmurs, no tachycardia, no gallops, no rubs Abdomen: Soft, nontender, no organomegaly, bowel sounds present Neuro: No focal deficits, no facial deformity, AO x3, power 5/5 in all limbs Extremity: As below. 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 Continue with normal saline at 75 cc/h. Monitor blood pressures. Keep mean artery pressure 65 mmHg. Levophed as needed C. difficile positive. Follow-up blood culture, urine culture, appreciate procalcitonin trend. Bacterial antigen negative. Continue with IV meropenem with concerns of possible UTI. Discontinue vancomycin as MRSA swab was negative. (2) C. difficile colitis: C. difficile positive. Switch to Dificid. Continue 200 mg twice daily for next 10 days. Will possibly need to follow-up with infectious disease as an outpatient for possible referral for fecal transplant. (3) DUSTIN (acute kidney injury): Most likely in setting of severe sepsis along with concerns for obstructive nephropathy. CT on pelvis concerning for distended bladder along with bilateral hydroureteronephrosis. Will plan for renal ultrasound the next 48 hours. Monitor urine output. Creatinine slightly improving to 2.5. No electrolyte abnormality today. No metabolic acidosis. Continue with normal saline at 75 cc/h. Repeat BMP in afternoon. (4) UTI (urinary tract infection): Follow-up urine culture. (5) Hydroureteronephrosis: Most likely in setting of urinary bladder obstruction. Repeat renal ultrasound in 48 hours. (6) Urinary retention: Clayton catheterization. CT on pelvis as above. Continue with Flomax. Increased to 0.4 twice daily. Add finasteride. Patient would most likely needs to be discharged with Clayton catheter in place with advised to follow-up with urology as an outpatient. (7) Chronic kidney disease: Qualifiers: Chronic kidney disease stage: stage 3 (moderate) Chronic kidney disease stage 3 subtype: stage 3b (GFR 30-44) Qualified Code(s): N18.32 - Chronic kidney disease, stage 3b (8) High anion gap metabolic acidosis: Resolving. Continue to monitor. Plan Type 2 diabetes mellitus: A1c 7.6. Takes Lantus 5 units along with sliding scale at home. Continue with insulin sliding scale. Hypertension: Goal blood pressure less than 140/90 mmHg with mean over 65. Currently severe sepsis. Hold off on antihypertensive for now. Severe PVD: Associated with bilateral lower limb amputation. Continue with home dose of statin, Pradaxa. Carb consistent cardiac diet Protonix for PUD prophylaxis Lovenox for DVT prophylaxis Continue other chronic home medications including gabapentin 200 mg oral daily, aspirin, statin, bupropion, Pradaxa. Plan for the day: Continue with oral Dificid. Continues to have diarrhea but white count has normalized. Patient does not have any obvious reasons for sepsis. Most likely functional diarrhea. Add lactobacillus 4 times daily. DUSTIN continues to resolve. Continue with Clayton catheterization. IV fluids discontinued. Blood pressure stable. Continue with current metoprolol and isosorbide. Continue with current pain medications of Dilaudid 2 mg every 6 hours as needed along with gabapentin 200 mg 3 times daily. On a much higher dose of pain medications at home. For now we will not increase. Discharge plan: Plan to discharge back to SNF once patient has prior authorization approved. Attestations 2 Medical Necessity Statement*: Requires further hospitalization for management of diarrhea in setting of C. difficile colitis, acute kidney injury in setting of urinary retention while safe discharge planning and prior authorization for SNF is awaited Diagnoses Severe sepsis A41.9; R65.20 C. difficile colitis A04.72 DUSTIN (acute kidney injury) N17.9 UTI (urinary tract infection) N39.0 Hydroureteronephrosis N13.30 Urinary retention R33.9 Stage 3b chronic kidney disease N18.32 Chronic kidney disease stage: stage 3 (moderate) Chronic kidney disease stage 3 subtype: stage 3b (GFR 30-44) High anion gap metabolic acidosis E87.29
[2024-09-26 16:21] LABS: Glucose Point of Care 398 mg/dL (70-110)
[2024-09-26] MEDS: lactobacillus 1 Tablet 1 TAB PO ×2 (17:37→20:28)
[2024-09-26] MEDS: atorvastatin 40 mg Tablet 80 MG PO (20:28)
[2024-09-26] MEDS: finasteride 5 mg Tablet PO (20:28)
[2024-09-26 20:50] LABS: Glucose Point of Care 210 mg/dL (70-110)
[2024-09-27] VITALS (11 sets, daily range): BP systolic 116–160; BP diastolic 57–73; PULSE 67–80; RESP 15–18; TEMP 36.6–36.8; O2SAT 97–100
[2024-09-27 04:49] LABS: Alanine Aminotransferase 14 U/L (0-41); Albumin Level 2.7 g/dL (3.5-5.2); Alkaline Phosphatase 98 U/L (40-130); Anion Gap 13.3 (5-19); Aspartate Amino Transferase 12 U/L (0-40); Blood Urea Nitrogen 18 mg/dL (8-23); Calcium 8.2 mg/dL (8.5-10.5); Carbon Dioxide 22 mmol/L (22-29); Chloride 107 mmol/L (98-107); Creatinine Clr Calc Pharmacy 42.7315; Globulin 2.4 g/dL (1.3-4.6); Glucose 152 mg/dL (65-115); Osmolality Calculated 291 mOsm/kg (285-295); Potassium 4.3 mmol/L (3.5-5.1); Sodium 138 mmol/L (136-145); Total Bilirubin 0.3 mg/dL (0.15-1.2); Total Protein 5.1 g/dL (6.6-8.7)
[2024-09-27 06:27] LABS: Glucose Point of Care 168 mg/dL (70-110)
[2024-09-27] MEDS: insulin lispro 100 unit/1 mL SUBCUT ×4 (08:30→20:40)
[2024-09-27] MEDS: sucralfate 1 gm/10 mL Oral Liq UDC PO ×4 (08:30→20:40)
[2024-09-27] MEDS: gabapentin 100 mg Capsule 200 MG PO ×3 (08:31→20:40)
[2024-09-27] MEDS: isosorbide mononitrate ER 60 mg Tablet PO (08:32)
[2024-09-27] MEDS: metoprolol tartrate 50 mg Tablet PO ×2 (08:32→17:24)
[2024-09-27] MEDS: aspirin 81 mg EC Tablet PO (08:32)
[2024-09-27] MEDS: tamsulosin 0.4 mg Capsule PO ×2 (08:32→17:23)
[2024-09-27] MEDS: pantoprazole DR 40 mg Tablet PO ×2 (08:32→17:23)
[2024-09-27] MEDS: lactobacillus 1 Tablet 1 TAB PO ×4 (08:32→20:40)
[2024-09-27] MEDS: fidaxomicin 200 mg Tablet PO ×2 (08:32→17:23)
[2024-09-27] MEDS: ranolazine (12HR) 500 mg Tablet PO ×2 (08:32→17:23)
[2024-09-27] MEDS: lidocaine-prilocaine cream 5 gm 2 APPLIC TOPICAL (09:20)
--- NOTE | 2024-09-27 10:10 | PC.SOCIAL ---
IMM Update pg 2 of IMM Updated and reviewed w/ patient. Copy provided and copy dated, initialed and placed in chart.
[2024-09-27 10:46] LABS: Glucose Point of Care 252 mg/dL (70-110)
--- NOTE | 2024-09-27 12:03 | P.PN_ITS ---
Subjective 2 Subjective: Patient stated stated he had 1 semiformed bowel movement yesterday. He denies any further abdominal pain. He has a good appetite. He is anxious to return to physical therapy to help him with the slide board. Vitals/I&O/Wt Last Vital Signs Temp 98.1 F 09/27/24 11:18 Pulse 72 09/27/24 11:18 Resp 16 09/27/24 11:18 BP 116/57 09/27/24 11:18 Pulse Ox 99 09/27/24 11:18 O2 Del Method Room Air 09/27/24 11:18 O2 Flow Rate 2 09/21/24 09:46 09/26/24 09/27/24 09/27/24 22:59 06:59 14:59 Intake Total 960 / 1999 354 / 354 Output Total 925 / 925 Balance 960 / 1999 -925 / 1075 354 / 354 Weight last 48 hrs Weight 71 kg Weight 71 kg Weight 69.626 kg Weight 70 kg Physical Exam 2 Narrative: General: No acute distress, AO x3, chronically sick appearing Heart: S1-S2 regular, no murmurs, no tachycardia, no gallops, no rubs Lungs: Normal vesicular breath sounds, no added sounds, equal good air entry bilaterally Abdomen: Soft, nontender, no organomegaly, bowel sounds present Neuro: No focal deficits, no facial deformity, AO x3, power 5/5 in all limbs Extremity: Right AKA with vesna intact. Left BKA wound is healed. Urinary Catheter Management: Clayton: Cath Placed During This Visit: yes Reason for Continuing Indwelling Catheter: Acute Urinary Retention or Obstruction Urinary Catheter Date of Insertion: 09/21/24 Data 09/25/24 04:23 09/27/24 03:53 Micro: Microbiology 09/21/24 13:46 Blood Culture - Final Blood NO GROWTH AFTER 5 DAYS 09/21/24 13:44 Blood Culture - Final Blood NO GROWTH AFTER 5 DAYS A&P Assessment and plan (1) Severe sepsis: Resolved. (2) C. difficile colitis: C. difficile positive. Switch to Dificid. Continue 200 mg twice daily for next 10 days. Will possibly need to follow-up with infectious disease as an outpatient for possible referral for fecal transplant. (3) DUSTIN (acute kidney injury): Normal renal ultrasound. Patient has chronic kidney disease and over the past few months he has run with a serum creatinine of 1.6 to a high of 3.1 on admission. Today his creatinine is 1.5. (4) UTI (urinary tract infection): Suspected UTI however no growth on urine specimen dated 09/21/2024 antigens were also negative blood cultures negative (5) Urinary retention: Clayton catheterization. Continue with Flomax. Increased to 0.4 twice daily. Add finasteride. Patient would most likely needs to be discharged with Clayton catheter in place with advised to follow-up with urology as an outpatient. (6) Chronic kidney disease: Qualifiers: Chronic kidney disease stage: stage 3 (moderate) Chronic kidney disease stage 3 subtype: stage 3b (GFR 30-44) Qualified Code(s): N18.32 - Chronic kidney disease, stage 3b Plan Type 2 diabetes mellitus: A1c 7.6. Takes Lantus 5 units along with sliding scale at home. Continue with insulin sliding scale. Hypertension: Goal blood pressure less than 140/90 mmHg with mean over 65. Severe PVD: Associated with bilateral lower limb amputation. Continue with home dose of statin, Pradaxa. Carb consistent cardiac diet Protonix for PUD prophylaxis Lovenox for DVT prophylaxis Continue other chronic home medications including gabapentin 200 mg oral daily, aspirin, statin, bupropion, Pradaxa. Plan for the day: Patient is stable for discharge however needs authorization to return for physical therapy. Case management has a call out for a peer to peer. My phone number has been given and waiting for call. Discharge plan: Plan to discharge back to SNF once patient has prior authorization approved. Attestations 2 Medical Necessity Statement*: Patient had severe sepsis secondary to C. difficile colitis. Patient has been managed in the hospital for acute on chronic renal disease requiring IV fluids and medications for a difficult to treat C. difficile colitis. Patient is stable for discharge awaiting insurance authorization. Coding Level of Care Code Acute Code for [facility] Diagnoses Severe sepsis A41.9; R65.20 C. difficile colitis A04.72 DUSTIN (acute kidney injury) N17.9 UTI (urinary tract infection) N39.0 Urinary retention R33.9 Stage 3b chronic kidney disease N18.32 Chronic kidney disease stage: stage 3 (moderate) Chronic kidney disease stage 3 subtype: stage 3b (GFR 30-44)
[2024-09-27 16:51] LABS: Glucose Point of Care 212 mg/dL (70-110)
[2024-09-27 20:30] LABS: Glucose Point of Care 279 mg/dL (70-110)
[2024-09-27] MEDS: finasteride 5 mg Tablet PO (20:40)
[2024-09-27] MEDS: atorvastatin 40 mg Tablet 80 MG PO (20:40)
[2024-09-28] VITALS (7 sets, daily range): BP systolic 102–149; BP diastolic 56–70; PULSE 62–86; RESP 16–18; TEMP 36.5–36.8; O2SAT 95–100
[2024-09-28 06:35] LABS: Glucose Point of Care 181 mg/dL (70-110)
[2024-09-28] MEDS: tamsulosin 0.4 mg Capsule PO ×2 (09:20→17:21)
[2024-09-28] MEDS: sucralfate 1 gm/10 mL Oral Liq UDC PO ×4 (09:20→20:10)
[2024-09-28] MEDS: gabapentin 100 mg Capsule 200 MG PO ×3 (09:20→20:09)
[2024-09-28] MEDS: metoprolol tartrate 50 mg Tablet PO ×2 (09:21→17:22)
[2024-09-28] MEDS: pantoprazole DR 40 mg Tablet PO ×2 (09:21→17:22)
[2024-09-28] MEDS: fidaxomicin 200 mg Tablet PO ×2 (09:21→17:22)
[2024-09-28] MEDS: ranolazine (12HR) 500 mg Tablet PO ×2 (09:21→17:22)
[2024-09-28] MEDS: insulin lispro 100 unit/1 mL SUBCUT ×4 (09:22→20:51)
[2024-09-28] MEDS: aspirin 81 mg EC Tablet PO (09:22)
[2024-09-28] MEDS: lactobacillus 1 Tablet 1 TAB PO ×4 (09:23→20:09)
[2024-09-28] MEDS: isosorbide mononitrate ER 60 mg Tablet PO (09:32)
[2024-09-28 11:03] LABS: Glucose Point of Care 208 mg/dL (70-110)
--- NOTE | 2024-09-28 11:12 | PM.PN ---
Subjective Subjective: Patient states that he was able to transfer better from bed to wheelchair. Yesterday I was supposed to receive a peer to peer phone call from his insurance to verify continued need for skilled care. Will await transplant case manager assistance today otherwise patient will discharge tomorrow when is available to drive Vitals/I&O/Wt Last Vital Signs Temp 98.3 F 09/28/24 07:39 Pulse 86 09/28/24 10:00 Resp 18 09/28/24 10:00 BP 129/70 09/28/24 07:39 Pulse Ox 95 09/28/24 10:00 O2 Del Method Room Air 09/28/24 10:00 O2 Flow Rate 2 09/21/24 09:46 09/27/24 09/28/24 09/28/24 22:59 06:59 14:59 Intake Total 218 / 872 300 / 1172 536 / 536 Output Total 800 / 2650 1000 / 3650 Balance -582 / -1778 -700 / -2478 536 / 536 Weight last 48 hrs Weight 71.35 kg Weight 71 kg Weight 71 kg Physical Exam Narrative: General: No acute distress, AO x3, chronically sick appearing Heart: S1-S2 regular, no murmurs, no tachycardia, no gallops, no rubs Lungs: Normal vesicular breath sounds, no added sounds, equal good air entry bilaterally Abdomen: Soft, nontender, no organomegaly, bowel sounds present Neuro: No focal deficits, no facial deformity, AO x3, power 5/5 in all limbs Extremity: Right AKA with vesna intact. Left BKA wound is healed. Urinary Catheter Management: Clayton: Cath Placed During This Visit: yes Reason for Continuing Indwelling Catheter: Other Urinary Catheter Date of Insertion: 09/21/24 Data 09/25/24 04:23 09/27/24 03:53 A&P Assessment and plan (1) Severe sepsis: Resolved. (2) C. difficile colitis: C. difficile positive. Switch to Dificid. Continue 200 mg twice daily for 10 days. STOP date is 10/01/24. He will need 3 more full days after tonights dose. (3) DUSTIN (acute kidney injury): Normal renal ultrasound. Patient has chronic kidney disease and over the past few months he has run with a serum creatinine of 1.6 to a high of 3.1 on admission. Last creatinine is 1.5. pt now at baseline (4) UTI (urinary tract infection): Suspected UTI however no growth on urine specimen dated 09/21/2024 antigens were also negative blood cultures negative (5) Urinary retention: Clayton catheterization. Continue with Flomax. Increased to 0.4 twice daily. Add finasteride. Patient would most likely needs to be discharged with Clayton catheter in place with advised to follow-up with urology as an outpatient. (6) Chronic kidney disease: back to baseline Qualifiers: Chronic kidney disease stage: stage 3 (moderate) Chronic kidney disease stage 3 subtype: stage 3b (GFR 30-44) Qualified Code(s): N18.32 - Chronic kidney disease, stage 3b Plan Type 2 diabetes mellitus: A1c 7.6. Takes Lantus 5 units along with sliding scale at home. Continue with insulin sliding scale. Hypertension: mostly within goal. Severe PVD: Associated with bilateral lower limb amputation. Continue with home dose of statin, Pradaxa. Carb consistent cardiac diet Protonix for PUD prophylaxis Lovenox for DVT prophylaxis Continue other chronic home medications including gabapentin 200 mg oral daily, aspirin, statin, bupropion, Pradaxa. Plan for the day: I did not receive a call for a peer to peer for authorization to return to physical therapy. Case management was alerted and they will place phone call to determine if that can take place today otherwise patient's can pick him up tomorrow and take him home. Discharge plan: Plan to discharge back to SNF if authorization approved. Otherwise patient will discharge to home tomorrow and is able to drive him home Attestations Medical Necessity Statement*: Patient had severe sepsis secondary to C. difficile colitis. Patient has been managed in the hospital for acute on chronic renal disease requiring IV fluids and medications for a difficult to treat C. difficile colitis. Patient is stable for discharge awaiting insurance authorization. Coding Level of Care Code Acute Code for [facility] Diagnoses Severe sepsis A41.9; R65.20 C. difficile colitis A04.72 DUSTIN (acute kidney injury) N17.9 UTI (urinary tract infection) N39.0 Urinary retention R33.9 Stage 3b chronic kidney disease N18.32 Chronic kidney disease stage: stage 3 (moderate) Chronic kidney disease stage 3 subtype: stage 3b (GFR 30-44)
[2024-09-28 17:08] LABS: Glucose Point of Care 239 mg/dL (70-110)
[2024-09-28] MEDS: finasteride 5 mg Tablet PO (20:09)
[2024-09-28] MEDS: atorvastatin 40 mg Tablet 80 MG PO (20:09)
[2024-09-28 20:20] LABS: Glucose Point of Care 346 mg/dL (70-110)
[2024-09-29 03:40] VITALS: BP 125/66; PULSE 70; RESP 16; TEMP 36.6; O2SAT 97
[2024-09-29 06:23] LABS: Glucose Point of Care 176 mg/dL (70-110)
[2024-09-29 07:32] VITALS: BP 138/69; PULSE 68; RESP 17; TEMP 36.8; O2SAT 98
[2024-09-29 07:58] VITALS: PULSE 86; RESP 16; O2SAT 96
[2024-09-29] MEDS: insulin lispro 100 unit/1 mL SUBCUT (09:13)
[2024-09-29] MEDS: isosorbide mononitrate ER 60 mg Tablet PO (09:14)
[2024-09-29] MEDS: fidaxomicin 200 mg Tablet PO (09:14)
[2024-09-29] MEDS: lactobacillus 1 Tablet 1 TAB PO (09:14)
[2024-09-29] MEDS: ranolazine (12HR) 500 mg Tablet PO (09:14)
[2024-09-29] MEDS: aspirin 81 mg EC Tablet PO (09:15)
[2024-09-29] MEDS: gabapentin 100 mg Capsule 200 MG PO (09:15)
[2024-09-29] MEDS: pantoprazole DR 40 mg Tablet PO (09:15)
[2024-09-29] MEDS: metoprolol tartrate 50 mg Tablet PO (09:15)
[2024-09-29] MEDS: tamsulosin 0.4 mg Capsule PO (09:15)
[2024-09-29] MEDS: sucralfate 1 gm/10 mL Oral Liq UDC PO (09:16)
--- NOTE | 2024-09-29 09:27 | P.DS_ITS ---
Discharge Providers Date of Admission: 09/21/24 14:36 Date of Discharge: September 29, 2024 Attending Provider at Admission: Raul Urias MD Attending Provider at Discharge: Raul Lema Primary Care Provider: Bertha Perkins MD Diagnoses at Discharge Discharge Diagnosis (1) Severe sepsis: Status: Resolved (2) C. difficile colitis: Status: Acute (3) DUSTIN (acute kidney injury): Status: Resolved (4) UTI (urinary tract infection): Status: Ruled-out (5) Urinary retention: Status: Chronic (6) Chronic kidney disease: Status: Chronic Qualifiers: Chronic kidney disease stage: stage 3 (moderate) Chronic kidney disease stage 3 subtype: stage 3b (GFR 30-44) Qualified Code(s): N18.32 - Chronic kidney disease, stage 3b Reason for Visit Reason for Visit: Fever Hospital Course Hospital Course Very pleasant 74-year-old gentleman with history of peripheral artery disease, carotid disease, aortic valve stenosis, bilateral AKA, HTN, CKD, COPD, DM2, recurrent UTI, C. difficile, was admitted after presenting with fever, sepsis on presentation, with leukocytosis, tachycardia, fever, acute encephalopathy, DUSTIN, without evidence of infection at the stumps, blood cultures collected at presentation have remained negative. He was found to have C. difficile recurrence, for which he was started on fidaxomicin, with improving symptoms. Sepsis resolved. In case of further C. difficile recurrence, please refer to follow-up with infectious disease for consideration of fecal microbiota transplant. During hospitalization also found to have urinary retention, continue Flomax, finasteride. Clayton catheter for now maintained, will attempt voiding trial in 10 days. Follow-up with urology. Physical Exam Const: COMMON NORMALS: patient oriented x3 and alert GENERAL APPEARANCE: cooperative ORIENTATION/CONSCIOUSNESS: Yes awake HENMT: COMMON NORMALS: oropharynx normal Neck/C-Spine: COMMON NORMALS: no JVD Resp: COMMON NORMALS: normal respiratory effort and clear to auscultation bilaterally AUSCULTATION: clear to auscultation bilaterally Cardio: COMMON NORMALS: no JVD, regular rhythm, S1 normal heart sound present, S2 normal heart sound present and No murmurs present (Cardio) RHYTHM: regular rhythm HEART SOUNDS: S1 normal heart sound present and S2 normal heart sound present GI: COMMON NORMALS: Normal to inspection, nondistended, normoactive bowel sounds present, Soft to palpation and non-tender PALPATION: Yes Soft to palpation Extremity: COMMON NORMALS: no joint enlargement and no pedal edema NARRATIVE EXTREMITY EXAM: BL AKA Neuro: COMMON NORMALS: patient oriented x3 and moves all extremities SENSORIUM/ORIENTATION: Yes alert Skin: COMMON NORMALS: no rashes or lesions noted GENERAL SKIN EXAM: no rashes or lesions noted Urinary Catheter Management: Clayton: Cath Placed During This Visit: yes Reason for Continuing Indwelling Catheter: Other Urinary Catheter Date of Insertion: 09/21/24 Discharge Data Studies Completed and Pending Completed Studies During Hospitalization Category Date Time Status CT abdomen pelvis wo con [id number] Stat Cat Scan 09/21/24 13:21 Completed XR chest 1V portable [id number] Stat Exams 09/21/24 09:47 Completed US renal BI* [id number] Routine Ultrasound 09/24/24 09:12 Completed Pending at discharge Category Date Time Status COVID [SARS Covid-2 Antigen] Routine Lab 09/29/24 08:33 Uncollected Radiology Impressions Chest X-Ray 09/21/24 09:47 IMPRESSION: Pulmonary atelectasis or acute infiltrates within lower chest bilaterally. Abdomen/Pelvis CT 09/21/24 13:21 IMPRESSION: 1. Moderate proctocolitis. 2. Significant urinary bladder distension despite Clayton catheter placement, with mild circumferential urinary bladder wall thickening. Suspicious for Clayton malfunction and mild cystitis. 3. Bilateral symmetric hydroureteronephrosis without obstructing renal or ureteral stones. Most probably related to increased hydrostatic pressure from the urinary bladder distension. 4. Incidental findings as above. COMMENTS: Consistent with the [employer]'s Incidental Findings Committee white paper (J Am Shruthi Radiol 2017): For any incidental adrenal lesion greater than or equal to 1 cm but less than or equal to 4 cm classified in this report as benign, likely benign, or containing fat (including classification as an adenoma or myelolipoma), no follow-up imaging is recommended per consensus recommendations based on imaging criteria. Further lab evaluation could be pursued if warranted based on clinical findings. Renal Ultrasound 09/24/24 09:12 IMPRESSION: Normal renal ultrasound. Laboratory Results WBC 8.54 10^3/uL (3.29-11.43) 09/25/24 04:23 RBC 2.96 10^6/uL (3.85-5.65) L 09/25/24 04:23 Hgb 7.80 g/dL (11.27-16.99) L 09/25/24 04:23 Hct 24.8 % (37-53) L 09/25/24 04:23 MCV 83.8 fl (82-101) 09/25/24 04:23 MCH 26.4 pg (27-33) L 09/25/24 04:23 MCHC 31.5 g/dL (30-55) 09/25/24 04:23 RDW 18.0 % (12.1-15.1) H 09/25/24 04:23 Plt Count 286 10^3/cmm (157-399) 09/25/24 04:23 MPV 10.0 fL (7.4-10.4) 09/25/24 04:23 Neut % (Auto) 54.2 % 09/25/24 04:23 Lymph % (Auto) 31.7 % 09/25/24 04:23 [place] % (Auto) 7.6 % 09/25/24 04:23 Eos % (Auto) 4.2 % 09/25/24 04:23 Baso % (Auto) 0.8 % 09/25/24 04:23 Neut # (Auto) 4.62 10^3/uL (1.8-7.7) 09/25/24 04:23 Lymph # (Auto) 2.7 10^3/uL (0.8-4.8) 09/25/24 04:23 [place] # (Auto) 0.7 10^3/uL (0.2-0.9) 09/25/24 04:23 Eos # (Auto) 0.4 10^3/uL (0.0-0.8) 09/25/24 04:23 Baso # (Auto) 0.1 10^3/uL (0.0-0.1) 09/25/24 04:23 Nucleated RBC % (auto) 0 % 09/25/24 04:23 Nucleated RBCs # 0.0 /100WBC 09/25/24 04:23 ESR 28 mm/hr (0-10) H 09/21/24 10:37 Sodium 138 mmol/L (136-145) 09/27/24 03:53 Potassium 4.3 mmol/L (3.5-5.1) 09/27/24 03:53 Chloride 107 mmol/L (98-107) 09/27/24 03:53 Carbon Dioxide 22 mmol/L (22-29) 09/27/24 03:53 Anion Gap 13.3 (5-19) 09/27/24 03:53 BUN 18 mg/dL (8-23) 09/27/24 03:53 Creatinine 1.5 mg/dL (0.7-1.2) H 09/27/24 03:53 GFR Calculation Not Reportable 09/27/24 03:53 Glucose 152 mg/dL (65-115) H 09/27/24 03:53 POC Glucose 176 mg/dL (70-110) H 09/29/24 06:17 Estimat Average Glucose 171 09/22/24 04:27 Hemoglobin A1c 7.6 % (4.0-6.0) H 09/22/24 04:27 Calculated Osmolality 291 mOsm/kg (285-295) 09/27/24 03:53 Lactic Acid 1.5 mmol/L (0.5-2.2) 09/21/24 10:23 Calcium 8.2 mg/dL (8.5-10.5) L 09/27/24 03:53 Phosphorus 4.1 mg/dL (2.5-4.5) 09/22/24 04:27 Magnesium 2.0 mg/dL (1.7-2.3) 09/22/24 04:27 Iron 11 ug/dL (59-158) L 09/21/24 10:37 TIBC 155 mcg/dl 09/21/24 10:37 % Saturation 7.0 % (20-50) L 09/21/24 10:37 Unsat Iron Binding 144 ug/dL (112-347) 09/21/24 10:37 Total Bilirubin 0.3 mg/dL (0.15-1.2) 09/27/24 03:53 AST 12 U/L (0-40) 09/27/24 03:53 ALT 14 U/L (0-41) 09/27/24 03:53 Alkaline Phosphatase 98 U/L (40-130) 09/27/24 03:53 C-Reactive Protein 139.0 mg/L (0.0-4.9) H 09/21/24 10:37 Total Protein 5.1 g/dL (6.6-8.7) L 09/27/24 03:53 Albumin 2.7 g/dL (3.5-5.2) L 09/27/24 03:53 Globulin 2.4 g/dL (1.3-4.6) 09/27/24 03:53 Triglycerides 129 mg/dL (0-150) 09/22/24 04:27 Cholesterol 82 mg/dL (0-200) 09/22/24 04:27 LDL Cholesterol, Calc 22 mg/dL (50-129) L 09/22/24 04:27 HDL Cholesterol 34 mg/dL (60-100) L 09/22/24 04:27 LDL/HDL Ratio 0.65 RATIO (0.00-3.22) 09/22/24 04:27 Cholesterol/HDL Ratio 2.41 mg/dL (1.0-5.00) 09/22/24 04:27 Lipase 8 U/L (13-60) L 09/21/24 10:23 Vitamin B12 880 pg/mL (232-1245) 09/21/24 10:37 Folate > 20.0 ng/mL (4.5-32.2) 09/22/24 04:27 Procalcitonin 0.71 ng/mL (0-0.5) H 09/22/24 04:27 Urine Color Yellow (Yellow) 09/21/24 11:29 Urine Appearance Turbid (CLEAR) A 09/21/24 11:29 Urine pH 5.5 (5-7) 09/21/24 11:29 Ur Specific [place] 1.015 (1.005-1.030) 09/21/24 11:29 Urine Protein 2+ (Negative) A 09/21/24 11:29 Urine Glucose (UA) 3+ (Normal) H 09/21/24 11:29 Urine Ketones Negative (Negative) 09/21/24 11: Urine Blood 2+ (Negative) A 09/21/24 11:29 Urine Nitrate Negative (Negative) 09/21/24 11: Urine Bilirubin Negative (Negative) 09/21/24 11:29 Urine Urobilinogen 0.2 mg/dL (Negative) 09/21/24 11:29 Ur Leukocyte Esterase 2+ (Negative) A 09/21/24 11:29 Urine RBC 0-2 /hpf (0-2) 09/21/24 11:29 Urine WBC >100 /hpf (0-5) H 09/21/24 11:29 Ur Squamous Epith Cells 0-5 /hpf (0-5) 09/21/24 11:29 Amorphous Sediment 1+ /hpf 09/21/24 11:29 Urine Bacteria None seen /hpf (NONE) 09/21/24 11:29 Hyaline Casts 5.77 /lpf 09/21/24 11:29 Urine Yeast 1+ /hpf H 09/21/24 11:29 Nasal MRSA (PCR) Not detected (Negative) 09/21/24 15:44 Vancomycin Trough 13.7 ug/mL (10-15) 09/22/24 14:40 Adenovirus (PCR) Not detected (NOT DETECT) 09/21/24 10:37 C. pneumoniae DNA (PCR) Not detected (NOT DETECT) 09/21/24 10:37 C. difficile (PCR) Positive (Negative) H 09/21/24 14:44 Coronavirus (PCR) Cancelled 09/21/24 10:37 Coronavirus 229E (PCR) Not detected (NOT DETECT) 09/21/24 10:37 Human Metapneumovir PCR Not detected (NOT DETECT) 09/21/24 10:37 Influenza A (H1) PCR Not detected (NOT DETECT) 09/21/24 10:37 Influenza A (PCR) Cancelled 09/21/24 10:37 Influ A (H1/09) PCR Not detected (NOT DETECT) 09/21/24 10:37 Influenza A (H3) PCR Not detected (NOT DETECT) 09/21/24 10:37 Influenza Type A (PCR) Not detected (NOT DETECT) 09/21/24 10:37 Influenza Type B (PCR) Cancelled 09/21/24 10:37 Influenza Type B (PCR) Not detected (NOT DETECT) 09/21/24 10:37 M. pneumoniae (PCR) Not detected (NOT DETECT) 09/21/24 10:37 Parainfluenza 1 (PCR) Not detected (NOT DETECT) 09/21/24 10:37 Parainfluenza 2 (PCR) Not detected (NOT DETECT) 09/21/24 10:37 Parainfluenza 3 (PCR) Not detected (NOT DETECT) 09/21/24 10:37 Parainfluenza 4 (PCR) Not detected (NOT DETECT) 09/21/24 10:37 RSV (PCR) Cancelled 09/21/24 10:37 RSV Type A (PCR) Not detected (NOT DETECT) 09/21/24 10:37 RSV Type B (PCR) Not detected (NOT DETECT) 09/21/24 10:37 Entero/Rhino (PCR) Not detected (NOT DETECT) 09/21/24 10:37 SARS-CoV-2 (PCR) Not detected (NOT DETECT) 09/21/24 10:37 Vitals Last Vital Signs Temp 98.2 F 09/29/24 07:32 Pulse 86 09/29/24 07:58 Resp 16 09/29/24 07:58 BP 138/69 09/29/24 07:32 Pulse Ox 96 09/29/24 07:58 O2 Del Method Room Air 09/29/24 07:58 O2 Flow Rate 2 09/21/24 09:46 Discharge Plan Discharge Patient Disposition: Xfer SNF Condition: Stable Prescriptions: New finasteride 5 mg Tablet 5 mg PO BEDTIME Qty: 90 0RF Dificid 200 mg Tablet 200 mg PO BID Qty: 5 0RF Continued Linzess 145 mcg capsule 145 mcg PO DAILY aspirin [Adult Aspirin Regimen] 81 mg tablet,delayed release (DR/EC) 81 mg PO DAILY metoclopramide HCl [Reglan] 10 mg tablet 10 mg PO TID PRN (Reason: Nausea And Vomiting) cetirizine [Zyrtec] 10 mg tablet 10 mg PO DAILY montelukast [Singulair] 10 mg tablet 10 mg PO DAILY Jardiance 10 mg tablet 10 mg PO DAILY metoprolol tartrate 50 mg tablet 50 mg PO BID Qty: 180 3RF Pradaxa 150 mg capsule 150 mg PO BID Qty: 180 3RF Hold Instructions: Resume on 07/04/21. May restart this medicine tomorrow morning atorvastatin [Lipitor] 80 mg tablet 80 mg PO DAILY Qty: 90 3RF ranolazine 500 mg tablet extended release 12 hr 500 mg PO BID Qty: 180 3RF levocetirizine 5 mg tablet 5 mg PO QPM sucralfate 100 mg/mL Suspension 10 ml PO QID Rx Instructions: swish in mouth and swallow; use after food/drink tamsulosin 0.4 mg Capsule 0.4 mg PO DAILY insulin aspart U-100 100 unit/mL Solution See Rx Instructions .ROUTE .COMPLEX Rx Instructions: sliding scale 150-200 =0 201-250= 2 251-300=4 301-350=6 351-400=8 with meals bisacodyl [Dulcolax (bisacodyl)] 10 mg Suppository 10 mg WI DAILY PRN (Reason: Constipation) pantoprazole 40 mg Tablet,Delayed Release (Dr/Ec) 40 mg PO BID ferrous sulfate 325 mg (65 mg iron) Tablet 325 mg PO BID bupropion HCl 75 mg Tablet 75 mg PO DAILY nitroglycerin 0.4 mg Tablet, Sublingual 0.4 mg SUBLINGUAL Q5M PRN (Reason: Chest Pain) Rx Instructions: do not exceed 3 doses per episode bisacodyl [Dulcolax (bisacodyl)] 5 mg Tablet,Delayed Release (Dr/Ec) 10 mg PO DAILY PRN (Reason: Constipation) albuterol sulfate 90 mcg/actuation Hfa Aerosol Inhaler 2 puff INHALATION DAILY PRN (Reason: Shortness Of Breath) hydromorphone 4 mg Tablet 4 mg PO Q4H PRN (Reason: Pain) PNV cmb#[id number]-ferrous fumarate-FA [] 28 mg iron- 800 mcg Tablet 1 tab PO DAILY insulin glargine 100 unit/mL Solution 5 unit SUBCUT QPM Qty: 10 0RF isosorbide mononitrate 60 mg tablet extended release 24 hr 60 mg PO DAILY Qty: 180 3RF magnesium oxide 400 mg magnesium capsule 400 mg PO BID Qty: 20 0RF ondansetron HCl 4 mg Tablet 4 mg PO Q6H PRN (Reason: Nausea And Vomiting) Changed gabapentin 600 mg Tablet 300 mg PO TID Qty: 1 0RF Fleet Enema 19-7 gram/118 mL Enema 118 ml [place] DAILY PRN (Reason: Constipation) Qty: 1 0RF Rx Instructions: Changed to as needed Discontinued nifedipine 30 mg Tablet Extended Release 24hr 60 mg PO DAILY Qty: 30 0RF amoxicillin-pot clavulanate 875-125 mg Tablet 1 tab PO BID Discharge Orders: Discharge Order (Routine); Ordered 09/29/24 Ordered By: Raul Lema Referrals: Bertha Perkins MD [Primary Care Provider] - 4-7 days Discharge Diet: Diabetic Discharge Activity: Increase activity as tolerated and As per PT/OT instructions Patient Instructions: Finasteride (By mouth), Fidaxomicin (By mouth), Altered Mental Status (ED), Opioid Safety Activity Restrictions/Additional Instructions: Please refer for follow-up with urology. Continue treatment with fidaxomicin for C. difficile colitis. Follow-up with primary provider for reassessment. In case of additional recurrence please refer for follow-up with infectious disease for consideration of fecal microbiota transplant. Maintain Clayton catheter in place. Continue Flomax, finasteride. Attempt voiding trial in 10 days. Follow-up with urology. Follow-up renal function to reassess after DUSTIN on CKD. Discharge Attestations Time Spent in Discharge Care*: greater than 30 min Quality Metrics Clinical Quality Measures [ No reported AMI, CVA or VTE this stay] Coding Level of Care Code 87073 Total time (in minutes) for Discharge: 45 Diagnoses Severe sepsis A41.9; R65.20 C. difficile colitis A04.72 DUSTIN (acute kidney injury) N17.9 UTI (urinary tract infection) N39.0 Urinary retention R33.9 Stage 3b chronic kidney disease N18.32 Chronic kidney disease stage: stage 3 (moderate) Chronic kidney disease stage 3 subtype: stage 3b (GFR 30-44)
--- NOTE | 2024-09-29 09:59 | PC.SOCIAL ---
IMM Update pg 2 of IMM Updated and reviewed w/ patient. Copy provided and copy dated, initialed and placed in chart.
[2024-09-29 10:25] VITALS: BP 138/69; PULSE 68; RESP 17; TEMP 36.8; O2SAT 98
[2024-09-29 10:45] LABS: Glucose Point of Care 191 mg/dL (70-110)
--- NOTE | 2024-09-29 11:02 | PC.NURSE ---
Clayton catheter changed at 1005 due to catheter leaking. Report called to Azalia Velez at 1025 to [facility]. IV removed with catheter tip intact at 1055.
[2024-09-29 11:19] LABS: SARS Covid-2 Antigen negative (Negative)
== END 2024-09-29 11:21 | disposition home or self-care (01) | DRG 871 ==
LOC: ER 13:30 → ICU 14:37 → MEDSURG 09-22 14:23
PROVIDERS: Internal Medicine; Admitting Provider Student in an Organized Health Care Education/Training Program; Emergency Provider Family Medicine; PCP Internal Medicine; Visit Provider Internal Medicine
DX: A41.9 Sepsis, unspecified organism (principal); G93.41 Metabolic encephalopathy; A04.71 Enterocolitis due to Clostridium difficile, recurrent; N17.9 Acute kidney failure, unspecified; N13.30 Unspecified hydronephrosis; E87.20 Acidosis, unspecified; R65.20 Severe sepsis without septic shock; R33.9 Retention of urine, unspecified; E11.22 Type 2 diabetes mellitus with diabetic chronic kidney disease; I12.9 Hypertensive chronic kidney disease with stage 1 through stage 4 chronic kidney disease, or unspecified chronic kidney disease; E11.51 Type 2 diabetes mellitus with diabetic peripheral angiopathy without gangrene; E11.43 Type 2 diabetes mellitus with diabetic autonomic (poly)neuropathy; N18.32 Chronic kidney disease, stage 3b; I35.0 Nonrheumatic aortic (valve) stenosis; F17.210 Nicotine dependence, cigarettes, uncomplicated; N40.1 Benign prostatic hyperplasia with lower urinary tract symptoms; Z89.612 Acquired absence of left leg above knee; Z89.611 Acquired absence of right leg above knee; Z87.440 Personal history of urinary (tract) infections; Z79.82 Long term (current) use of aspirin; Z79.4 Long term (current) use of insulin; Z79.84 Long term (current) use of oral hypoglycemic drugs
CPT/HCPCS: 36415; 36416; 51702; 71045; 74176; 76770; 80048; 80053; 80061; 80202; 81001; 82274; 82607; 82746; 82962; 83036; 83540; 83550; 83605; 83690; 83735; 84100; 84145; 85025; 85651; 86140; 86403; 87040; 87086; 87426; 87486; 87493; 87581; 87633; 93005; 94664; 96365; 96372; 96375; 97110; 97161; 97167; 97530; 97535; 99285; J1815; J2185; J3372; J7030

== ENCOUNTER → 2024-12-22 08:57 | Outpatient (BNVA) | payer MEDICARE, SELFPAY | PROVIDERS: PCP Internal Medicine; Visit Provider Internal Medicine Cardiovascular Disease | DX: I25.10 Atherosclerotic heart disease of native coronary artery without angina pectoris (principal); I65.21 Occlusion and stenosis of right carotid artery; I12.9 Hypertensive chronic kidney disease with stage 1 through stage 4 chronic kidney disease, or unspecified chronic kidney disease; N18.32 Chronic kidney disease, stage 3b; F17.210 Nicotine dependence, cigarettes, uncomplicated; I73.9 Peripheral vascular disease, unspecified; E78.5 Hyperlipidemia, unspecified; I35.0 Nonrheumatic aortic (valve) stenosis; Z86.39 Personal history of other endocrine, nutritional and metabolic disease; Z79.4 Long term (current) use of insulin; Z79.01 Long term (current) use of anticoagulants; Z79.82 Long term (current) use of aspirin | CPT/HCPCS: 99214 ==